=== PATIENT | female | born 1960 | race Two or more races ===

== ENCOUNTER → 2020-06-01 09:44 | Outpatient (BNVA) | payer OTHER, SELFPAY | PROVIDERS: PCP Physician Assistant; Visit Provider Dietitian, Registered ==

== ENCOUNTER 2020-06-02 11:01 | Outpatient (REF) | payer OTHER, SELFPAY ==
[2020-06-07 06:02] LABS: HPV mRNA E6/E7 rflx Not Detected (Not Detected)
== END 2020-06-02 11:02 | disposition home or self-care (01) ==
LOC: HO.LAB 11:01
PROVIDERS: PCP Physician Assistant; Visit Provider Advanced Practice Midwife
DX: Z01.419 Encounter for gynecological examination (general) (routine) without abnormal findings (principal); Z78.0 Asymptomatic menopausal state; Z11.51 Encounter for screening for human papillomavirus (HPV); E11.9 Type 2 diabetes mellitus without complications; E66.3 Overweight; E78.00 Pure hypercholesterolemia, unspecified; N64.4 Mastodynia; Z68.25 Body mass index [BMI] 25.0-25.9, adult
CPT/HCPCS: 36415; 87624; 88142

== ENCOUNTER → 2020-07-06 09:22 | Outpatient (BNVA) | payer OTHER, SELFPAY | PROVIDERS: PCP Physician Assistant; Visit Provider Dietitian, Registered ==

== ENCOUNTER 2020-07-11 14:22 | Outpatient (REF) | payer OTHER, SELFPAY ==
--- NOTE | ~2020-07-11 | MM_ITS ---
EXAMINATION: MM DIAGNOSTIC DIGITAL BREAST TOMOSYNTHESIS, LEFT US DIAGNOSTIC ULTRASOUND BREAST, LEFT CLINICAL INFORMATION: Enlarged painful nipple left breast. Patient also radiating around side of breast to back. Prior history reduction mammoplasty 2007. The lifetime risk of breast cancer based on the Tyrer-Cuzick Model is 5%. COMPARISON: Mammography: 12/09/2019, 11/26/2018, 10/13/2017 TECHNIQUE: Digital breast tomosynthesis is performed in both the craniocaudal and mediolateral oblique views along with computer-aided detection (CAD). Synthesized 2D images are generated from the tomosynthesis. Ultrasound left breast is targeted to the area of clinical concern retroareolar and periareolar region. Grayscale imaging and color Doppler are performed without and with harmonics. FINDINGS: There are scattered areas of fibroglandular density (ACR BI-RADS breast composition Category b). Breast tissue composition borders on predominantly fatty. Parenchymal pattern is similar to prior exams. There is no developing density or interval mass or abnormal calcifications. There is no interval skin thickening or coarsening of the Mauri's ligaments. Ultrasound left breast demonstrates no cystic or solid mass, architectural abnormality, or focal duct ectasia. No intradermal lesion or skin thickening or edema tracking in soft tissue planes. Results are discussed with the patient at time of visit. MM/MM tomosynthesis diagnostic LT IMPRESSION: 1. No mammographic evidence of malignancy or inflammatory changes. 2. Unremarkable targeted left breast ultrasound. ASSESSMENT: BI-RADS 1: Negative RECOMMENDATION: 1. Patient should be managed based on the clinical impression. If clinically indicated, further evaluation may be considered with surgical consult. Decision to proceed with biopsy should be based on clinical grounds and degree of clinical concern. 2. Otherwise, routine annual screening mammography. This patient's information was entered into a reminder system with a target due date for their next mammogram.
== END 2020-07-11 14:23 | disposition home or self-care (01) ==
LOC: HO.MAMMO 14:22
PROVIDERS: PCP Advanced Practice Midwife; Visit Provider Advanced Practice Midwife
DX: N64.4 Mastodynia (principal)
CPT/HCPCS: 76642; 77061; 77065

== ENCOUNTER → 2020-07-18 12:17 | Outpatient (BNVA) | payer OTHER, SELFPAY | PROVIDERS: PCP Physician Assistant; Visit Provider Advanced Practice Midwife ==

== ENCOUNTER 2020-08-03 12:42 | Outpatient (REF) | payer OTHER, SELFPAY ==
[2020-08-03 13:18] LABS: MANUAL DIFF FLAG NO
[2020-08-03 13:26] LABS: Basophils Percent Auto 0.7 % (0-2); Eosinophils Percent Auto 0.5 % (0-4); Hematocrit 37.6 % (37-47); Imm Gran Abs Auto 0.01 X10*3/uL (0.00-0.03); Imm Gran Pct Auto 0.2 % (0.0-0.4); Lymphocytes Absolute Auto 1.1 X10*3/uL (1.2-4.9); Lymphocytes Percent Auto 25.3 % (20-40); Mean Corpuscular HGB Conc 31.9 g/dl (31.0-35.0); Mean Corpuscular Hemoglobin 29.7 pg (27.0-33.0); Mean Corpuscular Volume 93.1 fL (80-98); Mean Platelet Volume 10.8 fL (9.4-12.3); Monocytes Absolute Auto 0.4 X10*3/uL (0.1-1.2); Monocytes Percent Auto 8.3 % (2-11); Neutrophils Absolute Auto 2.8 X10*3/uL (2.0-8.3); Platelet Count 178 X10*3/uL (160-400); Red Blood Count 4.04 X10*6/uL (4.20-5.50); White Blood Count 4.2 X10*3/uL (4.8-10.8)
[2020-08-03 13:50] LABS: Alanine Aminotransferase 11 U/L (0-31); Albumin Level 4.2 g/dL (3.5-5.0); Alkaline Phosphatase 40 U/L (39-117); Anion Gap 11 (12-20); Aspartate Amino Transferase 16 U/L (5-31); Bilirubin Total 0.4 mg/dL (0.0-1.0); Blood Urea Nitrogen 12 mg/dL (9-16); Calcium 9.1 mg/dL (8.4-10.2); Carbon Dioxide 31 mmol/L (22-29); Chloride 106 mmol/L (96-108); Cholesterol 217 mg/dL; Estimated Glomerular Filt Rate > 60; Glucose Fasting 145 mg/dL (60-99); HDL Cholesterol 45 mg/dL; LDL Cholesterol Calculated 146 mg/dl; Potassium 4.2 mmol/L (3.3-5.1); Sodium 144 mmol/L (135-145); Total Protein 7.1 g/dL (6.5-8.0); Triglycerides 131 mg/dL
[2020-08-03 14:12] LABS: TSH reflex Free T4 0.71 uIU/mL (0.32-4.0)
[2020-08-03 14:23] LABS: Estimated Average Glucose 140 mg/dL; Folate 8.4 ng/mL (> or = 4.0); Hemoglobin A1C 150.6069 umol/L; Hemoglobin A1c % 6.5 %; Vitamin B12 1842 pg/mL (200-900)
[2020-08-03 14:28] LABS: Glucose Urine UA NEG (NEG); Leukocyte Esterase Urine NEG (NEG); Nitrite Urine NEG (NEG); Urine Blood NEG (NEG); Urine Ketones NEG (NEG); Urine Protein NEG (NEG-TRACE)
[2020-08-03 14:42] LABS: Appearance Urine CLEAR; Color Urine YELLOW
[2020-08-03 14:50] LABS: Creatinine Urine 53.66 mg/dL; Microalbum/Creatinine Ratio Ur 9.3 ug/mg cr
[2020-08-04 09:09] LABS: Syphilis Screen Reactive (Nonreactive)
[2020-08-12 07:25] LABS: RPR Quantitative Non-Reactive (Nonreactive)
[2020-08-12 07:26] LABS: T.Pallidum Particle Agg Test Reactive (Nonreactive)
== END 2020-08-03 12:43 | disposition home or self-care (01) ==
LOC: HO.LAB 12:42
PROVIDERS: Internal Medicine; Absent Provider Psychiatry & Neurology Neurology; PCP Physician Assistant; Visit Provider Physician Assistant
DX: E11.9 Type 2 diabetes mellitus without complications (principal); E78.00 Pure hypercholesterolemia, unspecified; K21.9 Gastro-esophageal reflux disease without esophagitis; E55.9 Vitamin D deficiency, unspecified; G31.84 Mild cognitive impairment of uncertain or unknown etiology
CPT/HCPCS: 36415; 80053; 80061; 81003; 82043; 82306; 82607; 82746; 83036; 84443; 85025; 86592; 86780

== ENCOUNTER → 2020-08-10 12:03 | Outpatient (BNVA) | payer OTHER, SELFPAY | PROVIDERS: PCP Physician Assistant; Visit Provider Dietitian, Registered | DX: E11.9 Type 2 diabetes mellitus without complications (principal) | CPT/HCPCS: 97803 ==

== ENCOUNTER → 2020-09-13 13:20 | Outpatient (BNVA) | payer OTHER, SELFPAY | PROVIDERS: PCP Physician Assistant; Visit Provider Internal Medicine | DX: Z86.19 Personal history of other infectious and parasitic diseases (principal) | CPT/HCPCS: 99202 ==

== ENCOUNTER 2020-12-14 10:26 | Outpatient (REF) | payer OTHER, SELFPAY ==
--- NOTE | ~2020-12-14 | MM_ITS ---
EXAMINATION: MM SCREENING DIGITAL BREAST TOMOSYNTHESIS, BILATERAL CLINICAL INFORMATION: Screening. Asymptomatic. History reduction mammoplasty, 2008. The lifetime risk of breast cancer based on the Tyrer-Cuzick Model is 5%. COMPARISON: Mammography: 07/11/2020, 12/09/2019, 11/26/2018, 10/13/2017 TECHNIQUE: Digital breast tomosynthesis is performed in both the craniocaudal and mediolateral oblique views along with computer-aided detection (CAD). Synthesized 2D images are generated from the tomosynthesis. FINDINGS: There are scattered areas of fibroglandular density (ACR BI-RADS breast composition Category b). There are no significant masses, abnormal calcifications, or other abnormalities. Parenchymal pattern is similar to prior studies. No significant changes. MM/MM tomosynthesis screening BI IMPRESSION: No mammographic evidence of malignancy. ASSESSMENT: BI-RADS 1: Negative RECOMMENDATION: Routine annual mammography screening. This patient's information was entered into a reminder system with a target due date for their next mammogram.
[2020-12-14 11:19] LABS: Hematocrit 38.5 % (37-47); Hemoglobin 12.6 g/dl (12.0-16.0); Mean Corpuscular HGB Conc 32.7 g/dl (31.0-35.0); Mean Corpuscular Hemoglobin 29.3 pg (27.0-33.0); Mean Corpuscular Volume 89.5 fL (80-98); Mean Platelet Volume 10.2 fL (9.4-12.3); Platelet Count 188 X10*3/uL (160-400); Red Cell Distribution Width 12.3 % (11.0-16.0); White Blood Count 5.2 X10*3/uL (4.8-10.8)
[2020-12-14 11:28] LABS: Estimated Average Glucose 206 mg/dL; Hemoglobin A1c % 8.8 %
[2020-12-14 12:02] LABS: Alanine Aminotransferase 11 U/L (0-31); Albumin Level 4.2 g/dL (3.5-5.0); Alkaline Phosphatase 54 U/L (39-117); Anion Gap 14 (12-20); Aspartate Amino Transferase 16 U/L (5-31); Bilirubin Total 0.5 mg/dL (0.0-1.0); Blood Urea Nitrogen 13 mg/dL (9-16); Calcium 9.9 mg/dL (8.4-10.2); Carbon Dioxide 27 mmol/L (22-29); Chloride 105 mmol/L (96-108); Cholesterol 213 mg/dL; Estimated Glomerular Filt Rate > 60; Glucose Fasting 202 mg/dL (60-99); HDL Cholesterol 40 mg/dL; LDL Cholesterol Calculated 145 mg/dl; Potassium 4.3 mmol/L (3.3-5.1); Sodium 142 mmol/L (135-145); Total Protein 7.2 g/dL (6.5-8.0); Triglycerides 144 mg/dL
[2020-12-14 12:18] LABS: TSH reflex Free T4 0.44 uIU/mL (0.32-4.0)
== END 2020-12-14 10:27 | disposition home or self-care (01) ==
LOC: HO.MAMMO 10:26
PROVIDERS: Absent Provider Physician Assistant; PCP Physician Assistant; Visit Provider Physician Assistant
DX: Z12.31 Encounter for screening mammogram for malignant neoplasm of breast (principal); E11.9 Type 2 diabetes mellitus without complications; I10 Essential (primary) hypertension
CPT/HCPCS: 36415; 77063; 77067; 80053; 80061; 83036; 84443; 85027

== ENCOUNTER 2021-03-30 10:38 | Outpatient (REF) | payer OTHER, SELFPAY ==
--- NOTE | ~2021-03-30 | XR_ITS ---
EXAMINATION: XR SHOULDER, LEFT CLINICAL INFORMATION: Left shoulder pain COMPARISON: None TECHNIQUE: AP external rotation, Grashey, scapular Y, and axillary views of the left shoulder. FINDINGS: The bones and soft tissues are normal. No fracture. Glenohumeral and acromioclavicular alignment is anatomic with normal joint space. No abnormal soft tissue calcifications. XR/XR shoulder LT 1V IMPRESSION: Normal left shoulder.
[2021-03-30 10:55] LABS: Hematocrit 38.6 % (37.0-47.0); Hemoglobin 12.4 g/dl (12.0-16.0); Mean Corpuscular HGB Conc 32.1 g/dl (31.0-35.0); Mean Corpuscular Hemoglobin 29.5 pg (27.0-33.0); Mean Corpuscular Volume 91.7 fL (80.0-98.0); Mean Platelet Volume 10.5 fL (9.4-12.3); Platelet Count 187 X10*3/uL (160-400); Red Blood Count 4.21 X10*6/uL (4.20-5.50); Red Cell Distribution Width 12.6 % (11.0-16.0); White Blood Count 4.6 X10*3/uL (4.8-10.8)
[2021-03-30 11:53] LABS: Creatinine Urine 40.62 mg/dL; Microalbum/Creatinine Ratio Ur 24.6 ug/mg cr
[2021-03-30 12:01] LABS: Estimated Average Glucose 177 mg/dL; Hemoglobin A1c % 7.8 %
[2021-03-30 12:02] LABS: Alanine Aminotransferase 10 U/L (0-31); Albumin Level 3.9 g/dL (3.5-5.0); Alkaline Phosphatase 49 U/L (39-117); Anion Gap 12 (12-20); Aspartate Amino Transferase 16 U/L (5-31); Bilirubin Total 0.3 mg/dL (0.0-1.0); Blood Urea Nitrogen 12 mg/dL (9-16); Calcium 9.3 mg/dL (8.4-10.2); Carbon Dioxide 26 mmol/L (22-29); Chloride 106 mmol/L (96-108); Cholesterol 215 mg/dL; Estimated Glomerular Filt Rate > 60; Glucose Fasting 178 mg/dL (60-99); HDL Cholesterol 38 mg/dL; LDL Cholesterol Calculated 149 mg/dl; Potassium 4.1 mmol/L (3.3-5.1); Sodium 140 mmol/L (135-145); Total Protein 6.7 g/dL (6.5-8.0); Triglycerides 142 mg/dL
[2021-03-30 12:10] LABS: TSH reflex Free T4 1.03 uIU/mL (0.32-4.0)
== END 2021-03-30 10:39 | disposition home or self-care (01) ==
LOC: HO.LAB 10:38
PROVIDERS: PCP Physician Assistant; Visit Provider Physician Assistant
DX: E11.9 Type 2 diabetes mellitus without complications (principal); E78.00 Pure hypercholesterolemia, unspecified; M77.8 Other enthesopathies, not elsewhere classified
CPT/HCPCS: 36415; 73020; 80053; 80061; 82043; 83036; 84443; 85027

== ENCOUNTER 2021-05-21 14:04 | Outpatient (REF) | payer OTHER, SELFPAY ==
--- NOTE | ~2021-05-21 | XR_ITS ---
EXAMINATION: XR CHEST CLINICAL INFORMATION: Bronchitis COMPARISON: None TECHNIQUE: 2 views of the chest were obtained. FINDINGS: Lungs are well expanded and clear. No pulmonary mass, consolidation or pleural effusion. No evidence of interstitial disease. Cardiac silhouette has normal size and contour. Multilevel mild and moderate discovertebral degenerative change of the thoracic spine. XR/XR chest 2V IMPRESSION: No acute pulmonary disease.
== END 2021-05-21 14:05 | disposition home or self-care (01) ==
LOC: HO.XRAY 14:04
PROVIDERS: PCP Physician Assistant; Visit Provider Physician Assistant
DX: J40 Bronchitis, not specified as acute or chronic (principal)
CPT/HCPCS: 71046

== ENCOUNTER 2021-05-23 09:30 | Emergency (ER) | payer OTHER, SELFPAY ==
--- NOTE | ~2021-05-23 | XR_ITS ---
EXAMINATION: XR CHEST CLINICAL INFORMATION: Shortness of breath and cough COMPARISON: Previous chest x-ray recent 05/21/2021 TECHNIQUE: Frontal view of the chest was obtained. FINDINGS: The cardiac and mediastinal contours are stable. The lungs are clear. There is no pleural effusion or pneumothorax. There are degenerative changes of the spine. There are 2 surgical tacks or anchors in the right humeral head. XR/XR chest 1V IMPRESSION: No evidence for acute disease in the chest.
[2021-05-23 09:37] VITALS: BP 170/80; PULSE 89; RESP 18; TEMP 36.1; O2SAT 99; BMI 30.4
[2021-05-23 10:08] LABS: COVID-19 Test Negative (Negative)
--- NOTE | 2021-05-23 11:36 | ED.URI ---
HPI - URI/Sore Throat General Chief Complaint: Upper Respiratory Symptoms Stated Complaint: Cough Time Seen by Provider: 05/23/21 11:35 Source: patient Mode of arrival: ambulatory Limitations: no limitations History of Present Illness HPI Narrative: 61-year-old female past medical history significant for hypercholesterolemia, major depressive disorder, and diabetes preesents to ED with concerns of shortness of breath, and dry cough x2 weeks. Patient tells me that she has tried all veiu-aol-udfyfun medications and they have not helped. She tells me that the cough is intermittent in nature, she is not coughing anything up. She tells me it is uncomfortable. She tells me a week ago she got a chest x-ray which was normal. She tells me at this point is just very uncomfortable. She denies chest pain, nausea, vomiting, abdominal pain. She is vaccinated with Pfizer x2. No recent sick contacts. MD elicited complaint: cough Onset (ago): week(s) (2) Consistency: constant Severity: severe Able to tolerate fluids by mouth: Yes Exacerbating factors: nothing Relieving factors: nothing Associated symptoms: denies other symptoms Treatments prior to arrival: cold medicine Related Data Previous Rx's Medication Instructions Recorded magnesium oxide 250 mg PO DAILY #30 tab 11/23/20 nystatin 100,000 unit/mL oral 1 ml PO DAILY PRN #30 ml 12/11/20 suspension pioglitazone 45 mg tablet 45 mg PO DAILY 90 Days #90 tab 01/02/21 diclofenac sodium 75 mg 75 mg PO BID PRN 14 Days #28 tab 03/19/21 tablet,delayed release atorvastatin 20 mg tablet 20 mg PO BEDTIME 90 Days #90 tab 04/12/21 clotrimazole 1 % topical cream 1 appl TOPICAL DAILY 30 Days #45 g 04/12/21 (Athlete's Foot (clotrimazole)) escitalopram oxalate 20 mg tablet 20 mg PO DAILY 90 Days #90 tab 04/12/21 blood sugar diagnostic (FreeStyle 1 strip MISCELLANEOUS DAILY #50 04/30/21 Lite Strips) strip benzonatate 200 mg capsule 200 mg PO TID 4 Days #12 cap 05/14/21 prednisone 20 mg tablet 20 mg PO DAILY 4 Days #4 tab 05/17/21 albuterol sulfate 90 mcg/actuation 1 inh INHALATION QID 30 Days #8.5 g 05/22/21 aerosol inhaler albuterol sulfate 90 mcg/actuation 2 inh INHALATION Q4-6H PRN #1 ea 05/23/21 breath activated powder inhaler azithromycin 250 mg tablet See Rx Instructions .ROUTE 05/23/21 .COMPLEX #6 tab prednisone 20 mg tablet 40 mg PO DAILY 5 Days #10 tab 05/23/21 Allergies Allergy/AdvReac Type Severity Reaction Status Date / Time No Known Allergies Allergy Unknown Verified 04/12/21 10:14 Review of Systems Review of Systems: Constitutional : No Weight loss, No Fever, No Chills, + Fatigue, + Malaise ENT/Mouth : No sore throat, No Rhinorrhea Eyes: No Eye Pain, No Swelling, No Redness Cardiovascular : No Chest Pain, No SOB, No Dyspnea on Exertion, No Orthopnea, No Edema, No Palpitations Respiratory : + Cough, No Sputum, No Wheezing Gastrointestinal : No Nausea, No Vomiting, No Diarrhea, No Constipation, No abdominal Pain, No Hematochezia, No Melena Genitourinary : No Dysuria, No Urinary Frequency, No Hematuria, Musculoskeletal : No joint pain, No Myalgias, No Joint Swelling Skin : No Skin Lesions, No rash Neuro : No Weakness, No Numbness, No Dizziness, No Headache All other systems reviewed and are negative Yes all other systems are reviewed and are negative FORMERLY [facility], [facility] Past Medical History Attestation statement: The following information was validated with the patient. Source: old records reviewed and nursing notes reviewed Medical History Dermatitis Diabetes mellitus H/O syphilis LGSIL (low grade squamous intraepithelial dysplasia) Memory impairment Overweight (BMI 25.0-29.9) Pure hypercholesterolemia Surgical History History of arthroscopy of right shoulder History of hernia repair (~2001) Hx of tubal ligation Status post breast reduction (~2006) Family History Family History Father No problems noted. Mother Heart attack Brother No problems noted. Sister No problems noted. Son No problems noted. Son No problems noted. Son No problems noted. Daughter No problems noted. Daughter No problems noted. Social History Social History (Updated 04/12/21 @ 10:20 by Bob Santiago PA-C) Housing: Apartment Alcohol intake: never Patient Tobacco Use Status: Never used Tobacco e-Cigarette/Vaping Use: Never Used Second Hand Smoke Exposure: No Advance Directives: No Advance Directives Information Provided: No Patient : No service: No Current occupational status: retired Physical Exam Vital Signs: Vital Signs: Last Vital Signs Temp 97 F 05/23/21 09:37 Pulse 89 05/23/21 09:37 Resp 18 05/23/21 09:37 BP 170/80 H 05/23/21 09:37 Pulse Ox 99 05/23/21 09:37 BMI result Body Mass Index 30.4 VSS Appearance: Alert.? Oriented X3.? No acute distress.? Head: Normocephalic, atraumatic, no step-offs or deformities Eyes: Pupils equal, round and reactive to light.? ENT: Pharynx normal.? Neck: Normal inspection.? Neck supple.? CVS: Normal heart rate and rhythm.? Pulses normal.? Respiratory: No respiratory distress.? Breath sounds normal.? Abdomen: Soft and nontender.? Skin: Skin warm and dry.? Normal skin color.? Normal skin turgor.? Extremities: No lower extremity edema.? No calf ttp. 5/5 strength to bilateral upper and lower extremities Back: No midline tenderness, no C-spine tenderness, full range of motion, no CVA tenderness bilaterally Neuro: Oriented X 3.? No motor deficit.? No sensory deficit. Course Reevaluation(s) Reevaluation #1: D-dimer 216, no calf tenderness, no hypoxia, no tachycardia, no tachypnea Unlikely that this is a PE. CBC at baseline. No acute electrolyte abnormalities. CXR WNL. At this time I will discharge patient for treatment for bronchitis. I will give her Tessalon Perles and an inhaler. I have educated her on how to use an inhaler. Comfortable with discharge home. MDM - URI/Sore Throat MDM Narrative Medical decision making narrative: 1139 61 yo F pmhx hypercholesterolemia, major depressive disorder, and diabetes presents with SOB and dry cough X2 weeks. PE benign Plan- CXR, covid Medical Records Attestation: I reviewed the patient's medical records. Lab Data Attestation: I reviewed the patient's lab results. Result diagrams: 05/23/21 12:31 05/23/21 12:31 Labs: Lab Results 05/23/21 05/23/21 05/23/21 Range/Units 09:43 12:31 12:31 WBC 4.8 (4.8-10.8) X10*3/uL RBC 4.01 L (4.20-5.50) X10*6/uL Hgb 11.8 L (12.0-16.0) g/dl Hct 37.2 (37.0-47.0) % MCV 92.8 (80.0-98.0) fL MCH 29.4 (27.0-33.0) pg MCHC 31.7 (31.0-35.0) g/dl RDW 12.8 (11.0-16.0) % Plt Count 236 D (160-400) X10*3/uL MPV 9.9 (9.4-12.3) fL Immature Gran % (Auto) 0.2 (0.0-0.4) % Neut % (Auto) 58.8 (45-73) % Lymph % (Auto) 31.6 (20-40) % Bosque % (Auto) 8.4 (2-11) % Eos % (Auto) 0.6 (0-4) % Baso % (Auto) 0.4 (0-2) % Lymph # (Auto) 1.5 (1.2-4.9) X10*3/uL [place] # (Auto) 0.4 (0.1-1.2) X10*3/uL Eos # (Auto) 0.0 (0.0-0.4) X10*3/uL Baso # (Auto) 0.0 (0.0-0.2) X10*3/uL Abs Immat Gran (auto) 0.01 (0.00-0.03) X10*3/uL Absolute Neuts (auto) 2.8 (2.0-8.3) x10*3/uL Absolute Nucleated RBC 0.000 (0.0-0.012) X10*3/uL Nucleated RBC % (auto) 0.0 (0.0-0.2) /100WBC D-Dimer High Sensitivty 216 NG/ML Sodium (135-145) mmol/L Potassium (3.3-5.1) mmol/L Chloride (96-108) mmol/L Carbon Dioxide (22-29) mmol/L Anion Gap (12-20) BUN (9-16) mg/dL Creatinine (0.5-1.4) mg/dL Estim Creat Clear Calc Estimated GFR Random Glucose (60-115) mg/dL Calcium (8.4-10.2) mg/dL Total Bilirubin (0.0-1.0) mg/dL AST (5-31) U/L ALT (0-31) U/L Alkaline Phosphatase (39-117) U/L Total Protein (6.5-8.0) g/dL Albumin (3.5-5.0) g/dL COVID-19 (BENIGNO) Negative (Negative) COVID-19 Clin Com See Note 05/23/21 Range/Units 12:31 WBC (4.8-10.8) X10*3/uL RBC (4.20-5.50) X10*6/uL Hgb (12.0-16.0) g/dl Hct (37.0-47.0) % MCV (80.0-98.0) fL MCH (27.0-33.0) pg MCHC (31.0-35.0) g/dl RDW (11.0-16.0) % Plt Count (160-400) X10*3/uL MPV (9.4-12.3) fL Immature Gran % (Auto) (0.0-0.4) % Neut % (Auto) (45-73) % Lymph % (Auto) (20-40) % Bosque % (Auto) (2-11) % Eos % (Auto) (0-4) % Baso % (Auto) (0-2) % Lymph # (Auto) (1.2-4.9) X10*3/uL Bosque # (Auto) (0.1-1.2) X10*3/uL Eos # (Auto) (0.0-0.4) X10*3/uL Baso # (Auto) (0.0-0.2) X10*3/uL Abs Immat Gran (auto) (0.00-0.03) X10*3/uL Absolute Neuts (auto) (2.0-8.3) x10*3/uL Absolute Nucleated RBC (0.0-0.012) X10*3/uL Nucleated RBC % (auto) (0.0-0.2) /100WBC D-Dimer High Sensitivty NG/ML Sodium 142 (135-145) mmol/L Potassium 4.0 (3.3-5.1) mmol/L Chloride 105 (96-108) mmol/L Carbon Dioxide 32 H (22-29) mmol/L Anion Gap 9 L (12-20) BUN 6 L (9-16) mg/dL Creatinine 0.72 (0.5-1.4) mg/dL Estim Creat Clear Calc 83.0 Estimated GFR > 60 Random Glucose 186 H (60-115) mg/dL Calcium 9.5 (8.4-10.2) mg/dL Total Bilirubin 0.4 (0.0-1.0) mg/dL AST 13 (5-31) U/L ALT 8 (0-31) U/L Alkaline Phosphatase 50 (39-117) U/L Total Protein 6.8 (6.5-8.0) g/dL Albumin 3.8 (3.5-5.0) g/dL COVID-19 (BENIGNO) (Negative) COVID-19 Clin Com Imaging Data Chest x-ray: Attestation: I personally reviewed and interpreted this imaging study as follows: Radiologist's impression: FINDINGS: The cardiac and mediastinal contours are stable. The lungs are clear. There is no pleural effusion or pneumothorax. There are degenerative changes of the spine. There are 2 surgical tacks or anchors in the right humeral head. XR/XR chest 1V IMPRESSION: No evidence for acute disease in the chest. Critical Care Time Critical Care Time Critical Care Time: No Discharge Plan Discharge Clinical Impression: Bronchitis Patient Disposition: Home, Self-Care Instructions: Acute Bronchitis (ED) Additional Instructions: Take your medications as prescribed. If you were prescribed antibiotics today, it is important that you take your medication to their entirety, do not skip any doses, do not finish them early. Follow-up with your primary care provider this week. Return to the emergency department with new or worsening symptoms. In case of emergency call 911 COVID negative today. Prescriptions: New azithromycin 250 mg tablet See Rx Instructions .ROUTE .COMPLEX Qty: 6 RF: 0 prednisone 20 mg tablet 40 mg PO DAILY 5 Days Qty: 10 RF: 0 albuterol sulfate 90 mcg/actuation aerosol powdr breath activated 2 inh inhalation Q4-6H PRN (Reason: shortness of breath or wheezing) Qty: 1 RF: 0 No Action magnesium oxide 250 mg magnesium tablet 250 mg PO DAILY Qty: 30 RF: 3 pioglitazone 45 mg tablet 45 mg PO DAILY 90 Days Qty: 90 RF: 1 FreeStyle Lite Strips Strip 1 strip miscellaneous DAILY Qty: 50 RF: 5 benzonatate 200 mg capsule 200 mg PO TID 4 Days Qty: 12 RF: 0 prednisone 20 mg tablet 20 mg PO DAILY 4 Days Qty: 4 RF: 0 albuterol sulfate 90 mcg/actuation HFA aerosol inhaler 1 inh inhalation QID 30 Days Qty: 8.5 RF: 0 nystatin 100,000 unit/mL suspension 1 ml PO DAILY PRN (Reason: for candidiasis) Qty: 30 RF: 2 clotrimazole [Athlete's Foot (clotrimazole)] 1 % cream 1 appl topical DAILY 30 Days Qty: 45 RF: 1 escitalopram oxalate 20 mg tablet 20 mg PO DAILY 90 Days Qty: 90 RF: 2 atorvastatin 20 mg tablet 20 mg PO BEDTIME 90 Days Qty: 90 RF: 1 diclofenac sodium 75 mg tablet,delayed release (DR/EC) 75 mg PO BID PRN (Reason: pain) 14 Days Qty: 28 RF: 0 Referrals: Bob Santiago PA-C [Primary Care Provider] - 2 days
[2021-05-23 12:36] LABS: MANUAL DIFF FLAG NO
[2021-05-23 12:44] LABS: Basophils Percent Auto 0.4 % (0-2); Eosinophils Percent Auto 0.6 % (0-4); Hematocrit 37.2 % (37.0-47.0); Hemoglobin 11.8 g/dl (12.0-16.0); Imm Gran Abs Auto 0.01 X10*3/uL (0.00-0.03); Imm Gran Pct Auto 0.2 % (0.0-0.4); Lymphocytes Absolute Auto 1.5 X10*3/uL (1.2-4.9); Lymphocytes Percent Auto 31.6 % (20-40); Mean Corpuscular HGB Conc 31.7 g/dl (31.0-35.0); Mean Corpuscular Hemoglobin 29.4 pg (27.0-33.0); Mean Corpuscular Volume 92.8 fL (80.0-98.0); Mean Platelet Volume 9.9 fL (9.4-12.3); Monocytes Absolute Auto 0.4 X10*3/uL (0.1-1.2); Monocytes Percent Auto 8.4 % (2-11); Neutrophils Absolute Auto 2.8 x10*3/uL (2.0-8.3); Neutrophils Percent Auto 58.8 % (45-73); Platelet Count 236 X10*3/uL (160-400); Red Blood Count 4.01 X10*6/uL (4.20-5.50); Red Cell Distribution Width 12.8 % (11.0-16.0); White Blood Count 4.8 X10*3/uL (4.8-10.8)
[2021-05-23 12:54] LABS: D Dimer High Sensitivity 216 NG/ML
[2021-05-23 13:09] LABS: Alanine Aminotransferase 8 U/L (0-31); Albumin Level 3.8 g/dL (3.5-5.0); Alkaline Phosphatase 50 U/L (39-117); Anion Gap 9 (12-20); Aspartate Amino Transferase 13 U/L (5-31); Bilirubin Total 0.4 mg/dL (0.0-1.0); Blood Urea Nitrogen 6 mg/dL (9-16); Calcium 9.5 mg/dL (8.4-10.2); Carbon Dioxide 32 mmol/L (22-29); Chloride 105 mmol/L (96-108); Estimated Glomerular Filt Rate > 60; Glucose Random 186 mg/dL (60-115); Sodium 142 mmol/L (135-145); Total Protein 6.8 g/dL (6.5-8.0)
== END 2021-05-23 14:23 | disposition home or self-care (01) ==
PROVIDERS: Physician Assistant; Emergency Provider Emergency Medicine Emergency Medical Services; PCP Physician Assistant
DX: J20.8 Acute bronchitis due to other specified organisms (principal); R05.9 Cough, unspecified; F33.1 Major depressive disorder, recurrent, moderate; Z20.822 Contact with and (suspected) exposure to COVID-19; Z79.899 Other long term (current) drug therapy
CPT/HCPCS: 36415; 71045; 80053; 85025; 85379; 87635; 99283

== ENCOUNTER 2021-07-18 12:01 | Outpatient (REF) | payer OTHER, SELFPAY ==
[2021-07-18 13:12] LABS: Hematocrit 40.2 % (37.0-47.0); Hemoglobin 12.5 g/dl (12.0-16.0); Mean Corpuscular HGB Conc 31.1 g/dl (31.0-35.0); Mean Corpuscular Hemoglobin 29.5 pg (27.0-33.0); Mean Corpuscular Volume 94.8 fL (80.0-98.0); Platelet Count 174 X10*3/uL (160-400); Red Blood Count 4.24 X10*6/uL (4.20-5.50); Red Cell Distribution Width 13.2 % (11.0-16.0); White Blood Count 4.5 X10*3/uL (4.8-10.8)
[2021-07-18 13:56] LABS: Alanine Aminotransferase 10 U/L (0-31); Albumin Level 4.1 g/dL (3.5-5.0); Alkaline Phosphatase 59 U/L (39-117); Anion Gap 11 (12-20); Aspartate Amino Transferase 16 U/L (5-31); Bilirubin Total 0.5 mg/dL (0.0-1.0); Blood Urea Nitrogen 9 mg/dL (9-16); Calcium 9.8 mg/dL (8.4-10.2); Carbon Dioxide 30 mmol/L (22-29); Chloride 105 mmol/L (96-108); Cholesterol 149 mg/dL; Estimated Glomerular Filt Rate > 60; Glucose Fasting 147 mg/dL (60-99); HDL Cholesterol 37 mg/dL; LDL Cholesterol Calculated 91 mg/dl; Potassium 4.2 mmol/L (3.3-5.1); Sodium 142 mmol/L (135-145); Total Protein 7.1 g/dL (6.5-8.0); Triglycerides 108 mg/dL
[2021-07-18 14:17] LABS: Estimated Average Glucose 186 mg/dL; Hemoglobin A1c % 8.1 %
== END 2021-07-18 12:02 | disposition home or self-care (01) ==
LOC: HO.LAB 12:01
PROVIDERS: PCP Physician Assistant; Visit Provider Physician Assistant
DX: E11.9 Type 2 diabetes mellitus without complications (principal); E78.00 Pure hypercholesterolemia, unspecified
CPT/HCPCS: 36415; 80053; 80061; 83036; 84443; 85027

== ENCOUNTER → 2021-08-29 10:14 | Outpatient (BNVA) | payer OTHER, SELFPAY | PROVIDERS: PCP Physician Assistant; Visit Provider Advanced Practice Midwife | DX: Z01.419 Encounter for gynecological examination (general) (routine) without abnormal findings (principal) ==

== ENCOUNTER 2021-10-16 11:00 | Outpatient (RCR) | payer OTHER, SELFPAY ==
--- NOTE | 2021-08-30 14:11 | MHC.PT.EP ---
[facility] [place] Office [place] Office [place] Office [address] [phone] F: [phone] F: [phone] F: [phone] F: [phone] Physical Therapy Plan of Care Date of Evaluation: Date of Surgery: n/a Diagnosis: other enthesopathies, not elsewhere classified Assessment: Pt is a pleasant 61yo F who presents to PT with chronic L shoulder pain. She presents today with current impairments in pain, decreased shoulder ROM, decreased strength, and impaired posture. She is limited functionally by reaching up, reaching across body, lifting, overhead ADLs, and sleeping. She is a good candidate for skilled PT in order to address current impairments in order to facilitate return to PLOF. She will be seen 2x/week for 4 weeks and will be reassessed at that time. Frequency and Duration: The patient will be seen 2x/week for 4 weeks Short Term Goals: Pt will be I with HEP to promote self management of symptoms Pt will improve L shoulder flex by 5 deg Pt will improve L shoulder ER by 5 deg Mcfp Goals: Pt will demonstrate full ROM and strength throughout L shoulder to assist with daily functional tasks Pt will perform over ADLs with minimal to no compensation Pt will demonstrate improvements in function as evidenced by statistically significant improvement in SPADI outcome measure Treatment Plan: Modalities to reduce pain, spasms and effusion. Manual therapy to restore motion and function. Therapeutic exercise to improve strength and flexibility. Neuromuscular re-education for posture and balance. Therapeutic activities to return to functional activities of daily living. Electronically signed by: Mariana Dey, PT, DPT Please sign and return to therapist. Thank you for your referral.
--- NOTE | 2021-10-16 12:01 | MHC.PT.DC ---
[facility] [place] Office [place] Office [place] Office [address] [phone] F: [phone] F: [phone] F: [phone] F: [phone] Physical Therapy Discharge Report Diagnosis: other enthesopathies, not elsewhere classified Date of Surgery: n/a Date of Evaluation: 08/30/21 Date of Discharge: 10/16/21 Treatments to Date: 10 Cancellations to Date: No Shows to Date: Discharge Status: Achieved Goals Improved Function Independent with HEP Discharge Summary: Pt has made excellent progress since SOC. She demonstrates ROM and strength WFL all planes of L shoulder. She has met most of her STGs and LTGs. She has improved her score on SPADI from 73/130 on initial PT evaluation to 5/130 today. Pt is I with HEP. Pt is being D/C from skilled PT. Provided pt with printed, updated copy of HEP and pt verbalized understanding. Pt reports no further questions or concerns for PT at this time. Electronically signed by: Mariana Dey, PT, DPT Please sign and return to therapist. Thank you for your referral.
== END 2021-10-16 12:01 | disposition home or self-care (01) ==
LOC: HO.PT 11:00
PROVIDERS: Visit Provider Physician Assistant
DX: M77.8 Other enthesopathies, not elsewhere classified (principal)
CPT/HCPCS: 97110; 97140; 97162; 97530

== ENCOUNTER 2021-10-30 11:50 | Outpatient (REF) | payer OTHER, SELFPAY ==
--- NOTE | 2021-10-30 11:54 | ECG_ITS ---
Test Reason : PALPITATIONS Blood Pressure : / mmHG Vent. Rate : 070 BPM Atrial Rate : 070 BPM P-R Int : 170 ms QRS Dur : 080 ms QT Int : 408 ms P-R-T Axes : 074 054 031 degrees QTc Int : 440 ms Normal sinus rhythm Normal ECG No previous ECGs available Referred By: Che Valdovinos Electronically Signed By:DOROTHY GARCÍA
[2021-10-30 12:36] LABS: Hematocrit 37.5 % (37.0-47.0); Hemoglobin 11.9 g/dl (12.0-16.0); Mean Corpuscular HGB Conc 31.7 g/dl (31.0-35.0); Mean Corpuscular Hemoglobin 29.5 pg (27.0-33.0); Mean Corpuscular Volume 92.8 fL (80.0-98.0); Mean Platelet Volume 10.5 fL (9.4-12.3); Platelet Count 167 X10*3/uL (160-400); Red Blood Count 4.04 X10*6/uL (4.20-5.50); Red Cell Distribution Width 13.2 % (11.0-16.0); White Blood Count 4.3 X10*3/uL (4.8-10.8)
[2021-10-30 12:55] LABS: Estimated Average Glucose 140 mg/dL; Hemoglobin A1c % 6.5 %
[2021-10-30 13:01] LABS: Alanine Aminotransferase 10 U/L (0-31); Alkaline Phosphatase 54 U/L (39-117); Anion Gap 10 (12-20); Aspartate Amino Transferase 16 U/L (5-31); Bilirubin Total 0.5 mg/dL (0.0-1.0); Blood Urea Nitrogen 9 mg/dL (9-16); Calcium 9.5 mg/dL (8.4-10.2); Carbon Dioxide 30 mmol/L (22-29); Chloride 105 mmol/L (96-108); Cholesterol 211 mg/dL; Estimated Glomerular Filt Rate > 60; Glucose Fasting 121 mg/dL (60-99); HDL Cholesterol 32 mg/dL; LDL Cholesterol Calculated 153 mg/dl; Potassium 4.4 mmol/L (3.3-5.1); Sodium 141 mmol/L (135-145); Total Protein 6.7 g/dL (6.5-8.0); Triglycerides 131 mg/dL
[2021-10-30 13:23] LABS: TSH reflex Free T4 0.42 uIU/mL (0.32-4.0)
[2021-10-30 14:05] LABS: Creatinine Urine 77.96 mg/dL; Microalbum/Creatinine Ratio Ur 14.1 ug/mg cr
== END 2021-10-30 11:51 | disposition home or self-care (01) ==
LOC: HO.LAB 11:50
PROVIDERS: Absent Provider Nurse Practitioner Family; PCP Physician Assistant; Visit Provider Physician Assistant
DX: R00.2 Palpitations (principal); R42 Dizziness and giddiness; E11.9 Type 2 diabetes mellitus without complications
CPT/HCPCS: 36415; 80053; 80061; 82043; 83036; 84443; 85027; 93005

== ENCOUNTER 2021-12-17 14:57 | Outpatient (REF) | payer OTHER, SELFPAY ==
--- NOTE | ~2021-12-17 | MM_ITS ---
EXAMINATION: MM SCREENING DIGITAL BREAST TOMOSYNTHESIS, BILATERAL CLINICAL INFORMATION: Screening. Asymptomatic. Remote history reduction mammoplasty, 2008. The lifetime risk of breast cancer based on the Tyrer-Cuzick Model is 5%. COMPARISON: Mammography: 12/14/2020, 07/11/2020, 12/09/2019, 11/26/2018 TECHNIQUE: Digital breast tomosynthesis is performed in both the craniocaudal and mediolateral oblique views along with computer-aided detection (CAD). Synthesized 2D images are generated from the tomosynthesis. FINDINGS: There are scattered areas of fibroglandular density (ACR BI-RADS breast composition Category b). There are no significant masses, abnormal calcifications, or other abnormalities. Parenchymal pattern is similar to prior studies. There is no developing density or architectural abnormality. The axilla and skin contours are unremarkable. No significant changes. MM/MM tomosynthesis screening BI IMPRESSION: No mammographic evidence of malignancy. ASSESSMENT: BI-RADS 1: Negative RECOMMENDATION: Routine annual mammography screening. This patient's information was entered into a reminder system with a target due date for their next mammogram.
== END 2021-12-17 14:58 | disposition home or self-care (01) ==
LOC: HO.MAMMO 14:57
PROVIDERS: PCP Physician Assistant; Visit Provider Physician Assistant
DX: Z12.31 Encounter for screening mammogram for malignant neoplasm of breast (principal)
CPT/HCPCS: 77063; 77067

== ENCOUNTER 2022-01-05 23:47 | Emergency (ER) | payer OTHER, SELFPAY ==
[2022-01-06 00:26] VITALS: BP 136/76; PULSE 100; RESP 20; TEMP 37.4; O2SAT 98; BMI 29.7
[2022-01-06 00:49] LABS: Appearance Urine Turbid; Color Urine Orange; Glucose Urine UA Negative (Negative); Leukocyte Esterase Urine Large (3+) (Negative); Nitrite Urine Positive (Negative); PH 6.5 (5.0-9.0); Urine Blood Large (3+) (Negative); Urine Ketones Negative (Negative); Urine Protein 100 (2+) mg/dL (Neg-Trace)
[2022-01-06 01:01] LABS: Hyaline Casts Urine 0-2 /LPF (0-2); RBC Urine >20 /HPF (0-2); Squamous Epithelial Cell Urine 0-2 /HPF (0-2); UACC Culture Trigger YES; WBC Urine >50 /HPF (0-5)
[2022-01-06 01:02] LABS: Bacteria Urine Trace (None Seen)
== END 2022-01-06 03:14 | disposition left against medical advice (07) ==
PROVIDERS: Emergency Provider Emergency Medicine
DX: R30.0 Dysuria (principal); Z79.899 Other long term (current) drug therapy
CPT/HCPCS: 81001; 87086; 87088; 87186; 99282

== ENCOUNTER 2022-01-08 10:48 | Outpatient (REF) | payer OTHER, SELFPAY ==
--- NOTE | 2022-01-08 13:38 | PFT_ITS ---
FLOWS: FEV1 86% of predicted at 2.15 L. FVC 76% of predicted at 2.40 L. FEV1 to FVC ratio of 0.90. No bronchodilator response. LUNG VOLUMES: Total lung capacity 82% of predicted at 4.16 L. Residual volume 75% of predicted at 1.55 L. Slow vital capacity 86% of predicted at 2.61 L. Expiratory reserve volume 74% of predicted at 0.61 L. Diffusion capacity is mildly decreased, diffusion capacity corrects to normal after correction for alveolar ventilation. IMPRESSION: No obstructive or restrictive ventilatory defect. No bronchodilator response. Essentially normal pulmonary function test. MD SOY Bhandari/MODL / [id number]
== END 2022-01-08 10:49 | disposition home or self-care (01) ==
LOC: HO.RESP 10:48
PROVIDERS: PCP Physician Assistant; Visit Provider Physician Assistant
DX: R05.8 Other specified cough (principal)
CPT/HCPCS: 94060; 94727; 94729

== ENCOUNTER 2022-01-14 13:14 | Outpatient (REF) | payer OTHER, SELFPAY ==
[2022-01-14 14:47] LABS: Appearance Urine Clear; Color Urine Yellow; Glucose Urine UA Negative (Negative); Leukocyte Esterase Urine Negative (Negative); Nitrite Urine Negative (Negative); PH 6.5 (5.0-9.0); Specific Gravity - Urine 1.015 (1.005-1.025); Urine Blood Negative (Negative); Urine Ketones Negative (Negative); Urine Protein Negative (Neg-Trace)
== END 2022-01-14 13:15 | disposition home or self-care (01) ==
LOC: HO.LAB 13:14
PROVIDERS: PCP Physician Assistant; Visit Provider Physician Assistant
DX: R30.0 Dysuria (principal)
CPT/HCPCS: 81003

== ENCOUNTER 2022-01-28 08:44 | Outpatient (REF) | payer OTHER, SELFPAY ==
[2022-01-28 16:06] LABS: CT PCR NOT DETECTED (Not Detect.); NG PCR NOT DETECTED (Not Detect.)
[2022-01-29 11:09] LABS: BV Int Neg Control Negative (Negative); BV Int Pos Control Positive (Positive)
== END 2022-01-28 08:45 | disposition home or self-care (01) ==
LOC: HO.LNP 08:44
PROVIDERS: PCP Physician Assistant; Visit Provider Advanced Practice Midwife
DX: Z11.3 Encounter for screening for infections with a predominantly sexual mode of transmission (principal); R10.2 Pelvic and perineal pain; Z20.2 Contact with and (suspected) exposure to infections with a predominantly sexual mode of transmission; R30.0 Dysuria
CPT/HCPCS: 81003; 87480; 87491; 87510; 87591; 87660; 99212

== ENCOUNTER 2022-04-03 11:10 | Outpatient (REF) | payer OTHER, SELFPAY ==
[2022-04-03 12:15] LABS: Hemoglobin 12.8 g/dl (12.0-16.0); Mean Corpuscular HGB Conc 31.2 g/dl (31.0-35.0); Mean Corpuscular Hemoglobin 29.1 pg (27.0-33.0); Mean Corpuscular Volume 93.2 fL (80.0-98.0); Platelet Count 183 X10*3/uL (160-400); Red Cell Distribution Width 13.3 % (11.0-16.0); White Blood Count 4.2 X10*3/uL (4.8-10.8)
[2022-04-03 12:33] LABS: Estimated Average Glucose 146 mg/dL; Hemoglobin A1c % 6.7 %
[2022-04-03 12:59] LABS: Alanine Aminotransferase 9 U/L (0-31); Albumin Level 4.3 g/dL (3.5-5.0); Alkaline Phosphatase 59 U/L (39-117); Anion Gap 14 (12-20); Aspartate Amino Transferase 15 U/L (5-31); Bilirubin Total 0.6 mg/dL (0.0-1.0); Blood Urea Nitrogen 10 mg/dL (9-16); Carbon Dioxide 31 mmol/L (22-29); Chloride 102 mmol/L (96-108); Cholesterol 132 mg/dL; Estimated Glomerular Filt Rate > 60; Glucose Fasting 170 mg/dL (60-99); HDL Cholesterol 38 mg/dL; LDL Cholesterol Calculated 80 mg/dl; Potassium 4.5 mmol/L (3.3-5.1); Sodium 142 mmol/L (135-145); TSH reflex Free T4 0.93 uIU/mL (0.32-4.0); Total Protein 7.2 g/dL (6.5-8.0); Triglycerides 72 mg/dL
== END 2022-04-03 11:11 | disposition home or self-care (01) ==
LOC: HO.LAB 11:10
PROVIDERS: PCP Physician Assistant; Visit Provider Physician Assistant
DX: E11.9 Type 2 diabetes mellitus without complications (principal); E78.00 Pure hypercholesterolemia, unspecified; M75.112 Incomplete rotator cuff tear or rupture of left shoulder, not specified as traumatic
CPT/HCPCS: 36415; 80053; 80061; 83036; 84443; 85027

== ENCOUNTER 2022-04-17 12:52 | Outpatient (REF) | payer OTHER, SELFPAY ==
--- NOTE | ~2022-04-17 | MR_ITS ---
EXAMINATION: MRI LEFT SHOULDER WITHOUT CONTRAST CLINICAL INFORMATION: Left shoulder pain COMPARISON: Radiographs 03/30/2021 TECHNIQUE: MRI of the shoulder without contrast is performed on a 1.5 Carol high-field scanner. FINDINGS: ROTATOR CUFF: Full-thickness tear of the anterior supraspinatus tendon insertion measuring approximately 9 x 9 mm. There is an intramuscular cyst extending longitudinally within the deep aspect of the infraspinatus muscle which implies the presence of an undersurface partial tear although this is not clearly demonstrated. Minimal supraspinatus muscle atrophy. BICEPS: Focal biceps tendinopathy with ill-defined interstitial partial tearing just proximal to the bicipital groove. CORACOACROMIAL ARCH: The undersurface of the acromion is curved with mild subacromial spurring. The acromioclavicular joint is normal. LABRUM/CAPSULE: No definite labral tear. GLENOHUMERAL JOINT/MARROW: There is a degenerative cyst at the anterior aspect of the greater tuberosity, and also cyst of the anterior humeral head. No significant joint effusion. ADDITIONAL FINDINGS: None. MR/MR shoulder LT wo con IMPRESSION: 1. Full-thickness insertional tear of the supraspinatus tendon anteriorly measuring approximately 9 x 9 mm. 2. Intramuscular cyst extending longitudinally within the infraspinatus muscle implies the presence of an undersurface partial tear although this is not clearly demonstrated. 3. Mild subacromial spurring. 4. Focal biceps tendinopathy with ill-defined interstitial partial tearing just proximal to the bicipital groove.
== END 2022-04-17 12:53 | disposition home or self-care (01) ==
LOC: HO.MRI 12:52
PROVIDERS: Visit Provider Physician Assistant
DX: M75.112 Incomplete rotator cuff tear or rupture of left shoulder, not specified as traumatic (principal)
CPT/HCPCS: 73221

== ENCOUNTER 2022-05-07 10:12 | Outpatient (REF) | payer OTHER, SELFPAY ==
[2022-05-07 11:53] LABS: Appearance Urine Clear; Color Urine Yellow; Glucose Urine UA Negative (Negative); Leukocyte Esterase Urine Trace (Negative); Nitrite Urine Negative (Negative); PH 5.5 (5.0-9.0); Specific Gravity - Urine 1.015 (1.005-1.025); UMIC TRIGGER UACC YES; Urine Blood Negative (Negative); Urine Ketones Negative (Negative); Urine Protein Negative (Neg-Trace)
[2022-05-07 11:59] LABS: Bacteria Urine None Seen (None Seen); Hyaline Casts Urine 0-2 /LPF (0-2); RBC Urine 0-2 /HPF (0-2); Squamous Epithelial Cell Urine 0-2 /HPF (0-2); WBC Urine 0-5 /HPF (0-5)
== END 2022-05-07 10:13 | disposition home or self-care (01) ==
LOC: HO.LAB 10:12
PROVIDERS: PCP Physician Assistant; Visit Provider Nurse Practitioner Family
DX: N39.0 Urinary tract infection, site not specified (principal)
CPT/HCPCS: 81001

== ENCOUNTER 2022-05-10 14:57 | Outpatient (REF) | payer OTHER, SELFPAY ==
--- NOTE | ~2022-05-10 | US_ITS ---
EXAMINATION: US PELVIS LIMITED (BLADDER) CLINICAL INFORMATION: Pelvic and perineal pain. Frequent UTIs. COMPARISON: None TECHNIQUE: Real-time imaging of the bladder. FINDINGS: BLADDER: Well distended and normal. Bilateral ureteral jets are demonstrated. Prevoid bladder volume is 267 mL. Postvoid bladder volume is 50 mL. US/US bladder IMPRESSION: Post void residual bladder volume of 50 mL. Otherwise unremarkable appearance of the bladder.
== END 2022-05-10 14:58 | disposition home or self-care (01) ==
LOC: HO.US 14:57
PROVIDERS: Visit Provider Nurse Practitioner Family
DX: R10.2 Pelvic and perineal pain (principal); N39.0 Urinary tract infection, site not specified
CPT/HCPCS: 76857

== ENCOUNTER 2022-06-17 09:41 | Outpatient (REF) | payer OTHER, SELFPAY ==
--- NOTE | ~2022-06-17 | XR_ITS ---
EXAMINATION: XR CHEST CLINICAL INFORMATION: Hemoptysis COMPARISON: May 23, 2021 TECHNIQUE: 2 views of the chest were obtained. FINDINGS: No significant abnormality is noted involving the heart, lungs, mediastinum, bony thorax or soft tissues. Previous right shoulder surgery with tacks in place in the humeral head. XR/XR chest 2V IMPRESSION: No acute disease.
[2022-06-17 09:56] LABS: MANUAL DIFF FLAG NO
[2022-06-17 10:51] LABS: Basophils Percent Auto 0.7 % (0-2); Eosinophils Percent Auto 0.9 % (0-4); Hematocrit 39.4 % (37.0-47.0); Hemoglobin 12.2 g/dl (12.0-16.0); Imm Gran Abs Auto 0.01 X10*3/uL (0.00-0.03); Imm Gran Pct Auto 0.2 % (0.0-0.4); Lymphocytes Absolute Auto 1.4 X10*3/uL (1.2-4.9); Lymphocytes Percent Auto 32.8 % (20-40); Mean Corpuscular Hemoglobin 28.8 pg (27.0-33.0); Mean Corpuscular Volume 93.1 fL (80.0-98.0); Monocytes Absolute Auto 0.4 X10*3/uL (0.1-1.2); Monocytes Percent Auto 9.2 % (2-11); Neutrophils Absolute Auto 2.5 x10*3/uL (2.0-8.3); Neutrophils Percent Auto 56.2 % (45-73); Platelet Count 175 X10*3/uL (160-400); Red Blood Count 4.23 X10*6/uL (4.20-5.50); Red Cell Distribution Width 13.7 % (11.0-16.0); White Blood Count 4.4 X10*3/uL (4.8-10.8)
[2022-06-17 12:14] LABS: Appearance Urine Clear; Color Urine Yellow; Glucose Urine UA Negative (Negative); Leukocyte Esterase Urine Negative (Negative); Nitrite Urine Negative (Negative); PH 5.5 (5.0-9.0); Specific Gravity - Urine 1.015 (1.005-1.025); Urine Blood Negative (Negative); Urine Ketones Negative (Negative); Urine Protein Negative (Neg-Trace)
== END 2022-06-17 09:42 | disposition home or self-care (01) ==
LOC: HO.LAB 09:41
PROVIDERS: PCP Physician Assistant; Visit Provider Nurse Practitioner Family
DX: Z13.0 Encounter for screening for diseases of the blood and blood-forming organs and certain disorders involving the immune mechanism (principal); N39.0 Urinary tract infection, site not specified; R04.2 Hemoptysis
CPT/HCPCS: 36415; 71046; 81003; 85025

== ENCOUNTER 2022-06-26 17:07 | Outpatient (REF) | payer OTHER, SELFPAY ==
[2022-06-26 18:39] LABS: Influenza A PCR NEGATIVE (Negative); Influenza B PCR NEGATIVE (Negative); Resp Syncy Virus RNA Qual PCR NEGATIVE (Negative); SARS COV2 PCR INHOUSE NEGATIVE (Negative)
== END 2022-06-26 17:08 | disposition home or self-care (01) ==
LOC: HO.LNP 17:07
PROVIDERS: Referring Provider Nurse Practitioner Family; Visit Provider Nurse Practitioner Family
DX: Z20.822 Contact with and (suspected) exposure to COVID-19 (principal); R05.9 Cough, unspecified
CPT/HCPCS: 0241U

== ENCOUNTER 2022-07-05 11:01 | Outpatient (REF) | payer OTHER, SELFPAY | END 2022-07-05 11:02 | disposition home or self-care (01) | LOC: HO.LAB 11:01 | PROVIDERS: PCP Physician Assistant; Visit Provider Nurse Practitioner Family | DX: N39.0 Urinary tract infection, site not specified (principal); R35.0 Frequency of micturition | CPT/HCPCS: 51798; 87086; 99202 ==

== ENCOUNTER → 2022-09-11 14:09 | Outpatient (BNVA) | payer OTHER, SELFPAY | PROVIDERS: PCP Physician Assistant; Visit Provider Urology | DX: N39.0 Urinary tract infection, site not specified (principal); N30.91 Cystitis, unspecified with hematuria; R35.0 Frequency of micturition | CPT/HCPCS: 52000 ==

== ENCOUNTER 2022-10-10 10:25 | Emergency (ER) | payer OTHER, SELFPAY ==
--- NOTE | ~2022-10-10 | XR_ITS ---
EXAMINATION: XR KNEE, LEFT CLINICAL INFORMATION: Knee pain COMPARISON: Left knee radiograph from : Two views of the left knee. FINDINGS: No acute visible fracture or dislocation. Mild multicompartment degenerative changes. Mild narrowing of the medial femorotibial compartment. Enthesopathy at the quadriceps tendon insertion site. A fabella is noted in the posterior compartment. Joint spaces and alignment are otherwise maintained. Small knee joint effusion. Soft tissues are unremarkable. XR/XR knee LT 2V IMPRESSION: 1. No acute visible fracture or dislocation. 2. Mild multicompartment degenerative changes. 3. Small knee joint effusion.
--- NOTE | ~2022-10-10 | XR_ITS ---
EXAMINATION: XR CHEST CLINICAL INFORMATION: Cough COMPARISON: Chest radiograph from 06/17/2022 TECHNIQUE: Frontal view of the chest was obtained. FINDINGS: Slight right medial basilar atelectasis. No pneumothorax. Trachea is midline. Cardiac mediastinal silhouette is not enlarged. No large pleural effusion. Aorta demonstrates tortuosity. Degenerative changes of the thoracolumbar spine. Surgical anchors in the right humeral head. Soft tissues are unremarkable. XR/XR chest 1V IMPRESSION: Slight right medial basilar atelectasis.
[2022-10-10 10:32] VITALS: BP 115/80; PULSE 84; RESP 16; TEMP 36.7; O2SAT 97; BMI 31.6
[2022-10-10 11:31] LABS: COVID-19 Test Negative (Negative); IDNOW Serial# 08D9AD1C
--- NOTE | 2022-10-10 13:09 | ED.GENADULT ---
HPI - General Adult General Chief complaint: General Medical Stated complaint: cough nonstop Time Seen by Provider: 10/10/22 11:31 Source: patient and RN notes reviewed Mode of arrival: ambulatory Limitations: no limitations History of Present Illness HPI narrative: This is a 62-year-old female, with a past medical history of diabetes, who presents emergency department with complaints of left knee pain for the last 2 weeks, and nonproductive cough for the last week. Patient reports that over the last 2 weeks she has had left knee pain, no trauma or injury however the pain worsens with movement and with weight-bearing. She states that the pain keeps her up at night at times. She denies any fevers or chills. No history of knee pain in the past. She also reports that over the last week she has had a nonproductive cough, denies any shortness of breath, fevers, chills, nausea, vomiting, or diarrhea. She was seen by her primary care physician who prescribed her Tylenol with codeine and Tessalon Perles which she has been taking however has not provided her with any relief. Denies any other complaints or concerns at this time. Onset (ago): week(s) Radiation: non-radiation Associated symptoms: denies other symptoms Treatments prior to arrival: none Related Data Home Medications Medication Instructions Recorded Confirmed magnesium oxide 250 mg PO DAILY 09/11/22 Previous Rx's Medication Instructions Recorded clotrimazole 1 % topical cream 1 appl topical DAILY 30 days #45 06/18/21 (Athlete's Foot (clotrimazole)) grams ibuprofen 800 mg tablet 800 mg PO Q8H PRN pain 15 days #45 08/13/21 tabs sitagliptin phosphate 25 mg tablet 25 mg PO DAILY 30 days #30 tabs 02/12/22 (Januvia) nystatin 100,000 unit/mL oral 10 ml buccal DAILY PRN mouth 04/02/22 suspension irritation 7 days #60 mL pioglitazone 45 mg tablet 45 mg PO DAILY #90 tabs 04/25/22 benzonatate 100 mg capsule 100 mg PO TID PRN cough 10 days 06/26/22 #30 caps blood sugar diagnostic (FreeStyle #50 strips 06/27/22 Lite Strips) lancets 28 gauge (FreeStyle ##100 06/27/22 Lancets) oxybutynin chloride 5 mg tablet 5 mg PO Q8H PRN bladder spasms #20 07/05/22 tabs amoxicillin 875 mg-potassium 1 tab PO BID 7 days #14 tabs 07/15/22 clavulanate 125 mg tablet levofloxacin 500 mg tablet 500 mg PO DAILY 7 days #7 tabs 07/15/22 magnesium 250 mg tablet 250 mg PO DAILY #90 tabs 07/29/22 atorvastatin 20 mg tablet 20 mg PO BEDTIME 90 days #90 tabs 10/05/22 codeine 10 mg-guaifenesin 100 mg/5 5 ml PO Q6H PRN cough 5 days #120 10/07/22 mL oral liquid mL escitalopram oxalate 20 mg tablet 20 mg PO DAILY 90 days #90 tabs 10/07/22 acetaminophen 650 mg 650 mg PO Q12H PRN pain #14 tabs 10/10/22 tablet,extended release (Tylenol Arthritis Pain) azithromycin 500 mg tablet See Rx Instructions PO .COMPLEX #3 10/10/22 tabs Allergies Allergy/AdvReac Type Severity Reaction Status Date / Time No Known Allergies Allergy Unknown Verified 10/10/22 10:32 Review of Systems Review of Systems: Constitutional: No Weight loss, No Fever, No Chills ENT/Mouth: No Ear Pain, No Nasal Congestion, No Sinus Pain, No Hoarseness, No sore throat, No Rhinorrhea, No Swallowing Difficulty Cardiovascular: No Chest Pain, No SOB Respiratory: + Cough, No Sputum, No Wheezing Gastrointestinal: No Nausea, No Vomiting, No Diarrhea, No Constipation, No Abdominal pain Genitourinary: No Dysuria, No Urinary Frequency, No Hematuria, No Urinary Incontinence/retention, No Urgency, No Flank Pain Musculoskeletal: + joint pain, No Myalgias, No Joint Swelling Skin: No Skin Lesions, No rash Neuro: No Weakness, No Numbness, No Paresthesias Yes all other systems are reviewed and are negative Constitutional: Constitutional: Reports as per [facility] Past Medical History Medical History Dermatitis Diabetes mellitus H/O syphilis Hemoptysis LGSIL (low grade squamous intraepithelial dysplasia) Memory impairment Overweight (BMI 25.0-29.9) Pure hypercholesterolemia Recurrent UTI Surgical History History of arthroscopy of right shoulder History of hernia repair (~2001) Hx of tubal ligation Status post breast reduction (~2006) Family History Family History Father No problems noted. Mother Heart attack Brother No problems noted. Sister No problems noted. Son No problems noted. Son No problems noted. Son No problems noted. Daughter No problems noted. Daughter No problems noted. Social History Social History Housing: Apartment Alcohol intake: never Patient Tobacco Use Status: Never used Tobacco e-Cigarette/Vaping Use: Never Used Second Hand Smoke Exposure: No Advance Directives: No service: No Current occupational status: retired Cognitive needs: No Hearing needs: No Vision needs: No Physical Exam ED Vital Signs: Vital Signs - 24 hr 10/10/22 10:32 Temperature 98.1 F Pulse Rate 84 Respiratory Rate 16 Blood Pressure 115/80 Pulse Oximetry 97 Oxygen Delivery Method Room Air BMI result Body Mass Index 31.6 Const General: cooperative, comfortable and no acute distress Orientation/consciousness: patient oriented x3 Limitations: no limitations HENMT Head: Yes normal to inspection, Yes normocephalic and Yes atraumatic Ears: hearing grossly normal bilaterally and TM's normal bilaterally General nose exam: Normal external nose present Face and sinus: Yes normal facial exam Mouth: Normal oral and palatal mucosa present, oropharynx normal and moist mucous membranes Throat: Yes posterior oropharynx normal Eyes General: appearance normal, both eyes and all related structures Eyelids: Yes eyelids normal Conjunctivae: conjunctivae normal Sclerae: sclerae normal Pupils: Equal, round and reactive pupils present EOM: EOMs intact bilaterally Neck Neck: Yes normal visual inspection, Yes full ROM and Yes no lymphadenopathy Lymphatic: no lymphadenopathy noted Chest Chest palpation & inspection: normal inspection of the chest Resp Effort & Inspection: normal respiratory effort and able to speak in complete sentences Auscultation: clear to auscultation bilaterally, no crackles, no rales, no rhonchi and no wheezes Cardio Rate: regular rate Rhythm: regular rhythm Heart sounds: S1 normal heart sound present and S2 normal heart sound present GI Inspection: Yes normal to inspection Skin General skin exam: no rashes or lesions noted Trauma: no lacerations or abrasions Wounds: no wounds Neuro General: patient oriented x3 and moves all extremities Cranial nerves: Yes Equal, round and reactive pupils present Extrem Other: Left knee with no obvious bony deformity or swelling. Tenderness to palpation along the medial joint line. Negative anterior posterior drawer test, pain with varus strain. Negative patellar grind test. General: Yes normal to inspection Right upper extremity: normal to inspection Left upper extremity: normal to inspection Right lower extremity: normal to inspection Left lower extremity: normal to inspection Medical Decision Making Medical Decision Making [facility] Narrative: 62-year-old female, with a past medical history of diabetes, presenting to the emergency department with complaints of atraumatic left knee pain x2 weeks and cough x1 week. On arrival, patient's vital signs within normal limits, oxygen saturation 97%, patient afebrile and nontoxic appearing. Lungs are clear to auscultation bilaterally. Chest x-ray was obtained revealing right middle lobe atelectasis. Given history of diabetes and chest x-ray finding, will cover with azithromycin and given close follow-up with primary care physician. The x-ray revealing degenerative changes and small joint effusion. Discussed these results with patient and given referral to Orthopedics for follow-up. Patient's left knee place an John bandage. Patient ambulatory. Patient is stable for discharge. Differential Diagnosis Differential Diagnoses: The differential diagnosis associated with the presentation includes Pneumonia, upper respiratory infection, bronchitis, cough, left knee contusion, effusion Admission/Observation Consideration of admission/observation: Escalation of care including admission/observation considered Lab Data [facility] Lab Attestation statement: I reviewed the patient's lab results. Labs: Lab Results 10/10/22 Range/Units 11:10 COVID-19 (BENIGNO) Negative (Negative) COVID-19 Clin Com See Note Radiology Impression Discussion of test interpretation with radiology: I have reviewed the radiologist's reading. Radiologist Impression: EXAMINATION: XR KNEE, LEFT CLINICAL INFORMATION: Knee pain? COMPARISON: Left knee radiograph from TECHNIQUE: Two views of the left knee. FINDINGS: No acute visible fracture or dislocation. Mild multicompartment degenerative changes. Mild narrowing of the medial femorotibial compartment. Enthesopathy at the quadriceps tendon insertion site. A fabella is noted in the posterior compartment. Joint spaces and alignment are otherwise maintained. Small knee joint effusion. Soft tissues are unremarkable. XR/XR knee LT 2V IMPRESSION: 1.? No acute visible fracture or dislocation. 2.? Mild multicompartment degenerative changes. 3.? Small knee joint effusion. ? Dictated By: Mendoza Pena MD Signed By: <Electronically signed by Mendoza Pena MD in OV> 10/10/22 1121 DD/ 1052 TD/TT:? Director Of Archives: EXAMINATION: XR CHEST CLINICAL INFORMATION: Cough COMPARISON: Chest radiograph from 06/17/2022 TECHNIQUE: Frontal view of the chest was obtained. FINDINGS: Slight right medial basilar atelectasis. No pneumothorax. Trachea is midline. Cardiac mediastinal silhouette is not enlarged. No large pleural effusion. Aorta demonstrates tortuosity. Degenerative changes of the thoracolumbar spine. Surgical anchors in the right humeral head. Soft tissues are unremarkable. XR/XR chest 1V IMPRESSION: Slight right medial basilar atelectasis. ? Dictated By: Mendoza Pena MD Signed By: <Electronically signed by Mendoza Pena MD in OV> 10/10/22 1120 DD/ 1052 TD/TT:? Director Of Archives: External Record Review External record reviewed: Inpatient record, Office record, Outpatient record, Prior outpatient labs, Prior outpatient radiology, Primary care record and Outside ED record Discharge Plan Discharge Clinical Impression: Acute knee pain, Cough Patient Disposition: Home, Self-Care Instructions: Acute Cough (ED) Additional Instructions: Please take antibiotic as prescribed. Complete the entire course even if your feeling better. Your chest x-ray did not show a pneumonia, however we are treating you with antibiotics. Please take as prescribed. Take prescribed Tylenol as needed for your left knee pain. Your left knee did not show any broken bones however did show degenerative changes and some swelling. Wear John wrap for symptoms. Drink plenty of fluids get plenty of rest. Please follow-up with your primary care physician this week regarding your symptoms. I am giving you a referral to Orthopedics, call to make an appointment. If any new or worsening symptoms occur including but not limited to increased shortness of breath, fevers, chest pain, palpitations, or any other symptoms, please report to the emergency department for re-evaluation. Prescriptions: New azithromycin 500 mg tablet See Rx Instructions .ROUTE .COMPLEX Qty: 3 0RF Rx Instructions: For 500 mg dose pack: take 500 mg once daily for 3 days acetaminophen [Tylenol Arthritis Pain] 650 mg tablet extended release 650 mg PO Q12H PRN (Reason: pain) Qty: 14 0RF No Action clotrimazole [Athlete's Foot (clotrimazole)] 1 % cream 1 appl topical DAILY 30 Days Qty: 45 3RF Januvia 25 mg tablet 25 mg PO DAILY 30 Days Qty: 30 6RF nystatin 100,000 unit/mL suspension 10 ml buccal DAILY PRN (Reason: mouth irritation) 7 Days Qty: 60 1RF Rx Instructions: administer 1/2 of dose in each side of the mouth pioglitazone 45 mg tablet 45 mg PO DAILY Qty: 90 2RF (DME) FreeStyle Lite Strips Strip See Rx Instructions .ROUTE .COMPLEX Qty: 50 5RF Dose Instruction: USE 1 STRIP DAILY Rx Instructions: USE 1 STRIP DAILY (DME) lancets [FreeStyle Lancets] 28 gauge misc See Rx Instructions .ROUTE .COMPLEX Qty: 100 3RF Dose Instruction: USE DAILY DIRECTED Rx Instructions: USE DAILY DIRECTED levofloxacin 500 mg tablet 500 mg PO DAILY 7 Days Qty: 7 0RF amoxicillin-pot clavulanate 875-125 mg tablet 1 tab PO BID 7 Days Qty: 14 0RF magnesium 250 mg tablet 250 mg PO DAILY Qty: 90 2RF atorvastatin 20 mg tablet 20 mg PO BEDTIME 90 Days Qty: 90 2RF escitalopram oxalate 20 mg tablet 20 mg PO DAILY 90 Days Qty: 90 2RF codeine-guaifenesin 10-100 mg/5 mL liquid 5 ml PO Q6H PRN (Reason: cough) 5 Days Qty: 120 0RF ibuprofen 800 mg tablet 800 mg PO Q8H PRN (Reason: pain) 15 Days Qty: 45 0RF benzonatate 100 mg capsule 100 mg PO TID PRN (Reason: cough) 10 Days Qty: 30 1RF oxybutynin chloride 5 mg tablet 5 mg PO Q8H PRN (Reason: bladder spasms) Qty: 20 0RF magnesium oxide 250 mg magnesium tablet 250 mg PO DAILY Referrals: [facility] [facility] [Provider Group] Interventions: ED Discharge Assessment Last Done: 10/10/22 14:04 Discharge Date/Time: 10/10/22 14:05
== END 2022-10-10 14:05 | disposition home or self-care (01) ==
PROVIDERS: Emergency Provider Emergency Medicine; PCP Physician Assistant
DX: M25.562 Pain in left knee (principal); R05.9 Cough, unspecified; Z20.822 Contact with and (suspected) exposure to COVID-19; E11.9 Type 2 diabetes mellitus without complications; E78.00 Pure hypercholesterolemia, unspecified; Z79.899 Other long term (current) drug therapy; Z79.02 Long term (current) use of antithrombotics/antiplatelets
CPT/HCPCS: 71045; 73560; 87635; 99282; 99283

== ENCOUNTER 2022-10-28 10:43 | Outpatient (REF) | payer OTHER, SELFPAY ==
--- NOTE | ~2022-10-28 | US_ITS ---
EXAMINATION: US RETROPERITONEAL LIMITED (RENAL ONLY) CLINICAL INFORMATION: Hemorrhagic cystitis. COMPARISON: Ultrasound bladder 05/10/2022. Ultrasound abdomen 07/06/2019. TECHNIQUE: Real-time imaging of the kidneys. FINDINGS: RIGHT KIDNEY: 12.0 x 3.9 x 4.4 cm (SAG x AP x TRV). The kidney is normal in size, contour, and echogenicity. Renal cortical thickness is normal. No calculi or focal parenchymal lesions. No hydronephrosis. LEFT KIDNEY: 12.6 x 4.8 x 5.7 cm (SAG x AP x TRV). The kidney is normal in size, contour, and echogenicity. Renal cortical thickness is normal. No calculi or focal parenchymal lesions. No hydronephrosis. US/US renal BI IMPRESSION: Normal-appearing kidneys.
[2022-10-28 11:52] LABS: Mean Corpuscular HGB Conc 31.6 g/dl (31.0-35.0); Mean Corpuscular Hemoglobin 29.9 pg (27.0-33.0); Mean Corpuscular Volume 94.5 fL (80.0-98.0); Mean Platelet Volume 10.4 fL (9.4-12.3); Platelet Count 165 X10*3/uL (160-400); Red Blood Count 4.02 X10*6/uL (4.20-5.50); Red Cell Distribution Width 13.3 % (11.0-16.0); White Blood Count 4.5 X10*3/uL (4.8-10.8)
[2022-10-28 12:14] LABS: Estimated Average Glucose 128 mg/dL; Hemoglobin A1c % 6.1 %
[2022-10-28 12:52] LABS: Alanine Aminotransferase 10 U/L (0-31); Albumin Level 3.8 g/dL (3.5-5.0); Alkaline Phosphatase 52 U/L (39-117); Anion Gap 11 (12-20); Aspartate Amino Transferase 15 U/L (5-31); Bilirubin Total 0.7 mg/dL (0.0-1.0); Blood Urea Nitrogen 9 mg/dL (9-16); Calcium 9.2 mg/dL (8.4-10.2); Carbon Dioxide 26 mmol/L (22-29); Chloride 105 mmol/L (96-108); Cholesterol 133 mg/dL; Estimated Glomerular Filt Rate > 60; Glucose Fasting 138 mg/dL (60-99); HDL Cholesterol 36 mg/dL; LDL Cholesterol Calculated 77 mg/dl; Potassium 3.7 mmol/L (3.3-5.1); Sodium 138 mmol/L (135-145); Total Protein 6.6 g/dL (6.5-8.0); Triglycerides 100 mg/dL
== END 2022-10-28 10:44 | disposition home or self-care (01) ==
LOC: HO.US 10:43
PROVIDERS: Absent Provider Physician Assistant; PCP Physician Assistant; Visit Provider Urology
DX: N30.91 Cystitis, unspecified with hematuria (principal); R35.0 Frequency of micturition; E11.9 Type 2 diabetes mellitus without complications; E78.00 Pure hypercholesterolemia, unspecified
CPT/HCPCS: 36415; 76775; 80053; 80061; 83036; 85027

== ENCOUNTER 2022-11-13 11:00 | Outpatient (RCR) | payer OTHER, SELFPAY | END 2022-11-13 15:45 | disposition home or self-care (01) | LOC: HO.PT 11:00 | PROVIDERS: PCP Physician Assistant; Visit Provider Orthopaedic Surgery | DX: M75.102 Unspecified rotator cuff tear or rupture of left shoulder, not specified as traumatic (principal) | CPT/HCPCS: 97110; 97140; 97162; 97164; 97530 ==

== ENCOUNTER 2022-11-14 09:57 | Outpatient (AMB) | payer OTHER, SELFPAY ==
--- NOTE | 2022-11-14 08:17 | A.OFFVIS_ITS ---
Intake Intake Visit Reasons: 2m/US Intake Note: * Patient presents today for a follow-up on US Results * Meds- None * Allergies to Antibiotic- None * Blood Thinner- None Electrical Repairer Required: No Accompanied by: Self / Same As Patient Allergies No Known Allergies Allergy (Unknown, Verified 11/14/22 10:09) HPI HPI Comments History of Present Illness Details Demi is a 62-year-old female who presents to the office for discussion of US results. 11/14/22-- The patient is here post renal US. She has been evaluated for recurrent UTI and OAB symptoms. She was last seen on 09/11/22. Office cystoscopy was done at that time. Cystoscopy findings: Normal bladder, mild bladder wall thickening. No suspicious bladder lesion visualized. US of Pelvis--05/10/22-- limited to the bladder. The patient states having bladder urgency. Renal US results reviewed--10/28/22-- Kidneys: WNL, negative for calculi or parenchymal lesions. Evaluation today UA: Blood: negative, leukocytes: negative. I discussed that postmenapausal women, the ovaries produced less estrogen which may affect the bladder health which may lead to bladder spasms which may cause symptoms of urgency. Plan: Myrbetriq 25 mg QD was ordered. Follow-up after 6 months. [facility] Medical History Dermatitis Diabetes mellitus H/O syphilis Hemoptysis LGSIL (low grade squamous intraepithelial dysplasia) Memory impairment Overweight (BMI 25.0-29.9) Pure hypercholesterolemia Recurrent UTI Surgical History History of arthroscopy of right shoulder History of hernia repair (~2001) Hx of tubal ligation Status post breast reduction (~2006) Family History Father No problems noted. Mother Heart attack Brother No problems noted. Sister No problems noted. Son No problems noted. Son No problems noted. Son No problems noted. Daughter No problems noted. Daughter No problems noted. Social History Housing: Apartment Alcohol intake: never Patient Tobacco Use Status: Never used Tobacco e-Cigarette/Vaping Use: Never Used Second Hand Smoke Exposure: No service: No Current occupational status: retired Cognitive needs: No Hearing needs: No Vision needs: Yes Review of Systems Const All systems reviewed & are unremarkable except as noted in HPI and below Reports no additional complaints Eyes Reports no additional complaints ENT Reports no additional complaints Card Denies dyspnea Resp Denies cough and Denies dyspnea GI Reports no additional complaints Reports no additional complaints Musc Reports no additional complaints Skin/Breast Denies rash and Denies unusual bruising Neuro Reports no additional complaints Psych Reports no additional complaints Endo Reports no additional complaints Mitch/Lymph Reports no additional complaints Aller/Immun Reports no additional complaints Physical Exam Const General: cooperative, healthy appearing, comfortable, no acute distress, well developed, alert and awake Orientation/consciousness: patient oriented x3 Limitations: no limitations HEENT Head: Yes normal to inspection, Yes normocephalic and Yes atraumatic Ears: hearing grossly normal bilaterally Eyes General: appearance normal, both eyes and all related structures Neck Neck: Yes normal visual inspection and Yes trachea midline Chest Chest palpation & inspection: normal inspection of the chest Resp Effort & Inspection: normal respiratory effort and able to speak in complete sentences Cardio Rate: regular rate GI Inspection: Yes normal to inspection Skin General skin exam: no rashes or lesions noted Neuro General: patient oriented x3 Extrem General: Yes normal to inspection Psych Appearance: grossly normal and well kempt Mental Status: mental status grossly normal Speech and movement: Normal speech and movement present and Clear speech present Affect: normal affect Attitude: cooperative Thought process: Normal thought process present Thought content: Normal thought content present Insight: Fair insight present (Psych) Judgement: Fair judgement present (Psych) Results AMB Urinalysis, Automated UA Leukoctes 0 Saturnino/uL Last Edit by TABBY Villagomez on 11/14/22 10:25 UA Nitrite Negative Last Edit by TABBY Villagomez on 11/14/22 10:25 UA Urobilinogen 0.2 mg/dL Last Edit by Kannan Sandra, A on 11/14/22 10:2 5 UA Protein 0 mg/dL Last Edit by Kannan Boaz, A on 11/14/22 10:25 UA pH 6.0 Last Edit by Bradlyjesuspedro Dacostairez, A on 11/14/22 10:25 UA Blood 0 Ryan/uL Last Edit by Kannan Sandra, A on 11/14/22 10:25 UA Specific [place] 1.030 Last Edit by Kannan Boaz, A on 11/14/22 10: 25 UA Ketone Negative Last Edit by Kannan Sandra, A on 11/14/22 10:25 UA Bilirubin 0 mg/dL Last Edit by Kannan Boaz, A on 11/14/22 10:25 UA Glucose 0 mg/dL Last Edit by Kannan Sandra A on 11/14/22 10:25 Results Reviewed Results Reviewed: Laboratory Last Values Urine pH (Auto) 6.0 11/14/22 10:24 Specific [place] (Auto) 1.030 11/14/22 10:24 Urine Protein (Auto) 0 mg/dL 11/14/22 10:24 Glucose (UA)(Auto) 0 mg/dL 11/14/22 10:24 Urine Ketones (Auto) Negative 11/14/22 10:24 Urine Blood (Auto) 0 Ryan/uL 11/14/22 10:24 Urine Nitrite (Auto) Negative 11/14/22 10:24 Urine Bilirubin (Auto) 0 mg/dL 11/14/22 10:24 Urine Urobilinogen (Auto) 0.2 mg/dL 11/14/22 10:24 Leukocyte Esterase (Auto) 0 Saturnino/uL 11/14/22 10:24 Date of Service: 10/28/22 EXAMINATION: US RETROPERITONEAL LIMITED (RENAL ONLY) CLINICAL INFORMATION: Hemorrhagic cystitis. COMPARISON: Ultrasound bladder 05/10/2022. Ultrasound abdomen 07/06/2019. TECHNIQUE: Real-time imaging of the kidneys.? FINDINGS: RIGHT KIDNEY: 12.0 x 3.9 x 4.4 cm (SAG x AP x TRV). The kidney is normal in size, contour, and echogenicity. Renal cortical thickness is normal. No calculi or focal parenchymal lesions. No hydronephrosis. LEFT KIDNEY: 12.6 x 4.8 x 5.7 cm (SAG x AP x TRV). The kidney is normal in size, contour, and echogenicity. Renal cortical thickness is normal. No calculi or focal parenchymal lesions. No hydronephrosis. IMPRESSION: Normal-appearing kidneys. Assessment & Plan Assessment & Plan (1) Recurrent UTI: Code(s): N39.0 - Urinary tract infection, site not specified (2) Urinary frequency: Code(s): R35.0 - Frequency of micturition (3) Hemorrhagic cystitis: Code(s): N30.91 - Cystitis, unspecified with hematuria (4) OAB (overactive bladder): Code(s): N32.81 - Overactive bladder Plan Myrbetriq 25 mg QD was ordered. Follow-up after 6 months. Orders: Orders AMB Urinalysis Automated Today Z13.9 - Encounter for screening, unspecified Medications: New mirabegron ER (Myrbetriq) 25 mg PO DAILY 30 tabs 1RF Patient Instructions: The patient had an opportunity to ask questions regarding treatment plan. All questions were answered. Imaging, Laboratory studies and physical exam results were discussed and reviewed in detail. No major barriers to understanding were identified. The patient expressed understanding and agreement with the above treatment plan. The patient is aware they should contact our office by phone for worsening of their current condition or the appearance of new symptoms. Compliance is encouraged with any medications and followup testing that is ordered. It is a privilege to be allowed the opportunity to participate in the urologic care of your patient. If you have any questions or concerns regarding treatment for the above conditions please do not hesitate to contact me. The office telephone contact is [phone]. This note is constructed in part using voice recognition software. While every effort has been made to ensure accuracy quality improvement coordinator (rn) errors may have been included. Yours sincerely, Olive Bautista MD Coding Level of Care Code Est Pt Level 4 (77658) Diagnoses Recurrent UTI N39.0 Urinary frequency R35.0 Hemorrhagic cystitis N30.91 OAB (overactive bladder) N32.81
== END 2022-11-14 10:37 | disposition home or self-care (01) ==
PROVIDERS: Visit Provider Urology
DX: N39.0 Urinary tract infection, site not specified (principal); R35.0 Frequency of micturition; N30.91 Cystitis, unspecified with hematuria; N32.81 Overactive bladder
CPT/HCPCS: 99214

== ENCOUNTER → 2022-11-14 09:57 | Outpatient (BNVA) | payer OTHER, SELFPAY | PROVIDERS: Visit Provider Urology | DX: N30.91 Cystitis, unspecified with hematuria (principal); N32.81 Overactive bladder; R35.0 Frequency of micturition | CPT/HCPCS: 99212 ==

== ENCOUNTER 2022-11-15 10:05 | Outpatient (REF) | payer OTHER, SELFPAY ==
--- NOTE | ~2022-11-15 | CT_ITS ---
EXAMINATION: CT CHEST WITHOUT CONTRAST CLINICAL INFORMATION: Atelectasis COMPARISON: Previous chest x-ray 10/10/2022 TECHNIQUE: Multidetector volumetric CT imaging of the chest was done. Axial MIP volume rendering provided. Sagittal and coronal reformatted images were obtained. This CT examination was performed using dose optimization techniques as appropriate, variously including the following: *Automated exposure control *Adjustment of mA and/or kV according to patient size (this includes techniques or standardized protocols for targeted exams where dose is matched to indication/reason for exam; i.e. extremities or head) *Use of iterative reconstruction technique DLP: 226 mGy-cm FINDINGS: MANAGER SYSTEM: Normal LUNGS: 1 x 4 mm right lower lobe nodule probably representing a peripheral or subpleural nodule adjacent to the accessory fissure axial image 256 series 5. Minimal linear scarring or subsegmental atelectasis in the right middle lobe. The lungs are otherwise clear.. MEDIASTINUM: The mediastinum is normal. CORONARY ARTERY CALCIFICATION: None visualized on this study. PLEURA: There is no pleural effusion. No pleural mass or thickening. Small bilateral posterior diaphragmatic hernias fat. AXILLA: No lymphadenopathy. UPPER ABDOMEN: Unremarkable. OSSEOUS STRUCTURES: Degenerative changes of the spine. Postsurgical changes to the right shoulder. CT/CT chest wo IV con IMPRESSION: 1 x 4 mm right lower lobe nodule probably representing a peripheral or subpleural lymph node. Mild scarring or subsegmental atelectasis in the right middle lobe. No chest CT follow-up as per Fleischner guidelines. Fleischner guidelines were followed.
== END 2022-11-15 10:06 | disposition home or self-care (01) ==
LOC: HO.CT 10:05
PROVIDERS: PCP Physician Assistant; Visit Provider Physician Assistant
DX: J98.11 Atelectasis (principal)
CPT/HCPCS: 71250

== ENCOUNTER 2022-12-25 13:34 | Outpatient (REF) | payer OTHER, SELFPAY ==
--- NOTE | ~2022-12-25 | MM_ITS ---
EXAMINATION: MM SCREENING DIGITAL BREAST TOMOSYNTHESIS, BILATERAL CLINICAL INFORMATION: Screening. Asymptomatic. History of bilateral reduction mammoplasty in 2007. COMPARISON: Mammography: 12/17/2021, 12/14/2020, and exams dating back to 2014. TECHNIQUE: Digital breast tomosynthesis is performed in both the craniocaudal and mediolateral oblique views along with computer-aided detection (CAD). Synthesized 2D images are generated from the tomosynthesis. FINDINGS: The breasts are almost entirely fatty (ACR BI-RADS breast composition Category a). There are no suspicious masses, suspicious grouped calcifications, or areas of architectural distortion. The parenchymal pattern is stable from prior exams. There are early vascular calcifications noted. MM/MM tomosynthesis screening BI IMPRESSION: No mammographic evidence of malignancy. ASSESSMENT: BI-RADS BI-RADS 1 - Negative RECOMMENDATION: Routine annual mammography screening. 1 year F/U This examination should not preclude the clinical evaluation of a suspicious palpable abnormality. This patient's information was entered into a reminder system with a target due date for their next mammogram.
== END 2022-12-25 13:35 | disposition home or self-care (01) ==
LOC: HO.MAMMO 13:34
PROVIDERS: PCP Physician Assistant; Visit Provider Physician Assistant
DX: Z12.31 Encounter for screening mammogram for malignant neoplasm of breast (principal)
CPT/HCPCS: 77063; 77067

== ENCOUNTER → 2022-12-25 13:45 | Outpatient (BNV) | payer OTHER, SELFPAY | PROVIDERS: PCP Physician Assistant; Visit Provider Radiology Diagnostic Radiology | DX: Z12.31 Encounter for screening mammogram for malignant neoplasm of breast (principal) | CPT/HCPCS: 77063; 77067 ==

== ENCOUNTER 2022-12-31 10:00 | Outpatient (AMB) | payer OTHER, SELFPAY ==
--- NOTE | 2022-12-31 10:06 | MHC.OFFVIS ---
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 Scribed for VANESSA Sr by Jennifer Salinas, medical chemist, on 12/31/2022 at 10:28 am EST. Ice Crusher: Ice Crusher Present (Maribell) Allergies No Known Allergies Allergy (Unknown, Verified 12/31/22 10:08) Post menopausal: Yes HPI HPI Comments History of Present Illness Details She is a postmenopausal woman presenting for annual exam. Expresses concerns regarding possible allergies and memory. Patient admits she tries to eat a healthy diet including Calcium and Vitamin D. She stays active with exercise. Denies vaginal itching and irritation. Denies family hx of breast, colon and ovarian cancer. Last pap smear 06/02/20. Last mammogram 12/25/22. UTD on colonoscopy. PFSH Medical History Dermatitis Diabetes mellitus H/O syphilis Hemoptysis LGSIL (low grade squamous intraepithelial dysplasia) Memory impairment Overweight (BMI 25.0-29.9) Pure hypercholesterolemia Recurrent UTI Surgical History History of arthroscopy of right shoulder History of hernia repair (~2001) Hx of tubal ligation Status post breast reduction (~2006) Family History (Updated 12/31/22 @ 10:30 by Jennifer Salinas) Father Diabetes Mother Heart attack Brother No problems noted. Sister No problems noted. Son No problems noted. Son No problems noted. Son No problems noted. Daughter No problems noted. Daughter No problems noted. Social History Housing: Apartment Alcohol intake: never Patient Tobacco Use Status: Never used Tobacco e-Cigarette/Vaping Use: Never Used Second Hand Smoke Exposure: No service: No Current occupational status: retired Cognitive needs: No Hearing needs: No Vision needs: Yes Female Reproductive History Menstrual control method: permanent sterilization Permanent Sterilization: BTL Menopause type: natural Total pregnancies: 7 Full term: 5 Number of Living Children: 5 Ab induced: 2 Date of last pap smear: 06/02/20 (neg pap and hpv) History of abnormal pap smear: Yes (see intake note) Date of Mammogram: 12/25/22 Physical Exam Vital Signs: Last Vital Signs BP 100/64 12/31/22 10:08 BMI result Body Mass Index 31.7 Const General: cooperative, healthy appearing, no acute distress, well developed and alert Orientation/consciousness: patient oriented x3 HEENT Head: Yes normal to inspection Eyes General: appearance normal, both eyes and all related structures Neck Neck: Yes normal visual inspection Thyroid: Thyroid normal Chest Other: bilateral breast reduction scarring. Chest palpation & inspection: normal inspection of the chest Breast/axilla inspection: normal inspection of the breasts (no puckering, dimpling, peau de orange, retraction, discharge, masses) Breast/axilla palpation: normal palpation of the breasts Resp Effort & Inspection: normal respiratory effort GI Inspection: Yes normal to inspection Palpation (GI): Soft to palpation (to palpation) Rectal Exam - Female: deferred General: Yes bladder normal to inspection External Female Exam: normal external appearance and normal appearance of the urethra Speculum Exam - Vagina: normal appearance of the vagina, normal palpation and vagina atrophic Speculum Exam - Cervix: normal appearance of the cervix and normal palpation Bimanual exam- vagina & uterus: normal palpation and normal palpation Bimanual Exam- Adnexa, other: normal adnexae and no masses Skin General skin exam: no rashes or lesions noted Neuro General: patient oriented x3 Cognition (Neuro): normal cognition Extrem General: Yes normal to inspection Psych Attitude: cooperative Thought process: Normal thought process present Assessment & Plan Assessment & Plan (1) Encounter for well woman exam: Code(s): Z01.419 - Encounter for gynecological examination (general) (routine) without abnormal findings Plan: Discussed: Current recommendations for pap smears per ASCCP guidelines. Breast awareness and periodic self breast exams. Encouraged yearly mammograms. Maintaining a healthy lifestyle including a well balanced diet including Calcium and Vitamin D and routine exercise. Contact office with any PMB. All of her questions and concerns were addressed to the best of my ability. RTO in 1 year for AG. Coding Level of Care Code Est Pt Prev Care 40-64y(23091) Diagnoses Encounter for well woman exam Z01.419
[2022-12-31 10:08] VITALS: BP 100/64; BMI 31.7
== END 2022-12-31 10:42 | disposition home or self-care (01) ==
LOC: HO.HWS 10:01
PROVIDERS: PCP Physician Assistant; Visit Provider Advanced Practice Midwife
DX: Z01.419 Encounter for gynecological examination (general) (routine) without abnormal findings (principal)
CPT/HCPCS: 99396

== ENCOUNTER → 2022-12-31 10:00 | Outpatient (BNVA) | payer OTHER, SELFPAY | PROVIDERS: PCP Physician Assistant; Visit Provider Advanced Practice Midwife ==

== ENCOUNTER 2023-02-12 10:28 | Outpatient (AMB) | payer OTHER, SELFPAY ==
--- NOTE | 2023-02-12 10:36 | A.OFFVIS_ITS ---
Intake Vital Signs 02/12/23 10:37 Height 5 ft 3 in Weight 173 lb BMI 30.6 BP 124/70 Blood Pressure Location Lt brachial Position Sitting Pulse 88 Pulse Source Pulse Oximeter Pulse Oximetry (%) 98 Oxygen Delivery Method Room Air Intake Visit Reasons: Cough Scorekeeper Required: No Allergies No Known Allergies Allergy (Unknown, Verified 02/12/23 10:40) HPI HPI Comments History of Present Illness Details The patient is here for pulmonary evaluation. The patient is a 62 year woman presenting with chronic cough. She states that her cough tends to be nonproductive in nature and moderate severity. It is sporadic. She denies having any near syncopal or syncopal episodes were any incontinence of urine with it. The patient states the cough has been very nagging. The patient did undergo pulmonary function studies about a year ago. No evidence of any obstructive nor restrictive ventilatory defects. Although on the flow volume loop appears to have a saw tooth pattern to the inspiratory flow suggesting of redundant tissue in the upper airway and or vocal cord dysfunction. The patient does have nasal congestion. She also has ache or pressure the ears that sometimes uncomfortable. She denies having any allergy testing in the past. On examination she does have significant erythema the turbinates suggesting an upper airway cough syndrome. Will go ahead and treat her accordingly. I did provide her with the Neti bottle to see if she can not tolerate nasal rinsing at nighttime and also nasal spray during the daytime. The patient also will have additional allergy testing at this time. Also to note she did have a CT scan of the chest done fairly recent and I personally reviewed. She does have some minimal atelectasis and also has a small 4 mm pulmonary nodule that requires additional testing. [facility] Medical History (Updated 02/12/23 @ 21:58 by Garcia Barros MD) Chronic allergic rhinitis Hemoptysis Recurrent UTI H/O syphilis LGSIL (low grade squamous intraepithelial dysplasia) Overweight (BMI 25.0-29.9) Dermatitis Memory impairment Pure hypercholesterolemia Diabetes mellitus Surgical History History of arthroscopy of right shoulder Hx of tubal ligation History of hernia repair (~2001) Status post breast reduction (~2006) Family History (Updated 12/31/22 @ 10:30 by Jennifer Salinas) Father Diabetes Mother Heart attack Brother No problems noted. Sister No problems noted. Son No problems noted. Son No problems noted. Son No problems noted. Daughter No problems noted. Daughter No problems noted. Social History Housing: Apartment Alcohol intake: never Patient Tobacco Use Status: Never used Tobacco e-Cigarette/Vaping Use: Never Used Second Hand Smoke Exposure: No service: No Current occupational status: retired Cognitive needs: No Hearing needs: No Vision needs: Yes Review of Systems Const Denies fever(s) Eyes Denies change in vision ENT Reports otalgia, Reports nasal congestion, Reports nasal discharge and Reports post nasal drip Card Denies chest pain Resp Denies chest congestion, Reports cough and Denies wheezing GI Reports no additional complaints Musc Reports no additional complaints Skin/Breast Denies rash Neuro Reports no additional complaints Mitch/Lymph Denies lymphadenopathy Aller/Immun Denies wheezing Physical Exam Vital Signs: Last Vital Signs Pulse 88 02/12/23 10:37 BP 124/70 02/12/23 10:37 Pulse Ox 98 02/12/23 10:37 Oxygen Delivery Method Room Air 02/12/23 10:37 BMI result Body Mass Index 30.6 Const General: comfortable HEENT Head: Yes normocephalic Ears: TM abnormal with fluid behind the TM General nose exam: Abnormal mucous membranes and turbinates present erythematous Neck Neck: Yes supple Chest Chest palpation & inspection: normal inspection of the chest Resp Effort & Inspection: normal respiratory effort Auscultation: clear to auscultation bilaterally Cardio Rate: regular rate Rhythm: regular rhythm Heart sounds: S1 normal heart sound present and S2 normal heart sound present GI Palpation (GI): Soft to palpation Skin General skin exam: no rashes or lesions noted Extrem General: Yes no clubbing, cyanosis or edema Results Reviewed Results Reviewed: PFTs: FVL with saw tooth pattern during the inspiratory phase Assessment & Plan Assessment & Plan (1) Chronic allergic rhinitis: Code(s): J30.9 - Allergic rhinitis, unspecified (2) Pulmonary nodule: Code(s): R91.1 - Solitary pulmonary nodule (3) Chronic cough: Comment: Likely upper airway cough syndrome, also may have a component of vocal cord dysfuction Code(s): R05.3 - Chronic cough Plan Start Neti bottle rinsing start nasal steroid spray benzonates as needed bloodwork / allergy testing repeat CT chest next year F/U 3-4 months Orders: Orders Immunoglobulin E Today J30.9 - Allergic rhinitis, unspecified CT chest wo IV con 01/05/24 R91.1 - Solitary pulmonary nodule Complete Blood Count Auto Diff Today J30.9 - Allergic rhinitis, unspecified Basic Metabolic Panel Today J30.9 - Allergic rhinitis, unspecified Rast Allergen Today J30.9 - Allergic rhinitis, unspecified Erythrocyte Sedimentation Rate Today J30.9 - Allergic rhinitis, unspecified Medications: New benzonatate 200 mg PO BID PRN 60 caps 4RF cough 30 days fluticasone propionate 50 mcg/actuation 2 sprays intranasal DAILY 15.8 mL 11RF 30 days J31.0 - Chronic rhinitis Coding Level of Care Code New Pt Level 4 (22145) Diagnoses Chronic allergic rhinitis J30.9 Pulmonary nodule R91.1 Chronic cough R05.3 Time Spent (min) 36
[2023-02-12 10:37] VITALS: BP 124/70; PULSE 88; O2SAT 98; BMI 30.6
== END 2023-02-12 11:14 | disposition home or self-care (01) ==
PROVIDERS: PCP Physician Assistant; Referring Provider Physician Assistant; Visit Provider Hospitalist
DX: J30.9 Allergic rhinitis, unspecified (principal); R91.1 Solitary pulmonary nodule; R05.3 Chronic cough
CPT/HCPCS: 99204

== ENCOUNTER → 2023-02-12 10:28 | Outpatient (BNVA) | payer OTHER, SELFPAY | PROVIDERS: PCP Physician Assistant; Visit Provider Hospitalist ==

== ENCOUNTER 2023-02-12 11:14 | Outpatient (REF) | payer OTHER, SELFPAY ==
[2023-02-13 23:09] LABS: Immunoglobulin E 3 kU/L (<OR=114)
== END 2023-02-12 11:15 | disposition home or self-care (01) ==
LOC: HO.LAB 11:14
PROVIDERS: PCP Physician Assistant; Visit Provider Hospitalist
DX: J30.9 Allergic rhinitis, unspecified (principal)
CPT/HCPCS: 36415; 80048; 82785; 85025; 85652

== ENCOUNTER 2023-02-18 11:15 | Outpatient (AMB) | payer OTHER, SELFPAY ==
[2023-02-18 11:23] VITALS: BP 102/70; PULSE 85; O2SAT 97; BMI 31.2
--- NOTE | 2023-02-18 11:23 | MHC.PC.OV ---
Vital Signs 02/18/23 11:23 Height 5 ft 3 in Weight 176 lb 4 oz BMI 31.2 BP 102/70 Blood Pressure Location Lt brachial Position Sitting Pulse 85 Pulse Source Pulse Oximeter Pulse Oximetry (%) 97 Oxygen Delivery Method Room Air Intake Visit Reasons: f/u DMII Manager Speech Required: No Accompanied by: Self / Same As Patient Allergies No Known Allergies Allergy (Unknown, Verified 02/18/23 11:39) Medication List - Last Reconciled 02/18/23 by Bob Santiago PA-C acetaminophen ER (Tylenol Arthritis Pain) 650 mg PO Q12H PRN atorvastatin 20 mg PO BEDTIME 90 days benzonatate 200 mg PO BID PRN 30 days blood sugar diagnostic (FreeStyle Lite Strips) USE 1 STRIP DAILY cetirizine 10 mg PO DAILY 90 days clotrimazole 1% (Athlete's Foot (clotrimazole)) 1 appl topical DAILY 30 days diclofenac sodium 3% 1 appl topical BID 30 days escitalopram oxalate 20 mg PO DAILY fluticasone propionate 50 mcg/actuation 2 sprays intranasal DAILY 30 days lancets (FreeStyle Lancets) USE DAILY DIRECTED magnesium oxide 250 mg PO DAILY 90 days mirabegron ER (Myrbetriq) 50 mg PO DAILY miscellaneous medical supply 1 ea miscellaneous DAILY 99 days pioglitazone 45 mg PO DAILY sitagliptin phosphate (Januvia) 25 mg PO DAILY 30 days Tobacco use date assessed: 06/17/22 Dental Screening Dental Screen Date: 02/18/23 Did you have a dental visit in the last 12 months?: Yes Did you have a dental problem in the last 6 months where you did not have access to dental care?: No Was dental information given to patient?: Patient has dentist HPI f/u DMII HPI Details atient is a 62 female here today for follow-up visit.? Patient has a past medical history significant type 2 diabetes, generalized anxiety disorder hyperlipidemia, chronic left shoulder pain,? .. Chronic cough: Has followed up a pulmonology. RAST panel unrelmarkable. Reports having chronic intermittent cough over the last 2 years. Has been seen at ER multiple times for this, given cough syrup in antibiotics and felt better. Most recent x-ray showing left basilar atelectasis. Was prescribed a incentive spirometer though she has never picked this up. PFTs done in January of 2022 without significant findings. . Osteoarthritis bilateral knees: She is now followed by Orthopedics and getting injection in both her knees. She is anticipating gel injections in near future. .. DMII: Today's A1c is 7.1. Sugars at home 120-170s . She reports her diet has been poor as of late. She continues on pioglitazone 45 mg and Januvia 25 mg.? She was unable to tolerate metformin due to GI side effects. ? .. MDD: Patient's depression has been fairly well controlled with current dose of Lexapro 20 mg. Laboratory Tests 06/17/22 10/28/22 02/18/23 09:10 11:10 11:32 Hgb A1c (Clinic) 6.5 H 7.1 H Hemoglobin A1c % 6.1 PFSH Medical History Chronic allergic rhinitis Hemoptysis Recurrent UTI H/O syphilis LGSIL (low grade squamous intraepithelial dysplasia) Overweight (BMI 25.0-29.9) Dermatitis Memory impairment Pure hypercholesterolemia Diabetes mellitus Surgical History History of arthroscopy of right shoulder Hx of tubal ligation History of hernia repair (~2001) Status post breast reduction (~2006) Family History Father Diabetes Mother Heart attack Brother No problems noted. Sister No problems noted. Son No problems noted. Son No problems noted. Son No problems noted. Daughter No problems noted. Daughter No problems noted. Social History Housing: Apartment Alcohol intake: never Patient Tobacco Use Status: Never used Tobacco e-Cigarette/Vaping Use: Never Used Second Hand Smoke Exposure: No service: No Current occupational status: retired Cognitive needs: No Hearing needs: No Vision needs: Yes Questionnaire Thrive Questionnaire Date Thrive assessed: 05/07/22 MIKALA-7 AMB Questionnaire MIKALA-7 Date MIKALA - 7 assessed: 05/07/22 Source: Developed by Drs. Piotr James, Breonna East, Donaldo Barrios and colleagues, with an educational paddy from [employer]. Review of Systems Const Denies headache(s) Eyes Denies loss of vision ENT Denies vertigo, Denies dizziness, Denies headache(s) and Denies sore throat Card Denies chest pain, Denies leg edema and Denies lightheadedness Resp Denies cough, Denies hemoptysis and Denies wheezing GI Denies abdominal pain, Denies melena, Denies constipation, Denies diarrhea and Denies vomiting Denies urinary frequency, Denies dysuria and Denies urinary urgency Musc Denies arthralgias, Denies joint swelling, Denies numbness and Denies tingling Neuro Denies Abnormal speech present, Denies behavioral changes, Denies vertigo, Denies dizziness, Denies headache(s), Denies loss of vision, Denies memory loss, Denies numbness and Denies tingling Psych Denies anxiety, Denies behavioral changes, Denies depression, Denies memory loss and Denies panic attacks Mitch/Lymph Denies easy bleeding and Denies easy bruising Aller/Immun Denies wheezing Physical exam (Primary Care) Vital Signs: Last Vital Signs Pulse 85 02/18/23 11:23 BP 102/70 02/18/23 11:23 Pulse Ox 97 02/18/23 11:23 Oxygen Delivery Method Room Air 02/18/23 11:23 BMI result Body Mass Index 31.2 Tobacco/Smoking Status: Tobacco use Status Tobacco use date assessed 06/17/22 02/18/23 11:28 Patient Tobacco Use Status Never used Tobacco 02/18/23 11:28 e-Cigarette/Vaping Use Never Used 02/18/23 11:28 Thrive Assessment: Date of Thrive Assessment Date Thrive assessed 05/07/22 02/18/23 11:28 Const General: healthy appearing, no acute distress, alert and awake Nutritional Appearance: well nourished Orientation/consciousness: oriented to person, oriented to place and oriented to time HENMT Ears: TM's normal bilaterally General nose exam: Normal nasal mucous membranes and turbinates present Eyes Conjunctivae: conjunctivae normal Sclerae: sclerae normal Pupils: Equal, round and reactive pupils present Neck Neck: Yes no lymphadenopathy and Yes no JVD Thyroid: Thyroid normal Carotids: no bruits Resp Effort & Inspection: normal respiratory effort and not tachypneic Auscultation: no crackles, no rales, no rhonchi and no wheezes Cardio Rate: regular rate Rhythm: regular rhythm Heart sounds: no murmurs and normal S1 and S2 GI Palpation (GI): Soft to palpation, nontender, no hepatomegaly and no splenomegaly Auscultation: normal bowel sounds Skin General skin exam: no rashes or lesions noted and dry skin Neuro General: oriented to person, oriented to place and oriented to time Cranial nerves: Yes Equal, round and reactive pupils present Speech: No Abnormal speech present Gait exam (Neuro): Normal gait present Motor exam (neuro): no tremor noted Extrem Right upper extremity: full ROM Left upper extremity: full ROM Right lower extremity: full ROM; no edema Left lower extremity: full ROM; no edema Psych Mental Status: mental status grossly normal Speech and movement: Normal speech and movement present Affect: normal affect Attitude: cooperative Thought process: Normal thought process present Results AMB Hemoglobin A1c AMB Hemoglobin A1c 7.1 % Last Edit by SABIHA John on 02/18/23 11:32 Results Reviewed Results Reviewed: Laboratory Last Values Hgb A1c (Clinic) 7.1 % (4.0-6.0) H 02/18/23 11:32 Assessment and Plan Assessment & Plan (1) Diabetes mellitus: Code(s): E11.9 - Type 2 diabetes mellitus without complications Qualifiers: Diabetes mellitus complication status: without complication Diabetes mellitus residential insulin use: 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 She will work on lifestyle modifications to reduce her blood sugars. Goal A1c to be below 7.0 (2) Atelectasis of left lung: Code(s): J98.11 - Atelectasis Plan: Has followed up with pulmonology. Started on allergy medication, nasal spray. She reports she feels somewhat better and has not had to use the allergy medication nasal spray lately. (3) MIKALA (generalized anxiety disorder): Code(s): F41.1 - Generalized anxiety disorder Plan: Stable on current dose of SSRI. She reports her mood has been stable. (4) Pure hypercholesterolemia: Code(s): E78.00 - Pure hypercholesterolemia, unspecified Plan: Patient continues on statin therapy without side effect. Goal LDL to remain below 100 (5) MDD (major depressive disorder), recurrent episode, moderate: Code(s): F33.1 - Major depressive disorder, recurrent, moderate Plan: Patient continues SSRI therapy. Again she reports her mood has been stable on current antidepressant medication. (6) Osteoarthritis of left knee: Code(s): M17.12 - Unilateral primary osteoarthritis, left knee Qualifiers: Osteoarthritis type: primary Qualified Code(s): M17.12 - Unilateral primary osteoarthritis, left knee Plan: Continues to have left knee anterior pain. She does use Tylenol arthritis though feels is not effective. Most recent x-ray showing arthritis and as slight knee effusion. She would like to see orthopedics for possible cortisone injection (7) Obese: Code(s): E66.9 - Obesity, unspecified Qualifiers: Body mass index: BMI 31.0-31.9 Obesity classification: adult class 1 (BMI 30 - 34.9) Obesity type: due to excess calories Serious obesity comorbidity presence: with serious comorbidity Qualified Code(s): E66.09 - Other obesity due to excess calories; Z68.31 - Body mass index [BMI] 31.0-31.9, adult Plan: Patient does understand her BMI is above 30 will work on being more physically active and adapting to better eating habits to reduce her weight Orders: Orders AMB Hemoglobin A1c Today E11.9 - Type 2 diabetes mellitus without complications Comprehensive [place]. Panel Fast Today E11.9 - Type 2 diabetes mellitus without complications Microalbumin, Random (w Creat) Today E11.9 - Type 2 diabetes mellitus without complications Lipid Panel Today E78.00 - Pure hypercholesterolemia, unspecified Complete Blood Count no Diff Today K21.9 - Gastro-esophageal reflux disease without esophagitis SARS-CoV2/FLU/RSV 06/26/22 R05.9 - Cough, unspecified PT Evaluation and Treatment Today R35.0 - Frequency of micturition, R35.1 - Nocturia Coding Level of Care Code Est Pt Level 4 (93952) Diagnoses Type 2 diabetes mellitus without complication, without long-term current use of insulin E11.9 Diabetes mellitus complication status: without complication Diabetes mellitus residential insulin use: without long wall mining machine tender use Diabetes mellitus type: type 2 Atelectasis of left lung J98.11 MIKALA (generalized anxiety disorder) F41.1 Pure hypercholesterolemia E78.00 MDD (major depressive disorder), recurrent episode, moderate F33.1 Primary osteoarthritis of left knee M17.12 Osteoarthritis type: primary Class 1 obesity due to excess calories with serious comorbidity and body mass index (BMI) of 31.0 to 31.9 in adult E66.09; Z68.31 Body mass index: BMI 31.0-31.9 Obesity classification: adult class 1 (BMI 30 - 34.9) Obesity type: due to excess calories Serious obesity comorbidity presence: with serious comorbidity
== END 2023-02-18 12:09 | disposition home or self-care (01) ==
PROVIDERS: PCP Physician Assistant; Visit Provider Physician Assistant
DX: E11.9 Type 2 diabetes mellitus without complications (principal); F33.1 Major depressive disorder, recurrent, moderate; J98.11 Atelectasis; F41.1 Generalized anxiety disorder; E66.09 Other obesity due to excess calories; K21.9 Gastro-esophageal reflux disease without esophagitis; E78.00 Pure hypercholesterolemia, unspecified; Z68.31 Body mass index [BMI] 31.0-31.9, adult; M17.12 Unilateral primary osteoarthritis, left knee
CPT/HCPCS: 83036; 99214

== ENCOUNTER 2023-02-26 11:43 | Outpatient (AMB) | payer OTHER, SELFPAY ==
--- NOTE | 2023-02-26 11:50 | A.OFFVIS_ITS ---
Intake Intake Visit Reasons: F/U Incontinence/Meds Intake Note: Patient presents today for a follow-up on Incontinence: Meds- Myrbertriq Allergies to Antibiotic- No Known Allergies Blood Thinner- None Patient Symptoms: Bladder Pressure Flooring Machine Feeder Required: No Accompanied by: Self / Same As Patient Allergies No Known Allergies Allergy (Unknown, Verified 02/26/23 12:08) HPI HPI Comments History of Present Illness Details Demi is a 62-year-old female who presents today to the office for a follow-up. 02/26/2023? She is followed today for incontinence. She has been evaluated for recurrent UTI and OAB symptoms. She was last seen by me on 11/14/2022 US results. Myrbetriq 25 mg QD was ordered, and she was advised to follow-up after 6 months at that time. Patient states that she is still urinating frequently day and night. She did start taking Myrbetriq 25 mg twice a day with minimal improvement in the urgency. I have discussed to consider further evaluation with urodynamics , but we will add Vesicare in addition to the Myrbetriq and will see if there is any benefit. Review of chart: 09/11/22. --Cystoscopy findings: Normal b ladder, mild bladder wall thickening. No suspicious bladder lesion visualized. US of Pelvis--05/10/22-- limited to the bladder. Renal US results reviewed--10/28/22-- Kidneys: WNL, negative for calculi or parenchymal lesions. 02/26/2023: Plan:Add Vesicare Cont Myrbe triq Follow-up in 6 months, if symptoms do not improve we will schedule urodynamics. [facility] Medical History Chronic allergic rhinitis Hemoptysis Recurrent UTI H/O syphilis LGSIL (low grade squamous intraepithelial dysplasia) Overweight (BMI 25.0-29.9) Dermatitis Memory impairment Pure hypercholesterolemia Diabetes mellitus Surgical History History of arthroscopy of right shoulder Hx of tubal ligation History of hernia repair (~2001) Status post breast reduction (~2006) Family History Father Diabetes Mother Heart attack Brother No problems noted. Sister No problems noted. Son No problems noted. Son No problems noted. Son No problems noted. Daughter No problems noted. Daughter No problems noted. Social History Housing: Apartment Alcohol intake: never Patient Tobacco Use Status: Never used Tobacco e-Cigarette/Vaping Use: Never Used Second Hand Smoke Exposure: No service: No Current occupational status: retired Cognitive needs: No Hearing needs: No Vision needs: Yes Review of Systems Const All systems reviewed & are unremarkable except as noted in HPI and below Reports no additional complaints Eyes Reports no additional complaints ENT Reports no additional complaints Card Denies dyspnea Resp Denies cough and Denies dyspnea GI Reports no additional complaints Reports no additional complaints Musc Reports no additional complaints Skin/Breast Denies rash and Denies unusual bruising Neuro Reports no additional complaints Psych Reports no additional complaints Endo Reports no additional complaints Mitch/Lymph Reports no additional complaints Aller/Immun Reports no additional complaints Results AMB Urinalysis, Automated UA Leukoctes 0 Saturnino/uL Last Edit by TABBY Villagomez on 02/26/23 12:09 UA Nitrite Negative Last Edit by TABBY Villagomez on 02/26/23 12:09 UA Urobilinogen 0.2 mg/dL Last Edit by TABBY Villagomez on 02/26/23 12:0 9 UA Protein 0 mg/dL Last Edit by TABBY Villagomez on 02/26/23 12:09 UA pH 5.5 Last Edit by TABBY Villagomez on 02/26/23 12:09 UA Blood 0 Ryan/uL Last Edit by TABBY Villagomez on 02/26/23 12:09 UA Specific [place] 1.025 Last Edit by TABBY Villagomez on 02/26/23 12: 09 UA Ketone Negative Last Edit by TABBY Villagomez on 02/26/23 12:09 UA Bilirubin 0 mg/dL Last Edit by TABBY Villagomez on 02/26/23 12:09 UA Glucose 0 mg/dL Last Edit by TABBY Villagomez on 02/26/23 12:09 Results Reviewed Results Reviewed: Laboratory Last Values Urine pH (Auto) 5.5 02/26/23 12:06 Specific [place] (Auto) 1.025 02/26/23 12:06 Urine Protein (Auto) 0 mg/dL 02/26/23 12:06 Glucose (UA)(Auto) 0 mg/dL 02/26/23 12:06 Urine Ketones (Auto) Negative 02/26/23 12:06 Urine Blood (Auto) 0 Ryan/uL 02/26/23 12:06 Urine Nitrite (Auto) Negative 02/26/23 12:06 Urine Bilirubin (Auto) 0 mg/dL 02/26/23 12:06 Urine Urobilinogen (Auto) 0.2 mg/dL 02/26/23 12:06 Leukocyte Esterase (Auto) 0 Saturnino/uL 02/26/23 12:06 Assessment & Plan Assessment & Plan (1) Recurrent UTI: Code(s): N39.0 - Urinary tract infection, site not specified (2) Urinary frequency: Code(s): R35.0 - Frequency of micturition (3) Hemorrhagic cystitis: Code(s): N30.91 - Cystitis, unspecified with hematuria (4) OAB (overactive bladder): Code(s): N32.81 - Overactive bladder Plan Follow-up in 6 months, if symptoms do not improve we will schedule urodynamics. Orders: Orders AMB Urinalysis Automated 02/26/23 Z13.9 - Encounter for screening, unspecified Medications: New solifenacin (Vesicare) 10 mg PO .qhs 90 tabs 1RF Patient Instructions: The patient had an opportunity to ask questions regarding treatment plan. All questions were answered. Imaging, Laboratory studies and physical exam results were discussed and reviewed in detail. No major barriers to understanding were identified. The patient expressed understanding and agreement with the above treatment plan.? ? ? The patient is aware they should contact our office by phone for worsening of their current condition or the appearance of new symptoms. Compliance is encouraged with any medications and followup testing that is ordered.? ? ? It is a privilege to be allowed the opportunity to participate in the urologic care of your patient. If you have any questions or concerns regarding treatment for the above conditions please do not hesitate to contact me. The office telephone contact is [phone].? ? ? This note is constructed in part using voice recognition software. While every effort has been made to ensure accuracy as400 developer errors may have been included.? ? ? Yours sincerely,? ? ? Olive Bautista MD? Coding Level of Care Code Est Pt Level 4 (32379) Diagnoses Recurrent UTI N39.0 Urinary frequency R35.0 Hemorrhagic cystitis N30.91 OAB (overactive bladder) N32.81
== END 2023-02-26 12:20 | disposition home or self-care (01) ==
PROVIDERS: PCP Physician Assistant; Visit Provider Urology
DX: N39.0 Urinary tract infection, site not specified (principal); R35.0 Frequency of micturition; N30.91 Cystitis, unspecified with hematuria; N32.81 Overactive bladder
CPT/HCPCS: 99214

== ENCOUNTER → 2023-02-26 11:43 | Outpatient (BNVA) | payer OTHER, SELFPAY | PROVIDERS: PCP Physician Assistant; Visit Provider Urology | DX: N39.0 Urinary tract infection, site not specified (principal); N30.91 Cystitis, unspecified with hematuria; N32.81 Overactive bladder; R35.0 Frequency of micturition | CPT/HCPCS: 81003; 99212 ==

== ENCOUNTER 2023-03-10 11:59 | Emergency (ER) | payer OTHER, SELFPAY ==
[2023-03-10 13:20] VITALS: BP 154/56; PULSE 68; RESP 18; TEMP 36.3; O2SAT 99; BMI 31.6
--- NOTE | 2023-03-10 13:20 | ED_ITS ---
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 The patient has been evaluated by Urology and was started on overactive bladder medication without significant improvement. Patient denies any fevers, chills and denies any burning. Related Data Home Medications Medication Instructions Recorded Confirmed escitalopram oxalate 20 mg tablet 20 mg PO DAILY 11/14/22 02/18/23 Previous Rx's Medication Instructions Recorded clotrimazole 1 % topical cream 1 appl topical DAILY 30 days #45 06/18/21 (Athlete's Foot (clotrimazole)) grams blood sugar diagnostic (FreeStyle #50 strips 06/27/22 Lite Strips) lancets 28 gauge (FreeStyle ##100 06/27/22 Lancets) atorvastatin 20 mg tablet 20 mg PO BEDTIME 90 days #90 tabs 10/05/22 acetaminophen 650 mg 650 mg PO Q12H PRN pain #14 tabs 10/10/22 tablet,extended release (Tylenol Arthritis Pain) cetirizine 10 mg tablet 10 mg PO DAILY allergy symptoms 90 10/17/22 days #90 tabs diclofenac sodium 3 % topical gel 1 appl topical BID 30 days #100 10/17/22 grams miscellaneous medical supply 1 ea miscellaneous DAILY 99 days 10/17/22 #1 ea magnesium oxide 250 mg PO DAILY 90 days #90 tabs 11/11/22 sitagliptin phosphate 25 mg tablet 25 mg PO DAILY 30 days #30 tabs 12/10/22 (Januvia) mirabegron 50 mg tablet,extended 50 mg PO DAILY #90 tabs 12/17/22 release 24 hr (Myrbetriq) pioglitazone 45 mg tablet 45 mg PO DAILY #90 tabs 12/17/22 benzonatate 200 mg capsule 200 mg PO BID PRN cough 30 days 02/12/23 #60 caps fluticasone propionate 50 2 spray intranasal DAILY 30 days 02/12/23 mcg/actuation nasal #15.8 mL spray,suspension solifenacin 10 mg tablet (Vesicare) 10 mg PO .qhs #90 tabs 02/27/23 Allergies Allergy/AdvReac Type Severity Reaction Status Date / Time No Known Allergies Allergy Unknown Verified 02/26/23 12:08 Review of Systems 2 Review of Systems: Pertinent positives and negatives as stated in [facility] Past Medical History Source: nursing notes reviewed Medical History Chronic allergic rhinitis Hemoptysis Recurrent UTI H/O syphilis LGSIL (low grade squamous intraepithelial dysplasia) Overweight (BMI 25.0-29.9) Dermatitis Memory impairment Pure hypercholesterolemia Diabetes mellitus Surgical History History of arthroscopy of right shoulder Hx of tubal ligation History of hernia repair (~2001) Status post breast reduction (~2006) Family History Family History Father Diabetes Mother Heart attack Brother No problems noted. Sister No problems noted. Son No problems noted. Son No problems noted. Son No problems noted. Daughter No problems noted. Daughter No problems noted. Social History Social History Housing: Apartment Alcohol intake: never Patient Tobacco Use Status: Never used Tobacco Smoked in Last 30 Days: No e-Cigarette/Vaping Use: Never Used Second Hand Smoke Exposure: No Use of substances other than those prescribed or required for medical reasons: No Advance Directives: No Advance Directives Information Provided: No service: No Current occupational status: retired Cognitive needs: No Hearing needs: No Vision needs: Yes Physical Exam ED Vital Signs: Vital Signs - 24 hr 03/10/23 13:20 03/10/23 18:36 Temperature 97.4 F 98.0 F Pulse Rate 68 75 Respiratory Rate 18 16 Blood Pressure 154/56 H 136/89 Pulse Oximetry 99 100 Oxygen Delivery Method Room Air Room Air BMI result Body Mass Index 31.6 VITAL SIGNS: Reviewed. GENERAL: Well developed, well nourished, in no acute distress. HEAD: Normocephalic/atraumatic EYES: PERRLA, EOMI EARS: Ext canals without abnormality NOSE: Nares patent bilateral OROPHARYNX: no oral lesions noted, posterior pharynx clear NECK: Supple, no adenopathy LUNGS: Normal breath sounds. No adventitious sounds or accessory muscle use. SpO2<100> CARDIOVASCULAR: Regular rate and rhythm without noted murmurs ABDOMEN: Soft, non-tender, non-distended with bowel sounds. MUSCULOSKELETAL: No tenderness, deformities, or effusions noted on gross inspection. EXTREMITIES: No cyanosis, clubbing or edema. SKIN: Inspection of the skin reveals no rashes NEUROLOGIC: Alert and oriented x 4. Strength and sensation to light touch were grossly intact x 4. Course Course Course Narrative: RME- 62 year old female presents for evaluation of lower abdominal pressure and urinary urgency. She follows with Dr Bautista for overactive bladder. Plan for UA, labs. She was recently started on Solifenacin. Medical Decision Making Medical Decision Making [facility] Narrative: 62-year-old female with history and clinical presentation, DDX: Hyperglycemia with polyuria, UTI, overactive bladder, stress incontinence, overflow incontinence Reviewed all investigations and hematologic indices are chronically stable and without gross abnormalities. There is no leukocytosis or left shift and no anemia or thrombocytopenia. Chemistry indices are grossly within normal limits without evidence to suggest KERRIE, there is no electrolyte derangements and glucose levels are only mildly elevated at 145. Urinalysis negative for UTI or hematuria. Patient otherwise appears well, bladder ultrasound prior to urination is 338 cc and after urination there is not appear to be any postvoid retention. Patient was encouraged to follow-up with urology. Differential Diagnosis Differential Diagnoses: The differential diagnosis associated with the presentation includes Please see the discussion above Admission/Observation Consideration of admission/observation: Escalation of care including admission/observation considered Please see the discussion above Lab Data [facility] Lab Attestation statement: I reviewed the patient's lab results. Please see the discussion above 03/10/23 13:42 03/10/23 13:42 Labs: Lab Results 03/10/23 03/10/23 Range/Units 13:42 15:59 WBC 4.3 L (4.8-10.8) X10*3/uL RBC 4.29 (4.20-5.50) X10*6/uL Hgb 13.1 (12.0-16.0) g/dl Hct 40.6 (37.0-47.0) % MCV 94.6 (80.0-98.0) fL MCH 30.5 (27.0-33.0) pg MCHC 32.3 (31.0-35.0) g/dl RDW 14.2 (11.0-16.0) % Plt Count 186 (160-400) X10*3/uL MPV 9.9 (9.4-12.3) fL Immature Gran % (Auto) 0.2 (0.0-0.4) % Neut % (Auto) 67.0 (45-73) % Lymph % (Auto) 24.2 (20-40) % [place] % (Auto) 7.2 (2-11) % Eos % (Auto) 0.7 (0-4) % Baso % (Auto) 0.7 (0-2) % Lymph # (Auto) 1.0 L (1.2-4.9) X10*3/uL [place] # (Auto) 0.3 (0.1-1.2) X10*3/uL Eos # (Auto) 0.0 (0.0-0.4) X10*3/uL Baso # (Auto) 0.0 (0.0-0.2) X10*3/uL Abs Immat Gran (auto) 0.01 (0.00-0.03) X10*3/uL Absolute Neuts (auto) 2.9 (2.0-8.3) x10*3/uL Absolute Nucleated RBC 0.000 (0.0-0.012) X10*3/uL Nucleated RBC % (auto) 0.0 (0.0-0.2) /100WBC Sodium 141 (135-145) mmol/L Potassium 4.3 (3.3-5.1) mmol/L Chloride 104 (96-108) mmol/L Carbon Dioxide 30 H (22-29) mmol/L Anion Gap 11 L (12-20) BUN 9 (9-16) mg/dL Creatinine 0.79 (0.5-1.4) mg/dL Estim Creat Clear Calc 70.6 Estimated GFR > 60 Random Glucose 145 H (60-115) mg/dL Calcium 9.9 (8.4-10.2) mg/dL Urine Color Yellow Urine Appearance Clear Urine pH 6.5 (5.0-9.0) Ur Specific [place] 1.010 (1.005-1.025) Urine Protein Negative (Neg-Trace) mg/dL Urine Glucose (UA) Negative (Negative) mg/dL Urine Ketones Negative (Negative) mg/dL Urine Blood Negative (Negative) Urine Nitrite Negative (Negative) Ur Leukocyte Esterase Negative (Negative) Urine RBC 0-2 (0-2) /HPF Urine WBC 0-5 (0-5) /HPF Ur Squamous Epith Cells 0-2 (0-2) /HPF Urine Bacteria None Seen (None Seen) Hyaline Casts 0-2 (0-2) /LPF External Record Review External record reviewed: Outpatient record, Prior outpatient labs and Prior outpatient radiology Chronic Conditions Patient?s care impacted by: Diabetes Discharge Plan Discharge Clinical Impression: Nocturia Patient Disposition: Home, Self-Care Instructions: Polyuria (ED) Additional Instructions: 1. Reanudar todos los medicamentos caseros seg?n lo recetado. Mcneil examen de hoy no identific? ninguna condici?n subyacente grave en henrik momento. 2. Le recomiendo que tambi?n realice un seguimiento con un ginec?logo, ya que puede kane causas adicionales por las que experimenta un aumento de la micci?n. 3. Shyam un seguimiento con mcneil m?dico de atenci?n primaria y con mcneil ur?logo. Regrese a la reddy de emergencias si comienza a experimentar fiebre, escalofr?os, n?useas o v?mitos asociados. 1. Resume all home medications as prescribed. You workup today did not further identify any serious underlying conditions at this time. 2. I do recommend that you also pursue follow-up with a handbag designer as there can be additional causes as to why you are experiencing increased urination. 3. Please follow-up with primary care doctor as well as your urologist. Return to the ER should you begin experiencing any associated fever, chills, nausea or vomiting. Prescriptions: No Action clotrimazole [Athlete's Foot (clotrimazole)] 1 % cream 1 appl topical DAILY 30 Days Qty: 45 3RF (DME) FreeStyle Lite Strips Strip See Rx Instructions .ROUTE .COMPLEX Qty: 50 5RF Dose Instruction: USE 1 STRIP DAILY Rx Instructions: USE 1 STRIP DAILY (DME) lancets [FreeStyle Lancets] 28 gauge misc See Rx Instructions .ROUTE .COMPLEX Qty: 100 3RF Dose Instruction: USE DAILY DIRECTED Rx Instructions: USE DAILY DIRECTED atorvastatin 20 mg tablet 20 mg PO BEDTIME 90 Days Qty: 90 2RF magnesium oxide 250 mg magnesium tablet 250 mg PO DAILY 90 Days Qty: 90 2RF Januvia 25 mg tablet 25 mg PO DAILY 30 Days Qty: 30 6RF pioglitazone 45 mg tablet 45 mg PO DAILY Qty: 90 2RF Myrbetriq 50 mg tablet extended release 24 hr 50 mg PO DAILY Qty: 90 1RF acetaminophen [Tylenol Arthritis Pain] 650 mg tablet extended release 650 mg PO Q12H PRN (Reason: pain) Qty: 14 0RF diclofenac sodium 3 % gel 1 appl topical BID 30 Days Qty: 100 1RF miscellaneous medical supply Misc 1 ea miscellaneous DAILY 99 Days Qty: 1 0RF cetirizine 10 mg tablet 10 mg PO DAILY 90 Days Qty: 90 1RF solifenacin [Vesicare] 10 mg tablet 10 mg PO .qhs Qty: 90 1RF escitalopram oxalate 20 mg tablet 20 mg PO DAILY benzonatate 200 mg capsule 200 mg PO BID PRN (Reason: cough) 30 Days Qty: 60 4RF fluticasone propionate 50 mcg/actuation spray,suspension 2 spray intranasal DAILY 30 Days Qty: 15.8 11RF Referrals: Bob Santiago PA-C [Primary Care Provider] - Olive Bautista MD [Physician] - Print Language: Afghan
[2023-03-10 13:48] LABS: Basophils Percent Auto 0.7 % (0-2); Eosinophils Percent Auto 0.7 % (0-4); Hematocrit 40.6 % (37.0-47.0); Hemoglobin 13.1 g/dl (12.0-16.0); Imm Gran Abs Auto 0.01 X10*3/uL (0.00-0.03); Imm Gran Pct Auto 0.2 % (0.0-0.4); Lymphocytes Percent Auto 24.2 % (20-40); MANUAL DIFF FLAG NO; Mean Corpuscular HGB Conc 32.3 g/dl (31.0-35.0); Mean Corpuscular Hemoglobin 30.5 pg (27.0-33.0); Mean Corpuscular Volume 94.6 fL (80.0-98.0); Mean Platelet Volume 9.9 fL (9.4-12.3); Monocytes Absolute Auto 0.3 X10*3/uL (0.1-1.2); Monocytes Percent Auto 7.2 % (2-11); Neutrophils Absolute Auto 2.9 x10*3/uL (2.0-8.3); Platelet Count 186 X10*3/uL (160-400); Red Blood Count 4.29 X10*6/uL (4.20-5.50); Red Cell Distribution Width 14.2 % (11.0-16.0); White Blood Count 4.3 X10*3/uL (4.8-10.8)
[2023-03-10 14:05] LABS: Anion Gap 11 (12-20); Blood Urea Nitrogen 9 mg/dL (9-16); Calcium 9.9 mg/dL (8.4-10.2); Carbon Dioxide 30 mmol/L (22-29); Chloride 104 mmol/L (96-108); Creatinine Clr Calc Pharmacy 70.6; Estimated Glomerular Filt Rate > 60; Glucose Random 145 mg/dL (60-115); Potassium 4.3 mmol/L (3.3-5.1); Sodium 141 mmol/L (135-145)
[2023-03-10 16:12] LABS: Appearance Urine Clear; Color Urine Yellow; Glucose Urine UA Negative (Negative); Leukocyte Esterase Urine Negative (Negative); Nitrite Urine Negative (Negative); PH 6.5 (5.0-9.0); Urine Blood Negative (Negative); Urine Ketones Negative (Negative); Urine Protein Negative (Neg-Trace)
[2023-03-10 16:14] LABS: Bacteria Urine None Seen (None Seen); Hyaline Casts Urine 0-2 /LPF (0-2); RBC Urine 0-2 /HPF (0-2); Squamous Epithelial Cell Urine 0-2 /HPF (0-2); WBC Urine 0-5 /HPF (0-5)
[2023-03-10 18:36] VITALS: BP 136/89; PULSE 75; RESP 16; TEMP 36.7; O2SAT 100
== END 2023-03-10 20:07 | disposition home or self-care (01) ==
PROVIDERS: Physician Assistant; Emergency Provider Student in an Organized Health Care Education/Training Program; PCP Physician Assistant
DX: R35.1 Nocturia (principal); R33.9 Retention of urine, unspecified; Z79.899 Other long term (current) drug therapy
CPT/HCPCS: 36415; 51798; 80048; 81001; 85025; 99283; 99285

== ENCOUNTER 2023-03-14 11:46 | Outpatient (AMB) | payer OTHER, SELFPAY ==
--- NOTE | 2023-03-14 11:47 | A.OFFVIS_ITS ---
Intake Intake Visit Reasons: discuss meds/issues with emptying Intake Note: Patient presents today for a follow-up on Issues with emptying: ARGENIS Meds- Swetha Allergies to Antibiotic- No Known Allergies Blood Thinner- None Unable to Void, PVR- 0 mL Land Survey Technician Required: No Accompanied by: Self / Same As Patient Allergies No Known Allergies Allergy (Unknown, Verified 02/26/23 12:08) Medication List - Last Reconciled 03/14/23 by Olive Bautista MD acetaminophen ER (Tylenol Arthritis Pain) 650 mg PO Q12H PRN atorvastatin 20 mg PO BEDTIME 90 days benzonatate 200 mg PO BID PRN 30 days blood sugar diagnostic (FreeStyle Lite Strips) USE 1 STRIP DAILY cetirizine 10 mg PO DAILY 90 days clotrimazole 1% (Athlete's Foot (clotrimazole)) 1 appl topical DAILY 30 days diclofenac sodium 3% 1 appl topical BID 30 days escitalopram oxalate 20 mg PO DAILY fluticasone propionate 50 mcg/actuation 2 sprays intranasal DAILY 30 days hydroxyzine pamoate (Vistaril) 25 mg PO BEDTIME lancets (FreeStyle Lancets) USE DAILY DIRECTED magnesium oxide 250 mg PO DAILY 90 days mirabegron ER (Myrbetriq) 50 mg PO DAILY miscellaneous medical supply 1 ea miscellaneous DAILY 99 days pioglitazone 45 mg PO DAILY sitagliptin phosphate (Januvia) 25 mg PO DAILY 30 days HPI HPI Comments History of Present Illness Details Tangela is a 62-year-old female who presents today to the office for a follow-up. 03/14/2023-- She is followed today for issues with emptying. She was last seen by me on 02/26/2023 and c/o'd of persistent urgency especially at night; Vesicare was added during that last visit. The patient was advised to continue Myrbetriq in AM and take vesicare at bedtime. She states the vesicare has not helped, she is still getting up 3-5 times at night to urinate. She was seen in ER on 03/11/23 because she felt that she could not empty her bladder well. I reviewed the ED notes; UA, CBC and chemistry was within the normal limits. BUN and Creatinine was 9 and 0.79 respectively Glucose was slightly elevated at 145. She states even as we are talking in the office she has strong sensation of bladder pressure but can't urinate. 03/14/2023: Evaluation today--Bladder sc an PVR: 22 Review of chart: 09/11/22. --Office Cystoscopy findings: N ormal bladder, mild bladder wall thickening. No suspicious bladder lesion visualized. US of Pelvis--05/10/22-- limited to the bladder. Renal US results reviewed--10/28/22-- Kidneys: WNL, negative for calculi or parenchymal lesions. 03/14/2023: Plan: Trial of Vistaril 25 m g at bed time to replace Vesicare. Continue Myrbetirq 50 mg during the day time. Will schedule urodynamics. [facility] Medical History Chronic allergic rhinitis Hemoptysis Recurrent UTI H/O syphilis LGSIL (low grade squamous intraepithelial dysplasia) Overweight (BMI 25.0-29.9) Dermatitis Memory impairment Pure hypercholesterolemia Diabetes mellitus Surgical History History of arthroscopy of right shoulder Hx of tubal ligation History of hernia repair (~2001) Status post breast reduction (~2006) Family History Father Diabetes Mother Heart attack Brother No problems noted. Sister No problems noted. Son No problems noted. Son No problems noted. Son No problems noted. Daughter No problems noted. Daughter No problems noted. Social History Housing: Apartment Alcohol intake: never Patient Tobacco Use Status: Never used Tobacco e-Cigarette/Vaping Use: Never Used Second Hand Smoke Exposure: No service: No Current occupational status: retired Cognitive needs: No Hearing needs: No Vision needs: Yes Office Procedures Post Void Residual Post Residual Void Post Void Residual (PVR): 0 [id number] Void Residual by ultrasound Results Reviewed Results Reviewed: Date of Service: 10/28/22 EXAMINATION: US RETROPERITONEAL LIMITED (RENAL ONLY) CLINICAL INFORMATION: Hemorrhagic cystitis. COMPARISON: Ultrasound bladder 05/10/2022. Ultrasound abdomen 07/06/2019. FINDINGS: RIGHT KIDNEY: 12.0 x 3.9 x 4.4 cm (SAG x AP x TRV). The kidney is normal in size, contour, and echogenicity. Renal cortical thickness is normal. No calculi or focal parenchymal lesions. No hydronephrosis. LEFT KIDNEY: 12.6 x 4.8 x 5.7 cm (SAG x AP x TRV). The kidney is normal in size, contour, and echogenicity. Renal cortical thickness is normal. No calculi or focal parenchymal lesions. No hydronephrosis. IMPRESSION: Normal-appearing kidneys. Assessment & Plan Assessment & Plan (1) Recurrent UTI: Code(s): N39.0 - Urinary tract infection, site not specified (2) Urinary frequency: Code(s): R35.0 - Frequency of micturition (3) Hemorrhagic cystitis: Code(s): N30.91 - Cystitis, unspecified with hematuria (4) OAB (overactive bladder): Code(s): N32.81 - Overactive bladder (5) Sensation of pressure in bladder area: Code(s): R39.89 - Other symptoms and signs involving the genitourinary system Plan Trial of Vistaril 25 mg at bed time to replace Vesicare. Continue Myrbetirq 50 mg during the day time. Will schedule urodynamics. Orders: Orders AMB Urinalysis Automated Today Z13.9 - Encounter for screening, unspecified AMB Post Void Residual by ultrasound Today N39.8 - Other specified disorders of urinary system Medications: New hydroxyzine pamoate (Vistaril) to replace vesicare 25 mg PO BEDTIME 30 caps 2RF Refilled mirabegron ER (Myrbetriq) 50 mg PO DAILY 90 tabs 1RF Discontinued solifenacin (Vesicare) Discontinued Reason: Doctor's Order 10 mg PO .qhs 90 tabs 1RF Patient Instructions: The patient had an opportunity to ask questions regarding treatment plan. All questions were answered. Imaging, Laboratory studies and physical exam results were discussed and reviewed in detail. No major barriers to understanding were identified. The patient expressed understanding and agreement with the above treatment plan. The patient is aware they should contact our office by phone for worsening of their current condition or the appearance of new symptoms. Compliance is encouraged with any medications and followup testing that is ordered. It is a privilege to be allowed the opportunity to participate in the urologic care of your patient. If you have any questions or concerns regarding treatment for the above conditions please do not hesitate to contact me. The office telephone contact is [phone]. This note is constructed in part using voice recognition software. While every effort has been made to ensure accuracy director pharmacovigilance errors may have been included. Yours sincerely, Olive Bautista MD Coding Level of Care Code Est Pt Level 4 (19768) Diagnoses Recurrent UTI N39.0 Urinary frequency R35.0 Hemorrhagic cystitis N30.91 OAB (overactive bladder) N32.81 Sensation of pressure in bladder area R39.89 CPT Codes Post Residual Void - PVR CPT Code: 91595-[id number] Void Residual by ultrasound ([id number])
== END 2023-03-14 12:30 | disposition home or self-care (01) ==
PROVIDERS: PCP Physician Assistant; Visit Provider Urology
DX: Z13.9 Encounter for screening, unspecified (principal)
CPT/HCPCS: 99214

== ENCOUNTER → 2023-03-14 11:46 | Outpatient (BNVA) | payer OTHER, SELFPAY | PROVIDERS: PCP Physician Assistant; Visit Provider Urology | DX: N39.0 Urinary tract infection, site not specified (principal); N30.91 Cystitis, unspecified with hematuria; N32.81 Overactive bladder; R35.0 Frequency of micturition; R39.89 Other symptoms and signs involving the genitourinary system | CPT/HCPCS: 51798; 81003; 99212 ==

== ENCOUNTER 2023-05-09 11:46 | Outpatient (REF) | payer OTHER, SELFPAY | END 2023-05-09 11:47 | disposition home or self-care (01) | LOC: HO.LAB 11:46 | PROVIDERS: PCP Physician Assistant; Visit Provider Urology | DX: N39.0 Urinary tract infection, site not specified (principal) | CPT/HCPCS: 81001; 87086 ==

== ENCOUNTER 2023-05-19 10:48 | Outpatient (AMB) | payer OTHER, SELFPAY ==
--- NOTE | 2023-05-19 10:50 | MHC.OFFVIS ---
Intake Vital Signs 05/19/23 10:51 Height 5 ft 2 in Weight 180 lb 12.465 oz BMI 33.1 BP 118/70 Blood Pressure Location Rt brachial Position Sitting Pulse 75 Pulse Source Pulse Oximeter Pulse Oximetry (%) 99 Oxygen Delivery Method Room Air Intake Visit Reasons: Cough Allergies No Known Allergies Allergy (Unknown, Verified 05/19/23 10:51) HPI HPI Comments History of Present Illness Details The patient is a 63 year woman presenting with chronic cough. She states that her cough tends to be nonproductive in nature and moderate severity. It is sporadic. She denies having any near syncopal or syncopal episodes were any incontinence of urine with it. The patient states the cough has been very nagging. The patient did undergo pulmonary function studies about a year ago. No evidence of any obstructive nor restrictive ventilatory defects. Although on the flow volume loop appears to have a saw tooth pattern to the inspiratory flow suggesting of redundant tissue in the upper airway and or vocal cord dysfunction. The patient does have nasal congestion. She also has ache or pressure the ears that sometimes uncomfortable. She denies having any allergy testing in the past. On examination she does have significant erythema the turbinates suggesting an upper airway cough syndrome. Will go ahead and treat her accordingly. I did provide her with the Neti bottle to see if she can not tolerate nasal rinsing at nighttime and also nasal spray during the daytime. The patient also will have additional allergy testing at this time. Also to note she did have a CT scan of the chest done fairly recent and I personally reviewed. She does have some minimal atelectasis and also has a small 4 mm pulmonary nodule that requires additional testing. 05/19/2023 the patient is here for pulmonary follow-up visit. Overall the patient has been feeling better. Her cough is overall better although recently she did get a cold and she has been having a little bit more of a nasal congestion cough. But the benzonatate have been helpful. We did review her blood work including allergy testing without any significant findings. We also discussed her last CT scan back in November 2022 with small 4 mm pulmonary nodule that will need follow-up. On examination I believe she does have some prolonged expiratory phase and will benefit from a rescue inhaler. I did teach how to use it in the office. She will using as needed. In the meantime she continues use her nasal spray. Will follow-up in the fall after her CT scan. [facility] Medical History Chronic allergic rhinitis Hemoptysis Recurrent UTI H/O syphilis LGSIL (low grade squamous intraepithelial dysplasia) Overweight (BMI 25.0-29.9) Dermatitis Memory impairment Pure hypercholesterolemia Diabetes mellitus Surgical History History of arthroscopy of right shoulder Hx of tubal ligation History of hernia repair (~2001) Status post breast reduction (~2006) Family History Father Diabetes Mother Heart attack Brother No problems noted. Sister No problems noted. Son No problems noted. Son No problems noted. Son No problems noted. Daughter No problems noted. Daughter No problems noted. Social History Housing: Apartment Alcohol intake: never Patient Tobacco Use Status: Never used Tobacco e-Cigarette/Vaping Use: Never Used Second Hand Smoke Exposure: No service: No Current occupational status: retired Cognitive needs: No Hearing needs: No Vision needs: Yes Review of Systems Const Denies fever(s) Eyes Denies change in vision ENT Reports otalgia, Reports nasal congestion, Reports nasal discharge and Reports post nasal drip Card Denies chest pain Resp Denies chest congestion, Reports cough and Denies wheezing GI Reports no additional complaints Musc Reports no additional complaints Skin/Breast Denies rash Neuro Reports no additional complaints Mitch/Lymph Denies lymphadenopathy Aller/Immun Denies wheezing Physical Exam Vital Signs: Last Vital Signs Pulse 75 05/19/23 10:51 BP 118/70 05/19/23 10:51 Pulse Ox 99 05/19/23 10:51 Oxygen Delivery Method Room Air 05/19/23 10:51 BMI result Body Mass Index 33.1 Const General: comfortable HEENT Head: Yes normocephalic Ears: TM abnormal with fluid behind the TM General nose exam: Abnormal mucous membranes and turbinates present erythematous Neck Neck: Yes supple Chest Chest palpation & inspection: normal inspection of the chest Resp Effort & Inspection: normal respiratory effort and prolonged expiratory phase Auscultation: clear to auscultation bilaterally Cardio Rate: regular rate Rhythm: regular rhythm Heart sounds: S1 normal heart sound present and S2 normal heart sound present GI Palpation (GI): Soft to palpation Skin General skin exam: no rashes or lesions noted Extrem General: Yes no clubbing, cyanosis or edema Assessment & Plan Assessment & Plan (1) Chronic allergic rhinitis: Code(s): J30.9 - Allergic rhinitis, unspecified (2) Pulmonary nodule: Code(s): R91.1 - Solitary pulmonary nodule (3) Chronic cough: Comment: Likely upper airway cough syndrome, also may have a component of vocal cord dysfuction Code(s): R05.3 - Chronic cough Plan Neti bottle rinsing nasal steroid spray benzonates as needed Start ZARIA as needed repeat CT chest 12/2023 F/U Fall 2023 Orders: Orders CT chest wo IV con 12/22/23 R91.1 - Solitary pulmonary nodule Medications: New albuterol sulfate 90 mcg/actuation 2 inhalations inhalation Q6H 30 days PRN 18 grams 12RF shortness of breath or wheezing J44.9 - Chronic obstructive pulmonary disease, unspecified Refilled benzonatate 200 mg PO BID 30 days PRN 60 caps 5RF cough Coding Level of Care Code Est Pt Level 4 (99312) Diagnoses Chronic allergic rhinitis J30.9 Pulmonary nodule R91.1 Chronic cough R05.3 Time Spent (min) 16
[2023-05-19 10:51] VITALS: BP 118/70; PULSE 75; O2SAT 99; BMI 33.1
== END 2023-05-19 11:22 | disposition home or self-care (01) ==
PROVIDERS: PCP Physician Assistant; Visit Provider Hospitalist
DX: J30.9 Allergic rhinitis, unspecified (principal); R91.1 Solitary pulmonary nodule; R05.3 Chronic cough
CPT/HCPCS: 99214

== ENCOUNTER → 2023-05-19 10:48 | Outpatient (BNVA) | payer OTHER, SELFPAY | PROVIDERS: PCP Physician Assistant; Visit Provider Hospitalist | DX: R05.3 Chronic cough (principal); J31.0 Chronic rhinitis; R91.1 Solitary pulmonary nodule | CPT/HCPCS: 99212 ==

== ENCOUNTER 2023-05-21 10:48 | Outpatient (AMB) | payer OTHER, SELFPAY ==
--- NOTE | 2023-05-21 11:23 | A.OFFVIS_ITS ---
Intake Intake Visit Reasons: Urodynamics Intake Note: Patient presents today for a URODYNAMIC Procedure: Meds- Myrbertriq Allergies to Antibiotic- No Known Allergies Blood Thinner- None Financial Planning Analyst Required: No Accompanied by: Self / Same As Patient Allergies No Known Allergies Allergy (Unknown, Verified 06/24/23 12:01) HPI HPI Comments History of Present Illness Details Gina is a 63 year old female who has complaints of urinary frequency day and night every 2 hrs and sensation of bladder pressure. She was prescribed Myrbetriq 50 mg daily in AM and Vistaril qpm. She states the Myrbetriq has decreased the bladder pressure sensaton but she still has urinary freq every 2 hrs, also when taking the the vistaril she states she still gets the urge to void ever 2-3 hrs and then in the morning she can't urinate, has to wait an hour before she can urinate so she stopped using the vistaril. The patient was instructed to and states she stopped the Myrbetriq 5 days prior to UDS procedure. CMG parameters detailed below. Interpretation: During the filling phase there was decreased sensation. First desire was at 385 mL Leakage was not observed during cough or valsalva/stress. Findings consistent dysfunctional voiding and decreased bladder sensation EMG- There was a episodic increase in the EMG activity during the voiding phase. The patient voided 550 mL in the commode after removing the urethral catheter Consider Pelvic floor Physical Therapy [facility] Medical History (Updated 06/24/23 @ 12:11 by Bob Santiago PA-C) Asthma Chronic allergic rhinitis Hemoptysis Recurrent UTI H/O syphilis LGSIL (low grade squamous intraepithelial dysplasia) Overweight (BMI 25.0-29.9) Dermatitis Memory impairment Pure hypercholesterolemia Diabetes mellitus Surgical History History of arthroscopy of right shoulder Hx of tubal ligation History of hernia repair (~2001) Status post breast reduction (~2006) Family History Father Diabetes Mother Heart attack Brother No problems noted. Sister No problems noted. Son No problems noted. Son No problems noted. Son No problems noted. Daughter No problems noted. Daughter No problems noted. Social History Housing: Apartment Alcohol intake: never Patient Tobacco Use Status: Never used Tobacco e-Cigarette/Vaping Use: Never Used Second Hand Smoke Exposure: No service: No Current occupational status: retired Cognitive needs: No Hearing needs: No Vision needs: Yes Office Procedures Urodynamic Studies Consent Discussed risk and benefit or proposed procedure with the patient. Information consent for procedure given to the patient. Discussed technical aspects, risks, benefits and alternatives in full. Addressed all of the patient's questions and concerns regarding the procedure. The patient demonstrated knowledge and understanding. They wish to proceed with this procedure. Preparation The patient was prepped in the usual manner. A railways assistant was present and in the room. Genitalia was prepped with betadine solution in a sterile manner. Prep: The patient was prepped in the usual manner. A railways assistant was present and in the room. Genitalia was prepped with betadine solution in a sterile manner. Complex Uroflow Complex uroflow performed by: Olive Bautista Maximum urinary flow rate (mL/second): 11 mL/s Voiding time (seconds): 7.5 s Cystometrogram Void Pressure Vaginal/rectal catheter type: rectal First desire at (mL): 385 mL Strong desire to void occured at (mL): 442 mL Strong desire detrussor pressure (cm H2O): -8.6 Maximum fill (mL): 455 mL The patient was unable to void with the urethral catheter in place. The urethral and rectal catheter was removed and the patient voided 550 mL on the commode 98063-Gdzafwvwxadcpc w/ [employer]PER[employer] 57187-Yxbqrlz-Ghrwwxqpwyhh First 48136-Gfrh/Urinary Muscle Study 31882-Txdya-Iltawlnqa Pressure Test Procedure code (CPT) selection complete Office Meds lidocaine HCl 2 % mucosal jelly in applicator Performing Provider: Olive Bautista MD Performing Location: [facility] [place] [facility] Documented (not given) by: Olive Bautista MD on 07/16/23 08:38 Dose Route Admin Location Dispensed Lot Number Expiration Date NDC Payment Rep 10 mL intra-urethral mL nitrofurantoin monohydrate/macrocrystals 100 mg capsule Performing Provider: Olive Bautista MD Performing Location: [facility] [place] [facility] Documented (not given) by: Olive Bautista MD on 07/16/23 08:38 Dose Route Admin Location Dispensed Lot Number Expiration Date NDC Payment Rep 100 mg PO cap Assessment & Plan Assessment & Plan (1) Urinary frequency: Code(s): R35.0 - Frequency of micturition (2) Urinary urgency: Code(s): R39.15 - Urgency of urination (3) Sensation of pressure in bladder area: Code(s): R39.89 - Other symptoms and signs involving the genitourinary system (4) Nocturia: Code(s): R35.1 - Nocturia Plan Consider pelvic floor physical therapy Orders: Orders AMB Urodynamics Studies 05/21/23 R35.0 - Frequency of micturition, R39.15 - Urgency of urination Medications: New lidocaine HCl 2% 10 mL intra-urethral ONCE 10 mL 0RF R35.0 - Frequency of micturition, R39.15 - Urgency of urination nitrofurantoin monohyd/m-cryst 100 mg 100 mg PO ONCE 1 cap 0RF R35.0 - Frequency of micturition, R39.15 - Urgency of urination Coding Level of Care Code Procedure Only Diagnoses Urinary frequency R35.0 Urinary urgency R39.15 Sensation of pressure in bladder area R39.89 Nocturia R35.1 CPT Codes Urodynamic Studies - CPT: 84141-Xthipgmdqmyjog w/ [employer] ([id number]) Urodynamic Studies - CPT: 06122-Jcynncx-Awbcjfgbtnnk First ([id number]) Urodynamic Studies - CPT: 67550-Qvks/Urinary Muscle Study ([id number]) Urodynamic Studies - CPT: 42972-Bptny-Vkkuoyuov Pressure Test ([id number])
== END 2023-05-21 13:24 | disposition home or self-care (01) ==
PROVIDERS: PCP Physician Assistant; Visit Provider Urology
DX: R35.0 Frequency of micturition (principal); R39.15 Urgency of urination; R39.89 Other symptoms and signs involving the genitourinary system; R35.1 Nocturia
CPT/HCPCS: 51728; 51741; 51784; 51797

== ENCOUNTER 2023-05-21 10:48 | Outpatient (REF) | payer OTHER, SELFPAY | END 2023-05-21 10:49 | disposition home or self-care (01) | LOC: HO.LAB 10:48 | PROVIDERS: PCP Physician Assistant; Visit Provider Urology | DX: N39.0 Urinary tract infection, site not specified (principal); R35.0 Frequency of micturition; R39.15 Urgency of urination; R35.1 Nocturia | CPT/HCPCS: 51728; 51741; 51784; 51797 ==

== ENCOUNTER 2023-06-24 11:36 | Outpatient (AMB) | payer OTHER, SELFPAY ==
[2023-06-24 11:47] VITALS: BP 104/68; PULSE 74; O2SAT 94; BMI 32.1
--- NOTE | 2023-06-24 11:47 | MHC.PC.OV ---
Vital Signs 06/24/23 11:47 Height 5 ft 2 in Weight 175 lb 6 oz BMI 32.1 BP 104/68 Blood Pressure Location Lt brachial Position Sitting Pulse 74 Pulse Source Pulse Oximeter Pulse Oximetry (%) 94 Oxygen Delivery Method Room Air Intake Visit Reasons: f/u DMII Assistant Paralegal Required: No Accompanied by: Self / Same As Patient Allergies No Known Allergies Allergy (Unknown, Verified 06/24/23 12:01) Medication List - Last Reconciled 06/24/23 by Bob Santiago PA-C acetaminophen ER (Tylenol Arthritis Pain) 650 mg PO Q12H PRN albuterol sulfate 90 mcg/actuation 2 inhalations inhalation Q6H PRN 30 days atorvastatin 20 mg PO BEDTIME 90 days blood sugar diagnostic (FreeStyle Lite Strips) USE 1 STRIP DAILY cetirizine 10 mg PO DAILY 90 days clotrimazole 1% (Athlete's Foot (clotrimazole)) 1 appl topical DAILY 30 days diclofenac sodium 3% 1 appl topical BID 30 days escitalopram oxalate 20 mg PO DAILY fluticasone propionate 50 mcg/actuation 2 sprays intranasal DAILY 30 days hydroxyzine pamoate 25 mg PO BEDTIME lancets (FreeStyle Lancets) USE DAILY DIRECTED magnesium oxide 250 mg PO DAILY 90 days mirabegron ER (Myrbetriq) 50 mg PO DAILY miscellaneous medical supply 1 ea miscellaneous DAILY 99 days pioglitazone 45 mg PO DAILY sitagliptin phosphate (Januvia) 25 mg PO DAILY 30 days Tobacco use date assessed: 06/24/23 Fall risk assessment: No Falls in past year Last assessed Fall Risk: 06/24/23 HPI f/u DMII HPI Details atient is a 63 female here today for follow-up visit.? Patient has a past medical history significant type 2 diabetes, generalized anxiety disorder hyperlipidemia, chronic left shoulder pain,? Concern--> continues to have urinary frequency. Has been placed on medication for urinary frequency and overactive bladder which is somewhat helpful. She does see [facility] though would like a 2nd opinion from a new urologist as she continues to have symptoms. Also reports she has been having trouble with a intentional tremor in her upper extremities. She reports this has been evident for many years though has gotten worse over the last year. She is willing to try medication for her tremor. We discussed possibly doing therapy though would like to hold off on this for now. .. Chronic cough: Has a small pulmonary nodule on chest CT. Has followed up with pulmonology was started on a rescue in albuterol inhaler. Also started allergy medication. . Osteoarthritis bilateral knees: She is now followed by Orthopedics in [place] and getting injection in both her knees. She is anticipating gel injections in near future. .. DMII: Today's A1c is 7.1. Sugars at home 120-170s . She reports her diet has been poor as of late. She continues on pioglitazone 45 mg and Januvia 25 mg.? She was unable to tolerate metformin due to GI side effects. ? .. MDD: Patient's depression has been fairly well controlled with current dose of Lexapro 20 mg. Laboratory Tests 06/17/22 10/28/22 02/18/23 09:10 11:10 11:32 Hgb A1c (Clinic) 6.5 H 7.1 H Hemoglobin A1c % 6.1 PFS Medical History (Updated 06/24/23 @ 12:11 by Bob Santiago PA-C) Asthma Chronic allergic rhinitis Hemoptysis Recurrent UTI H/O syphilis LGSIL (low grade squamous intraepithelial dysplasia) Overweight (BMI 25.0-29.9) Dermatitis Memory impairment Pure hypercholesterolemia Diabetes mellitus Surgical History History of arthroscopy of right shoulder Hx of tubal ligation History of hernia repair (~2001) Status post breast reduction (~2006) Family History Father Diabetes Mother Heart attack Brother No problems noted. Sister No problems noted. Son No problems noted. Son No problems noted. Son No problems noted. Daughter No problems noted. Daughter No problems noted. Social History Housing: Apartment Alcohol intake: never Patient Tobacco Use Status: Never used Tobacco e-Cigarette/Vaping Use: Never Used Second Hand Smoke Exposure: No service: No Current occupational status: retired Cognitive needs: No Hearing needs: No Vision needs: Yes Questionnaire PHQ-9 Over the last 2 weeks, how often have you been bothered by any of the following problems? 1. Little interest or pleasure in doing things: several days 2. Feeling down, depressed, or hopeless: several days 3. Trouble falling or staying asleep, or sleeping too much: nearly every day 4. Feeling tired or having little energy: nearly every day 5. Poor appetite or overeating: more than half the days 6. Feeling bad about yourself - or that you are a failure or have let yourself or your family down: not at all 7. Trouble concentrating on things, such as reading the newspaper or watching television: nearly every day 8. Moving or speaking so slowly that other people could have noticed. Or the opposite - being so fidgety or restless that you have been moving around a lot more than usual: not at all 9. Thoughts that you would be better off or of hurting yourself in some way: not at all Total score: 13 Depression Screening Interpretation: Positive Depression Screening Follow-up: Existing condition and In treatment Depression Screening Done: Yes 81635 - PHQ-9 Billing: Yes Source: Developed by Drs. Piotr James, Breonna East, Donaldo Barrios and colleagues, with an educational paddy from [employer]. Thrive Questionnaire Date Thrive assessed: 06/24/23 I am a: Patient What is your living situation today?: I have a steady place to live Within the past 12 months, did the food you bought not last and you didn't have the money to get more?: Never true Within the past 12 months, did you worry whether your food would run out before you got money to buy more?: Never true Do you have trouble paying for medicines?: No Do you have trouble getting transportation to medical appointments?: No Do you have trouble paying your heating and electricity bill?: No Do you have trouble taking care of your child, family member or friend?: No Do you have trouble with day-to-day activities such as bathing, preparing meals, shopping, managing finances, etc.?: No Are you currently unemployed and looking for a job?: No Are you interested in more education?: No Please select the resources that you would like help with: None Currently or been in a relationship where the following occur: no concerns reported THRIVE Score: 0 AUDIT C Alcohol Use Questionnaire (AUDIT-C) 1. How often do you have a drink containing alcohol?: Never 3. How often do you have six or more drinks on one occasion?: Never Total Score: 0 OMERO-7 AMB Questionnaire OMERO-7 Date OMERO - 7 assessed: 05/07/22 Feeling nervous, anxious, or on edge: 0 = Not at all Not being able to stop or control worryin = Not at all Worrying too much about different things: 0 = Not at all Trouble relaxin = Not at all Being so restless that it is hard to sit still: 0 = Not at all Becoming easily annoyed or irritable: 0 = Not at all Feeling afraid as if something awful might happen: 0 = Not at all Total OMERO-7 score (0-4 normal; 5-9 mild; 10-14 moderate; 15-21 severe): 0 Source: Developed by Drs. Piotr James, Breonna East, Donaldo Barrios and colleagues, with an educational paddy from [employer]. OMERO-7 Assessment Billing OMERO-7 Assessment Tool: OMERO-7 Assessment 79340 Review of Systems Const Denies headache(s) Eyes Denies loss of vision ENT Denies vertigo, Denies dizziness, Denies headache(s) and Denies sore throat Card Denies chest pain, Denies leg edema and Denies lightheadedness Resp Denies cough, Denies hemoptysis and Denies wheezing GI Denies abdominal pain, Denies melena, Denies constipation, Denies diarrhea and Denies vomiting Denies urinary frequency, Denies dysuria and Denies urinary urgency Musc Denies arthralgias, Denies joint swelling, Denies numbness and Denies tingling Neuro Denies Abnormal speech present, Denies behavioral changes, Denies vertigo, Denies dizziness, Denies headache(s), Denies loss of vision, Denies memory loss, Denies numbness and Denies tingling Psych Denies anxiety, Denies behavioral changes, Denies depression, Denies memory loss and Denies panic attacks Mitch/Lymph Denies easy bleeding and Denies easy bruising Aller/Immun Denies wheezing Physical exam (Primary Care) Vital Signs: Last Vital Signs Pulse 74 06/24/23 11:47 BP 104/68 06/24/23 11:47 Pulse Ox 94 06/24/23 11:47 Oxygen Delivery Method Room Air 06/24/23 11:47 BMI result Body Mass Index 32.1 Tobacco/Smoking Status: Tobacco use Status Tobacco use date assessed 06/24/23 06/24/23 11:54 Patient Tobacco Use Status Never used Tobacco 06/24/23 11:54 e-Cigarette/Vaping Use Never Used 06/24/23 11:54 PHQ-9: PHQ-9 Score PHQ-9: Total score 13 06/24/23 12:05 Depression Screening Interpretation: Positive Depression Screening Follow-up: Existing condition and In treatment Thrive Assessment: Date of Thrive Assessment Date Thrive assessed 06/24/23 06/24/23 11:54 Currently or been in a relationship where the following occur: no concerns reported Const General: healthy appearing, no acute distress, alert and awake Nutritional Appearance: well nourished Orientation/consciousness: oriented to person, oriented to place and oriented to time HENMT Ears: TM's normal bilaterally General nose exam: Normal nasal mucous membranes and turbinates present Eyes Conjunctivae: conjunctivae normal Sclerae: sclerae normal Pupils: Equal, round and reactive pupils present Neck Neck: Yes no lymphadenopathy and Yes no JVD Thyroid: Thyroid normal Carotids: no bruits Resp Effort & Inspection: normal respiratory effort and not tachypneic Auscultation: no crackles, no rales, no rhonchi and no wheezes Cardio Rate: regular rate Rhythm: regular rhythm Heart sounds: no murmurs and normal S1 and S2 GI Palpation (GI): Soft to palpation, nontender, no hepatomegaly and no splenomegaly Auscultation: normal bowel sounds Skin General skin exam: no rashes or lesions noted and dry skin Neuro General: oriented to person, oriented to place and oriented to time Cranial nerves: Yes Equal, round and reactive pupils present Speech: No Abnormal speech present Gait exam (Neuro): Normal gait present Motor exam (neuro): no tremor noted Extrem Right upper extremity: full ROM Left upper extremity: full ROM Right lower extremity: full ROM; no edema Left lower extremity: full ROM; no edema Psych Mental Status: mental status grossly normal Speech and movement: Normal speech and movement present Affect: normal affect Attitude: cooperative Thought process: Normal thought process present Results AMB Hemoglobin A1c AMB Hemoglobin A1c 7.1 % Last Edit by SABIHA John on 06/24/23 12:00 Results Reviewed Results Reviewed: Laboratory Last Values Hgb A1c (Clinic) 7.1 % (4.0-6.0) H 06/24/23 11:38 Assessment and Plan Assessment & Plan (1) Diabetes mellitus: Code(s): E11.9 - Type 2 diabetes mellitus without complications Qualifiers: Diabetes mellitus complication status: without complication Diabetes mellitus exterminator helper termite insulin use: without mcfp use Diabetes mellitus type: type 2 Qualified Code(s): E11.9 - Type 2 diabetes mellitus without complications Plan: Patient's type 2 diabetes is suboptimally controlled with A1c is 7.1. She will work on lifestyle modifications to reduce her blood sugars. Goal A1c to be below 7.0 (2) OMERO (generalized anxiety disorder): Code(s): F41.1 - Generalized anxiety disorder Plan: Omero 7 score 0 Stable on current dose of SSRI. She reports her mood has been stable. (3) Pure hypercholesterolemia: Code(s): E78.00 - Pure hypercholesterolemia, unspecified Plan: Patient continues on statin therapy without side effect. Goal LDL to remain below 100 (4) MDD (major depressive disorder), recurrent episode, moderate: Code(s): F33.1 - Major depressive disorder, recurrent, moderate Plan: Patient's PHQ-9 score positive for depression which has been existing condition for her. Patient continues SSRI therapy. Again she reports her mood has been stable on current antidepressant medication. (5) Osteoarthritis of left knee: Code(s): M17.12 - Unilateral primary osteoarthritis, left knee Qualifiers: Osteoarthritis type: primary Qualified Code(s): M17.12 - Unilateral primary osteoarthritis, left knee Plan: Has been following up with an orthopedic and getting cortisone injections which have been very helpful in reducing her pain. Most recent x-ray showing arthritis and as slight knee effusion. (6) Obese: Code(s): E66.9 - Obesity, unspecified Qualifiers: Body mass index: BMI 31.0-31.9 Obesity classification: adult class 1 (BMI 30 - 34.9) Obesity type: due to excess calories Serious obesity comorbidity presence: with serious comorbidity Qualified Code(s): E66.09 - Other obesity due to excess calories; Z68.31 - Body mass index [BMI] 31.0-31.9, adult Plan: Patient does understand her BMI is above 30 will work on being more physically active and adapting to better eating habits to reduce her weight (7) Urinary urgency: Code(s): R39.15 - Urgency of urination Plan: As per HPI patient continues to have urinary urgency and frequency. Does take bladder medication though only is somewhat effective. She would like a 2nd opinion through [place] [facility]. (8) OAB (overactive bladder): Code(s): N32.81 - Overactive bladder Plan: As above (9) Intention tremor: Code(s): G25.2 - Other specified forms of tremor Plan: As per HPI, has been suffering with an intentional tremor over the last several years though has noted a gotten worse over the last few months. No notable tremor at rest. Offered therapy though patient declines. She is interested in starting a medication to help reduce the severity of her tremor per Orders: Orders AMB Hemoglobin A1c Today E11.9 - Type 2 diabetes mellitus without complications Referrals Urology Referral N32.81 - Overactive bladder, R39.15 - Urgency of urination Medications: New nystatin swish and swallow 5 mL PO TID 30 days PRN 60 mL 0RF mouth irritation B37.0 - Candidal stomatitis primidone 50 mg PO BEDTIME 90 days 90 tabs 1RF G25.2 - Other specified forms of tremor Coding Level of Care Code Est Pt Level 4 (54743) Diagnoses Type 2 diabetes mellitus without complication, without long-term current use of insulin E11.9 Diabetes mellitus complication status: without complication Diabetes mellitus mcfp insulin use: without mcfp use Diabetes mellitus type: type 2 OMERO (generalized anxiety disorder) F41.1 Pure hypercholesterolemia E78.00 MDD (major depressive disorder), recurrent episode, moderate F33.1 Primary osteoarthritis of left knee M17.12 Osteoarthritis type: primary Class 1 obesity due to excess calories with serious comorbidity and body mass index (BMI) of 31.0 to 31.9 in adult E66.09; Z68.31 Body mass index: BMI 31.0-31.9 Obesity classification: adult class 1 (BMI 30 - 34.9) Obesity type: due to excess calories Serious obesity comorbidity presence: with serious comorbidity Urinary urgency R39.15 OAB (overactive bladder) N32.81 Intention tremor G25.2 Additional Codes OMERO-7 Assessment Billing - OMERO-7 Assessment Tool: OMERO-7 Assessment [id number] ([id number])
== END 2023-06-24 12:22 | disposition home or self-care (01) ==
PROVIDERS: PCP Physician Assistant; Visit Provider Physician Assistant
DX: E11.9 Type 2 diabetes mellitus without complications (principal); F33.1 Major depressive disorder, recurrent, moderate; Z68.31 Body mass index [BMI] 31.0-31.9, adult; E66.09 Other obesity due to excess calories; F41.1 Generalized anxiety disorder; E78.00 Pure hypercholesterolemia, unspecified; M17.12 Unilateral primary osteoarthritis, left knee; R39.15 Urgency of urination; N32.81 Overactive bladder; G25.2 Other specified forms of tremor
CPT/HCPCS: 83036; 99214

== ENCOUNTER 2023-08-28 11:30 | Outpatient (AMB) | payer OTHER, SELFPAY ==
--- NOTE | 2023-08-28 11:42 | A.OFFVIS_ITS ---
Intake Visit Reasons: 6m follow up Intake Note: Patient presents today for a post URODYNAMIC follow-up: Meds- Trial of Gemtesa Allergies to Antibiotic- No Known Allergies Blood Thinner- None Vending Route Servicer Required: No Accompanied by: Self / Same As Patient Allergies No Known Allergies Allergy (Unknown, Verified 08/28/23 11:43) HPI Comments Details: 08/28/23---went for 2nd opinion. Received samples of gemtesa. She states the medication does not seem to be helping. I have discussed the treatment modalities including sacral neuromodulation and bladder Botox injection. The patient has failed several p.o. anticholinergics including oxybutynin, Myrbetriq, VESIcare, Vistaril, Gemtesa. She is agreeable for cystoscopy bladder Botox injection. Risks and benefits discussed including but not limited to need to repeat Botox injection to maintain efficacy, urinary tract infection, hematuria, urinary retention. Plan cystoscopy bladder Botox injection 100 units PFSH Medical History Asthma Chronic allergic rhinitis Hemoptysis Recurrent UTI H/O syphilis LGSIL (low grade squamous intraepithelial dysplasia) Overweight (BMI 25.0-29.9) Dermatitis Memory impairment Pure hypercholesterolemia Diabetes mellitus Surgical History History of arthroscopy of right shoulder Hx of tubal ligation History of hernia repair (~2001) Status post breast reduction (~2006) Family History Father Diabetes Mother Heart attack Brother No problems noted. Sister No problems noted. Son No problems noted. Son No problems noted. Son No problems noted. Daughter No problems noted. Daughter No problems noted. Social History Housing: Apartment Alcohol intake: never Patient Tobacco Use Status: Never used Tobacco e-Cigarette/Vaping Use: Never Used Second Hand Smoke Exposure: No service: No Current occupational status: retired Cognitive needs: No Hearing needs: No Vision needs: Yes Review of Systems Const All systems reviewed & are unremarkable except as noted in HPI and below Reports no additional complaints Eyes Reports no additional complaints ENT Reports no additional complaints Card Reports no additional complaints Resp Reports no additional complaints GI Reports no additional complaints Reports as per HPI Musc Reports no additional complaints Skin/Breast Reports system reviewed and no additional complaints, except as documented Neuro Reports no additional complaints Psych Reports no additional complaints Endo Reports no additional complaints Mitch/Lymph Reports no additional complaints Aller/Immun Reports no additional complaints Assessment & Plan Assessment & Plan (1) Urinary frequency: Code(s): R35.0 - Frequency of micturition Category: Medical (2) Urinary urgency: Code(s): R39.15 - Urgency of urination Category: Medical (3) Sensation of pressure in bladder area: Code(s): R39.89 - Other symptoms and signs involving the genitourinary system Category: Medical (4) Nocturia: Code(s): R35.1 - Nocturia Category: Medical Plan cystoscopy bladder Botox injection 100 units Orders: Orders AMB Urinalysis Automated 08/28/23 Z13.9 - Encounter for screening, unspecified Patient Instructions: The patient had an opportunity to ask questions regarding treatment plan. The patient expressed understanding and agreement with the above treatment plan. The patient is aware they should contact our office by phone for worsening of their current condition or the appearance of new symptoms. Compliance is encouraged with any medications and followup testing that is ordered. It is a privilege to be allowed the opportunity to participate in the urologic care of your patient. If you have any questions or concerns regarding treatment for the above conditions please do not hesitate to contact me. The office telephone contact is [phone]. This note is constructed in part using voice recognition software. While every effort has been made to ensure accuracy ski topper errors may have been included. Yours sincerely, Olive Bautista MD Coding Level of Care Code Est Pt Level 4 (63961) Diagnoses Urinary frequency R35.0 Urinary urgency R39.15 Sensation of pressure in bladder area R39.89 Nocturia R35.1
== END 2023-08-28 12:03 | disposition home or self-care (01) ==
PROVIDERS: PCP Physician Assistant; Visit Provider Urology
DX: R35.0 Frequency of micturition (principal); R39.15 Urgency of urination; R39.89 Other symptoms and signs involving the genitourinary system; R35.1 Nocturia
CPT/HCPCS: 99214

== ENCOUNTER → 2023-08-28 11:30 | Outpatient (BNVA) | payer OTHER, SELFPAY | PROVIDERS: PCP Physician Assistant; Visit Provider Urology | DX: R35.1 Nocturia (principal); R35.0 Frequency of micturition; R39.15 Urgency of urination; R39.89 Other symptoms and signs involving the genitourinary system | CPT/HCPCS: 99212 ==

== ENCOUNTER 2023-10-09 10:03 | Outpatient (AMB) | payer OTHER, SELFPAY ==
[2023-10-09 10:09] VITALS: PULSE 73; O2SAT 97; BMI 31.6
--- NOTE | 2023-10-09 10:09 | A.OFFVIS_ITS ---
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 She states that her cough tends to be nonproductive in nature and moderate severity. It is sporadic. She denies having any near syncopal or syncopal episodes were any incontinence of urine with it. The patient states the cough has been very nagging. The patient did undergo pulmonary function studies about a year ago. No evidence of any obstructive nor restrictive ventilatory defects. Although on the flow volume loop appears to have a saw tooth pattern to the inspiratory flow suggesting of redundant tissue in the upper airway and or vocal cord dysfunction. The patient does have nasal congestion. She also has ache or pressure the ears that sometimes uncomfortable. She denies having any allergy testing in the past. On examination she does have significant erythema the turbinates suggesting an upper airway cough syndrome. Will go ahead and treat her accordingly. I did provide her with the Neti bottle to see if she can not tolerate nasal rinsing at nighttime and also nasal spray during the daytime. The patient also will have additional allergy testing at this time. Also to note she did have a CT scan of the chest done fairly recent and I personally reviewed. She does have some minimal atelectasis and also has a small 4 mm pulmonary nodule that requires additional testing. 05/19/2023 the patient is here for pulmonary follow-up visit. Overall the patient has been feeling better. Her cough is overall better although recently she did get a cold and she has been having a little bit more of a nasal congestion cough. But the benzonatate have been helpful. We did review her blood work including allergy testing without any significant findings. We also discussed her last CT scan back in November 2022 with small 4 mm pulmonary nodule that will need follow-up. On examination I believe she does have some prolonged expiratory phase and will benefit from a rescue inhaler. I did teach how to use it in the office. She will using as needed. In the meantime she continues use her nasal spray. Will follow-up in the fall after her CT scan. 10/09/2023 the patient is here for sick visit. She did developed COVID-19. The patient did have respiratory symptoms. After she continued to have a cough. The cough tends to be make productive in nonproductive. Moderate severity. Has a hard time sleeping. She was evaluated previously for a cough in a did improve with a benzo nights. But this time the Bentson is not been effective. She does have a rescue inhaler but she does not feel like the inhaler has helped either. She also is not asthma. The patient did see her primary care doctor was given codeine cough syrup which help to temporize the cough but still has the cough and is being aggravated by. Denies any fever chills. The mucus sensitive be discolored. Appears that she has component of bronchitis. No significant wheezing that I can appreciate. Will go ahead and treat her with doxycycline for postviral bacterial infection. The patient also will continue the cough syrup. If she has no better in the next 4-5 days she will call and we can at that point order chest x-ray change her antibiotics consider other inhaler therapy. She does have diabetes will hold off on any cortical steroids. [facility] Medical History Asthma Chronic allergic rhinitis Hemoptysis Recurrent UTI H/O syphilis LGSIL (low grade squamous intraepithelial dysplasia) Overweight (BMI 25.0-29.9) Dermatitis Memory impairment Pure hypercholesterolemia Diabetes mellitus Surgical History History of arthroscopy of right shoulder Hx of tubal ligation History of hernia repair (~2001) Status post breast reduction (~2006) Family History Father Diabetes Mother Heart attack Brother No problems noted. Sister No problems noted. Son No problems noted. Son No problems noted. Son No problems noted. Daughter No problems noted. Daughter No problems noted. Social History Housing: Apartment Alcohol intake: never Patient Tobacco Use Status: Never used Tobacco e-Cigarette/Vaping Use: Never Used Second Hand Smoke Exposure: No service: No Current occupational status: retired Cognitive needs: No Hearing needs: No Vision needs: Yes Review of Systems Const Denies fever(s) Eyes Denies change in vision ENT Reports otalgia, Reports nasal congestion, Reports nasal discharge and Reports post nasal drip Card Denies chest pain Resp Reports change in phlegm color, Reports chest congestion, Reports cough and Denies wheezing GI Reports no additional complaints Musc Reports no additional complaints Skin/Breast Denies rash Neuro Reports no additional complaints Mitch/Lymph Denies lymphadenopathy Aller/Immun Denies wheezing Physical Exam Vital Signs: Last Vital Signs Pulse 73 10/09/23 10:09 Pulse Ox 97 10/09/23 10:09 Oxygen Delivery Method Room Air 10/09/23 10:09 BMI result Body Mass Index 31.6 Const General: comfortable HEENT Head: Yes normocephalic Ears: TM abnormal with fluid behind the TM General nose exam: Abnormal mucous membranes and turbinates present erythematous Neck Neck: Yes supple Chest Chest palpation & inspection: normal inspection of the chest Resp Effort & Inspection: normal respiratory effort and prolonged expiratory phase Auscultation: clear to auscultation bilaterally Cardio Rate: regular rate Rhythm: regular rhythm Heart sounds: S1 normal heart sound present and S2 normal heart sound present GI Palpation (GI): Soft to palpation Skin General skin exam: no rashes or lesions noted Extrem General: Yes no clubbing, cyanosis or edema Assessment & Plan Assessment & Plan (1) Chronic allergic rhinitis: Code(s): J30.9 - Allergic rhinitis, unspecified Category: Medical (2) Pulmonary nodule: Code(s): R91.1 - Solitary pulmonary nodule Category: Medical (3) Chronic cough: Comment: Likely upper airway cough syndrome, also may have a component of vocal cord dysfuction Code(s): R05.3 - Chronic cough Category: Medical (4) Bronchitis: Code(s): J40 - Bronchitis, not specified as acute or chronic Category: Medical Plan start Doxycycline cough medicine Neti bottle rinsing nasal steroid spray benzonates as needed ZARIA as needed repeat CT chest 12/2023 F/U Fall 2023 Medications: New doxycycline monohydrate 100 mg PO BID 28 tabs 0RF 14 days Changed From codeine-guaifenesin 10-100 mg/5 mL 5 mL PO Q6H 5 days PRN 120 mL 0RF cough R05.3 - Chronic cough To codeine-guaifenesin 10-100 mg/5 mL 10 mL PO Q6H PRN 300 mL 0RF cough 10 days R05.3 - Chronic cough Coding Level of Care Code Est Pt Level 4 (13985) Diagnoses Chronic allergic rhinitis J30.9 Pulmonary nodule R91.1 Chronic cough R05.3 Bronchitis J40 Time Spent (min) 17
== END 2023-10-09 10:25 | disposition home or self-care (01) ==
PROVIDERS: PCP Physician Assistant; Visit Provider Hospitalist
DX: J30.9 Allergic rhinitis, unspecified (principal); R91.1 Solitary pulmonary nodule; R05.3 Chronic cough; J40 Bronchitis, not specified as acute or chronic
CPT/HCPCS: 99214

== ENCOUNTER → 2023-10-09 10:03 | Outpatient (BNVA) | payer OTHER, SELFPAY | PROVIDERS: PCP Physician Assistant; Visit Provider Hospitalist | DX: J30.9 Allergic rhinitis, unspecified (principal); J40 Bronchitis, not specified as acute or chronic; R91.1 Solitary pulmonary nodule; R05.3 Chronic cough | CPT/HCPCS: 99212 ==

== ENCOUNTER 2023-10-20 13:29 | Emergency (ER) | payer OTHER, SELFPAY ==
--- NOTE | ~2023-10-20 | XR_ITS ---
EXAMINATION: XR CHEST CLINICAL INFORMATION: Cough COMPARISON: CT chest 11/15/2022 Chest radiograph 10/10/2022 TECHNIQUE: Frontal view of the chest was obtained. FINDINGS: No significant abnormality is noted involving the heart, lungs, mediastinum, bony thorax or soft tissues. Suture anchors again seen in the right humeral head. XR/XR chest 1V IMPRESSION: Unremarkable examination.
[2023-10-20 13:41] VITALS: BP 129/70; PULSE 95; RESP 16; TEMP 36; O2SAT 97; BMI 32.7
--- NOTE | 2023-10-20 13:41 | ED_ITS ---
HPI - URI/Sore Throat General Chief Complaint: Upper Respiratory Symptoms Stated Complaint: cough Time Seen by Provider: 10/20/23 15:27 Source: patient Mode of arrival: ambulatory Limitations: no limitations History of Present Illness HPI Narrative: 63-year-old female with a past medical history of diabetes presents to the emergency department with complaints of a 1 month history of cough. She reports she was seen in an urgent care setting mid September diagnosed with COVID. She states her cough has been persistent in that she was evaluated by her primary care provider who diagnosed her with bronchitis and gave her a prescription that ?isn't helping?. She reports that she is on Tessalon Perles, guaifenesin with codeine, methylprednisone, and antibiotics. She denies any chest pain, shortness of breath, fever, chills, dizziness, lightheadedness Pertinent positives and negatives discussed in HPI Related Data Previous Rx's ?Medication ?Instructions ?Recorded clotrimazole 1 % topical cream 1 appl topical DAILY 30 days #45 06/18/21 (Athlete's Foot (clotrimazole)) grams lancets 28 gauge (FreeStyle ##100 06/27/22 Lancets) acetaminophen 650 mg 650 mg PO Q12H PRN pain #14 tabs 10/10/22 tablet,extended release (Tylenol Arthritis Pain) diclofenac sodium 3 % topical gel 1 appl topical BID 30 days #100 10/17/22 grams miscellaneous medical supply 1 ea miscellaneous DAILY 99 days 10/17/22 #1 ea magnesium oxide 250 mg PO DAILY 90 days #90 tabs 11/11/22 fluticasone propionate 50 2 spray intranasal DAILY 30 days 02/12/23 mcg/actuation nasal #15.8 mL spray,suspension blood sugar diagnostic (FreeStyle #50 strips 03/14/23 Lite Strips) mirabegron 50 mg tablet,extended 50 mg PO DAILY #90 tabs 03/14/23 release 24 hr (Myrbetriq) cetirizine 10 mg tablet 10 mg PO DAILY allergy symptoms 90 04/26/23 days #90 tabs albuterol sulfate 90 mcg/actuation 2 inh inhalation Q6H PRN shortness 05/19/23 aerosol inhaler of breath or wheezing 30 days #18 grams nystatin 100,000 unit/mL oral 5 ml PO TID PRN mouth irritation 06/24/23 suspension 30 days #60 mL primidone 50 mg tablet 50 mg PO BEDTIME 90 days #90 tabs 06/24/23 sitagliptin phosphate 25 mg tablet 25 mg PO DAILY 30 days #30 tabs 07/07/23 (Januvia) atorvastatin 20 mg tablet 20 mg PO BEDTIME 90 days #90 tabs 09/05/23 escitalopram oxalate 20 mg tablet 20 mg PO DAILY 90 days #90 tabs 09/15/23 pioglitazone 45 mg tablet 45 mg PO DAILY #90 tabs 10/05/23 codeine 10 mg-guaifenesin 100 mg/5 10 ml PO Q6H PRN cough 10 days 10/09/23 mL oral liquid #300 mL doxycycline monohydrate 100 mg 100 mg PO BID 14 days #28 tabs 10/09/23 tablet amoxicillin 875 mg-potassium 1 tab PO BID 10 days #20 tabs 10/16/23 clavulanate 125 mg tablet methylprednisolone 4 mg tablets in See Rx Instructions PO PER PKG DIR 10/16/23 a dose pack (Medrol (Tam)) 6 days #21 ea sulfamethoxazole 800 1 tab PO BID #10 tabs 10/20/23 mg-trimethoprim 160 mg tablet (Bactrim DS) hydroxyzine pamoate 25 mg capsule 25 mg PO BEDTIME #30 caps 10/23/23 Allergies Allergy/AdvReac Type Severity Reaction Status Date / Time No Known Allergies Allergy Unknown Verified 10/23/23 14:39 Review of Systems Review of Systems: Yes all other systems are reviewed and are negative [facility], [facility] Past Medical History Medical History Asthma Chronic allergic rhinitis Hemoptysis Recurrent UTI H/O syphilis LGSIL (low grade squamous intraepithelial dysplasia) Overweight (BMI 25.0-29.9) Dermatitis Memory impairment Pure hypercholesterolemia Diabetes mellitus Surgical History History of arthroscopy of right shoulder Hx of tubal ligation History of hernia repair (~2001) Status post breast reduction (~2006) Family History Family History Father Diabetes Mother Heart attack Brother No problems noted. Sister No problems noted. Son No problems noted. Son No problems noted. Son No problems noted. Daughter No problems noted. Daughter No problems noted. Social History Social History Housing: Apartment Alcohol intake: never Patient Tobacco Use Status: Never used Tobacco e-Cigarette/Vaping Use: Never Used Second Hand Smoke Exposure: No service: No Current occupational status: retired Cognitive needs: No Hearing needs: No Vision needs: Yes Physical Exam Vital Signs: Vital Signs: Last Vital Signs Temp 96.9 F 10/20/23 17:30 Pulse 85 10/20/23 17:30 Resp 16 10/20/23 17:30 BP 132/74 10/20/23 17:30 Pulse Ox 99 10/20/23 17:30 O2 Del Method Room Air 10/20/23 17:30 BMI result Body Mass Index 32.7 Nursing notes and vital signs reviewed. GENERAL APPEARANCE: A&0 x 4, generally well appearing, no acute distress HENMT: Normal to inspection, atraumatic, face symmetrical. Normal external ears, nose, and oropharynx clear. EYE: PERRLA, EOM intact, structures appear normal NECK: Supple without stiffness or restricted ROM. HEART: Normal rate and regular rhythm, normal S1/S2, no M/R/G LUNGS: LS CTA, moving air well. Able to speak in complete sentences. No crackles, wheezes, or rhonchi auscultated BACK: No CVAT, no obvious deformity EXTREMITIES: Moving all extremities without difficulty. Normal capillary refill. NEUROLOGICAL: Alert and oriented, moving all 4 extremities with equal strength. CN not formally tested but appearing grossly intact. Observed to ambulate with normal gait. Cognition normal SKIN: Warm and dry without any lesions, rash, or visible sores Medical Decision Making Medical Decision Making MDM Narrative: Old records reviewed for previous imaging, lab studies, ECGs, and notes. Patient was assessed the emergency department with no acute distress or toxicity noted. Chest x-ray completed which I have independently interpreted as negative for acute pneumonia. Patient educated to continue previously prescribed me dications. Patient is safe for discharge at this time with plan for [id number] Tylenol and/or NSAID such as ibuprofen or naproxen for fever/discomfort with dosing as per packaging. HPI, PE, diagnostics, and plan discussed with patient and family with no unanswered questions at this time. Strict return precautions given to return to the emergency department with new, worsening, or concerning emergent symptoms. Recommended to follow-up with there primary care provider in 24-48 hours for further treatment and management. Differential Diagnosis Differential Diagnoses: The differential diagnosis associated with the presentation includes But not limited to viral syndrome, bronchitis, asthma, COPD, pneumonia, CHF, A CS, PE, sepsis, malignancy Independent Interpretation I performed an independent interpretation of an: Plain X-Ray Interpretation: As negative for acute infection Prescription Management I considered prescription management with: Antibiotic Antibiotics were considered, however; no bacterial infection was identified at this time. Chronic Conditions Patient?s care impacted by: Diabetes Discharge Plan Discharge Clinical Impression: Cough Patient Disposition: Home, Self-Care Instructions: Acute Cough (ED) Additional Instructions: You may try allergy medication such as Loratadine for further management of symptoms Prescriptions: No Action clotrimazole [Athlete's Foot (clotrimazole)] 1 % cream 1 appl topical DAILY 30 Days Qty: 45 3RF (DME) lancets [FreeStyle Lancets] 28 gauge misc See Rx Instructions .ROUTE .COMPLEX Qty: 100 3RF Dose Instruction: USE DAILY DIRECTED Rx Instructions: USE DAILY DIRECTED magnesium oxide 250 mg magnesium tablet 250 mg PO DAILY 90 Days Qty: 90 2RF (DME) FreeStyle Lite Strips Strip See Rx Instructions .ROUTE .COMPLEX Qty: 50 12RF Dose Instruction: USE 1 STRIP DAILY Rx Instructions: USE 1 STRIP DAILY cetirizine 10 mg tablet 10 mg PO DAILY 90 Days Qty: 90 1RF Januvia 25 mg tablet 25 mg PO DAILY 30 Days Qty: 30 6RF atorvastatin 20 mg tablet 20 mg PO BEDTIME 90 Days Qty: 90 2RF escitalopram oxalate 20 mg tablet 20 mg PO DAILY 90 Days Qty: 90 2RF pioglitazone 45 mg tablet 45 mg PO DAILY Qty: 90 2RF amoxicillin-pot clavulanate 875-125 mg tablet 1 tab PO BID 10 Days Qty: 20 0RF methylprednisolone [Medrol (Tam)] 4 mg tablets,dose pack See Rx Instructions PO PER PKG DIR 6 Days Qty: 21 0RF Rx Instructions: PO PER PKG DIR sulfamethoxazole-trimethoprim [Bactrim DS] 800-160 mg tablet 1 tab PO BID Qty: 10 0RF Rx Instructions: Take two days before procedure, day of, and two days after procedure acetaminophen [Tylenol Arthritis Pain] 650 mg tablet extended release 650 mg PO Q12H PRN (Reason: pain) Qty: 14 0RF diclofenac sodium 3 % gel 1 appl topical BID 30 Days Qty: 100 1RF miscellaneous medical supply Misc 1 ea miscellaneous DAILY 99 Days Qty: 1 0RF nystatin 100,000 unit/mL suspension 5 ml PO TID PRN (Reason: mouth irritation) 30 Days Qty: 60 0RF Rx Instructions: swish and swallow primidone 50 mg tablet 50 mg PO BEDTIME 90 Days Qty: 90 1RF nitrofurantoin monohyd/m-cryst 100 mg capsule 100 mg PO ONCE Qty: 1 0RF lidocaine HCl 2 % jelly in applicator 10 ml intra-urethral ONCE Qty: 10 0RF fluticasone propionate 50 mcg/actuation spray,suspension 2 spray intranasal DAILY 30 Days Qty: 15.8 11RF albuterol sulfate 90 mcg/actuation HFA aerosol inhaler 2 inh inhalation Q6H PRN (Reason: shortness of breath or wheezing) 30 Days Qty: 18 12RF Myrbetriq 50 mg tablet extended release 24 hr 50 mg PO DAILY Qty: 90 1RF codeine-guaifenesin 10-100 mg/5 mL liquid 10 ml PO Q6H PRN (Reason: cough) 10 Days Qty: 300 0RF doxycycline monohydrate 100 mg tablet 100 mg PO BID 14 Days Qty: 28 0RF hydroxyzine pamoate 25 mg capsule 25 mg PO BEDTIME Qty: 30 4RF Referrals: Bob Santiago PA-C [Primary Care Provider] - Interventions: ED Discharge Assessment Last Done: 10/20/23 17:30 Discharge Date/Time: 10/20/23 17:55 Print Language: Urdu
[2023-10-20 16:39] VITALS: BP 132/74; PULSE 85; RESP 16; TEMP 36.1; O2SAT 99
[2023-10-20 17:30] VITALS: BP 132/74; PULSE 85; RESP 16; TEMP 36.1; O2SAT 99
== END 2023-10-20 17:55 | disposition home or self-care (01) ==
LOC: HO.ED 16:55
PROVIDERS: Emergency Provider Emergency Medicine; PCP Physician Assistant
DX: R05.9 Cough, unspecified (principal); Z79.899 Other long term (current) drug therapy
CPT/HCPCS: 71045; 99282; 99283

== ENCOUNTER 2023-10-23 14:28 | Outpatient (AMB) | payer OTHER, SELFPAY ==
--- NOTE | 2023-10-23 14:38 | A.OFFVIS_ITS ---
Intake Visit Reasons: Discuss plan of care. Intake Note: Patient presents today for to discuss other treatment of care: Meds- Trial of Gemtesa Allergies to Antibiotic- No Known Allergies Blood Thinner- None Patient declined Botox Injection Strategic Planning Director Required: No Accompanied by: Self / Same As Patient Allergies No Known Allergies Allergy (Unknown, Verified 10/23/23 14:39) HPI Comments Details: 10/23/23-- the patient cancelled the Botox procedure. She states that she has urinary frequency about every 3 hours. She has a constant sensation of urgency. She states that she is bothered more at nighttime because she wakes up to use the bathroom. I have discussed trying the hydroxyzine again because she admits that she really did not use the medication for more than a couple of days. I have discussed that the medication has an antihistamine and may called cause drowsiness. She is to call for any side effects. Follow-up in 6 months she will call to be seen sooner if her symptoms worsen. Review of chart: 08/28/23---went for 2nd opinion. Received samples of gemtesa. She states the medication does not seem to be helping. I have discussed the treatment modalities including sacral neuromodulation and bladder Botox injection. The patient has failed several p.o. anticholinergics including oxybutynin, Myrbetriq, VESIcare, Vistaril, Gemtesa. She is agreeable for cystoscopy bladder Botox injection. Risks and benefits discussed including but not limited to need to repeat Botox injection to maintain efficacy, urinary tract infection, hematuria, urinary retention. Plan cystoscopy bladder Botox injection 100 units. [facility] Medical History Asthma Chronic allergic rhinitis Hemoptysis Recurrent UTI H/O syphilis LGSIL (low grade squamous intraepithelial dysplasia) Overweight (BMI 25.0-29.9) Dermatitis Memory impairment Pure hypercholesterolemia Diabetes mellitus Surgical History History of arthroscopy of right shoulder Hx of tubal ligation History of hernia repair (~2001) Status post breast reduction (~2006) Family History Father Diabetes Mother Heart attack Brother No problems noted. Sister No problems noted. Son No problems noted. Son No problems noted. Son No problems noted. Daughter No problems noted. Daughter No problems noted. Social History Housing: Apartment Alcohol intake: never Patient Tobacco Use Status: Never used Tobacco e-Cigarette/Vaping Use: Never Used Second Hand Smoke Exposure: No service: No Current occupational status: retired Cognitive needs: No Hearing needs: No Vision needs: Yes Review of Systems Const All systems reviewed & are unremarkable except as noted in HPI and below Reports no additional complaints Eyes Reports no additional complaints ENT Reports no additional complaints Card Reports no additional complaints Resp Reports no additional complaints GI Reports no additional complaints Reports as per HPI Musc Reports no additional complaints Skin/Breast Reports system reviewed and no additional complaints, except as documented Neuro Reports no additional complaints Psych Reports no additional complaints Endo Reports no additional complaints Mitch/Lymph Reports no additional complaints Aller/Immun Reports no additional complaints Results Reviewed Results Reviewed: Date of Service: 10/28/22 EXAMINATION: US RETROPERITONEAL LIMITED (RENAL ONLY) CLINICAL INFORMATION: Hemorrhagic cystitis. COMPARISON: Ultrasound bladder 05/10/2022. Ultrasound abdomen 07/06/2019. FINDINGS: RIGHT KIDNEY: 12.0 x 3.9 x 4.4 cm (SAG x AP x TRV). The kidney is normal in size, contour, and echogenicity. Renal cortical thickness is normal. No calculi or focal parenchymal lesions. No hydronephrosis. LEFT KIDNEY: 12.6 x 4.8 x 5.7 cm (SAG x AP x TRV). The kidney is normal in size, contour, and echogenicity. Renal cortical thickness is normal. No calculi or focal parenchymal lesions. No hydronephrosis. IMPRESSION: Normal-appearing kidneys. Assessment & Plan Assessment & Plan (1) Urinary frequency: Code(s): R35.0 - Frequency of micturition Category: Medical (2) Urinary urgency: Code(s): R39.15 - Urgency of urination Category: Medical (3) Sensation of pressure in bladder area: Code(s): R39.89 - Other symptoms and signs involving the genitourinary system Category: Medical (4) Nocturia: Code(s): R35.1 - Nocturia Category: Medical Plan hydroxyzine 25 mg qhs Medications: Refilled hydroxyzine pamoate 25 mg PO BEDTIME 30 caps 4RF Patient Instructions: The patient had an opportunity to ask questions regarding treatment plan. The patient expressed understanding and agreement with the above treatment plan. The patient is aware they should contact our office by phone for worsening of their current condition or the appearance of new symptoms. Compliance is encouraged with any medications and followup testing that is ordered. It is a privilege to be allowed the opportunity to participate in the urologic care of your patient. If you have any questions or concerns regarding treatment for the above conditions please do not hesitate to contact me. The office telephone contact is [phone]. This note is constructed in part using voice recognition software. While every effort has been made to ensure accuracy education spec errors may have been included. Yours sincerely, Olive Bautista MD Coding Level of Care Code Est Pt Level 4 (34813) Diagnoses Urinary frequency R35.0 Urinary urgency R39.15 Sensation of pressure in bladder area R39.89 Nocturia R35.1
== END 2023-10-23 15:36 | disposition home or self-care (01) ==
PROVIDERS: PCP Physician Assistant; Visit Provider Urology
DX: R35.0 Frequency of micturition (principal); R39.15 Urgency of urination; R39.89 Other symptoms and signs involving the genitourinary system; R35.1 Nocturia
CPT/HCPCS: 99214

== ENCOUNTER → 2023-10-23 14:28 | Outpatient (BNVA) | payer OTHER, SELFPAY | PROVIDERS: PCP Physician Assistant; Visit Provider Urology | DX: R35.0 Frequency of micturition (principal); R39.15 Urgency of urination; R35.1 Nocturia; R39.89 Other symptoms and signs involving the genitourinary system | CPT/HCPCS: 99212 ==

== ENCOUNTER 2023-12-17 12:36 | Outpatient (REF) | payer OTHER, SELFPAY ==
--- NOTE | ~2023-12-17 | CT_ITS ---
EXAMINATION: CT CHEST WITHOUT CONTRAST CLINICAL INFORMATION: Solitary pulmonary nodule. COMPARISON: 11/15/2022 TECHNIQUE: Multidetector volumetric CT imaging of the chest was done. Axial MIP volume rendering provided. Sagittal and coronal reformatted images were obtained. This CT examination was performed using dose optimization techniques as appropriate, variously including the following: *Automated exposure control *Adjustment of mA and/or kV according to patient size (this includes techniques or standardized protocols for targeted exams where dose is matched to indication/reason for exam; i.e. extremities or head) *Use of iterative reconstruction technique DLP: 124 mGy-cm FINDINGS: PRODUCTION PACKAGER: Unremarkable. LUNGS: The central airways are patent. No consolidation. Minimal bibasilar atelectasis. No pneumothorax. Redemonstration of the right lower lobe 0.4 cm pulmonary nodule on series 5 image 264. This is near the fissure and may be a fissural lymph node. This is unchanged from prior. There are no new pulmonary nodules. MEDIASTINUM: No mediastinal lymphadenopathy. CORONARY ARTERY CALCIFICATION: None visualized on this study. PLEURA: There is no pleural effusion. No pleural mass or thickening. AXILLA: No lymphadenopathy. UPPER ABDOMEN: Unremarkable. OSSEOUS STRUCTURES: No acute abnormality. Mild degenerative changes of the spine. CT/CT chest wo IV con IMPRESSION: Unchanged 0.4 cm right lower lobe pulmonary nodule. This may be a fissural lymph node. No specific follow-up recommended. No new pulmonary nodules. Fleischner guidelines were followed. Electronically signed by: Albert Noble MD 01/13/2024 08:38 AM EDT
== END 2023-12-17 12:37 | disposition home or self-care (01) ==
LOC: HO.CT 12:36
PROVIDERS: PCP Physician Assistant; Visit Provider Hospitalist
DX: R91.1 Solitary pulmonary nodule (principal)
CPT/HCPCS: 71250

== ENCOUNTER 2023-12-25 10:12 | Outpatient (REF) | payer OTHER, SELFPAY ==
[2023-12-25 10:50] LABS: Hematocrit 39.5 % (37.0-47.0); Hemoglobin 12.3 g/dl (12.0-16.0); Mean Corpuscular HGB Conc 31.1 g/dl (31.0-35.0); Mean Corpuscular Hemoglobin 29.5 pg (27.0-33.0); Mean Corpuscular Volume 94.7 fL (80.0-98.0); Platelet Count 181 X10*3/uL (160-400); Red Blood Count 4.17 X10*6/uL (4.20-5.50); Red Cell Distribution Width 13.7 % (11.0-16.0); White Blood Count 4.5 X10*3/uL (4.8-10.8)
[2023-12-25 11:15] LABS: Creatinine Urine 111.42 mg/dL; Microalbum/Creatinine Ratio Ur 12.5 ug/mg cr (<30)
[2023-12-25 11:18] LABS: Alanine Aminotransferase 11 U/L (0-31); Albumin Level 4.1 g/dL (3.5-5.0); Alkaline Phosphatase 62 U/L (39-117); Anion Gap 10 (12-20); Aspartate Amino Transferase 17 U/L (5-31); Bilirubin Total 0.6 mg/dL (0.0-1.0); Blood Urea Nitrogen 14 mg/dL (9-16); Calcium 9.6 mg/dL (8.4-10.2); Carbon Dioxide 30 mmol/L (22-29); Chloride 107 mmol/L (96-108); Cholesterol 138 mg/dL (<200); Estimated Glomerular Filt Rate > 60; Glucose Fasting 160 mg/dL (60-99); HDL Cholesterol 43 mg/dL (>40); LDL Cholesterol Calculated 77 mg/dL (<100); Potassium 3.8 mmol/L (3.3-5.1); Sodium 143 mmol/L (135-145); Triglycerides 90 mg/dL (<150)
== END 2023-12-25 10:13 | disposition home or self-care (01) ==
LOC: HO.LAB 10:12
PROVIDERS: PCP Physician Assistant; Visit Provider Physician Assistant
DX: E11.9 Type 2 diabetes mellitus without complications (principal); E78.00 Pure hypercholesterolemia, unspecified; K21.9 Gastro-esophageal reflux disease without esophagitis
CPT/HCPCS: 36415; 80053; 80061; 82043; 82570; 85027

== ENCOUNTER 2023-12-25 10:32 | Outpatient (AMB) | payer OTHER, SELFPAY ==
--- NOTE | 2023-12-25 10:39 | MHC.PC.OV ---
Vital Signs 12/25/23 11:02 Height 5 ft 2 in Weight 172 lb 2 oz BMI 31.5 BP 122/68 Blood Pressure Location Lt brachial Position Sitting Pulse 68 Pulse Source Pulse Oximeter Pulse Oximetry (%) 98 Oxygen Delivery Method Room Air Intake Visit Reasons: f/u DMII Client Service And Consulting Manager Required: No Accompanied by: Self / Same As Patient Allergies No Known Allergies Allergy (Unknown, Verified 12/25/23 11:22) Medication List - Last Reconciled 12/25/23 by Bob Santiago PA-C acetaminophen ER (Tylenol Arthritis Pain) 650 mg PO Q12H PRN albuterol sulfate 90 mcg/actuation 2 inhalations inhalation Q6H PRN 30 days atorvastatin 20 mg PO BEDTIME 90 days blood sugar diagnostic (FreeStyle Lite Strips) USE 1 STRIP DAILY cetirizine 10 mg PO DAILY 90 days clotrimazole 1% (Athlete's Foot (clotrimazole)) 1 appl topical DAILY 30 days codeine-guaifenesin 10-100 mg/5 mL 10 mL PO Q6H PRN 10 days diclofenac sodium 3% 1 appl topical BID 30 days escitalopram oxalate 20 mg PO DAILY 90 days fluticasone propionate 50 mcg/actuation 2 sprays intranasal DAILY 30 days hydroxyzine pamoate 25 mg PO BEDTIME lancets (FreeStyle Lancets) USE DAILY DIRECTED magnesium oxide 250 mg PO DAILY 90 days methylprednisolone (Medrol (Tam)) PO PER PKG DIR 6 days mirabegron ER (Myrbetriq) 50 mg PO DAILY miscellaneous medical supply 1 ea miscellaneous DAILY 99 days nystatin 5 mL PO TID PRN 30 days pioglitazone 45 mg PO DAILY sitagliptin phosphate (Januvia) 25 mg PO DAILY 30 days Tobacco use date assessed: 06/24/23 Fall risk assessment: No Falls in past year Last assessed Fall Risk: 12/25/23 Dental Screening Dental Screen Date: 12/25/23 Did you have a dental visit in the last 12 months?: Yes Did you have a dental problem in the last 6 months where you did not have access to dental care?: No Was dental information given to patient?: Patient has dentist HPI f/u DMII HPI Details Patient is a 63 female here today for follow-up visit.? Patient has a past medical history significant type 2 diabetes, generalized anxiety disorder hyperlipidemia, chronic left shoulder pain,? Concern--> reports she reports her left foot bunion has been bothersome. She has had left foot bunion for years and now is interested in seeing a cosmetic sales consultant for possible surgical fix. . Overactive bladder: Has medication which initially was helpful though she reports the medication does not help anymore. She attributes her urinary frequency the perhaps her diabetes in the medication she is taking for her diabetes. . Osteoarthritis bilateral knees: She is now followed by Orthopedics in [place] and getting injection in both her knees. She is anticipating gel injections in near future. .. DMII: Most recent A1c is 7.1.. Sugars at home 120-170s . She reports her diet has been poor as of late. She continues on pioglitazone 45 mg and Januvia 25 mg.? She was unable to tolerate metformin due to GI side effects. ? .. MDD: Patient's depression has been fairly well controlled with current dose of Lexapro 20 mg. Laboratory Tests 06/17/22 10/28/22 02/18/23 09:10 11:10 11:32 Hgb A1c (Clinic) 6.5 H 7.1 H Hemoglobin A1c % 6.1 PFSH Medical History Asthma Chronic allergic rhinitis Hemoptysis Recurrent UTI H/O syphilis LGSIL (low grade squamous intraepithelial dysplasia) Overweight (BMI 25.0-29.9) Dermatitis Memory impairment Pure hypercholesterolemia Diabetes mellitus Surgical History History of arthroscopy of right shoulder Hx of tubal ligation History of hernia repair (~2001) Status post breast reduction (~2006) Family History Father Diabetes Mother Heart attack Brother No problems noted. Sister No problems noted. Son No problems noted. Son No problems noted. Son No problems noted. Daughter No problems noted. Daughter No problems noted. Social History Housing: Apartment Alcohol intake: never Patient Tobacco Use Status: Never used Tobacco e-Cigarette/Vaping Use: Never Used Second Hand Smoke Exposure: No service: No Current occupational status: retired Cognitive needs: No Hearing needs: No Vision needs: Yes Questionnaire Thrive Questionnaire Date Thrive assessed: 06/24/23 MIKALA-7 AMB Questionnaire MIKALA-7 Date MIKALA - 7 assessed: 05/07/22 Source: Developed by Drs. Piotr James, Breonna East, Donaldo Barrios and colleagues, with an educational paddy from [employer]. Review of Systems Const Denies headache(s) Eyes Denies loss of vision ENT Denies vertigo, Denies dizziness, Denies headache(s) and Denies sore throat Card Denies chest pain, Denies leg edema and Denies lightheadedness Resp Denies cough, Denies hemoptysis and Denies wheezing GI Denies abdominal pain, Denies melena, Denies constipation, Denies diarrhea and Denies vomiting Denies urinary frequency, Denies dysuria and Denies urinary urgency Musc Denies arthralgias, Denies joint swelling, Denies numbness and Denies tingling Neuro Denies Abnormal speech present, Denies behavioral changes, Denies vertigo, Denies dizziness, Denies headache(s), Denies loss of vision, Denies memory loss, Denies numbness and Denies tingling Psych Denies anxiety, Denies behavioral changes, Denies depression, Denies memory loss and Denies panic attacks Mitch/Lymph Denies easy bleeding and Denies easy bruising Aller/Immun Denies wheezing Physical exam (Primary Care) Vital Signs: Last Vital Signs Pulse 68 12/25/23 11:02 BP 122/68 12/25/23 11:02 Pulse Ox 98 12/25/23 11:02 Oxygen Delivery Method Room Air 12/25/23 11:02 BMI result Body Mass Index 31.5 Tobacco/Smoking Status: Tobacco use Status Tobacco use date assessed 06/24/23 12/25/23 10:39 Patient Tobacco Use Status Never used Tobacco 12/25/23 10:39 e-Cigarette/Vaping Use Never Used 12/25/23 10:39 Thrive Assessment: Date of Thrive Assessment Date Thrive assessed 06/24/23 12/25/23 10:39 Const General: healthy appearing, no acute distress, alert and awake Nutritional Appearance: well nourished Orientation/consciousness: oriented to person, oriented to place and oriented to time HENMT Ears: TM's normal bilaterally General nose exam: Normal nasal mucous membranes and turbinates present Eyes Conjunctivae: conjunctivae normal Sclerae: sclerae normal Pupils: Equal, round and reactive pupils present Neck Neck: Yes no lymphadenopathy and Yes no JVD Thyroid: Thyroid normal Carotids: no bruits Resp Effort & Inspection: normal respiratory effort and not tachypneic Auscultation: no crackles, no rales, no rhonchi and no wheezes Cardio Rate: regular rate Rhythm: regular rhythm Heart sounds: no murmurs and normal S1 and S2 GI Palpation (GI): Soft to palpation, nontender, no hepatomegaly and no splenomegaly Auscultation: normal bowel sounds Skin General skin exam: no rashes or lesions noted and dry skin Neuro General: oriented to person, oriented to place and oriented to time Cranial nerves: Yes Equal, round and reactive pupils present Speech: No Abnormal speech present Gait exam (Neuro): Normal gait present Motor exam (neuro): no tremor noted Extrem Right upper extremity: full ROM Left upper extremity: full ROM Right lower extremity: full ROM; no edema Left lower extremity: full ROM; no edema Psych Mental Status: mental status grossly normal Speech and movement: Normal speech and movement present Affect: normal affect Attitude: cooperative Thought process: Normal thought process present Assessment and Plan Assessment & Plan (1) Diabetes mellitus: Code(s): E11.9 - Type 2 diabetes mellitus without complications Qualifiers: Diabetes mellitus complication status: without complication Diabetes mellitus intermediate frame tender insulin use: without intermediate frame tender use Diabetes mellitus type: type 2 Qualified Code(s): E11.9 - Type 2 diabetes mellitus without complications Plan: Patient's type 2 diabetes is suboptimally controlled with A1c is 7.1. She will work on lifestyle modifications to reduce her blood sugars. Continue current doses of her antihyperglycemic medication. She will work extensively on her diabetic diet to reduce her blood sugars further. Goal A1c to be below 7.0 (2) Pure hypercholesterolemia: Code(s): E78.00 - Pure hypercholesterolemia, unspecified Plan: Patient continues on statin therapy without side effect. Goal LDL to remain below 100 (3) MDD (major depressive disorder), recurrent episode, moderate: Code(s): F33.1 - Major depressive disorder, recurrent, moderate Plan: Patient's PHQ-9 score positive for depression which has been existing condition for her. Patient continues SSRI therapy. Again she reports her mood has been stable on current antidepressant medication. (4) Osteoarthritis of left knee: Code(s): M17.12 - Unilateral primary osteoarthritis, left knee Qualifiers: Osteoarthritis type: primary Qualified Code(s): M17.12 - Unilateral primary osteoarthritis, left knee Plan: Has been following up with an orthopedic and getting cortisone injections which have been very helpful in reducing her pain. Most recent x-ray showing arthritis and as slight knee effusion. (5) OAB (overactive bladder): Code(s): N32.81 - Overactive bladder Plan: As above (6) Chronic dental pain: Code(s): K08.9 - Disorder of teeth and supporting structures, unspecified; G89.29 - Other chronic pain (7) Bunion, left: Code(s): M21.612 - Bunion of left foot Plan: Patient reports her left bunion has been more bothersome as of late. She would like to see a cosmetic sales consultant for evaluation. Orders: Orders AMB Hemoglobin A1c 12/25/23 E11.9 - Type 2 diabetes mellitus without complications Referrals Podiatry Referral M21.612 - Bunion of left foot Medications: New chlorhexidine gluconate 0.12% 15 mL buccal DAILY 30 days 473 mL 0RF G89.29 - Other chronic pain, K08.9 - Disorder of teeth and supporting structures, unspecified Refilled magnesium oxide 250 mg PO DAILY 90 days 90 tabs 2RF pioglitazone 45 mg PO DAILY 90 tabs 2RF E11.9 - Type 2 diabetes mellitus without complications Discontinued mirabegron ER (Myrbetriq) Discontinued Reason: Change Referral Type 50 mg PO DAILY 90 tabs 1RF methylprednisolone (Medrol (Tam)) Discontinued Reason: Doctor's Order PO PER PKG DIR 6 days 21 ea 0RF hydroxyzine pamoate Discontinued Reason: Doctor's Order 25 mg PO BEDTIME 30 caps 4RF Patient Instructions: Goal: A1c to be below 7.0 Barriers: Adherence to physical activity and healthy eating habits Coding Level of Care Code Est Pt Level 4 (78209) Diagnoses Type 2 diabetes mellitus without complication, without long-term current use of insulin E11.9 Diabetes mellitus complication status: without complication Diabetes mellitus intermediate frame tender insulin use: without longterm use Diabetes mellitus type: type 2 Pure hypercholesterolemia E78.00 MDD (major depressive disorder), recurrent episode, moderate F33.1 Primary osteoarthritis of left knee M17.12 Osteoarthritis type: primary OAB (overactive bladder) N32.81 Chronic dental pain K08.9; G89.29 Bunion, left M21.612
[2023-12-25 11:02] VITALS: BP 122/68; PULSE 68; O2SAT 98; BMI 31.5
== END 2023-12-25 11:53 | disposition home or self-care (01) ==
PROVIDERS: PCP Physician Assistant; Visit Provider Physician Assistant
DX: E11.9 Type 2 diabetes mellitus without complications (principal); E78.00 Pure hypercholesterolemia, unspecified; F33.1 Major depressive disorder, recurrent, moderate; M17.12 Unilateral primary osteoarthritis, left knee; N32.81 Overactive bladder; K08.9 Disorder of teeth and supporting structures, unspecified; G89.29 Other chronic pain; M21.612 Bunion of left foot
CPT/HCPCS: 99214

== ENCOUNTER 2023-12-31 10:51 | Outpatient (REF) | payer OTHER, SELFPAY ==
--- NOTE | ~2023-12-31 | MM_ITS ---
EXAMINATION: MM SCREENING DIGITAL BREAST TOMOSYNTHESIS, BILATERAL CLINICAL INFORMATION: Screening. Asymptomatic. COMPARISON: Mammography: Comparison is made with available priors TECHNIQUE: Digital breast tomosynthesis is performed in both the craniocaudal and mediolateral oblique views along with computer-aided detection (CAD). Synthesized 2D images are generated from the tomosynthesis. FINDINGS: There are scattered areas of fibroglandular density (ACR BI-RADS breast composition Category b). Bilateral reduction mammoplasty. There are no significant masses, abnormal calcifications, or other abnormalities. MM/MM tomosynthesis screening BI IMPRESSION: No mammographic evidence of malignancy. ASSESSMENT: BI-RADS BI-RADS 2 - Benign Findings RECOMMENDATION: Routine annual mammography screening. 1 year F/U This examination should not preclude the clinical evaluation of a suspicious palpable abnormality. This patient's information was entered into a reminder system with a target due date for their next mammogram. Electronically signed by: Sherie Neil DO 01/23/2024 04:42 PM EDT
== END 2023-12-31 10:52 | disposition home or self-care (01) ==
LOC: HO.MAMMO 10:51
PROVIDERS: PCP Physician Assistant; Visit Provider Physician Assistant
DX: Z12.31 Encounter for screening mammogram for malignant neoplasm of breast (principal)
CPT/HCPCS: 77063; 77067

== ENCOUNTER → 2023-12-31 11:00 | Outpatient (BNV) | payer OTHER, SELFPAY | PROVIDERS: PCP Physician Assistant; Visit Provider Internal Medicine | DX: Z12.31 Encounter for screening mammogram for malignant neoplasm of breast (principal) | CPT/HCPCS: 77063; 77067 ==

== ENCOUNTER 2024-01-09 10:55 | Outpatient (AMB) | payer OTHER, SELFPAY ==
[2024-01-09 11:13] VITALS: BP 110/74; PULSE 68; TEMP 36.8; O2SAT 98; BMI 32.7
--- NOTE | 2024-01-09 11:13 | MHC.OFFWIV ---
Intake Vital Signs 01/09/24 11:13 Height 5 ft 2 in Weight 179 lb BMI 32.7 BP 110/74 Blood Pressure Location Rt brachial Position Sitting Pulse 68 Pulse Source Pulse Oximeter Temp 98.2 F Temp Source Oral Pulse Oximetry (%) 98 Oxygen Delivery Method Room Air Intake Visit Reasons: EP pain in LT neck/shoulder Intake Note: pt c/o LT shoulder and neck pain. Started 2 days ago Patient Tobacco Use Status: Never used Tobacco Allergies No Known Allergies Allergy (Unknown, Verified 01/09/24 11:21) Do you need a note to return to daycare/school/sports/work: No HPI EP pain in LT neck/shoulder HPI Details This is a 63-year-old female patient who presents to the walk-in today with a 2-3 day history of left-sided muscular neck pain, which radiates down her left arm. She denies any inciting event to this, trauma, or recent lifting. She has been taking ibuprofen, and using heat and cold applications to the area with minimal relief. History of left rotator cuff surgery x1 year ago. Reported no complications from this, denies any shoulder pain. Reports she is experiencing some tingling sensation and pain radiating down her left arm to her hand. No distinct pattern or distribution to this. Denies any other complaints, fever, or sick symptoms. [facility] Medical History Asthma Chronic allergic rhinitis Hemoptysis Recurrent UTI H/O syphilis LGSIL (low grade squamous intraepithelial dysplasia) Overweight (BMI 25.0-29.9) Dermatitis Memory impairment Pure hypercholesterolemia Diabetes mellitus Surgical History History of arthroscopy of right shoulder Hx of tubal ligation History of hernia repair (~2001) Status post breast reduction (~2006) Family History Father Diabetes Mother Heart attack Brother No problems noted. Sister No problems noted. Son No problems noted. Son No problems noted. Son No problems noted. Daughter No problems noted. Daughter No problems noted. Social History Housing: Apartment Alcohol intake: never Patient Tobacco Use Status: Never used Tobacco e-Cigarette/Vaping Use: Never Used Second Hand Smoke Exposure: No service: No Current occupational status: retired Cognitive needs: No Hearing needs: No Vision needs: Yes Review of Systems Const All systems reviewed & are unremarkable except as noted in HPI and below Physical Exam Vital Signs: Last Vital Signs Temp 98.2 F 01/09/24 11:13 Pulse 68 01/09/24 11:13 BP 110/74 01/09/24 11:13 Pulse Ox 98 01/09/24 11:13 Oxygen Delivery Method Room Air 01/09/24 11:13 BMI result Body Mass Index 32.7 Const General: cooperative and healthy appearing HEENT Head: Yes normal to inspection, Yes normocephalic and Yes atraumatic Ears: hearing grossly normal bilaterally Face and sinus: Yes normal facial exam Throat: Yes posterior oropharynx normal Neck Neck: Yes normal visual inspection, Yes full ROM, Yes no lymphadenopathy, Yes no meningeal signs and Yes no JVD Thyroid: Thyroid normal Resp Effort & Inspection: normal respiratory effort Auscultation: clear to auscultation bilaterally Cardio Rate: regular rate Rhythm: regular rhythm Back/Spine/Pelvis Cervical Spine: normal cervical lordosis, cervical ROM normal and cervical muscular tenderness (trapezius/rhomboid ttp on left, mild swelling in this area, neg spurlings) Thoracic/Lumbar Spine: thoracic and lumbar spine normal to inspection and thoraco-lumbar ROM normal Skin General skin exam: no rashes or lesions noted Neuro General: no meningeal signs Extrem General: Yes capillary refill normal and Yes no clubbing, cyanosis or edema Left upper extremity: no joint enlargement, shoulder/upper arm (s/p rtc surgery, well-healed scars, full ROM left shoulder, no impingement ) Details: inspection abnormal and normal ROM, wrist and hand (reported mild pareasthesias left hand. Developer Architect strength/sensation wnl) Details: normal capillary refill and neuromotor exam normal Psych Appearance: grossly normal Mental Status: mental status grossly normal Speech and movement: Normal speech and movement present Assessment & Plan Assessment & Plan (1) Strain of trapezius muscle: Code(s): S46.819A - Strain of other muscles, fascia and tendons at shoulder and upper arm level, unspecified arm, initial encounter Qualifiers: Encounter type: initial encounter Laterality: left Qualified Code(s): S46.812A - Strain of other muscles, fascia and tendons at shoulder and upper arm level, left arm, initial encounter Plan: Patient has left trapezius/rhomboid tenderness x2 days. Cervical and left shoulder exams are normal. Negative impingement signs and negative spurling. She has some radiation of pain with associated intermittent paresthesias down left arm, so this could represent a C6/7 radiculopathy. I am going to start her on a short course of Meloxicam and also a muscle relaxer to see if this provides her any benefit. We reviewed indications, use, possible side effects of medications. We also discussed ongoing conservative measures including gentle stretching/massage, heat/ice application as is beneficial. If she does not improve with these measures, or symptoms worsen/new symptoms develop, she will return to the clinic follow-up with PCP Von Santiago, at which point she may benefit from C-spine imaging and/or course of PT. Patient verbalizes understanding and agrees to plan. (2) Left cervical radiculopathy: Code(s): M54.12 - Radiculopathy, cervical region Plan: As above Medications: New meloxicam Take one tablet with food daily for 7 days. Do not take with Ibuprofen. 15 mg PO DAILY 7 days 7 tabs 0RF M54.12 - Radiculopathy, cervical region, S46.812A - Strain of other muscles, fascia and tendons at shoulder and upper arm level, left arm, initial encounter cyclobenzaprine 10 mg PO BID 7 days PRN 14 tabs 0RF muscle spasm M54.12 - Radiculopathy, cervical region, S46.812A - Strain of other muscles, fascia and tendons at shoulder and upper arm level, left arm, initial encounter Discontinued codeine-guaifenesin 10-100 mg/5 mL Discontinued Reason: Patient no longer taking 10 mL PO Q6H 10 days PRN 300 mL 0RF cough R05.3 - Chronic cough Coding Level of Care Code Est Pt Level 4 (64221) Diagnoses Strain of left trapezius muscle, initial encounter S46.812A Encounter type: initial encounter Laterality: left Left cervical radiculopathy M54.12
== END 2024-01-09 12:01 | disposition home or self-care (01) ==
PROVIDERS: PCP Physician Assistant; Visit Provider Nurse Practitioner Family
DX: S46.812A Strain of other muscles, fascia and tendons at shoulder and upper arm level, left arm, initial encounter (principal); M54.12 Radiculopathy, cervical region
CPT/HCPCS: 99214

== ENCOUNTER 2024-01-19 10:58 | Outpatient (AMB) | payer OTHER, SELFPAY ==
[2024-01-19 11:11] VITALS: BP 110/60; PULSE 85; O2SAT 99; BMI 32.9
--- NOTE | 2024-01-19 11:11 | A.OFFVIS_ITS ---
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 She states that her cough tends to be nonproductive in nature and moderate severity. It is sporadic. She denies having any near syncopal or syncopal episodes were any incontinence of urine with it. The patient states the cough has been very nagging. The patient did undergo pulmonary function studies about a year ago. No evidence of any obstructive nor restrictive ventilatory defects. Although on the flow volume loop appears to have a saw tooth pattern to the inspiratory flow suggesting of redundant tissue in the upper airway and or vocal cord dysfunction. The patient does have nasal congestion. She also has ache or pressure the ears that sometimes uncomfortable. She denies having any allergy testing in the past. On examination she does have significant erythema the turbinates suggesting an upper airway cough syndrome. Will go ahead and treat her accordingly. I did provide her with the Neti bottle to see if she can not tolerate nasal rinsing at nighttime and also nasal spray during the daytime. The patient also will have additional allergy testing at this time. Also to note she did have a CT scan of the chest done fairly recent and I personally reviewed. She does have some minimal atelectasis and also has a small 4 mm pulmonary nodule that requires additional testing. 05/19/2023 the patient is here for pulmonary follow-up visit. Overall the patient has been feeling better. Her cough is overall better although recently she did get a cold and she has been having a little bit more of a nasal congestion cough. But the benzonatate have been helpful. We did review her blood work including allergy testing without any significant findings. We also discussed her last CT scan back in November 2022 with small 4 mm pulmonary nodule that will need follow-up. On examination I believe she does have some prolonged expiratory phase and will benefit from a rescue inhaler. I did teach how to use it in the office. She will using as needed. In the meantime she continues use her nasal spray. Will follow-up in the fall after her CT scan. 10/09/2023 the patient is here for sick visit. She did developed COVID-19. The patient did have respiratory symptoms. After she continued to have a cough. The cough tends to be make productive in nonproductive. Moderate severity. Has a hard time sleeping. She was evaluated previously for a cough in a did improve with a benzo nights. But this time the Bentson is not been effective. She does have a rescue inhaler but she does not feel like the inhaler has helped either. She also is not asthma. The patient did see her primary care doctor was given codeine cough syrup which help to temporize the cough but still has the cough and is being aggravated by. Denies any fever chills. The mucus sensitive be discolored. Appears that she has component of bronchitis. No significant wheezing that I can appreciate. Will go ahead and treat her with doxycycline for postviral bacterial infection. The patient also will continue the cough syrup. If she has no better in the next 4-5 days she will call and we can at that point order chest x-ray change her antibiotics consider other inhaler therapy. She does have diabetes will hold off on any cortical steroids. 01/19/2024 the patient is here for pulmonary follow-up visit. Overall she is doing well. Although recently she started developing the cough again. Typically occurs around this time when the seasons are changing. The patient is noticing some cough. On further questioning she does have reflux disease. We talked about the reflux diet and making sure that she sleeps elevated in minimizing the amount of food that she is at 1 time. If the patient continues to have symptoms we can also consider a barium swallow to assess for reflux disease more objectively and see if there is any issues with her esophagus. The patient also has underlying postnasal drip. She does have a component of upper airway cough syndrome. She has been using fluticasone. I will send Daylin to the pharmacy as well in order for her to see if this provides additional relief. The benzo nights to help decrease the cough therefore she can heel those areas from the constant coughing. As far as her pulmonary nodules she has a nodule documented last year and had a repeat CT scan now in 12/23/2023 demonstrating stability of the pulmonary nodule. The patient should have a repeat CT scan in a year from now to make sure there stability after a couple years and then after that no additional CT scans we warranted as long as the nodular density has not changed. Therefore, follow-up in a year after her CT scan to review. If the patient develops any worsening symptoms of worsening cough she can always call for an earlier assessment. [facility] Medical History (Updated 01/19/24 @ 21:18 by Garcia Barros MD) Murmur Asthma Chronic allergic rhinitis Hemoptysis Recurrent UTI H/O syphilis LGSIL (low grade squamous intraepithelial dysplasia) Overweight (BMI 25.0-29.9) Dermatitis Memory impairment Pure hypercholesterolemia Diabetes mellitus Surgical History History of arthroscopy of right shoulder Hx of tubal ligation History of hernia repair (~2001) Status post breast reduction (~2006) Family History Father Diabetes Mother Heart attack Brother No problems noted. Sister No problems noted. Son No problems noted. Son No problems noted. Son No problems noted. Daughter No problems noted. Daughter No problems noted. Social History Housing: Apartment Alcohol intake: never Patient Tobacco Use Status: Never used Tobacco e-Cigarette/Vaping Use: Never Used Second Hand Smoke Exposure: No service: No Current occupational status: retired Cognitive needs: No Hearing needs: No Vision needs: Yes Review of Systems Const Denies fever(s) Eyes Denies change in vision ENT Reports nasal congestion, Reports nasal discharge and Reports post nasal drip Card Denies chest pain Resp Reports chest congestion, Reports cough and Denies wheezing GI Reports no additional complaints Musc Reports no additional complaints Skin/Breast Denies rash Neuro Reports no additional complaints Mitch/Lymph Denies lymphadenopathy Aller/Immun Denies wheezing Physical Exam Vital Signs: Last Vital Signs Pulse 85 01/19/24 11:11 BP 110/60 01/19/24 11:11 Pulse Ox 99 01/19/24 11:11 Oxygen Delivery Method Room Air 01/19/24 11:11 BMI result Body Mass Index 32.9 Const General: comfortable HEENT Head: Yes normocephalic Ears: TM abnormal with fluid behind the TM General nose exam: Abnormal mucous membranes and turbinates present erythematous Neck Neck: Yes supple Chest Chest palpation & inspection: normal inspection of the chest Resp Effort & Inspection: normal respiratory effort Auscultation: clear to auscultation bilaterally Cardio Rate: regular rate Rhythm: regular rhythm Heart sounds: S1 normal heart sound present, S2 normal heart sound present and Murmur heart sound present systolic II/ GI Palpation (GI): Soft to palpation Skin General skin exam: no rashes or lesions noted Extrem General: Yes no clubbing, cyanosis or edema Assessment & Plan Assessment & Plan (1) Chronic allergic rhinitis: Code(s): J30.9 - Allergic rhinitis, unspecified Category: Medical (2) Pulmonary nodule: Code(s): R91.1 - Solitary pulmonary nodule Category: Medical (3) Chronic cough: Comment: Likely upper airway cough syndrome, also may have a component of vocal cord dysfuction Code(s): R05.3 - Chronic cough Category: Medical (4) Bronchitis: Code(s): J40 - Bronchitis, not specified as acute or chronic Category: Medical (5) Murmur: Code(s): R01.1 - Cardiac murmur, unspecified Category: Medical Plan start Doxycycline cough medicine Neti bottle rinsing nasal steroid spray benzonates as needed ZARIA as needed repeat CT chest 12/2024 F/U 1 year Orders: Orders CT chest wo IV con 12/13/24 R91.1 - Solitary pulmonary nodule Medications: New benzonatate 200 mg PO BID 30 days PRN 60 caps 5RF cough doxycycline monohydrate 100 mg PO BID 14 days 28 tabs 0RF azelastine administer into each nostril 2 sprays intranasal BID 30 days 30 mL 6RF Coding Level of Care Code Est Pt Level 4 (83115) Diagnoses Chronic allergic rhinitis J30.9 Pulmonary nodule R91.1 Chronic cough R05.3 Bronchitis J40 Murmur R01.1 Time Spent (min) 17
== END 2024-01-19 11:32 | disposition home or self-care (01) ==
PROVIDERS: PCP Physician Assistant; Visit Provider Hospitalist
DX: J30.9 Allergic rhinitis, unspecified (principal); R91.1 Solitary pulmonary nodule; R05.3 Chronic cough; J40 Bronchitis, not specified as acute or chronic; R01.1 Cardiac murmur, unspecified
CPT/HCPCS: 99214

== ENCOUNTER → 2024-01-19 10:58 | Outpatient (BNVA) | payer OTHER, SELFPAY | PROVIDERS: PCP Physician Assistant; Visit Provider Hospitalist | DX: R05.3 Chronic cough (principal); J40 Bronchitis, not specified as acute or chronic; J30.9 Allergic rhinitis, unspecified; R91.1 Solitary pulmonary nodule; R01.1 Cardiac murmur, unspecified | CPT/HCPCS: 99212 ==

== ENCOUNTER 2024-02-18 15:42 | Outpatient (AMB) | payer OTHER, SELFPAY ==
--- NOTE | 2024-02-18 15:43 | A.OFFVIS_ITS ---
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 She is doing well with no concerns. Urinary frequency, meds not helping. Has a urology follow up. Attempting to eat a healthy diet, she forgets her vit D. no regular exercise. Denies any vaginal dryness or irritation. STI testing offered; she declines. Last pap smear; 2020, negative, 2019, negative, prior history of HEMANT 1. Last mammogram; 2023. Colonoscopy is UTD. Denies any family history of breast, ovarian or colon cancer. [facility] Medical History (Updated 02/18/24 @ 15:51 by Daisy Pena CNM) Murmur Asthma Chronic allergic rhinitis Hemoptysis Recurrent UTI H/O syphilis LGSIL (low grade squamous intraepithelial dysplasia) Overweight (BMI 25.0-29.9) Dermatitis Memory impairment Pure hypercholesterolemia Diabetes mellitus Surgical History History of arthroscopy of right shoulder Hx of tubal ligation History of hernia repair (~2001) Status post breast reduction (~2006) Family History Father Diabetes Mother Heart attack Brother No problems noted. Sister No problems noted. Son No problems noted. Son No problems noted. Son No problems noted. Daughter No problems noted. Daughter No problems noted. Social History Housing: Apartment Alcohol intake: never Patient Tobacco Use Status: Never used Tobacco e-Cigarette/Vaping Use: Never Used Second Hand Smoke Exposure: No service: No Current occupational status: retired Cognitive needs: No Hearing needs: No Vision needs: Yes Female Reproductive History Menstrual Total pregnancies: 7 Full term: 5 Number of Living Children: 5 Ab induced: 2 Date of last pap smear: 06/02/20 (neg pap and hpv) History of abnormal pap smear: Yes (see intake note) Date of Mammogram: 12/31/23 (Birad 2) Review of Systems Const All systems reviewed & are unremarkable except as noted in HPI and below Reports as per HPI Eyes Reports no additional complaints ENT Reports no additional complaints Card Reports no additional complaints Resp Reports no additional complaints GI Reports as per HPI and Reports no additional complaints Reports as per HPI Musc Reports no additional complaints Skin/Breast Reports as per HPI Neuro Reports no additional complaints Psych Reports no additional complaints Endo Reports no additional complaints Mitch/Lymph Reports no additional complaints Aller/Immun Reports no additional complaints Physical Exam Vital Signs: BMI result Body Mass Index 32.4 Const General: cooperative, healthy appearing, no acute distress, well developed and alert Orientation/consciousness: patient oriented x3 HEENT Head: Yes normal to inspection Eyes General: appearance normal, both eyes and all related structures Neck Neck: Yes normal visual inspection Thyroid: Thyroid normal Chest Other: Breast reduction scarring Chest palpation & inspection: normal inspection of the chest and other (no puckering, dimpling, peau de orange, retraction, discharge, masses) Breast/axilla inspection: normal inspection of the breasts Breast/axilla palpation: normal palpation of the breasts Resp Effort & Inspection: normal respiratory effort GI Inspection: Yes normal to inspection Palpation (GI): Soft to palpation Rectal Exam - Female: deferred General: Yes bladder normal to palpation External Female Exam: normal external appearance and normal appearance of the urethra Speculum Exam - Vagina: normal appearance of the vagina, normal palpation, normal vaginal discharge and vagina atrophic Speculum Exam - Cervix: normal appearance of the cervix and normal palpation Bimanual exam- vagina & uterus: normal bimanual exam, normal palpation, uterine size normal, bladder normal to palpation, normal palpation and non-tender Bimanual Exam- Adnexa, other: no masses Skin General skin exam: no rashes or lesions noted Rashes: no rashes Neuro General: patient oriented x3 Cognition (Neuro): normal cognition Extrem General: Yes normal to inspection Psych Attitude: cooperative Thought process: Normal thought process present Assessment & Plan Assessment & Plan (1) Encounter for well woman exam with routine gynecological exam: Code(s): Z01.419 - Encounter for gynecological examination (general) (routine) without abnormal findings Category: Medical Plan Discussed: Current recommendations for pap smears per ASCCP guidelines. Breast awareness, periodic self breast exams and yearly mammogram. Maintain a healthy lifestyle, well balanced diet including Calcium 1,200 mg and Vitamin D 600 IU daily, and routine exercise. Use of condoms for STI prevention if indicated. Contact the office with any postmenopausal bleeding. Patient verbalizes understanding and agrees to the plan of care. She was given opportunity to ask questions and all questions were answered to the best of my ability. 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 This note is constructed using voice recognition software. While every effort has been made to ensure accuracy, chute worker errors may have been included. Coding Level of Care Code Est Pt Prev Care 40-64y(74248) Diagnoses Encounter for well woman exam with routine gynecological exam Z01.419
[2024-02-18 15:47] VITALS: BP 112/68; BMI 32.4
== END 2024-02-18 16:19 | disposition home or self-care (01) ==
LOC: HO.HWS 15:42
PROVIDERS: PCP Physician Assistant; Visit Provider Advanced Practice Midwife
DX: Z01.419 Encounter for gynecological examination (general) (routine) without abnormal findings (principal)
CPT/HCPCS: 99396

== ENCOUNTER → 2024-02-18 15:42 | Outpatient (BNVA) | payer OTHER, SELFPAY | PROVIDERS: PCP Physician Assistant; Visit Provider Advanced Practice Midwife | DX: Z01.419 Encounter for gynecological examination (general) (routine) without abnormal findings (principal) | CPT/HCPCS: 99396 ==

== ENCOUNTER 2024-03-25 11:12 | Outpatient (AMB) | payer OTHER, SELFPAY ==
[2024-03-25 11:33] VITALS: BP 100/70; PULSE 80; O2SAT 98; BMI 32.8
--- NOTE | 2024-03-25 11:33 | MHC.PC.OV ---
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 Required: No Accompanied by: Self / Same As Patient Allergies No Known Allergies Allergy (Unknown, Verified 03/25/24 11:46) Medication List - Last Reconciled 03/25/24 by Bob Santiago PA-C albuterol sulfate 90 mcg/actuation 2 inhalations inhalation Q6H PRN 30 days atorvastatin 20 mg PO BEDTIME 90 days azelastine 2 sprays intranasal BID 30 days blood sugar diagnostic (FreeStyle Lite Strips) USE 1 STRIP DAILY clotrimazole 1% (Athlete's Foot (clotrimazole)) 1 appl topical DAILY 30 days escitalopram oxalate 20 mg PO DAILY 90 days lancets (FreeStyle Lancets) USE DAILY DIRECTED pioglitazone 45 mg PO DAILY sitagliptin phosphate (Januvia) 25 mg PO DAILY 30 days Tobacco use date assessed: 06/24/23 Fall risk assessment: No Falls in past year Last assessed Fall Risk: 03/25/24 Dental Screening Dental Screen Date: 12/25/23 HPI 3 Month F/U HPI Details Patient is a 63 female here today for follow-up visit.? Patient has a past medical history significant type 2 diabetes, generalized anxiety disorder hyperlipidemia, chronic left shoulder pain,? Concern--> continues to have bilateral knee pain, does followed Orthopedics and getting injections though does not feel there helping. Has not been able to tolerate NSAIDs due to GERD symptoms. She is willing to try Tylenol arthritis for her pain. .. DMII: Today's A1c is 6.9 from 7.1. She has been making better dietary choices.. Sugars at home 120-170s . She reports her diet has been poor as of late. She continues on pioglitazone 45 mg and Januvia 25 mg.? She was unable to tolerate metformin due to GI side effects. ? [facility] Medical History Murmur Asthma Chronic allergic rhinitis Hemoptysis Recurrent UTI H/O syphilis LGSIL (low grade squamous intraepithelial dysplasia) Overweight (BMI 25.0-29.9) Dermatitis Memory impairment Pure hypercholesterolemia Diabetes mellitus Surgical History History of arthroscopy of right shoulder Hx of tubal ligation History of hernia repair (~2001) Status post breast reduction (~2006) Family History Father Diabetes Mother Heart attack Brother No problems noted. Sister No problems noted. Son No problems noted. Son No problems noted. Son No problems noted. Daughter No problems noted. Daughter No problems noted. Social History Housing: Apartment Alcohol intake: never Patient Tobacco Use Status: Never used Tobacco e-Cigarette/Vaping Use: Never Used Second Hand Smoke Exposure: No service: No Current occupational status: retired Cognitive needs: No Hearing needs: No Vision needs: Yes Questionnaire Thrive Questionnaire Date Thrive assessed: 06/24/23 MIKALA-7 AMB Questionnaire MIKALA-7 Date MIKALA - 7 assessed: 05/07/22 Source: Developed by Drs. Piotr James, Breonna East, Donaldo Barrios and colleagues, with an educational paddy from [employer]. Review of Systems Const Denies headache(s) Eyes Denies loss of vision ENT Denies vertigo, Denies dizziness, Denies headache(s) and Denies sore throat Card Denies chest pain, Denies leg edema and Denies lightheadedness Resp Denies cough, Denies hemoptysis and Denies wheezing GI Denies abdominal pain, Denies melena, Denies constipation, Denies diarrhea and Denies vomiting Denies urinary frequency, Denies dysuria and Denies urinary urgency Musc Denies arthralgias, Denies joint swelling, Denies numbness and Denies tingling Neuro Denies Abnormal speech present, Denies behavioral changes, Denies vertigo, Denies dizziness, Denies headache(s), Denies loss of vision, Denies memory loss, Denies numbness and Denies tingling Psych Denies anxiety, Denies behavioral changes, Denies depression, Denies memory loss and Denies panic attacks Mitch/Lymph Denies easy bleeding and Denies easy bruising Aller/Immun Denies wheezing Physical exam (Primary Care) Vital Signs: Last Vital Signs Pulse 80 03/25/24 11:33 BP 100/70 03/25/24 11:33 Pulse Ox 98 03/25/24 11:33 Oxygen Delivery Method Room Air 03/25/24 11:33 BMI result Body Mass Index 32.8 Tobacco/Smoking Status: Tobacco use Status Tobacco use date assessed 06/24/23 03/25/24 11:34 Patient Tobacco Use Status Never used Tobacco 03/25/24 11:34 e-Cigarette/Vaping Use Never Used 03/25/24 11:34 Thrive Assessment: Date of Thrive Assessment Date Thrive assessed 06/24/23 03/25/24 11:34 Const General: healthy appearing, no acute distress, alert and awake Nutritional Appearance: well nourished Orientation/consciousness: oriented to person, oriented to place and oriented to time HENMT Ears: TM's normal bilaterally General nose exam: Normal nasal mucous membranes and turbinates present Eyes Conjunctivae: conjunctivae normal Sclerae: sclerae normal Pupils: Equal, round and reactive pupils present Neck Neck: Yes no lymphadenopathy and Yes no JVD Thyroid: Thyroid normal Carotids: no bruits Resp Effort & Inspection: normal respiratory effort and not tachypneic Auscultation: no crackles, no rales, no rhonchi and no wheezes Cardio Rate: regular rate Rhythm: regular rhythm Heart sounds: no murmurs and normal S1 and S2 GI Palpation (GI): Soft to palpation, nontender, no hepatomegaly and no splenomegaly Auscultation: normal bowel sounds Skin General skin exam: no rashes or lesions noted and dry skin Neuro General: oriented to person, oriented to place and oriented to time Cranial nerves: Yes Equal, round and reactive pupils present Speech: No Abnormal speech present Gait exam (Neuro): Normal gait present Motor exam (neuro): no tremor noted Extrem Right upper extremity: full ROM Left upper extremity: full ROM Right lower extremity: full ROM; no edema Left lower extremity: full ROM; no edema Psych Mental Status: mental status grossly normal Speech and movement: Normal speech and movement present Affect: normal affect Attitude: cooperative Thought process: Normal thought process present Office Procedures Flu Questionnaire Does the patient have a severe egg allergy?: No Does the patient have severe life threatening allergies?: No Does the patient have a fever or illness today?: No Has the patient ever had Guillain-[place] Syndrome?: No Has the patient ever had any past reaction to a flu shot?: No Results AMB Hemoglobin A1c AMB Hemoglobin A1c 6.9 % Last Edit by SABIHA John on 03/25/24 12:02 Immunizations Fluarix Triv [id number] (PF) 45 mcg (15 mcg x 3)/0.5 mL IM syringe Performing Provider: Bob Santiago PA-C [facility] [place] [facility] Administered by: SABIHA John on 03/25/24 11:36 Dose Route Admin Location Dispensed Lot Number Expiration Date NDC Account Services Associate 0.5 mL IM Left Deltoid 0.5 mL [id number] 11/01/24 [id number] [employer] VIS Given Date VIS Provided VIS Publication Date 03/25/24 Single Vaccine 20 Eligibility Eligibility Date Funding Source Not [facility] Eligible 03/25/24 Private Results Reviewed Results Reviewed: Laboratory Last Values Hgb A1c (Clinic) 6.9 % (4.0-6.0) H 03/25/24 12:02 Coding Level of Care Code Est Pt Level 3 (37490) Diagnoses Type 2 diabetes mellitus without complication, without long-term current use of insulin E11.9 Diabetes mellitus complication status: without complication Diabetes mellitus director long term care insulin use: without residential use Diabetes mellitus type: type 2 Colon cancer screening Z12.11 Assessment & Plan Assessment & Plan (1) Diabetes mellitus: Code(s): E11.9 - Type 2 diabetes mellitus without complications Category: Medical Qualifiers: Diabetes mellitus complication status: without complication Diabetes mellitus director long term care insulin use: without director long term care use Diabetes mellitus type: type 2 Qualified Code(s): E11.9 - Type 2 diabetes mellitus without complications Plan: Patient's type 2 diabetes well controlled with current med regime and dietary modifications. Goal A1c is to remain below 7.0 (2) Colon cancer screening: Code(s): Z12.11 - Encounter for screening for malignant neoplasm of colon Category: Medical Plan: Patient got colonoscopy [place] [address] Gonzalez, needs a new screening colonoscopy. Orders: Orders Comprehensive Brooks. Panel Fast Today E11.9 - Type 2 diabetes mellitus without complications Lipid Panel Today E78.00 - Pure hypercholesterolemia, unspecified AMB Hemoglobin A1c Today E11.9 - Type 2 diabetes mellitus without complications Influenza 3435-3077 Immunization Today Z23 - Encounter for immunization Complete Blood Count no Diff Today J45.909 - Unspecified asthma, uncomplicated Referrals Gastroenterology Referral Z12.11 - Encounter for screening for malignant neoplasm of colon Medications: New acetaminophen ER (Tylenol Arthritis Pain) 650 mg PO Q12H 60 tabs 3RF 30 days M17.10 - Unilateral primary osteoarthritis, unspecified knee, M19.90 - Unspecified osteoarthritis, unspecified site
== END 2024-03-25 11:59 | disposition home or self-care (01) ==
PROVIDERS: PCP Physician Assistant; Visit Provider Physician Assistant
DX: E11.9 Type 2 diabetes mellitus without complications (principal); Z12.11 Encounter for screening for malignant neoplasm of colon; Z23 Encounter for immunization

== ENCOUNTER → 2024-03-25 11:12 | Outpatient (BNVA) | payer OTHER, SELFPAY | PROVIDERS: PCP Physician Assistant; Visit Provider Physician Assistant | DX: Z23 Encounter for immunization (principal); E11.9 Type 2 diabetes mellitus without complications; E78.00 Pure hypercholesterolemia, unspecified; J45.909 Unspecified asthma, uncomplicated | CPT/HCPCS: 83036; 90471; 90656; 99212 ==

== ENCOUNTER 2024-05-07 14:19 | Outpatient (AMB) | payer OTHER, SELFPAY ==
--- NOTE | 2024-05-07 14:50 | A.OFFVIS_ITS ---
Intake Visit Reasons: 6m follow up Intake Note: Patient is present for 6M F/U Urology Medication:NONE Antibiotic Allergy:NONE Blood Thinner:NONE Floral Clerk Required: No Allergies No Known Allergies Allergy (Unknown, Verified 05/07/24 14:50) HPI Comments Details: -- 10/23/23-- the patient cancelled the Botox procedure. She states that she has urinary frequency about every 3 hours. She has a constant sensation of urgency. She states that she is bothered more at nighttime because she wakes up to use the bathroom. I have discussed trying the hydroxyzine again because she admits that she really did not use the medication for more than a couple of days. I have discussed that the medication has an antihistamine and may called cause drowsiness. She is to call for any side effects. Follow-up in 6 months she will call to be seen sooner if her symptoms worsen. Review of chart: 08/28/23---went for 2nd opinion. Received samples of gemtesa. She states the medication does not seem to be helping. I have discussed the treatment modalities including sacral neuromodulation and bladder Botox injection. The patient has failed several p.o. anticholinergics including oxybutynin, Myrbetriq, VESIcare, Vistaril, Gemtesa. She is agreeable for cystoscopy bladder Botox injection. Risks and benefits discussed including but not limited to need to repeat Botox injection to maintain efficacy, urinary tract infection, hematuria, urinary retention. Plan cystoscopy bladder Botox injection 100 units. [facility] Medical History (Reviewed 02/18/24 @ 15:52 by Lainey Guerra [facility]) Murmur Asthma Chronic allergic rhinitis Hemoptysis Recurrent UTI H/O syphilis LGSIL (low grade squamous intraepithelial dysplasia) Overweight (BMI 25.0-29.9) Dermatitis Memory impairment Pure hypercholesterolemia Diabetes mellitus Surgical History History of arthroscopy of right shoulder Hx of tubal ligation History of hernia repair (~2001) Status post breast reduction (~2006) Family History Father Diabetes Mother Heart attack Brother No problems noted. Sister No problems noted. Son No problems noted. Son No problems noted. Son No problems noted. Daughter No problems noted. Daughter No problems noted. Social History Housing: Apartment Alcohol intake: never Patient Tobacco Use Status: Never used Tobacco e-Cigarette/Vaping Use: Never Used Second Hand Smoke Exposure: No service: No Current occupational status: retired Cognitive needs: No Hearing needs: No Vision needs: Yes Results AMB Urinalysis, Automated UA Leukoctes 0 Saturnino/uL Last Edit by SABIHA Horan on 05/07/24 15:13 UA Nitrite Negative Last Edit by Clare Alvarado CCM on 05/07/24 15:13 UA Urobilinogen 0.2 mg/dL Last Edit by SABIHA Horan on 05/07/24 15:1 3 UA Protein 15 mg/dL Last Edit by Calre Alvarado CCM on 05/07/24 15:13 UA pH 5.5 Last Edit by Clare Alvarado CCM on 05/07/24 15:13 UA Blood 0 Ryan/uL Last Edit by Clare Alvarado CCM on 05/07/24 15:13 UA Specific [place] 1.030 Last Edit by SABIHA Horan on 05/07/24 15: 13 UA Ketone Negative Last Edit by Clare Alvarado CCM on 05/07/24 15:13 UA Bilirubin 1 mg/dL Last Edit by Clare Alvarado CCM on 05/07/24 15:13 UA Glucose 1000 mg/dL Last Edit by Clare Alvarado [facility] on 05/07/24 15:13 Results Reviewed Results Reviewed: Laboratory Last Values Urine pH (Auto) 5.5 05/07/24 15:12 Specific [place] (Auto) 1.030 05/07/24 15:12 Urine Protein (Auto) 15 mg/dL 05/07/24 15:12 Glucose (UA)(Auto) 1000 mg/dL 05/07/24 15:12 Urine Ketones (Auto) Negative 05/07/24 15:12 Urine Blood (Auto) 0 Ryan/uL 05/07/24 15:12 Urine Nitrite (Auto) Negative 05/07/24 15:12 Urine Bilirubin (Auto) 1 mg/dL 05/07/24 15:12 Urine Urobilinogen (Auto) 0.2 mg/dL 05/07/24 15:12 Leukocyte Esterase (Auto) 0 Saturnino/uL 05/07/24 15:12 Assessment & Plan Assessment & Plan Orders: Orders AMB Urinalysis Automated Today Z13.9 - Encounter for screening, unspecified Coding
== END 2024-05-07 16:07 | disposition home or self-care (01) ==
PROVIDERS: PCP Physician Assistant; Visit Provider Urology
DX: Z13.9 Encounter for screening, unspecified (principal)

== ENCOUNTER → 2024-05-07 14:19 | Outpatient (BNVA) | payer SELFPAY | PROVIDERS: PCP Physician Assistant; Visit Provider Urology | DX: R39.15 Urgency of urination (principal); R35.0 Frequency of micturition; R39.89 Other symptoms and signs involving the genitourinary system | CPT/HCPCS: 81003; 99212 ==

== ENCOUNTER 2024-07-27 11:16 | Outpatient (AMB) | payer OTHER, SELFPAY ==
--- NOTE | 2024-07-27 11:36 | MHC.PC.OV ---
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 Accompanied by: Self / Same As Patient Allergies No Known Allergies Allergy (Unknown, Verified 07/27/24 11:59) Medication List - Last Reconciled 07/27/24 by Bob Santiago PA-C acetaminophen ER (Tylenol Arthritis Pain) 650 mg PO Q12H 30 days albuterol sulfate 90 mcg/actuation 2 inhalations inhalation Q6H PRN 30 days atorvastatin 20 mg PO BEDTIME 90 days azelastine 2 sprays intranasal BID 30 days blood sugar diagnostic (FreeStyle Lite Strips) USE 1 STRIP DAILY clotrimazole 1% (Athlete's Foot (clotrimazole)) 1 appl topical DAILY 30 days escitalopram oxalate 20 mg PO DAILY 90 days lancets (FreeStyle Lancets) USE DAILY DIRECTED meclizine 25 mg PO BID PRN 15 days pioglitazone 45 mg PO DAILY sitagliptin phosphate (Januvia) 25 mg PO DAILY Tobacco use date assessed: 07/27/24 Fall risk assessment: No Falls in past year Last assessed Fall Risk: 07/27/24 Dental Screening Dental Screen Date: 07/27/24 Did you have a dental visit in the last 12 months?: Yes Did you have a dental problem in the last 6 months where you did not have access to dental care?: No Was dental information given to patient?: Patient has dentist HPI pe HPI Details Patient is a 64-year-old female here today for routine annual physical.? Patient has a past medical history significant type 2 diabetes, generalized anxiety disorder hyperlipidemia, chronic left shoulder pain,? Concern--> patient having difficulty sleeping. She believes it is secondary to effect of her antidepressant medication. She would like to switch her antidepressant medication. .. Left knee osteoarthritis: Patient continues to follow a orthopedic about her left knee pain. She has gotten injections though have not been particularly effective. She reports some left knee instability and increased swelling in the left knee as of late. She denies any recent trauma. PLAN: Will try for an MRI of the left knee to evaluate for atraumatic meniscal tear .. DMII: Most recent A1c acceptable. She has been making better dietary choices.. Sugars at home 120-170s . She reports her diet has been poor as of late. She continues on pioglitazone 45 mg and Januvia 25 mg.? She was unable to tolerate metformin due to GI side effects. Vaccine: Up-to-date pneumonia, COVID vaccine, tetanus. Mammogram: Mammogram done December 2023, BI-RADS 1 .. Colonoscopy: Done 2013 Dr Perez - Repeat 10 year ,.. SEARCH LEAD: does see a SEARCH LEAD and gets PAP. [facility] Medical History Murmur Asthma Chronic allergic rhinitis Hemoptysis Recurrent UTI H/O syphilis LGSIL (low grade squamous intraepithelial dysplasia) Overweight (BMI 25.0-29.9) Dermatitis Memory impairment Pure hypercholesterolemia Diabetes mellitus Surgical History History of arthroscopy of right shoulder Hx of tubal ligation History of hernia repair (~2001) Status post breast reduction (~2006) Family History Father Diabetes Mother Heart attack Brother No problems noted. Sister No problems noted. Son No problems noted. Son No problems noted. Son No problems noted. Daughter No problems noted. Daughter No problems noted. Social History Housing: Apartment Alcohol intake: never Patient Tobacco Use Status: Never used Tobacco e-Cigarette/Vaping Use: Never Used Second Hand Smoke Exposure: No service: No Current occupational status: retired Cognitive needs: No Hearing needs: No Vision needs: Yes Questionnaire PHQ-9 Over the last 2 weeks, how often have you been bothered by any of the following problems? 1. Little interest or pleasure in doing things: not at all 2. Feeling down, depressed, or hopeless: not at all 3. Trouble falling or staying asleep, or sleeping too much: not at all 4. Feeling tired or having little energy: not at all 5. Poor appetite or overeating: not at all 6. Feeling bad about yourself - or that you are a failure or have let yourself or your family down: not at all 7. Trouble concentrating on things, such as reading the newspaper or watching television: not at all 8. Moving or speaking so slowly that other people could have noticed. Or the opposite - being so fidgety or restless that you have been moving around a lot more than usual: not at all 9. Thoughts that you would be better off or of hurting yourself in some way: not at all Total score: 0 Depression Screening Interpretation: Negative Depression Screening Done: Yes 60273 - PHQ-9 Billing: Yes Source: Developed by Drs. Piotr James, Breonna East, Donaldo Barrios and colleagues, with an educational paddy from [employer]. Thrive Questionnaire Date Thrive assessed: 07/27/24 I am a: Patient What is your living situation today?: I choose not to answer this question Within the past 12 months, did the food you bought not last and you didn't have the money to get more?: I choose not to answer this question Within the past 12 months, did you worry whether your food would run out before you got money to buy more?: I choose not to answer this question Do you have trouble paying for medicines?: No Do you have trouble getting transportation to medical appointments?: No Do you have trouble paying your heating and electricity bill?: I choose not to answer this question Do you have trouble taking care of your child, family member or friend?: No Do you have trouble with day-to-day activities such as bathing, preparing meals, shopping, managing finances, etc.?: I choose not to answer this question Are you currently unemployed and looking for a job?: No Are you interested in more education?: I choose not to answer this question Currently or been in a relationship where the following occur: I choose not to answer THRIVE Score: 0 AUDIT C Alcohol Use Questionnaire (AUDIT-C) 1. How often do you have a drink containing alcohol?: Never 3. How often do you have six or more drinks on one occasion?: Never Total Score: 0 MIKALA-7 AMB Questionnaire MIKALA-7 Date MIKALA - 7 assessed: 07/27/24 Feeling nervous, anxious, or on edge: 0 = Not at all Not being able to stop or control worryin = Nearly every day Worrying too much about different things: 3 = Nearly every day Trouble relaxin = Nearly every day Being so restless that it is hard to sit still: 0 = Not at all Becoming easily annoyed or irritable: 0 = Not at all Feeling afraid as if something awful might happen: 0 = Not at all Total MIKALA-7 score (0-4 normal; 5-9 mild; 10-14 moderate; 15-21 severe): 9 Source: Developed by Drs. Piotr James, Breonna East, Donaldo Barrios and colleagues, with an educational paddy from [employer]. MIKALA-7 Assessment Billing MIKALA-7 Assessment Tool: MIKALA-7 Assessment 59588 Review of Systems Const Denies body aches, Denies chills, Denies excessive sweating, Denies fatigue, Denies fever(s) and Denies headache(s) Eyes Denies blurry vision ENT Denies dysphagia, Denies vertigo, Denies dizziness, Denies headache(s), Denies hearing loss and Denies tinnitus Card Denies chest pain, Denies chest pain with activity, Denies syncope, Denies irregular heart rhythm and Denies dyspnea Resp Denies chest congestion, Denies cough, Denies hemoptysis, Denies dyspnea and Denies wheezing GI Denies abdominal pain, Denies melena, Denies hematochezia, Denies coffee ground emesis, Denies dysphagia, Denies diarrhea, Denies nausea and Denies vomiting Denies urinary frequency, Denies dysuria, Denies urinary hesitancy and Denies urinary urgency Musc Denies arthralgias, Denies limited range of motion, Denies muscle cramps and Denies muscle weakness Skin/Breast Denies rash and Denies skin ulcer Neuro Denies Abnormal speech present, Denies confusion, Denies vertigo, Denies dizziness, Denies syncope, Denies headache(s), Denies memory loss and Denies seizure-like activity Psych Denies anxiety, Denies confusion, Denies depression, Denies memory loss, Denies panic attacks and Denies paranoia Endo Denies excessive sweating, Denies fatigue, Denies flushing, Denies polydipsia and Denies polyuria Aller/Immun Denies wheezing Physical exam (Primary Care) Vital Signs: Last Vital Signs Temp 96.9 F 07/27/24 11:49 Pulse 82 07/27/24 11:49 BP 134/72 07/27/24 11:49 Pulse Ox 99 07/27/24 11:49 Oxygen Delivery Method Room Air 07/27/24 11:49 BMI result Body Mass Index 33.1 BMI Assessment/Plan discussion: High BMI High, discussed plan: lifestyle, weight reduction, dietary and physical activity Tobacco/Smoking Status: Tobacco use Status Tobacco use date assessed 07/27/24 07/27/24 11:51 Patient Tobacco Use Status Never used Tobacco 07/27/24 11:37 e-Cigarette/Vaping Use Never Used 07/27/24 11:37 PHQ-9: PHQ-9 Score PHQ-9: Total score 0 07/27/24 12:00 Depression Screening Interpretation: Negative Thrive Assessment: Date of Thrive Assessment Date Thrive assessed 07/27/24 07/27/24 11:37 Currently or been in a relationship where the following occur: I choose not to answer Const General: cooperative, comfortable, no acute distress, alert and awake; No confusion Orientation/consciousness: oriented to person, oriented to place, patient oriented x3 and No confusion HENMT Head: Yes normocephalic Ears: external ears normal and TM's normal bilaterally Face and sinus: No sinus tenderness Mouth: Normal oral and palatal mucosa present and tongue normal Teeth and gingiva: dentition normal and gingiva normal Throat: Yes posterior oropharynx normal, Yes tonsils normal and Yes uvula midline Eyes Conjunctivae: conjunctivae normal Sclerae: sclerae normal Pupils: Equal, round and reactive pupils present EOM: EOMs intact bilaterally Direct Ophthalmoscopy: No no photophobia Neck Neck: Yes no lymphadenopathy, No tender and Yes no JVD Thyroid: Thyroid normal Carotids: no bruits Chest Chest palpation & inspection: no tenderness Resp Effort & Inspection: normal respiratory effort, no audible wheezes, not labored and no stridor Auscultation: no crackles, no rales, no rhonchi and no wheezes Cardio Jugular venous distension: no JVD Rate: regular rate, not bradycardic and not tachycardic Rhythm: regular rhythm Bruits: no carotid bruits Peripheral pulses: Peripheral pulses 2+ throughout GI Inspection: Yes normal to inspection, No abdominal wall ecchymosis and No visible herniation Palpation (GI): Soft to palpation, nontender, no guarding, not rigid and No hepatosplenomegaly present Auscultation: normoactive bowel sounds General: Yes no CVA tenderness Back/Spine/Pelvis Back: no CVA tenderness and No back tenderness Cervical Spine: cervical ROM normal Thoracic/Lumbar Spine: thoracic and lumbar spine normal to inspection, straight leg raise negative bilaterally, No thoraco-lumbar ROM limited and No lumbar spinal tenderness Skin Lesions: no lesions Rashes: no rashes Wounds: no wounds Neuro General: oriented to person, oriented to place, patient oriented x3, CN's II-XI intact bilaterally and No confusion Cranial nerves: Yes Equal, round and reactive pupils present and Yes Normal accommodation reflex present Cognition (Neuro): normal cognition Speech: No Abnormal speech present Gait exam (Neuro): Normal gait present Motor exam (neuro): 5/5 motor strength present throughout Extrem Right upper extremity: full ROM; no cyanosis Left upper extremity: full ROM; no cyanosis Right lower extremity: no edema Left lower extremity: no edema Psych Appearance: grossly normal Mental Status: mental status grossly normal Affect: normal affect Attitude: cooperative Thought process: Normal thought process present Results AMB Hemoglobin A1c AMB Hemoglobin A1c 6.4 % Last Edit by SABIHA John on 07/27/24 11:57 Results Reviewed Results Reviewed: Laboratory Last Values Hgb A1c (Clinic) 6.4 % (4.0-6.0) H 07/27/24 11:27 Coding Level of Care Code Est Pt Prev Care >65y(13425) Diagnoses Annual physical exam Z00.00 MDD (major depressive disorder), recurrent episode, moderate F33.1 Pure hypercholesterolemia E78.00 Type 2 diabetes mellitus without complication, without long-term current use of insulin E11.9 Diabetes mellitus complication status: without complication Diabetes mellitus phone triage specialist insulin use: without phone triage specialist use Diabetes mellitus type: type 2 MIKALA (generalized anxiety disorder) F41.1 Instability of left knee joint M25.362 Benign paroxysmal positional vertigo due to bilateral vestibular disorder H81.13 Laterality: bilateral Primary insomnia F51.01 Insomnia type: primary Additional Codes MIKALA-7 Assessment Billing - MIKALA-7 Assessment Tool: MIKALA-7 Assessment 87665 ([id number]) PHQ-9 - 21376 - PHQ-9 Billing: Yes ([id number]) Assessment & Plan Assessment & Plan (1) Annual physical exam: Code(s): Z00.00 - Encounter for general adult medical examination without abnormal findings Category: Medical Plan: As per HPI (2) MDD (major depressive disorder), recurrent episode, moderate: Code(s): F33.1 - Major depressive disorder, recurrent, moderate Category: Medical Plan: Patient's PHQ-9 score 0, does have history of depression. She continues on SSRI therapy though would like to switch to a different SSRI to help her with the depression and anxiety. She believes her current Lexapro is causing her some sleeping difficulties. (3) Pure hypercholesterolemia: Code(s): E78.00 - Pure hypercholesterolemia, unspecified Category: Medical Plan: Most recent lipid panel showing opiate total cholesterol and LDL. She continues on atorvastatin 20 mg. Goal LDL is to remain below 100 (4) Diabetes mellitus: Code(s): E11.9 - Type 2 diabetes mellitus without complications Category: Medical Qualifiers: Diabetes mellitus complication status: without complication Diabetes mellitus shelter insulin use: without shelter use Diabetes mellitus type: type 2 Qualified Code(s): E11.9 - Type 2 diabetes mellitus without complications Plan: Patient's type 2 diabetes well controlled with current dose of antihyperglycemic Medication. Goal A1c is to be below 7.0 (5) MIKALA (generalized anxiety disorder): Code(s): F41.1 - Generalized anxiety disorder Category: Medical Plan: Patient's MIKALA-7 score 0, again will like to switch her SSRI therapy. (6) Instability of left knee joint: Comment: . She does Code(s): M25.362 - Other instability, left knee Category: Medical Plan: As per HPI patient does no left knee joint instability. No particular trauma noted , she does have osteoarthritis of the knee to which he has been getting injections from Orthopedics. Will try for MRI to evaluate for nontraumatic meniscal tear. (7) BPPV (benign paroxysmal positional vertigo): Code(s): H81.10 - Benign paroxysmal vertigo, unspecified ear Category: Medical Qualifiers: Laterality: bilateral Qualified Code(s): H81.13 - Benign paroxysmal vertigo, bilateral Plan: Patient does report having dizziness as of late. She has had a history of benign paroxysmal positional vertigo. Will supply patient with meclizine to use on an as needed basis. We considered vestibular therapy (8) Insomnia: Code(s): G47.00 - Insomnia, unspecified Category: Medical Qualifiers: Insomnia type: primary Qualified Code(s): F51.01 - Primary insomnia Plan: As per HPI Orders: Orders AMB Hemoglobin A1c 07/27/24 E11.9 - Type 2 diabetes mellitus without complications MR knee LT wo con 07/27/24 M25.362 - Other instability, left knee Medications: New sertraline 25 mg PO DAILY 30 tabs 1RF 30 days F33.1 - Major depressive disorder, recurrent, moderate chlorhexidine gluconate 0.12% 15 mL buccal DAILY PRN 120 mL 0RF mouth irritation 30 days G89.29 - Other chronic pain, K08.9 - Disorder of teeth and supporting structures, unspecified On Hold escitalopram oxalate Hold Comment: Doctor's Order 20 mg PO DAILY 90 days 90 tabs 2RF F33.1 - Major depressive disorder, recurrent, moderate
[2024-07-27 11:49] VITALS: BP 134/72; PULSE 82; TEMP 36.1; O2SAT 99; BMI 33.1
--- OUTSIDE RECORDS SUMMARY | 2024-07-27 14:03 | XMS_ITS | Clinical Summary ---
Author Organization 175 [facility] Address [address] [place] [address] Phone Care Team Providers Care Child Development Instructor Name Role Phone Bob Santiago Primary Care Provider Allergies No known active allergies Medications albuterol HFA (PROAIR HFA ; PROVENTIL HFA ; VENTOLIN HFA) 90 mcg/actuation inhaler Inhale 2 puffs by mouth every 6 (six) hours if needed for wheezing. Active atorvastatin (LIPITOR) 20 mg tablet Take 1 tablet (20 mg total) by mouth at bedtime. Active cetirizine (ZyrTEC) 10 mg tablet Take 1 tablet (10 mg total) by mouth 1 (one) time each day. Active escitalopram (LEXAPRO) 20 mg tablet Take 1 tablet (20 mg total) by mouth 1 (one) time each day. Active clotrimazole (LOTRIMIN) 1 % cream Apply topically 2 (two) times a day. Active diclofenac (VOLTAREN) 1 % topical gel Apply topically 4 (four) times a day. Active fluticasone (VERAMYST) 27.5 mcg/actuation nasal spray Administer 2 sprays into each nostril 1 (one) time each day. Active hydrOXYzine HCL (ATARAX) 25 mg tablet Take 1 tablet (25 mg total) by mouth. Active magnesium, amino acid chelate, 133 mg tablet Take 1 tablet (133 mg total) by mouth 2 (two) times a day. Active SITagliptin phosphate (JANUVIA) 25 mg tablet Take 1 tablet (25 mg total) by mouth 1 (one) time each day. Active pioglitazone (ACTOS) 45 mg tablet Take 1 tablet (45 mg total) by mouth 1 (one) time each day. Active nystatin (MYCOSTATIN) ointment Apply topically 2 (two) times a day. Active mirabegron (MYRBETRIQ) 50 mg tablet extended release 24 hr 24 hr tablet Take 1 tablet (50 mg total) by mouth 1 (one) time each day. Active Active Problems Problem Noted Date Diagnosed Date Bunion of left foot 03/12/2024 Asthma 03/12/2024 Hemoptysis 03/12/2024 Recurrent UTI 03/12/2024 H/O syphilis 03/12/2024 Chronic allergic rhinitis 03/12/2024 Dermatitis 03/12/2024 Overweight 03/12/2024 Memory impairment 03/12/2024 Pure hypercholesterolemia 03/12/2024 Diabetes mellitus 03/12/2024 Encounters Date Type Department Care Team Description 05/18/2024 3:30 PM EST Office Visit Orthopedic Surgery [facility] [address] [phone] Mariusz Yin DPM Acquired hallux valgus of left foot (Primary Dx); Bunion, left; Acquired hallux valgus of right foot; Bursitis of left foot from Last 3 Months Social History Tobacco Use Types Packs/Day Years Used Date Smoking Tobacco: Never Assessed Comments Unknown Sex and Gender Information Value Date Recorded Sex Assigned at Not on file Legal Sex Female 11:41 AM EDT Gender Identity Not on file Sexual Orientation Not on file Last Filed Vital Signs Vital Sign Reading Time Taken Comments Blood Pressure - - Pulse - - Temperature - - Respiratory Rate - - Oxygen Saturation - - Inhaled Oxygen Concentration - - Weight 81.2 kg (179 lb) 05/18/2024 3:39 PM EST Height 157.5 cm (5' 2.01 ) 05/18/2024 3:39 PM ES T Body Mass Index 32.73 05/18/2024 3:39 PM EST Plan of Treatment Upcoming Encounters Date Type Department Care Team (Late st Contact Info) Description 08/30/2024 1:00 PM EDT Office Visit Orthopedic [facility] [address] [phone] Mariusz Yin DPM [address] [id number] Health Maintenance Due Date Last Done Comments Breast Cancer Screening 1959 Diabetes: Annual GFR (Glomerular Filtration Rate) 1959 Diabetes: Annual Foot Exam 1969 Diabetes: Annual Retina Eye Exam 1969 DTaP,Tdap,and Td Vaccines (1 - Tdap) 1978 Cervical Cancer Screening: P ap Smear 1980 Zoster Vaccines (1 of 2) 2009 RSV Immunization Patients 60 + Years Old (1 - Risk 60-74 years 1-dose series) 2019 Pneumococcal Vaccine: 50+ Years (2 of 2 - PCV) 06/08/2020 06/08/2019 Pneumococcal Vaccine: Pediatrics (0 to 5 Years) and At-Risk Patients (6 to 64 Years) (2 of 2 - PCV) 06/08/2020 06/08/2019 COVID-19 Vaccine ( - 2023-2 5 season) 2024 11/02/2020, 10/12/2020 Cholesterol Screening (Lipid Panel) 02/16/2024 Colorectal Cancer Screening: Colonoscopy 02/16/2024 Depression Screening 02/16/2024 Hepatitis C Screening 02/16/2024 Medicare Annual Wellness Visit 02/16/2024 Osteoporosis Screening (Bone Density Screening) 02/16/2024 Social Influencers of Health Screening 02/16/2024 Diabetes: Annual Urine Albumin-Creatinine Ratio (uACR) 03/12/2024 Diabetes: Blood Sugar Contro l Test (HGBA1C) 03/12/2024 Falls Risk Assessment 2024 Influenza Vaccine Completed 03/25/2024, 04/12/2021 HIB Vaccines Aged Out No longer eligi ble based on patient's age to complete this topic HPV Vaccines Aged Out No longer eligi ble based on patient's age to complete this topic Hepatitis A Vaccines Aged Out No long er eligible based on patient's age to complete this topic Hepatitis B Vaccines Aged Out No long er eligible based on patient's age to complete this topic IPV Vaccines Aged Out No longer eligi ble based on patient's age to complete this topic MMR Vaccines Aged Out No longer eligi ble based on patient's age to complete this topic Meningococcal ACWY Vaccine Aged Out N o longer eligible based on patient's age to complete this topic Meningococcal B Vacine Aged Out No lo nger eligible based on patient's age to complete this topic RSV Immunization Patients Under 20 months Aged Out No longer eligible b ased on patient's age to complete this topic Varicella Vaccines Aged Out No longer eligible based on patient's age to complete this topic Procedures Procedure Name Priority Date/Time Associated Diagnosis Comments XR FOOT 3+ VIEWS BILAT Routine 05/18/2024 3:20 PM EST Bunion, left from Last 3 Months Results * XR Foot 3+ Views bilat (05/18/2024 3:20 PM EST) Anatomical Region Laterality Modality Lower Extremities, Foot Bilateral Computed Radiography Narrative 05/18/2024 4:25 PM EST Left foot 3 views Pes planus foot type Moderate bunion ??bunion left foot with increased intermetatarsal angulation hallux adductovalgus Right ??foot 3 views Pes planus foot type Moderate bunion ??bunion left foot with increased intermetatarsal angulation hallux adductovalgus Mariusz Yin DPLencho IMG XR PROCEDURES Final R esult from Last 3 Months Insurance MEDICARE [facility] MEDICARE ADVANTAGE Care Teams Child Development Instructor Relationship Specialty Start Date End Date Bob Santiago PA [address] [place] [id number] PCP - General 01/01/24
== END 2024-07-27 12:27 | disposition home or self-care (01) ==
LOC: HO.HMCH 11:17
PROVIDERS: PCP Physician Assistant; Visit Provider Physician Assistant
DX: Z00.00 Encounter for general adult medical examination without abnormal findings (principal); F33.1 Major depressive disorder, recurrent, moderate; E78.00 Pure hypercholesterolemia, unspecified; E11.9 Type 2 diabetes mellitus without complications; F41.1 Generalized anxiety disorder; M25.362 Other instability, left knee; H81.13 Benign paroxysmal vertigo, bilateral; F51.01 Primary insomnia

== ENCOUNTER → 2024-07-27 11:16 | Outpatient (BNVA) | payer OTHER, SELFPAY | PROVIDERS: PCP Physician Assistant; Visit Provider Physician Assistant | DX: Z00.00 Encounter for general adult medical examination without abnormal findings (principal); F33.1 Major depressive disorder, recurrent, moderate; E78.00 Pure hypercholesterolemia, unspecified; E11.9 Type 2 diabetes mellitus without complications; F41.1 Generalized anxiety disorder; M25.362 Other instability, left knee; H81.13 Benign paroxysmal vertigo, bilateral; F51.01 Primary insomnia | CPT/HCPCS: 83036; 96127; 99397 ==

== ENCOUNTER → 2024-08-02 07:29 | Outpatient (BNV) | payer OTHER, SELFPAY | PROVIDERS: PCP Physician Assistant; Visit Provider Radiology Diagnostic Radiology | DX: M23.322 Other meniscus derangements, posterior horn of medial meniscus, left knee (principal) | CPT/HCPCS: 73721 ==

== ENCOUNTER 2024-08-02 07:32 | Outpatient (REF) | payer OTHER, SELFPAY ==
--- NOTE | ~2024-08-02 | MR_ITS ---
EXAMINATION: MRI LEFT KNEE WITHOUT CONTRAST HISTORY: M25.362 - Other instability, left knee COMPARISON: Correlation is made with plain films of the left knee dated 10/10/2022. TECHNIQUE: Coronal T1 and fat-suppressed proton density, sagittal proton density and fat-suppressed proton density, and axial fat suppressed T2 weighted MR images of the left knee were obtained. FINDINGS: Bone marrow: Bone marrow signal intensity is normal. Joint effusion: There is a trace joint effusion. Malhotra's cyst: There is no Malhotra's cyst. Articular cartilage: There is mild to moderate osteal arthritis of the medial compartment, with cartilage loss and small osteophyte formation. There is mild thinning of the patellar cartilage. Muscles/soft tissues: The visualized muscles demonstrate normal signal intensity. Anterior cruciate ligament: Intact Posterior cruciate ligament: Intact Medial collateral ligament: Intact Lateral collateral ligament: Intact Medial meniscus: There is partial extrusion of the meniscus. There is an obliquely oriented linear focus of increased T2 signal intensity within the body/posterior horn which contacts the superior and inferior joint surface, consistent with a tear. The anterior horn is intact. Lateral meniscus: Intact Flexor mechanism: The popliteus, gastrocnemius, and hamstring tendons are intact. Quadriceps tendon: Intact Patellar tendon: Intact Patellar retinacula: Intact MR/MR knee LT wo con IMPRESSION: 1. Mild to moderate osteoarthritis of the medial compartment. Mild cartilage loss involving the patellofemoral compartment. 2. Oblique tear of the body/posterior horn of the medial meniscus which may be degenerative in nature. Electronically signed by: Piotr Garcias MD 08/02/2024 08:49 AM EDT
[2024-08-02 08:58] LABS: Hematocrit 38.4 % (37.0-47.0); Mean Corpuscular HGB Conc 31.3 g/dl (31.0-35.0); Mean Corpuscular Hemoglobin 29.2 pg (27.0-33.0); Mean Corpuscular Volume 93.4 fL (80.0-98.0); Mean Platelet Volume 10.8 fL (9.4-12.3); Platelet Count 169 X10*3/uL (160-400); Red Blood Count 4.11 X10*6/uL (4.20-5.50); Red Cell Distribution Width 13.3 % (11.0-16.0); White Blood Count 4.7 X10*3/uL (4.8-10.8)
[2024-08-02 09:45] LABS: Alanine Aminotransferase 16 U/L (0-31); Alkaline Phosphatase 71 U/L (39-117); Anion Gap 11 (12-20); Aspartate Amino Transferase 22 U/L (5-31); Bilirubin Total 0.5 mg/dL (0.0-1.0); Blood Urea Nitrogen 16 mg/dL (9-16); Calcium 9.4 mg/dL (8.4-10.2); Carbon Dioxide 28 mmol/L (22-29); Chloride 108 mmol/L (96-108); Cholesterol 155 mg/dL (<200); Estimated Glomerular Filt Rate > 60; Glucose Fasting 137 mg/dL (60-99); HDL Cholesterol 38 mg/dL (>40); LDL Cholesterol Calculated 95 mg/dL (<100); Sodium 143 mmol/L (135-145); Triglycerides 111 mg/dL (<150)
== END 2024-08-02 07:33 | disposition home or self-care (01) ==
LOC: HO.MRI 07:32
PROVIDERS: PCP Physician Assistant; Visit Provider Physician Assistant
DX: M25.362 Other instability, left knee (principal); E11.9 Type 2 diabetes mellitus without complications; E78.00 Pure hypercholesterolemia, unspecified; J45.909 Unspecified asthma, uncomplicated
CPT/HCPCS: 36415; 73721; 80053; 80061; 85027

== ENCOUNTER 2024-09-03 10:14 | Outpatient (AMB) | payer OTHER, SELFPAY ==
--- NOTE | 2024-09-03 10:22 | MHC.OFFVIS ---
Vital Signs 09/03/24 10:28 Height 5 ft 2 in Weight 182 lb BMI 33.3 BP 140/68 H Blood Pressure Location Rt brachial Position Sitting Pulse 74 Pulse Source Pulse Oximeter Pulse Oximetry (%) 98 Oxygen Delivery Method Room Air Intake Visit Reasons: colo screening Intake Note: NEW PATIENT for repeat colo screening. Last in 2013. Chief Complaint; No GI sx or concerns per pt at this time. 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 female with past medical history of lumbar radiculopathy, insomnia, asthma, chronic allergic rhinitis, overactive bladder, osteoarthritis of left knee GED, GERD and DVT, cholesterolemia, have diabetes is here today for pre colonoscopy screening.? Patient was sent to us by her PCP.? Last colonoscopy over 10 years ago. ? Patient denies any gastrointestinal symptoms in the past or at present.? Denies any personal or family history of gastrointestinal disease, colon polyps, or CRC.? Denies history of difficulty with sedation or anesthesia in the past.? Negative for history of sleep apnea.? Denies any history of cardiac, renal, pulmonary, or hepatic disease.?? No history of infectious? diseases like hepatitis A, B, C, HIV or tuberculosis.? Patient is not on any anticoagulation. Patient denies any cardiac or respiratory symptoms of the is time. Asthma and chronic rhinitis and cough. Patient is followed by Dr. Barros in pulmonology. [facility] Medical History Murmur Asthma Chronic allergic rhinitis Hemoptysis Recurrent UTI H/O syphilis LGSIL (low grade squamous intraepithelial dysplasia) Overweight (BMI 25.0-29.9) Dermatitis Memory impairment Pure hypercholesterolemia Diabetes mellitus Surgical History History of colonoscopy History of arthroscopy of right shoulder Hx of tubal ligation History of hernia repair (~2001) Status post breast reduction (~2006) Family History Father Diabetes Mother Heart attack Brother No problems noted. Sister No problems noted. Son No problems noted. Son No problems noted. Son No problems noted. Daughter No problems noted. Daughter No problems noted. Social History Housing: Apartment Alcohol intake: never Patient Tobacco Use Status: Never used Tobacco e-Cigarette/Vaping Use: Never Used Second Hand Smoke Exposure: No service: No Current occupational status: retired Cognitive needs: No Hearing needs: No Vision needs: Yes Review of Systems Const Denies weight gain and Denies weight loss ENT Reports no additional complaints, Denies dysphagia and Denies odynophagia Card Reports no additional complaints Resp Reports no additional complaints GI Denies abdominal pain, Denies belching, Denies melena, Denies bloating, Denies change in bowel habits, Denies dysphagia, Denies excessive flatus, Denies dyspepsia, Denies heartburn, Denies diarrhea, Denies loose stools, Denies nausea, Denies odynophagia and Denies vomiting Reports no additional complaints Musc Reports no additional complaints Neuro Reports no additional complaints Psych Reports no additional complaints Endo Reports no additional complaints Physical Exam Vital Signs: Last Vital Signs Pulse 74 09/03/24 10:28 BP 140/68 H 09/03/24 10:28 Pulse Ox 98 09/03/24 10:28 Oxygen Delivery Method Room Air 09/03/24 10:28 BMI result Body Mass Index 33.3 Const General: healthy appearing and no acute distress Nutritional Appearance: well nourished and obese Orientation/consciousness: patient oriented x3 Resp Effort & Inspection: normal respiratory effort, able to speak in complete sentences, no tracheal deviation and symmetric chest movement Auscultation: clear to auscultation bilaterally Cardio Rate: regular rate GI Inspection: Yes normal to inspection, No distended and Yes obesity Palpation (GI): Soft to palpation, not firm, nontender and No hepatosplenomegaly present Auscultation: normal bowel sounds General: Yes no CVA tenderness Back/Spine/Pelvis Back: no CVA tenderness Skin General skin exam: elasticity normal, turgor normal and dry skin Neuro General: patient oriented x3 Psych Appearance: grossly normal Mental Status: mental status grossly normal Assessment & Plan Assessment & Plan (1) Colon cancer screening: Code(s): Z12.11 - Encounter for screening for malignant neoplasm of colon Category: Medical Plan Patient denies any cardiac or respiratory symptoms.? Patient admits to occasional constipation depending on what she eats. Denies any issues with anesthesia in the past.? Denies any history of sleep apnea.? No history infectious diseases in the past or present.? Not on any anticoagulation therapy.? No family or personal history of colon cancer or polyps.? Patient denies melena, hematochezia, unintentional weight loss or ribbon like stools.? Discussed at length the pre-procedure,? prep, diet & medications as well as what to expect prior, during and after the procedure.?? Stressed the importance of good bowel prep.? Recommended the use of Vaseline or Calmoseptine OTC & baby wipes with bowel movements to promote comfort.? ?Patient verbalizes understanding and agrees to plan of care.? She was given the opportunity to ask questions and all questions answered.? We will see her after the procedure.? Medications: New polyethylene glycol 3350 (Miralax) As directed by gastroenterology department at [facility] 238 grams PO ONCE 238 grams 0RF Z12.11 - Encounter for screening for malignant neoplasm of colon bisacodyl (Dulcolax (bisacodyl)) Start taking 2 tablet every night 7 days before the procedure and 1 day before procedure take 4 tablets at noon time followed by MiraLax prep 10 mg (2 x 5 mg) PO BEDTIME 16 tabs 0RF Z12.11 - Encounter for screening for malignant neoplasm of colon Coding Level of Care Code New Pt Level 3 (61400) Diagnoses Colon cancer screening Z12.11 Time Spent (min) 40 Comment 30 minutes spent with patient and additional 10 minutes spent reviewing her records
[2024-09-03 10:28] VITALS: BP 140/68; PULSE 74; O2SAT 98; BMI 33.3
--- OUTSIDE RECORDS SUMMARY | 2024-09-03 11:16 | XMS_ITS | Data Portability ---
Author Organization [facility], [facility] Address [address] [place] [address] Care Team Providers Care Hop Strainer Name Role Phone KESHAWN RUSTYJAYE Primary Care Provider [phone] Assessment No assessment recorded. Plan of Treatment Reminders Order Date Submit Date Provider Last Modified By Organization Details Last Modified Time Details Appointments None record ed. Lab None record ed. Referral None record ed. Procedures None record ed. Surgeries None record ed. Imaging None record ed. Medication Orders None record ed. Patient TargetsNo targets recorded. Patient InstructionsNo instructions recorded. Reason for Referral None Reported. Problems Name Problem SNOMED Code Status Onset Date Resolution Date Notes Provider Name and Address Organization Details Recorded Time Primary gonarthrosi s, bilateral [id number] Active 024 ware sho[address] libby [facility] 4 08:36:48 Problem Notes None recorded. Procedures Surgical History Date Name Laterality Status Provider Name and Address Organization Details Recorded Time 4 Knee Kenalog 40 1cc Injection, Bilateral completed Rosi Napier PA-C [address], [place], [address], [facility] 04/30/2024 10:51:28 4 Knee Kenalog 40 1cc Injection, Bilateral completed Rosi Napier PA-C [address], [place], [address], [facility] 01/27/2024 10:28:40 4 Knee Kenalog 40 1cc Injection, Bilateral completed Rosi Napier PA-C [address], [place], [address], [facility] 10/20/2023 11:23:58 Imaging Results None recorded. Procedure Notes None recorded. Medical Equipment None Reported. Allergies No known drug allergies Medications Name Sig Start Date Stop Date Status Note LastModified by Organization Details LastModified Time cyclobenzap rine 10 mg tablet TAKE ONE TABLET ORALLY 2 TIMES A DAY NEEDED FOR MUSCLE SPASM FOR 7 DAYS 01/26 completed Not Available Not Available Not Available primidone 50 mg tablet TAKE 1 TABLET BY MOUTH EVERY DAY AT BEDTIME 01/26 completed Not Available Not Available Not Available diclofenac 3 % topical gel 1 APPL TOPICALLY 2 TIMES A DAY FOR 30 DAYS 01/26 completed Not Available Not Available Not Available nystatin 100,000 unit/mL oral suspension SWISH ND SWALLOW 5 ML ORALLY 3 TIMES A DAY NEEDED FOR MOUTH IRRITATIO N FOR 30 DAYS active Not Available Not Available No t Available atorvastati n 20 mg tablet TAKE 1 TABLET BY MOUTH AT BEDTIME active Not Available Not Available No t Available cetirizine 10 mg tablet TAKE 1 TABLET BY MOUTH EVERY DAY NEEDED FOR ALLERGIES active Not Available Not Available No t Available ibuprofen 800 mg tablet TAKE 1 TABLET BY MOUTH EVERY 6 HOURS WITH FOOD 01/26 completed Not Available Not Available Not Available benzonatate 200 mg capsule TAKE 1 CAPSULE BY MOUTH TWICE A DAY NEEDED FOR COUGH 01/26 completed Not Available Not Available Not Available meloxicam 15 mg tablet TAKE 1 TABLET BY MOUTH EVERY DAY WITH FOOD active Not Available Not Available No t Available pioglitazon e 45 mg tablet TAKE 1 TABLET BY MOUTH EVERY DAY active Not Available Not Available No t Available sulfamethox azole 800 mg-trimetho prim 160 mg tablet TAKE 1 TABLET BY MOUTH TWICE DAILY. START 2 DAYS BEFORE PROCEDURE & CONTINUE FOR 2 DAYS AFTER. 01/26 completed Not Available Not Available Not Available doxycycline monohydrate 100 mg tablet TAKE 1 TABLET BY MOUTH TWICE A DAY FOR 2 WEEKS 04/30 completed Not Available Not Available Not Available acetaminoph en 500 mg tablet TAKE 1 TABLET BY MOUTH EVERY 4 TO 6 HOURS NEEDED 01/26 completed Not Available Not Available Not Available acetaminoph en ER 650 mg tablet,exte nded release TAKE 1 TAKET ORALLY EVERY 12 HOURS FOR 30 DAYS active Not Available Not Available No t Available meclizine 25 mg tablet TAKE 1 TABLET ORALLY 2 TIMES A DAY NEEDED FOR DIZZINESS FOR 15 DAYS active Not Available Not Available No t Available pseudoephed rine-guaife nesin ER 80-700 mg tablet,exte nded release DO NOT DRIVE WHILE ON THIS MEDICATIO N 02/05 completed Statu s: 'Disc ontin ued'; Not Available Not Available Not Available sertraline 25 mg tablet TAKE 1 TABLET BY MOUTH EVERY DAY active Not Available Not Available No t Available codeine 10 mg-guaifene sin 100 mg/5 mL oral liquid TAKE 10MLS BY MOUTH EVERY 6 HOURS NEEDED FOR COUGH FOR 10 DAYS 01/26 completed Not Available Not Available Not Available Transderm-S asbestos microscopist 1 mg over 3 days transdermal patch APPLY PATCH BEHIND EAR 2 HOURS BEFORE SURGERY 01/26 completed Not Available Not Available Not Available azelastine 137 mcg (0.1 %) nasal spray TWO SPRAYS IN EACH NOSTRIL TWICE A DAY active Not Available Not Available No t Available methylpredn isolone 4 mg tablets in a dose pack TAKE 6 TABLETS ON DAY 1 DIRECTED ON PACKAGE AND DECREASE BY 1 TAB EACH DAY FOR A TOTAL OF 6 DAYS 01/26 completed Not Available Not Available Not Available fluticasone propionate 50 mcg/actuati on nasal spray,suspe nsion USE 2 SPRAYS INTRANASA LLY DAILY FOR 30 DAYS active Not Available Not Available No t Available amoxicillin 875 mg-potassiu m clavulanate 125 mg tablet TAKE 1 TABLET BY MOUTH TWICE A DAY FOR 10 DAYS 01/26 completed Not Available Not Available Not Available Ventolin HFA 90 mcg/actuati on aerosol inhaler TAKE 2 PUFFS BY MOUTH EVERY 6 HOURS NEEDED FOR SHORTNESS OF BREATH OR WHEEZING FOR 30 DAYS 01/26 completed Not Available Not Available Not Available magnesium 250 mg (as magnesium oxide) tablet TAKE 1 TABLET BY MOUTH EVERY DAY active Not Available Not Available No t Available oxycodone 5 mg tablet TAKE 1 TABLET EVERY 6 HOURS NEEDED FOR BREAKTHRO UGH PAIN. 01/26 completed Not Available Not Available Not Available hydroxyzine pamoate 25 mg capsule TAKE 1 CAPSULE BY MOUTH EVERYDAY AT BEDTIME active Not Available Not Available No t Available escitalopra m 20 mg tablet TAKE 1 TABLET BY MOUTH EVERY DAY active Not Available Not Available No t Available solifenacin 10 mg tablet TAKE 1 TABLET BY MOUTH AT BEDTIME 01/26 completed Not Available Not Available Not Available chlorhexidi ne gluconate 0.12 % mouthwash SWISH WITH 15 ML AND SPIT DAILY NEEDED FOR MOUTH IRRITATIO N FOR 30 DAYS active Not Available Not Available No t Available nystatin Nystatin [id number] T/ML Suspensio n 01/26 completed Statu s: 'Curr ent'; Not Available Not Available Not Available Januvia 25 mg tablet TAKE 1 TABLET BY MOUTH EVERY DAY active Not Available Not Available No t Available FreeStyle Lite Strips TEST ONCE DAILY active Not Available Not Available No t Available diclofenac 1 % topical gel APPLY 4 G TOPICALLY 2 (TWO) TIMES A DAY. active Not Available Not Available No t Available oxycodone HCl-oxycodo ne-ASA as directed 1 TABLET Q 4 HOURS PRN PAIN DO NOT DRIVE WHILE TAKING THIS MEDICATIO N 02/05 completed Statu s: 'Disc ontin ued'; Not Available Not Available Not Available Myrbetriq 25 mg tablet,exte nded release TAKE 1 TABLET BY MOUTH EVERY DAY 01/26 completed Not Available Not Available Not Available Myrbetriq 50 mg tablet,exte nded release TAKE 1 TABLET BY MOUTH EVERY DAY 01/26 completed Not Available Not Available Not Available Vitals Date Recorded Body height Provider Name an d Address Organization Details Last Updated DateTime 10/20/2023 157.48 cm HORACIO ZENG [facility] 10/20/2023 10:52:28 Date Recorded Body height Body mass index (BMI) Body weight Provider Name and Address Organization Details Last Updated DateTime 01/27/2024 157.48 cm 32.6 kg/m2 06116.44 g [facility] 01/27/2024 10:11:10 Date Recorded Body height Body mass index (BMI) Body weight Provider Name and Address Organization Details Last Updated DateTime 04/30/2024 157.48 cm 32.6 kg/m2 57364.44 g [facility] 04/30/2024 10:21:04 Social History None recorded. Functional Status None recorded. Mental Status None recorded. Family History Nothing Reported. Medical History No medical history recorded. Gynecological HistoryNo gynecological history recorded. Obstetrics History GPAL:G 0 P 0 0 0 0 Past Encounters Encounter ID Performer Location Encounter Start Date Encounter Closed Date Diagnosis/Indication Diagnosis SNOMED-CT Code Diagnosis ICD10 Code Diagnosis Note [id number] Rosi Napier PA-C [place] [address] [place] [address] 10/20/2023 10:48:15 11/18/2023 15:24:48 Bilateral osteoarthritis of knees [id number] 95109 M17.0 [id number] Rosi Napier PA-C [place] [address] [place] [address] 01/27/2024 10:06:06 02/17/2024 15:13:59 Bilateral osteoarthritis of knees [id number] 49902 M17.0 [id number] Rosi Napier PA-C [place] [address] [place] [address] 04/30/2024 10:10:55 05/17/2024 15:24:28 Primary gonarthrosis, bilateral 086156873 M17.0 Health Concerns Section Related Observation LastModified by Organization Detai ls LastModified Time None Recorded Concern Status LastModified by Organization Details LastModified Time None Recorded Advance Directives Directive None Recorded Payers Encounter Date Sequence Insurance Name Policy Number Policy Goins Covered Member ID Goins Member ID Guarantor Name 10/20/2023 1 [facility] [employer] PLAN (MEDICAID HMO) [facility] [id number] Demi Blackburn 01/27/2024 1 [facility] PLAN (MEDICAID HMO) [facility] Demi Blackburn [id number] Demi Blackburn 04/30/2024 2 [place] [employer] Demi Blackburn [id number] Demi Blackburn 04/30/2024 2 [place] [facility] Demi Blackburn [id number] Demi Blackburn Notes Date Note Type Note Provider Name and Address Organization Details Recorded Time 10/20/2023 text/html I am seeing the patient today under the supervision of Dr. Levine who was available but who did not see the patient. HPI: Patient presenting today with known osteoarthritis of {{the right knee the left knee bilateral knees*}}. Has been responding favorably to conservative treatment. Here today for a cortisone injection. Denies recent injury. No new systemic complaints. Past family, medical, social history and review of systems has been reviewed, updated, and is located in the patient? s chart. Examination: Examination of {{the right knee the left knee bilateral knees*}} reveals no effusion, erythema, or warmth. Injection site benign. Decreased range of motion. Point tender {{medial* lateral}} joint line. Calf is soft and nontender. 5/5 strength knee flexion and extension. Impression: {{Right Left Bilater al*}} knee osteoarthritis Plan: The patient was thoroughly counseled today regarding their knee condition, its natural history, and conservative versus surgical treatment options. The patient is interested in receiving an injection with corticosteroid. {{The right knee was The left knee was Bilateral knees were*}} prepped sterilely and an injection was administered utilizing 40mg of Kenalog and 4cc of 0.25% Marcaine. The patient tolerated the procedure well. Post-injection precautions were discussed. Recommended avoiding strenuous activity over the next 24-48 hours. Encouraged elevation of the leg, applying ice, and taking over the counter medication as needed. The patient is aware that the injection can be repeated as often as every 3 months. Rosi Napier PA-C [address] [facility] [address], [place], [address], [facility] 10/20/2023 11:24:13 01/27/2024 text/html I am seeing the patient today under the supervision of Dr. Ortega who was available but who did not see the patient. HPI: Patient presenting today with known osteoarthritis of {{the right knee the left knee bilateral knees*}}. Has been responding favorably to conservative treatment. Here today for a cortisone injection. Denies recent injury. No new systemic complaints. Past family, medical, social history and review of systems has been reviewed, updated, and is located in the patient? s chart. Examination: Examination of {{the right knee the left knee bilateral knees*}} reveals no effusion, erythema, or warmth. Injection site benign. Decreased range of motion. Point tender {{medial* lateral}} joint line. Calf is soft and nontender. 5/5 strength knee flexion and extension. Impression: {{Right Left Bilater al*}} knee osteoarthritis Plan: The patient was thoroughly counseled today regarding their knee condition, its natural history, and conservative versus surgical treatment options. The patient is interested in receiving an injection with corticosteroid. {{The right knee was The left knee was Bilateral knees were*}} prepped sterilely and an injection was administered utilizing 40mg of Kenalog and 4cc of 0.25% Marcaine. The patient tolerated the procedure well. Post-injection precautions were discussed. Recommended avoiding strenuous activity over the next 24-48 hours. Encouraged elevation of the leg, applying ice, and taking over the counter medication as needed. The patient is aware that the injection can be repeated as often as every 3 months. Rosi Napier PA-C [address] [facility] [address] [facility], [place], [address], [facility] 01/27/2024 10:28:59 04/30/2024 text/html I am seeing the patient today under the supervision of Dr. Dotson who was available but who did not see the patient. HPI: Patient presenting today with known osteoarthritis of {{the right knee the left knee bilateral knees*}}. Has been responding favorably to conservative treatment, although she notices diminishing return from the injections. Here today for a cortisone injection. Denies recent injury. No new systemic complaints. She is trying to avoid a total knee arthroplasty. Past family, medical, social history and review of systems has been reviewed, updated, and is located in the patient? s chart. Examination: Examination of {{the right knee the left knee bilateral knees*}} reveals no effusion, erythema, or warmth. Injection site benign. Decreased range of motion. Point tender {{medial* lateral}} joint line. Calf is soft and nontender. 5/5 strength knee flexion and extension. Impression: {{Right Left Bilater al*}} knee osteoarthritis Plan: The patient was thoroughly counseled today regarding their knee condition, its natural history, and conservative versus surgical treatment options. The patient is interested in receiving an injection with corticosteroid. {{The right knee was The left knee was Bilateral knees were*}} prepped sterilely and an injection was administered utilizing 40mg of Kenalog and 4cc of 0.25% Marcaine. The patient tolerated the procedure well. Post-injection precautions were discussed. Recommended avoiding strenuous activity over the next 24-48 hours. Encouraged elevation of the leg, applying ice, and taking over the counter medication as needed. The patient is aware that the injection can be repeated as often as every 3 months. Rosi Napier PA-C [address] [facility] [address], [place], [address], [facility] 04/30/2024 10:51:47 OBGyn Episode No OBEpisode recorded.
--- OUTSIDE RECORDS SUMMARY | 2024-09-03 11:16 | XMS_ITS | Clinical Summary ---
Author Organization [address] [facility] Address [address] [place] [address] Phone Care Team Providers Care Emergency Man Name Role Phone Bob Santiago Primary Care [...] impairment 03/12/2024 Pure hypercholesterolemia 03/12/2024 Diabetes mellitus ([facility] V24, [facility] V28) 12/2023 Encounters Date Type Department Care Team Description 08/30/2024 1:00 PM EDT Office Visit Orthopedic Surgery - [address] [address] Mariusz Yin, DPM Acquired hallux valgus of left foot (Primary Dx); Acquired hallux valgus of right foot; Bunion, left; Bursitis of left foot; Chronic pain of left knee from Last 3 Months Social History Tobacco [...] 05/18/2024 3:39 PM EST Plan of Treatment Health Maintenance Due Date Last Done Comments Breast Cancer Screening 1959 Diabetes: Annual GFR (Glomerular Filtration Rate) 1959 Diabetes: Annual Foot Exam 1969 Diabetes: Annual Retina Eye Exam 1969 DTaP,Tdap,and Td Vaccines (1 - Tdap) 1978 Cervical Cancer Screening: P ap Smear 1980 Zoster Vaccines (1 of 2) 2009 RSV Immunization Adult Patients (1 - Risk 60-74 years 1-dose series) 2019 Pneumococcal Vaccine: 50+ Years (2 of 2 - PCV) 06/08/2020 06/08/2019 Pneumococcal Vaccine: Pediatrics (0 to 5 Years) and At-Risk Patients (6 to 64 Years) (2 of 2 - PCV) 06/08/2020 06/08/2019 COVID-19 Vaccine (2023-2 5 season) 2024 11/02/2020, 10/12/2020 Cholesterol Screening [...] age to complete this topic Meningococcal B Vaccine Aged Out No l onger eligible based on patient's age to complete this topic RSV Immunization Patients Under 20 months Aged Out No longer eligible b ased on patient's age to complete this topic Varicella Vaccines Aged Out No longer eligible based on patient's age to complete this topic Insurance MEDICARE [facility] MEDICARE ADVANTAGE MEDICAID - [place] Care Teams Emergency Man Relationship Specialty Start Date End Date Bob Santiago PA [address] [place] [phone] PCP - General 01/01/24
--- OUTSIDE RECORDS SUMMARY | 2024-09-03 11:16 | XMS_ITS | Encounter Summary ---
Author Organization [facility] Address [address] [place] [id number] Care Team Providers Care Terrazzo Laborer Name Role Phone Bob Santiago Primary Care Provider [phone] Reason for Referral * Consultation (Routine) - Authorized Specialty Diagnoses / Procedures Referred By Contact Referred To Contact Orthopaedics / Orthopaedic Surgery Diagnoses Chronic pain of left knee Mariusz Yin DPM 175 [facility] [address] [place] [address] Phone: tel: fax: Orthopedic Surgery [facility] 160 175 [facility] [address] [place] [address] Phone: tel: fax: Referral ID Status Reason Start Date Expiration Date Visits Requested Visits Authorized [id number] Authorized Specialty Services Required 08/30/2024 08/30/2025 1 1 Reason for Visit * Reason Comments Bunions Encounter Details Date Type Department Care Team (Late st Contact Info) Description 08/30/2024 1:00 PM EDT Office Visit Orthopedic Surgery [facility] [address] [phone] Mariusz Yin DPM [address] [address] Acquired hallux valgus of left foot (Primary Dx); Acquired hallux valgus of right foot; Bunion, left; Bursitis of left foot; Chronic pain of left knee Social History Tobacco Use Types Packs/Day Years Used Date Smoking Tobacco: Never Assessed Comments Unknown Sex and Gender Information Value Date Recorded Sex Assigned at Not on file Legal Sex Female 11:41 AM EDT Gender Identity Not on file Sexual Orientation Not on file documented as of this encounter Progress Notes * Mariusz Yin DPM - 08/30/2024 1:00 PM EDT S Presents complaining of sharp pain in her left foot throbbing achy pain shows of both feet have bunions she has a left foot though the ball of her foot pain chronic achy throbbing she has been wearing wider shoe gear with minimal improvement she would like to know what can be done sees pain discomfort a 7 out of 10 she does report that she recently had worsening left knee pain discomfort she states that has been bothering her a lot she wants to know she get a referral for evaluation denies acute trauma does report that the swelling of her left great toe has been improving with topical Voltaren gel she says she has not been using it last month ROS: GENERAL: Pt denies nausea, fever, vomiting, chills, or shortness of breath. Pt in NAD. CARDIOLOGY: pt denies chest pain, palpitations LUNGS: pt denies shortness of breath MUSCULOSKELETAL: See HPI, otherwise no joint pain or swelling, back pain, or muscle pain. SKIN: see HPI, otherwise no lesions, rash or itching NEURO: No persistent headache, weakness or numbness The remainder of the review of systems is noncontributory PAST MEDICAL HISTORY: Patient Active Problem List Diagnosis Bunion of left foot Asthma Hemoptysis Recurrent UTI H/O syphilis Chronic allergic rhinitis Dermatitis Overweight Memory impairment Pure hypercholesterolemia Diabetes mellitus ([facility] V24, [facility] V28) SOCIAL HISTORY: Social History Tobacco Use Smoking status: Not on file Smokeless tobacco: Not on file Substance Use Topics Alcohol use: Not on file ACTIVE MEDICATIONS: No outpatient medications have been marked as taking for the 08/30/24 encounter (Office Visit) with Mariusz Yin DPM. ALLERGIES: No Known Allergies PHYSICAL EXAM: There were no vitals taken for this visit. PODIATRIC EXAMINATION: GENERAL: Patient appears well nourished, with NAD. VASCULAR: Dorsalis pedis pulses are 2/4 bilaterally and Posterior tibial pulses are 2/4 bilaterally. Capillary filling time within normal limits the digits. No pallor on elevation or rubor on dependency. Positive hair growth. No varicosities. Denies rest pain or claudication pain. NEUROLOGICAL: Sharp/dull sensation intact, protective sensation intact 10/10 with 5.07 semmes jann bilaterally, vibratory sensation with tuning fork intact to the tibial tuberosity. ORTHOPEDIC: Good muscle strength 5/5 of all flexors and extensors. Dorsi flexion of ankle ,10 degrees, plantar flexion WNL. No muscle atrophy. DERMATOLOGICAL:.No masses or skin lesions noted. Normal skin temperature, normal skin turgor. BIOMECHANICS: Ankle ROM WNL, STJ ROM wnl, MTJ ROM wnl, 1st MPJ ROM track bound severe bunion deformity bilateral. Bursitis left great toe overlying the medial eminence IMAGING: IMPRESSION: 1. Acquired hallux valgus of left foot 2. Acquired hallux valgus of right foot 3. Bunion, left 4. Bursitis of left foot 5. Chronic pain of left knee PLAN: Pt was seen and examined, history reviewed. Voltaren gel prescribed for bursitis patient has finished course of Voltaren gel topically discussed possibility of some steroid injection Bunion deformity was discussed patient is exhausted many conservative treatment modalities During today???s visit we discussed at great length the etiology, prognosis, and treatment options for the patient???s condition. Risks and benefits of operative and non operative treatment options were discussed. Treatment options for bunion surgery left great toe correction were discussed, non-operative treatment would involve tapping, strapping, adjustments in shoe gear, orthotics insoles, rest, bracing andedema control. There is potential for the deformities to stabilize without surgery yet there may still be a need for delayed surgery and joint distructive procedures. There is potential for non-unionwith surgery and non-operative care would avoid incision problems, fixation complications and anesthesia risks. Surgery has added risks including but not limited to infection, incision pain, neuritisor numbness reoccurance of deformity, scar tissue contracture, worsening of deformity and eventual need for removal of hardware. bunion surgery left great toehealing was discussed in relation to operative treatment. Recovery and post operative immobilization was discussed based on the various treatment options. Weight bearing status: NWB x 2 weeks followed by progressive WB x 10 weeks in a below the knee boot. Work&Activity restrictions: Impact of undergoing surgery to work and daily activity was discussed today Pain management: Postoperative pain regiment were discussed in great detail with the patient. The patient was also encouraged to aggressively elevate and ice postoperatively to help with swelling andpain control. The patient was in agreement with this plan. The patient will be prescribed IbuprofenTylenol Oxycodone for postoperative pain management. VTE Risk assessment: Risk of DVT/ PE were discussed in relation to immobilization, inactivity, injury, surgery, medication and personal risk factors. Signs and symptoms of a blood clot were discussedincluding action plan if the patient experiences these signs or symptoms. Methods of prevention and risk reduction were explained. Mechanical prophylaxis including ROM and mobilization is encouraged as much as possible. The patient???s risk for deep vein thrombosis was also assessed today. In regards to major risk factors they: Do not have personal history of DVT Do not have known active cancer Do not have known clotting disorder Do not have family history of DVT Pending foot surgery and current level of immobilization are risk factors. Measure taken to decrease their risk of deep vein thrombosis will consist of detailed education, as well as lower extremity range of motion. Chemical prophylaxis is not recommended based on patients history, procedure and postoperative plan. We discussed ASA 325mg qd as a precautionary measure to further decrease potential for clot formation for as long as the postoperative offloading device is required Planned procedure(s): bunion surgery left great toesurgery WB status: NWB x 2 weeks followed by progressive WB x 10 weeks in a below the knee boot. Pain medication: Ibuprofen Tylenol Oxycodone Follow-up in 3 months continue to treat bursitis with Voltaren gel surgery was offered patient declined Digital questions reviewed and discussed today for her bunion surgery of both feet patient states like to think about her options and call for follow-up appointment Referral placed to security operations specialist for evaluation of her left knee Mariusz Yin DPM documented in this encounter Plan of Treatment Scheduled Referrals Name Type Priority Associated Diagnoses Order Schedule Ambulatory referral to Orthopedic Surgery Outpatient Referral Routine Chronic pain of left knee 1 Occurrences starting 08/30/2024 until 08/30/2025 documented as of this encounter Visit Diagnoses Diagnosis Acquired hallux valgus of left foot- Primary Acquired hallux valgus of right foot Bunion, left Bursitis of left foot Chronic pain of left knee documented in this encounter Care Teams Terrazzo Laborer Relationship Specialty Start Date End Date Bob Santiago PA [facility] [place] [address] PCP - General 01/01/24 documented as of this encounter
== END 2024-09-03 10:47 | disposition home or self-care (01) ==
PROVIDERS: PCP Physician Assistant; Visit Provider Nurse Practitioner Family
DX: Z01.818 Encounter for other preprocedural examination (principal); Z12.11 Encounter for screening for malignant neoplasm of colon
CPT/HCPCS: 99202

== ENCOUNTER → 2024-09-03 10:14 | Outpatient (BNVA) | payer OTHER, SELFPAY | PROVIDERS: PCP Physician Assistant; Visit Provider Nurse Practitioner Family | DX: Z01.818 Encounter for other preprocedural examination (principal) | CPT/HCPCS: 99202 ==

== ENCOUNTER → 2024-09-29 11:46 | Outpatient (BNVA) | payer OTHER, SELFPAY | PROVIDERS: PCP Physician Assistant; Visit Provider Physician Assistant | DX: Z13.89 Encounter for screening for other disorder (principal) ==

== ENCOUNTER 2024-10-27 08:22 | Day surgery (SDC) | payer OTHER, SELFPAY ==
--- OUTSIDE RECORDS SUMMARY | 2024-10-18 17:13 | XMS_ITS | Clinical Summary ---
Author Organization 175 [facility] Address 175 [place] [address] Phone Care Team Providers Care Environmental Services Manager Name Role Phone Bob Santiago Primary Care [...] mouth 1 (one) time each day. Active acetaminophen (TYLENOL 8 HOUR) 650 mg 8 hr tablet Take 1 tablet (650 mg total) by mouth every 8 (eight) hours if needed for mild pain or moderate pain. Do not crush, chew, or split. 90 tablet 3 5 11/01/19 25 Active celecoxib (CeleBREX) 100 mg capsule Take 1 capsule (100 mg total) by mouth 2 (two) times a day. 60 each 1 5 11/01/19 25 Active Active Problems Problem Noted Date Diagnosed Date Bunion of left foot 03/12/2024 Asthma 03/12/2024 Hemoptysis 03/12/2024 Recurrent UTI 03/12/2024 H/O syphilis 03/12/2024 Chronic allergic rhinitis 03/12/2024 Dermatitis 03/12/2024 Overweight 03/12/2024 Memory impairment 03/12/2024 Pure hypercholesterolemia 03/12/2024 Diabetes mellitus ([facility] V24, [facility] V28) 12/2023 Encounters Date Type Department Care Team Description 10/12/2024 Telephone Orthopedic Surgery [facility] [address] [phone] Margarita Taylor [place] 10/01/2024 10:00 AM EDT Consult Orthopedic Surgery [facility] 160 175 [facility] [address] [place] [phone] Radha Forde MD Chronic pain of right knee (Primary Dx); Chronic pain of left knee 08/30/2024 1:00 PM EDT Office Visit Orthopedic Surgery [facility] 250 175 [facility] [address] [place] [phone] Mariusz Yin DPM Acquired hallux valgus of [...] EST Height 157.5 cm (5' 2.01 ) 10/01/2024 9:58 AM ED T Body Mass Index 32.73 05/18/2024 3:39 [...] patient's age to complete this topic Insurance MEDICAID - [place] [employer] MEDICARE Care Teams Environmental Services Manager Relationship Specialty Start Date End Date Jack, Bob J, PA [address] [place] [phone] PCP - General 01/01/24
--- NOTE | 2024-10-26 11:52 | HO.ANESPROP2 ---
Documented by User: Lidia Trejo NP 10/26/24 11:54 HPI - Anesthesia Eval Consult details Narrative: 64yo F for Colonoscopy Anesthesia Pre-Procedure Meds Is the patient on any of the following meds?: GLP1/DPP4 PMFSH Active Problems Active Problems: All Active Problems Lumbar radiculopathy (Acute) Insomnia (Acute) Instability of left knee joint (Acute) Colon cancer screening (Acute) Encounter for well woman exam with routine gynecological exam (Acute) Murmur (Acute) Bunion, left (Acute) Chronic dental pain (Acute) Intention tremor (Acute) Asthma (Acute) Urinary urgency (Acute) Sensation of pressure in bladder area (Acute) Nocturia (Acute) Chronic allergic rhinitis (Acute) Pulmonary nodule (Acute) Chronic cough (Acute) OAB (overactive bladder) (Acute) Obese (Acute) Osteoarthritis of left knee (Acute) Atelectasis of left lung (Acute) Hemorrhagic cystitis (Acute) Urinary frequency (Acute) Cough (Acute) Hemoptysis (Acute) Recurrent UTI (Acute) Urinary tract infection (Acute) Rotator cuff tear, left (Acute) MIKALA (generalized anxiety disorder) (Acute) Dysuria (Acute) BPPV (benign paroxysmal positional vertigo) (Acute) GERD (gastroesophageal reflux disease) (Acute) Dizziness (Acute) Intermittent palpitations (Acute) Post-viral cough syndrome (Acute) Hospital discharge follow-up (Acute) Sinusitis (Acute) Cough present for greater than 3 weeks (Acute) Bronchitis (Acute) [place] onychomycosis (Acute) Annual physical exam (Acute) Left shoulder tendonitis (Acute) Strain of left deltoid muscle (Acute) Cervical radiculopathy (Acute) H/O syphilis (Acute) Encounter to discuss test results (Acute) Osteoarthritis, knee (Acute) MDD (major depressive disorder), recurrent episode, moderate (Acute) Nipple pain (Acute) Mastitis in female (Acute) Oral thrush (Acute) Overweight (BMI 25.0-29.9) (Acute) Dermatitis (Acute) Memory impairment (Acute) Pure hypercholesterolemia (Acute) Diabetes mellitus (Acute) Past Medical History Medical History Murmur Asthma Chronic allergic rhinitis Hemoptysis Recurrent UTI H/O syphilis LGSIL (low grade squamous intraepithelial dysplasia) Overweight (BMI 25.0-29.9) Dermatitis Memory impairment Pure hypercholesterolemia Diabetes mellitus Family History Family History Father Diabetes Mother Heart attack Brother No problems noted. Sister No problems noted. Son No problems noted. Son No problems noted. Son No problems noted. Daughter No problems noted. Daughter No problems noted. Surgical History Surgical History History of colonoscopy History of arthroscopy of right shoulder Hx of tubal ligation History of hernia repair (~2001) Status post breast reduction (~2006) Social History Social History Housing: Apartment Are you a primary client care specialist to a significant other at home: No Do you presently have visiting nurse or other home services: No Alcohol intake: never Patient Tobacco Use Status: Never used Tobacco e-Cigarette/Vaping Use: Never Used Second Hand Smoke Exposure: No Use of substances other than those prescribed or required for medical reasons: No Have you been hit, kicked, punched, or otherwise hurt by someone within the past year? If so, by whom?: No Are you DNR?: No Advance Directives: No Advance Directives Information Provided: Yes Patient : No service: No Current occupational status: retired Cognitive needs: No Hearing needs: No Vision needs: Yes Meds Allergies Allergy/AdvReac Type Severity Reaction Status Date / Time No Known Allergies Allergy Unknown Verified 10/27/24 08:50 Assessment and Plan Assessment Anesthesia Assessment: Chart Reviewed Documented by User: Michael Chicas MD 10/27/24 09:47 PMFSH Past Medical History Medical History Murmur Asthma Chronic allergic rhinitis Hemoptysis Recurrent UTI H/O syphilis LGSIL (low grade squamous intraepithelial dysplasia) Overweight (BMI 25.0-29.9) Dermatitis Memory impairment Pure hypercholesterolemia Diabetes mellitus Family History Family History Father Diabetes Mother Heart attack Brother No problems noted. Sister No problems noted. Son No problems noted. Son No problems noted. Son No problems noted. Daughter No problems noted. Daughter No problems noted. Family history of problems with anesthesia: No Surgical History Surgical History History of colonoscopy History of arthroscopy of right shoulder Hx of tubal ligation History of hernia repair (~2001) Status post breast reduction (~2006) History of Problems with Anesthesia: No Social History Social History Housing: Apartment Are you a primary client care specialist to a significant other at home: No Do you presently have visiting nurse or other home services: No Alcohol intake: never Patient Tobacco Use Status: Never used Tobacco e-Cigarette/Vaping Use: Never Used Second Hand Smoke Exposure: No Use of substances other than those prescribed or required for medical reasons: No Have you been hit, kicked, punched, or otherwise hurt by someone within the past year? If so, by whom?: No Are you DNR?: No Advance Directives: No Advance Directives Information Provided: Yes Patient : No service: No Current occupational status: retired Cognitive needs: No Hearing needs: No Vision needs: Yes Meds Allergies Allergy/AdvReac Type Severity Reaction Status Date / Time No Known Allergies Allergy Unknown Verified 10/27/24 08:50 Exam Airway Mallampati Class: II TM Dist: <=3cm Neck ROM: Full Denture: Upper and Lower Heart: ok Lungs: ok Assessment and Plan Assessment Anesthesia Assessment: Anesthesia Plan Discussed Final Anesthetic Review Family History of Problems with Anesthesia: No History of Problems with Anesthesia: No NPO: Yes ASA Class: III Final Preanesthetic Review: No Changes in Pt Med Stat, Meds/Allgs Chart Reviewed, Consent Obtained/Reviewed and Anes Risks/Benef Reviewed Patient Risk: Intermediate Procedure Risk: Low Anesthetic Plan Anesthetic Plan: Agree w/ Assess. and Plan Disposition: Standard PACU
[2024-10-27 08:52] VITALS: BP 120/79; PULSE 89; RESP 12; TEMP 36.6; O2SAT 98; BMI 30.8
--- NOTE | 2024-10-27 08:58 | MHC.SHP ---
Pre-Procedural Eval Section A - 24 Hr Update-Section A only Date of Service: 10/27/24 Section B - Complete if H&P > 30 days Chief Complaint: screening Relevant Family History (Specify if Yes): No Relevant Social History: None Present Medications: see Short Stay Collaborative assessment Medical History: Significant History (Murmur Asthma Chronic allergic rhinitis Hemoptysis Recurrent UTI H/O syphilis LGSIL (low grade squamous intraepithelial dysplasia) Overweight (BMI 25.0-29.9) Dermatitis Memory impairment Pure hypercholesterolemia Diabetes mellitus) History of Previous Operations: Relevant previous surgery/procedure and date(s) (History of colonoscopy History of arthroscopy of right shoulder Hx of tubal ligation History of hernia repair (~2001) Status post breast reduction (~2006)) Allergies: Allergies Allergy/AdvReac Type Severity Reaction Status Date / Time No Known Allergies Allergy Unknown Verified 10/27/24 08:50 Review of Systems Sugical H&P ROS: Negative: Constitution, Cardiovascular, Respiratory, Neurological, Psychiatric, Hem-Onc, Allergic/Immunologic, Gastrointestinal, Genitourinary, Musculoskeletal, Integumentary, Endocrine and Eyes/Ears/Nose/Throat Exam Surgical H&P Exam: Normal: HEENT, Normal: Heart, Normal: Lungs, Normal: Extremities, Normal: Abdomen, Normal: Skin and Normal: Neurological Plan Diagnosis/Plan: Unchanged I have reviewed the history and physical and performed a pertinent physical examination on my patient. No changes have occurred unless specified. Time Spent With Patient Time: Total time managing care of this patient today ____ minutes.
[2024-10-27] MEDS: Lactated Ringers 1,000 ML 100 ML IVCONT (09:07)
[2024-10-27 09:18] LABS: Glucose, Whole Blood 153 mg/dL (60-115)
--- NOTE | 2024-10-27 09:58 | P.OPN-COLO_ITS ---
Colonoscopy Operative Note Operative Note Date of Service: 10/27/24 Narrative: Operative Information Procedure Description: Colonoscopy Indication: screening Anesthesia: MAC COLONOSCOPY Instrument: Olympus variable stiffness pediatric scope 190L Colonoscopy Monitoring: Vital signs and clinical assessment, continuous EKG monitoring, Pulse oximetry, Carbon Dioxide monitoring and blood pressure monitoring were done throughout the procedure. Colon withdrawal time was 9 minutes. Procedure: The patient was placed in the left lateral decubitis position and pre-procedure medications were administered. After a digital rectal examination of the ano-rectum, the video colonoscope was inserted into the rectum and advanced through the colon to the cecum/TI. The colonoscope was slowly withdrawn in a retrograde panoramic fashion and the colon mucosa was carefully examined including a retroflexed view of the rectum. Findings and interventions are described below. Procedure Difficulty: moderate Findings: Terminal Ileum-normal Cecum: 4-6 mm sessile polyp removed with cold forceps Ascending Colon: 4-6 mm sessile polyp removed with cold forceps Transverse Colon -normal Descending Colon:normal Sigmoid Colon: normal Rectum: Retroflexion with small internal hemorrhoids seen, grade I Anorectum - normal Intervention: cold forceps Colon preparation: Dickerson Bowel Preparation Scale Right colon; 2 Transverse colon: 2 Left colon; 2 (0 = Unprepared colon segment with mucosa not seen due to solid stool that cannot be cleared. 1 = Portion of mucosa of the colon segment seen, but other areas of the colon segment not well seen due to staining, residual stool and/or opaque liquid. 2 = Minor amount of residual staining, small fragments of stool and/or opaque liquid, but mucosa of colon segment seen well. 3 = Entire mucosa of colon segment seen well with no residual staining, small fragments of stool or opaque liquid) Impression and Post Procedure Diagnosis: colon polyps x 2 internal hemorrhoids Plan: High fiber diet leaflet Avoid straining at stool, epsom salts and sitz bath, anusol supps or cream Repeat Colonoscopy in 5 years due to adenomatous appearing polyps or earlier if clinically indicated Above findings were reviewed with the patient and relevant handouts were provided if indicated.
[2024-10-27 10:05] VITALS: BP 102/65; PULSE 73; RESP 18; TEMP 36.1; O2SAT 99
[2024-10-27 10:20] VITALS: BP 121/74; PULSE 67; RESP 18; TEMP 36.1; O2SAT 99
== END 2024-10-27 10:39 | disposition home or self-care (01) ==
PROVIDERS: PCP Physician Assistant; Visit Provider Internal Medicine Gastroenterology
PROC: 0DJD8ZZ Inspection of Lower Intestinal Tract, Via Natural or Artificial Opening Endoscopic (ICD-10-PCS; CPT 45378; principal; 2024-10-27 10:00)
DX: Z12.11 Encounter for screening for malignant neoplasm of colon (principal); D12.0 Benign neoplasm of cecum; D12.2 Benign neoplasm of ascending colon; K64.0 First degree hemorrhoids; E11.9 Type 2 diabetes mellitus without complications; E78.00 Pure hypercholesterolemia, unspecified; J45.909 Unspecified asthma, uncomplicated; Z79.02 Long term (current) use of antithrombotics/antiplatelets; Z79.899 Other long term (current) drug therapy
CPT/HCPCS: 45380; 82947; 88305; J2003; J2704

== ENCOUNTER → 2024-10-27 08:22 | Outpatient (BNV) | payer OTHER, SELFPAY | PROVIDERS: PCP Physician Assistant; Visit Provider Internal Medicine Gastroenterology | DX: Z12.11 Encounter for screening for malignant neoplasm of colon (principal); D12.0 Benign neoplasm of cecum; D12.2 Benign neoplasm of ascending colon; K64.0 First degree hemorrhoids | CPT/HCPCS: 45380 ==

== ENCOUNTER 2024-11-24 11:09 | Outpatient (AMB) | payer OTHER, SELFPAY ==
--- NOTE | 2024-11-24 11:21 | MHC.PC.OV ---
Vital Signs 11/24/24 11:22 Height 5 ft 3 in Weight 179 lb 6 oz BMI 31.8 BP 100/64 Blood Pressure Location Lt brachial Position Sitting Pulse 73 Pulse Source Pulse Oximeter Temp 97.1 F Temp Source Temporal Artery Scan Pulse Oximetry (%) 97 Oxygen Delivery Method Room Air Intake Visit Reasons: 4 Month F/U Intake Note: Patient is here to follow up on Asthma, DM, Hypercholesterolemia. Wind Field Manager Required: No Guest Services Lead: Not Required per policy Accompanied by: Self / Same As Patient Allergies No Known Allergies Allergy (Unknown, Verified 11/24/24 11:34) Medication List - Last Reconciled 11/24/24 by Bob Santiago PA-C acetaminophen ER (Tylenol Arthritis Pain) 650 mg PO Q12H 30 days albuterol sulfate 90 mcg/actuation 2 inhalations inhalation Q6H PRN 30 days atorvastatin 20 mg PO BEDTIME 90 days azelastine 2 sprays intranasal BID 30 days baclofen 10 mg PO BID 7 days bisacodyl (Dulcolax (bisacodyl)) 10 mg (2 x 5 mg) PO BEDTIME blood sugar diagnostic (FreeStyle Lite Strips) USE 1 STRIP DAILY chlorhexidine gluconate 0.12% 15 mL buccal DAILY PRN 30 days clotrimazole 1% (Athlete's Foot (clotrimazole)) 1 appl topical DAILY 30 days escitalopram oxalate 20 mg PO DAILY 90 days Held on 07/27/24. Instructions: Doctor's Order lancets (FreeStyle Lancets) USE DAILY DIRECTED meclizine 25 mg PO BID PRN 15 days pioglitazone 45 mg PO DAILY polyethylene glycol 3350 (Miralax) 238 grams PO ONCE sertraline 25 mg PO DAILY 30 days sitagliptin phosphate (Januvia) 25 mg PO DAILY Tobacco use date assessed: 11/24/24 Fall risk assessment: No Falls in past year Last assessed Fall Risk: 11/24/24 Dental Screening Dental Screen Date: 07/27/24 HPI 4 Month F/U HPI Details Patient is a 64-year-old female here today for a follow-up visit.? Patient has a past medical history significant type 2 diabetes, generalized anxiety disorder hyperlipidemia, chronic left shoulder pain,? Concern--> The patient also reports persistent halitosis, which she believes may be related to gastric issues. She has tried various remedies, including mints and [id number] antacids, without relief. Her daughter has suggested that the issue might be related to her stomach, prompting further investigation. .. .. DMII: Most recent A1c acceptable. She has been making better dietary choices.. Sugars at home 120-170s . She reports her diet has been poor as of late. She continues on pioglitazone 45 mg and Januvia 25 mg.? She was unable to tolerate metformin due to GI side effects. .. Major depressive disorder: Patient continues on SSRI therapy though feels she is still somewhat depressed. She gets some socrates from taking care of her grandchild. She reports a lot of her depression the stem from her complains of halitosis as she has not being social due to fears of other people noticing her halitosis Colorectal cancer screening-> She reports a history of pre-cancerous polyps, specifically tubular adenomas, found during a recent colonoscopy performed by Dr. Kimball. The polyps were not cancerous, but due to their pre-cancerous nature, a follow-up colonoscopy is recommended in five years instead of the usual ten. [facility] Medical History Murmur Asthma Chronic allergic rhinitis Hemoptysis Recurrent UTI H/O syphilis LGSIL (low grade squamous intraepithelial dysplasia) Overweight (BMI 25.0-29.9) Dermatitis Memory impairment Pure hypercholesterolemia Diabetes mellitus Surgical History History of colonoscopy History of arthroscopy of right shoulder Hx of tubal ligation History of hernia repair (~2001) Status post breast reduction (~2006) Family History Father Diabetes Mother Heart attack Brother No problems noted. Sister No problems noted. Son No problems noted. Son No problems noted. Son No problems noted. Daughter No problems noted. Daughter No problems noted. Social History Housing: Apartment Are you a primary care transitions manager to a significant other at home: No Do you presently have visiting nurse or other home services: No Alcohol intake: never Patient Tobacco Use Status: Never used Tobacco e-Cigarette/Vaping Use: Never Used Second Hand Smoke Exposure: No service: No Current occupational status: retired Cognitive needs: No Hearing needs: No Vision needs: Yes Questionnaire Thrive Questionnaire Date Thrive assessed: 07/27/24 I am a: Patient What is your living situation today?: I choose not to answer this question Within the past 12 months, did the food you bought not last and you didn't have the money to get more?: I choose not to answer this question Within the past 12 months, did you worry whether your food would run out before you got money to buy more?: I choose not to answer this question Do you have trouble paying for medicines?: No Do you have trouble getting transportation to medical appointments?: No Do you have trouble paying your heating and electricity bill?: I choose not to answer this question Do you have trouble taking care of your child, family member or friend?: No Do you have trouble with day-to-day activities such as bathing, preparing meals, shopping, managing finances, etc.?: I choose not to answer this question Are you currently unemployed and looking for a job?: No Are you interested in more education?: I choose not to answer this question Please select the resources that you would like help with: Job search/training Currently or been in a relationship where the following occur: I choose not to answer THRIVE Score: 0 MIKALA-7 AMB Questionnaire MIKALA-7 Date MIKALA - 7 assessed: 07/27/24 Source: Developed by Drs. Piotr James, Breonna East, Donaldo Barrios and colleagues, with an educational paddy from [employer]. Review of Systems Const Denies headache(s) Eyes Denies loss of vision ENT Denies vertigo, Denies dizziness, Denies headache(s) and Denies sore throat Card Denies chest pain, Denies leg edema and Denies lightheadedness Resp Denies cough, Denies hemoptysis and Denies wheezing GI Denies abdominal pain, Denies melena, Denies constipation, Denies diarrhea and Denies vomiting Denies urinary frequency, Denies dysuria and Denies urinary urgency Musc Denies arthralgias, Denies joint swelling, Denies numbness and Denies tingling Neuro Denies Abnormal speech present, Denies behavioral changes, Denies vertigo, Denies dizziness, Denies headache(s), Denies loss of vision, Denies memory loss, Denies numbness and Denies tingling Psych Denies anxiety, Denies behavioral changes, Denies depression, Denies memory loss and Denies panic attacks Mitch/Lymph Denies easy bleeding and Denies easy bruising Aller/Immun Denies wheezing Physical exam (Primary Care) Vital Signs: Last Vital Signs Temp 97.1 F 11/24/24 11:22 Pulse 73 11/24/24 11:22 BP 100/64 11/24/24 11:22 Pulse Ox 97 11/24/24 11:22 Oxygen Delivery Method Room Air 11/24/24 11:22 BMI result Body Mass Index 31.8 BMI Assessment/Plan discussion: High BMI High, discussed plan: lifestyle, weight reduction, dietary and physical activity Tobacco/Smoking Status: Tobacco use Status Tobacco use date assessed 11/24/24 11/24/24 11:31 Patient Tobacco Use Status Never used Tobacco 11/24/24 11:31 e-Cigarette/Vaping Use Never Used 11/24/24 11:31 Thrive Assessment: Date of Thrive Assessment Date Thrive assessed 07/27/24 11/24/24 11:31 Currently or been in a relationship where the following occur: I choose not to answer Const General: healthy appearing, no acute distress, alert and awake Nutritional Appearance: well nourished Orientation/consciousness: oriented to person, oriented to place and oriented to time HENMT Ears: TM's normal bilaterally General nose exam: Normal nasal mucous membranes and turbinates present Eyes Conjunctivae: conjunctivae normal Sclerae: sclerae normal Pupils: Equal, round and reactive pupils present Neck Neck: Yes no lymphadenopathy and Yes no JVD Thyroid: Thyroid normal Carotids: no bruits Resp Effort & Inspection: normal respiratory effort and not tachypneic Auscultation: no crackles, no rales, no rhonchi and no wheezes Cardio Rate: regular rate Rhythm: regular rhythm Heart sounds: no murmurs and normal S1 and S2 GI Palpation (GI): Soft to palpation, nontender, no hepatomegaly and no splenomegaly Auscultation: normal bowel sounds Skin General skin exam: no rashes or lesions noted and dry skin Neuro General: oriented to person, oriented to place and oriented to time Cranial nerves: Yes Equal, round and reactive pupils present Speech: No Abnormal speech present Gait exam (Neuro): Normal gait present Motor exam (neuro): no tremor noted Extrem Right upper extremity: full ROM Left upper extremity: full ROM Right lower extremity: full ROM; no edema Left lower extremity: full ROM; no edema Psych Mental Status: mental status grossly normal Speech and movement: Normal speech and movement present Affect: normal affect Attitude: cooperative Thought process: Normal thought process present Results AMB Hemoglobin A1c AMB Hemoglobin A1c 6.9 % Last Edit by TABBY Pinzon on 11/24/24 11:37 Results Reviewed Results Reviewed: Laboratory Last Values Hgb A1c (Clinic) 6.9 % (4.0-6.0) H 11/24/24 11:20 Coding Level of Care Code Est Pt Level 4 (62318) Diagnoses Type 2 diabetes mellitus without complication, without long-term current use of insulin E11.9 Diabetes mellitus complication status: without complication Diabetes mellitus halfway insulin use: without halfway use Diabetes mellitus type: type 2 MDD (major depressive disorder), recurrent episode, moderate F33.1 Pure hypercholesterolemia E78.00 Epigastric pain R10.13 Halitosis R19.6 Gastroesophageal reflux disease without esophagitis K21.9 Esophagitis presence: without esophagitis Assessment & Plan Assessment & Plan (1) Diabetes mellitus: Code(s): E11.9 - Type 2 diabetes mellitus without complications Category: Medical Qualifiers: Diabetes mellitus complication status: without complication Diabetes mellitus job putter up and ticket preparer insulin use: without job putter up and ticket preparer use Diabetes mellitus type: type 2 Qualified Code(s): E11.9 - Type 2 diabetes mellitus without complications Plan: Patient's type 2 diabetes well controlled with current dose of antihyperglycemic medication. Goal A1c is to be below 7.0 (2) MDD (major depressive disorder), recurrent episode, moderate: Code(s): F33.1 - Major depressive disorder, recurrent, moderate Category: Medical Plan: Patient's PHQ-9 score 0, does have history of depression. She continues on SSRI therapy though would like to switch to a different SSRI to help her with the depression and anxiety. She believes her current Lexapro is causing her some sleeping difficulties. (3) Pure hypercholesterolemia: Code(s): E78.00 - Pure hypercholesterolemia, unspecified Category: Medical Plan: Most recent lipid panel showing opiate total cholesterol and LDL. She continues on atorvastatin 20 mg. Goal LDL is to remain below 100 (4) Epigastric pain: Code(s): R10.13 - Epigastric pain Category: Medical Plan: The patient describes symptoms suggestive of gastric reflux, including a bad taste in her mouth and occasional nausea. Pantoprazole has been prescribed to manage these symptoms by reducing gastric acid production. (5) Halitosis: Code(s): R19.6 - Halitosis Category: Medical Plan: The patient reports persistent halitosis, which may be related to gastric issues. An ultrasound of the abdomen and a stool study for H. pylori are planned to investigate potential underlying causes. Pantoprazole has been prescribed to reduce gastric acid production. (6) GERD (gastroesophageal reflux disease): Code(s): K21.9 - Gastro-esophageal reflux disease without esophagitis Category: Medical Qualifiers: Esophagitis presence: without esophagitis Qualified Code(s): K21.9 - Gastro-esophageal reflux disease without esophagitis Plan: As above Orders: Orders AMB Hemoglobin A1c Today E11.9 - Type 2 diabetes mellitus without complications H pylori Ag Stool Today R10.13 - Epigastric pain Lipid Panel Today E78.00 - Pure hypercholesterolemia, unspecified Hemoglobin A1c Today E11.9 - Type 2 diabetes mellitus without complications Complete Blood Count no Diff Today E11.9 - Type 2 diabetes mellitus without complications US abdomen complete Today R10.13 - Epigastric pain Comprehensive [place]. Panel Fast Today E11.9 - Type 2 diabetes mellitus without complications Referrals Gastroenterology Referral R10.13 - Epigastric pain Medications: New pantoprazole 20 mg PO DAILY 30 tabs 1RF 30 days K21.9 - Gastro-esophageal reflux disease without esophagitis
[2024-11-24 11:22] VITALS: BP 100/64; PULSE 73; TEMP 36.2; O2SAT 97; BMI 31.8
--- OUTSIDE RECORDS SUMMARY | 2024-11-24 12:13 | XMS_ITS | Clinical Summary ---
Author Organization [address] [facility] Address [address] [place] [address] Phone Care Team Providers Care Dance Coach Name Role Phone Bob Santiago Primary Care [...] split. 90 tablet 3 5 11/01/19 25 celecoxib (CeleBREX) 100 mg capsule Take 1 capsule (100 mg total) by mouth 2 (two) times a day. 60 each 1 5 11/01/19 25 Active Problems Problem Noted Date Diagnosed Date Bunion of left foot 03/12/2024 Asthma 03/12/2024 Hemoptysis 03/12/2024 Recurrent UTI 03/12/2024 H/O syphilis 03/12/2024 Chronic allergic rhinitis 03/12/2024 Dermatitis 03/12/2024 Overweight 03/12/2024 Memory impairment 03/12/2024 Pure hypercholesterolemia 03/12/2024 Diabetes mellitus ([facility] V24, [facility] V28) 12/2023 Encounters Date Type Department Care Team Description 10/12/2024 Telephone Orthopedic Surgery [facility] [address] [phone] Margarita Taylor MA 10/01/2024 10:00 AM EDT Consult Orthopedic Surgery [facility] 160 175 [facility] [address] [place] [phone] Radha Forde MD Chronic pain of right knee (Primary Dx); Chronic pain of left knee 08/30/2024 1:00 PM EDT Office Visit Orthopedic [facility] 250 [address] [facility] [address] [place] [phone] Mariusz Yin DPM Acquired hallux valgus of [...] 2 - PCV) 06/08/2020 06/08/2019 COVID-19 Vaccine (3 - 2023-2 5 season) 2024 11/02/2020, 10/12/2020 Cholesterol Screening (Lipid Panel) 02/16/2024 Colorectal Cancer Screening: Colonoscopy 02/16/2024 Hepatitis C Screening 02/16/2024 Medicare Annual Wellness Visit 02/16/2024 Osteoporosis Screening (Bone Density Screening) 02/16/2024 Social Influencers of Health Screening 02/16/2024 Diabetes: Annual Urine Albumin-Creatinine Ratio (uACR) 03/12/2024 Diabetes: Blood Sugar Contro l Test (HGBA1C) 03/12/2024 Falls Risk Assessment 2024 Depression Screening 05/05/2024 Influenza Vaccine (#1) 2025 , 04/12/2021 HIB Vaccines Aged Out No longer [...] - [place] [employer] [place]IC[place] Care Teams Dance Coach Relationship Specialty Start Date End Date Bob Santiago PA [address] [place] [phone] PCP - General 01/01/24
--- OUTSIDE RECORDS SUMMARY | 2024-11-24 12:13 | XMS_ITS | Data Portability ---
Author Organization [facility] Address [address] [place] [address] Care Team Providers Care Sales Marketing Director Name Role Phone [email or web address] Primary Care Provider [phone] Assessment No assessment recorded. Plan of Treatment [...] Details Recorded Time Primary gonarthrosi s, bilateral [id number] Active 024 [facility] 4 08:36:48 Problem Notes None recorded. Procedures Surgical History Date Name Laterality Status Provider Name and Address Organization Details Recorded Time 4 Knee Kenalog 40 1cc Injection, Bilateral completed Rosi Napier PA-C [address], [place], [address], [facility] 04/30/2024 10:51:28 4 Knee Kenalog 40 1cc Injection, Bilateral completed Rosi Napier PA-C [address], [place], [address], [facility] 01/27/2024 10:28:40 4 Knee Kenalog 40 1cc Injection, Bilateral completed Rosi Napier PA-C [address], [place], [address], [facility] 10/20/2023 11:23:58 Imaging Results None recorded. Procedure [...] TABLET BY MOUTH EVERY DAY WITH FOOD 2024 active Not Available Not Available Not Avai lable pioglitazon e 45 mg tablet TAKE 1 [...] Not Available Not Available Not Available Transderm-S certified endoscopy technician 1 mg over 3 days transdermal patch [...] Not Available No t Available nystatin Nystatin [id number] T/ML Suspensio n 01/26 completed Statu s: [...] Updated DateTime 10/20/2023 157.48 cm HORACIO ZENG [facility] 10/20/2023 10:52:28 Date Recorded Body height Body mass index (BMI) Body weight Provider Name and Address Organization Details Last Updated DateTime 01/27/2024 157.48 cm 32.6 kg/m2 23850.44 g [facility] 01/27/2024 10:11:10 Date Recorded Body height Body mass index (BMI) Body weight Provider Name and Address Organization Details Last Updated DateTime 04/30/2024 157.48 cm 32.6 kg/m2 52284.44 g [facility] 04/30/2024 10:21:04 Social History None recorded. Functional Status None recorded. Mental Status None recorded. Family History Nothing Reported. Medical History No medical history recorded. Gynecological HistoryNo gynecological history recorded. Obstetrics History GPAL:G 0 P 0 0 0 0 Past Encounters Encounter ID Performer Location Encounter Start Date Encounter Closed Date Diagnosis/Indication Diagnosis SNOMED-CT Code Diagnosis ICD10 Code Diagnosis Note [id number] Rosi Napier PA-C [facility] [address] [place] [address] 10/20/2023 10:48:15 11/18/2023 15:24:48 Bilateral osteoarthritis of knees [id number] 04308 M17.0 [id number] AGUILAR [facility] [address] [place] [address] 01/27/2024 10:06:06 02/17/2024 15:13:59 Bilateral osteoarthritis of knees 7516700440 23678 M17.0 [id number] Rosi Napier PA-C [facility] [address] [place] [address] 04/30/2024 10:10:55 05/17/2024 15:24:28 Primary gonarthrosis, bilateral 037969238 M17.0 Health Concerns Section Related Observation LastModified by Organization Detai ls LastModified Time None Recorded Concern Status LastModified by Organization Details LastModified Time None Recorded Advance Directives Directive None Recorded Payers Insurance Date Sequence Insurance Name Policy Number Policy Goins Covered Member ID Goins Member ID Guarantor Name 04/30/2024 1 [facility] NMT MedicalFIRSTHEALTH - HEALTH NET PLAN (MEDICAID HMO) VITALYNACO Demi Blackburn [id number] Demi Blackburn 08/26/2024 2 [place] [employer] [place] Demi Blackburn [id number] Demi Blackburn 08/26/2024 2 [place] [facility] Blackburn [id number] Demi Blackburn 08/26/2024 [place] - SPECIALITY CLAIMS (MEDICARE [facility] A) Demi Blackburn [id number] Demi Blackburn 08/26/2024 2 [facility] HEALTHFIRSTHEALTH PLAN - SKILLED NURSING OPTIONS - DUAL ELIGIBLE (MEDICARE-MED ICAID REPLACEMENT HMO) [id number] Demi Blackburn [id number] Demi Blackburn 08/26/2024 1 [place] [facility] Demi Blackburn [id number] Demi Blackburn Notes Date Note Type Note Provider Name and Address Organization Details Recorded Time 10/20/2023 text/html I am seeing the patient today under the supervision of Dr. Levine who was available but who did not see the patient. HPI: Patient presenting today with known osteoarthritis of bilateral knees. Has been responding favorably to conservative treatment. Here today for a cortisone injection. Denies recent injury. No new systemic complaints. Past family, medical, social history and review of systems has been reviewed, updated, and is located in the patient s chart. Examination: Examination of bilateral knees reveals no effusion, erythema, or warmth. Injection site benign. Decreased range of motion. Point tender medial joint line. Calf is soft and nontender. 5/5 strength knee flexion and extension. Impression: Bilateral knee osteoarthritis Plan: The patient was thoroughly counseled today regarding their knee condition, its natural history, and conservative versus surgical treatment options. The patient is interested in receiving an injection with corticosteroid. Bilateral knees were prepped sterilely and an injection was administered [...] as every 3 months. Rosi Napier PA-C [address] [place] [address] [address], [place], [address], [facility] 10/20/2023 11:24:13 01/27/2024 text/html I am seeing the patient today under the supervision of Dr. Ortega who was available but who did not see the patient. HPI: Patient presenting today with known osteoarthritis of bilateral knees. Has been responding favorably to conservative treatment. Here today for a cortisone injection. Denies recent injury. No new systemic complaints. Past family, medical, social history and review of systems has been reviewed, updated, and is located in the patient s chart. Examination: Examination of bilateral knees reveals no effusion, erythema, or warmth. Injection site benign. Decreased range of motion. Point tender medial joint line. Calf is soft and nontender. 5/5 strength knee flexion and extension. Impression: Bilateral knee osteoarthritis Plan: The patient was thoroughly counseled today regarding their knee condition, its natural history, and conservative versus surgical treatment options. The patient is interested in receiving an injection with corticosteroid. Bilateral knees were prepped sterilely and an injection was administered [...] as every 3 months. Rosi Napier PA-C [address] [place] [address] [address] [facility], [place], [address], [facility] 01/27/2024 10:28:59 04/30/2024 text/html I am seeing the patient today under the supervision of Dr. Dotson who was available but who did not see the patient. HPI: Patient presenting today with known osteoarthritis of bilateral knees. Has been responding favorably to conservative treatment, although she notices diminishing return from the injections. Here today for a cortisone injection. Denies recent injury. No new systemic complaints. She is trying to avoid a total knee arthroplasty. Past family, medical, social history and review of systems has been reviewed, updated, and is located in the patient s chart. Examination: Examination of bilateral knees reveals no effusion, erythema, or warmth. Injection site benign. Decreased range of motion. Point tender medial joint line. Calf is soft and nontender. 5/5 strength knee flexion and extension. Impression: Bilateral knee osteoarthritis Plan: The patient was thoroughly counseled today regarding their knee condition, its natural history, and conservative versus surgical treatment options. The patient is interested in receiving an injection with corticosteroid. Bilateral knees were prepped sterilely and an injection was administered [...] every 3 months. Rosi Napier PA-C [address] [facility] [address], [place], [address], [facility] 04/30/2024 10:51:47 OBGyn Episode No OBEpisode recorded.
== END 2024-11-24 11:58 | disposition home or self-care (01) ==
LOC: HO.HMCH 11:10
PROVIDERS: PCP Physician Assistant; Visit Provider Physician Assistant
DX: E11.9 Type 2 diabetes mellitus without complications (principal); F33.1 Major depressive disorder, recurrent, moderate; E78.00 Pure hypercholesterolemia, unspecified; R10.13 Epigastric pain; R19.6 Halitosis; K21.9 Gastro-esophageal reflux disease without esophagitis

== ENCOUNTER → 2024-11-24 11:09 | Outpatient (BNVA) | payer OTHER, SELFPAY | PROVIDERS: PCP Physician Assistant; Visit Provider Physician Assistant | DX: E11.9 Type 2 diabetes mellitus without complications (principal); E78.00 Pure hypercholesterolemia, unspecified; R10.13 Epigastric pain; R19.6 Halitosis; F33.1 Major depressive disorder, recurrent, moderate; K21.9 Gastro-esophageal reflux disease without esophagitis | CPT/HCPCS: 83036; 99212 ==

== ENCOUNTER 2025-01-05 10:55 | Outpatient (REF) | payer OTHER, SELFPAY ==
--- OUTSIDE RECORDS SUMMARY | 2025-01-05 12:55 | XMS_ITS | Clinical Summary ---
Author Organization 175 [facility] Address [address] [place] [address] Phone Care Team Providers Care Trawl Net Maker Name Role Phone Bob Santiago Primary Care [...] impairment 03/12/2024 Pure hypercholesterolemia 03/12/2024 Diabetes mellitus ([facility] V24, [facility] V28) 12/2023 Encounters Date Type Department Care Team Description 10/12/2024 Telephone Orthopedic Surgery - [address] [id number] Margarita Taylor MA from Last 3 Months Social History Tobacco [...] (2 of 2 - PCV) 06/08/2020 06/08/2019 Cholesterol Screening (Lipid Panel) 02/16/2024 Colorectal Cancer Screening: Colonoscopy 02/16/2024 Hepatitis C Screening 02/16/2024 Medicare Annual Wellness Visit 02/16/2024 Osteoporosis Screening (Bone Density Screening) 02/16/2024 Social Influencers of Health Screening 02/16/2024 Diabetes: Annual Urine Albumin-Creatinine Ratio (uACR) 03/12/2024 Diabetes: Blood Sugar Contro l Test (HGBA1C) 03/12/2024 Falls Risk Assessment 2024 Depression Screening 05/05/2024 COVID-19 Vaccine (3 - 2024-2 6 season) 2025 11/02/2020, 10/12/2020 Influenza Vaccine (#1) 2025 , 04/12/2021 HIB [...] to complete this topic Insurance [place]ICAID - [place] [employer] MEDICARE Care Teams Trawl Net Maker Relationship Specialty Start Date End Date Bob Santiago PA [address] [place] [phone] PCP - General 01/01/24
== END 2025-01-05 10:56 | disposition home or self-care (01) ==
LOC: HO.MAMMO 10:55
PROVIDERS: PCP Physician Assistant; Visit Provider Physician Assistant
DX: Z12.31 Encounter for screening mammogram for malignant neoplasm of breast (principal)
CPT/HCPCS: 77063; 77067

== ENCOUNTER → 2025-01-05 11:00 | Outpatient (BNV) | payer OTHER, SELFPAY | PROVIDERS: PCP Physician Assistant; Visit Provider Internal Medicine | DX: Z12.31 Encounter for screening mammogram for malignant neoplasm of breast (principal) | CPT/HCPCS: 77063; 77067 ==

== ENCOUNTER 2025-01-13 16:38 | Outpatient (REF) | payer OTHER, SELFPAY ==
--- NOTE | ~2025-01-13 | CT_ITS ---
EXAMINATION: CT CHEST WITHOUT IV CONTRAST CLINICAL INFORMATION: Reason for Exam-R91.1 - Solitary pulmonary nodule COMPARISON: Chest CT on December 17, 2023 and November 15, 2022 TECHNIQUE: Multidetector volumetric CT imaging of the chest was done. Axial MIP volume rendering provided. Sagittal and coronal reformatted images were obtained. This CT examination was performed using dose optimization techniques as appropriate, variously including the following: *Automated exposure control *Adjustment of mA and/or kV according to patient size (this includes techniques or standardized protocols for targeted exams where dose is matched to indication/reason for exam; i.e. extremities or head) *Use of iterative reconstruction technique FINDINGS: EMS MANAGER: Unremarkable. LUNGS: Central airways are patent. Linear atelectasis or scarring in the right middle lobe, and in the lesser degree in the lingula. No focal consolidation. Redemonstration of 0.4 x 0.1 cm right lower lobe nodule (4:63), unchanged from November 2022. MEDIASTINUM: Heart is normal in size. No pericardial effusion. No coronary artery calcification. Mild vascular calcifications in the aortic arch. PLEURA: No pleural effusion or pneumothorax. AXILLA: No lymphadenopathy. UPPER ABDOMEN: Unremarkable. OSSEOUS STRUCTURES: Small sclerotic lesion in the lower endplate of T10 vertebral body is unchanged from 2022, which favors benign etiology. Postsurgical changes of the right shoulder. CT/CT chest wo IV con IMPRESSION: Right lower lobe nodule, unchanged from November 2022; no further chest CT follow-up required per Fleischner guidelines. Fleischner guidelines were followed. Electronically signed by: Asad Langford MD 01/13/2025 05:55 PM EDT
== END 2025-01-13 16:39 | disposition home or self-care (01) ==
LOC: HO.CT 16:38
PROVIDERS: PCP Physician Assistant; Visit Provider Hospitalist
DX: R91.1 Solitary pulmonary nodule (principal)
CPT/HCPCS: 71250

== ENCOUNTER → 2025-01-13 16:40 | Outpatient (BNV) | payer OTHER, SELFPAY | PROVIDERS: PCP Physician Assistant; Visit Provider Radiology Body Imaging | DX: R91.1 Solitary pulmonary nodule (principal) | CPT/HCPCS: 71250 ==

== ENCOUNTER 2025-01-20 10:39 | Outpatient (REF) | payer OTHER, SELFPAY ==
--- NOTE | ~2025-01-20 | US_ITS ---
EXAMINATION: US ABDOMEN HISTORY: R10.13 - Epigastric pain TECHNIQUE: Real-time grayscale ultrasound imaging of the abdomen was performed and images were reviewed. COMPARISON: There are no prior studies available for comparison. FINDINGS: Liver: The right lobe of the liver measures 15.9 cm in size. The left lobe of the liver measures 10.7 cm in size. The liver demonstrates mildly heterogeneous increased echotexture, consistent with steatosis. No focal mass or intrahepatic biliary ductal dilatation is identified. There is normal hepatopedal flow in the portal vein. Gallbladder and biliary tree: The gallbladder is unremarkable, without evidence of calculi, wall thickening, or pericholecystic fluid. There is no sonographic Davies sign. The common bile duct is normal in caliber measuring 4 mm. Kidneys: The right kidney measures 13.0 cm in length. The left kidney measures 11.2 cm in length. The kidneys are unremarkable, without evidence of masses, hydronephrosis, or calculi. Pancreas: The pancreatic head, neck, and body are unremarkable. The pancreatic tail is obscured by bowel gas. Spleen: The spleen is normal in size and contour, measuring 8.3 cm in length. Abdominal aorta and inferior vena cava: The visualized portions of the abdominal aorta and inferior vena cava are normal in caliber. There is no free fluid in the abdomen. US/US abdomen complete IMPRESSION: Mild heterogeneous hepatic steatosis. Otherwise unremarkable abdominal ultrasound. Electronically signed by: Piotr Garcias MD 01/20/2025 11:49 AM EDT
[2025-01-20 12:12] LABS: Hematocrit 38.5 % (37.0-47.0); Hemoglobin 12.1 g/dl (12.0-16.0); Mean Corpuscular HGB Conc 31.4 g/dl (31.0-35.0); Mean Corpuscular Hemoglobin 29.2 pg (27.0-33.0); Mean Corpuscular Volume 93.0 fL (80.0-98.0); NRBC Abs Auto 0.000 X10*3/uL (0.0-0.012); NRBC Pct Auto 0.0 /100WBC (0.0-0.2); Platelet Count 163 X10*3/uL (160-400); Red Blood Count 4.14 X10*6/uL (4.20-5.50); White Blood Count 4.1 X10*3/uL (4.8-10.8)
[2025-01-20 12:38] LABS: Hemoglobin A1C 164.3305 umol/L; Total Hemoglobin (HGBA1C) 3210.0327 umol/L
[2025-01-20 12:42] LABS: Alanine Aminotransferase 11 U/L (0-31); Albumin Level 4.1 g/dL (3.5-5.0); Alkaline Phosphatase 83 U/L (39-117); Anion Gap 7 (12-20); Aspartate Amino Transferase 22 U/L (5-31); Blood Urea Nitrogen 11 mg/dL (9-16); Calcium 9.3 mg/dL (8.4-10.2); Carbon Dioxide 30 mmol/L (22-29); Chloride 111 mmol/L (96-108); Cholesterol 160 mg/dL (<200); Estimated Glomerular Filt Rate > 60; HDL Cholesterol 32 mg/dL (>40); Potassium 3.9 mmol/L (3.3-5.1); Sodium 144 mmol/L (135-145); Total Protein 6.8 g/dL (6.5-8.0); Triglycerides 150 mg/dL (<150)
--- OUTSIDE RECORDS SUMMARY | 2025-01-20 12:51 | XMS_ITS | Clinical Summary ---
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 Role Phone Bob Santiago Primary Care [...] impairment 03/12/2024 Pure hypercholesterolemia 03/12/2024 Diabetes mellitus ([facility] V24, [facility] V28) 12/2023 Social History Tobacco Use Types Packs/Day Years [...] Care Team (Late st Contact Info) Description 02/10/2025 10:45 AM EDT Office Visit Orthopedic Surgery - [place] [address] [address] Mariusz Yin, MACIEJ [address] [address] Health Maintenance Due Date Last Done Comments [...] 2025 11/02/2020, 10/12/2020 Influenza Vaccine (#1) 2025 4, 04/12/2021 HIB Vaccines Aged Out No longer [...] - [place] [employer] MEDICARE Care Teams Ethylene Plant 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
== END 2025-01-20 10:40 | disposition home or self-care (01) ==
LOC: HO.US 10:39
PROVIDERS: PCP Physician Assistant; Visit Provider Physician Assistant
DX: R10.13 Epigastric pain (principal); E78.00 Pure hypercholesterolemia, unspecified; E11.9 Type 2 diabetes mellitus without complications
CPT/HCPCS: 36415; 76700; 80053; 80061; 83036; 85027; 87338

== ENCOUNTER → 2025-01-20 10:42 | Outpatient (BNV) | payer OTHER, SELFPAY | PROVIDERS: PCP Physician Assistant; Visit Provider Radiology Diagnostic Radiology | DX: K76.0 Fatty (change of) liver, not elsewhere classified (principal) | CPT/HCPCS: 76700 ==

== ENCOUNTER 2025-01-24 14:55 | Outpatient (AMB) | payer OTHER, SELFPAY ==
--- NOTE | 2025-01-24 15:08 | A.OFFPC_ITS ---
Vital Signs 01/24/25 15:09 Height 5 ft 3 in Weight 176 lb 6 oz BMI 31.2 BP 110/60 Blood Pressure Location Lt brachial Position Sitting Respiration 18 Pulse 72 Pulse Source Pulse Oximeter Temp 97.3 F Temp Source Temporal Artery Scan Pulse Oximetry (%) 95 Oxygen Delivery Method Room Air Intake Visit Reasons: Depression Geophysicist Required: No Accompanied by: Self / Same As Patient Allergies No Known Allergies Allergy (Unknown, Verified 01/24/25 15:26) Medication List - Last Reconciled 01/24/25 by Bob Santiago PA-C acetaminophen ER (Tylenol Arthritis Pain) 650 mg PO Q12H 30 days albuterol sulfate 90 mcg/actuation 2 inhalations inhalation Q6H PRN 30 days atorvastatin 20 mg PO BEDTIME 90 days azelastine 2 sprays intranasal BID 30 days baclofen 10 mg PO BID 7 days bisacodyl (Dulcolax (bisacodyl)) 10 mg (2 x 5 mg) PO BEDTIME bismuth subsalicylate (Soothe (bismuth subsalicylate)) 262 mg PO QID 14 days blood sugar diagnostic (FreeStyle Lite Strips) USE 1 STRIP DAILY chlorhexidine gluconate 0.12% 15 mL buccal DAILY PRN 30 days clotrimazole 1% (Athlete's Foot (clotrimazole)) 1 appl topical DAILY 30 days escitalopram oxalate 20 mg PO DAILY 90 days Held on 07/27/24. Instructions: Doctor's Order lancets (FreeStyle Lancets) USE DAILY DIRECTED meclizine 25 mg PO BID PRN 15 days metronidazole 500 mg PO QID 14 days omeprazole 20 mg PO BID 14 days pantoprazole 20 mg PO DAILY 30 days pioglitazone 45 mg PO DAILY Held on 01/24/25. Instructions: Doctor's Order polyethylene glycol 3350 (Miralax) 238 grams PO ONCE sertraline 25 mg PO DAILY 30 days sitagliptin phosphate (Januvia) 25 mg PO DAILY tetracycline 500 mg PO Q6H 14 days Tobacco use date assessed: 01/24/25 Fall risk assessment: No Falls in past year Last assessed Fall Risk: 01/24/25 Dental Screening Dental Screen Date: 01/24/25 Did you have a dental visit in the last 12 months?: Yes Did you have a dental problem in the last 6 months where you did not have access to dental care?: No Was dental information given to patient?: Patient has dentist HPI Depression HPI Details Patient is a 64-year-old female here today for a follow-up visit.? Patient has a past medical history significant type 2 diabetes, generalized anxiety disorder hyperlipidemia, chronic left shoulder pain,? Concern--> The patient also reports persistent halitosis, which she believes may be related to gastric issues. She has tried various remedies, including mints and [id number] antacids, without relief. Her daughter has suggested that the issue might be related to her stomach, prompting further investigation. Thus we have sent patient for H pylori testing and in fact she has positive detection. PLAN-- > Cocktail of antibiotics and bismuth has been sent to patient's pharmacy .. .. DMII: Most recent A1c acceptable. She has been making better dietary choices.. Sugars at home 120-170s . She reports her diet has been poor as of late. She continues on pioglitazone 45 mg and Januvia 25 mg.? She was unable to tolerate metformin due to GI side effects. .. Major depressive disorder: Patient continues on SSRI therapy though feels she is still somewhat depressed. She gets some socrates from taking care of her grandchild. She reports a lot of her depression the stem from her complains of halitosis as she has not being social due to fears of other people noticing her halitosis Laboratory Tests 02/18/23 03/10/23 06/24/23 11:32 13:42 11:38 RBC Hgb Creatinine POC Glucose Random Glucose 145 H Fasting Glucose Hgb A1c (Clinic) 7.1 H 7.1 H Hemoglobin A1c % Cholesterol LDL Cholesterol, C alc Triglycerides Urine Microalbumin Stool H. pylori Ag 12/25/23 12/25/23 03/25/24 10:19 10:20 12:02 RBC 4.17 L Hgb 12.3 Creatinine 0.83 POC Glucose Random Glucose Fasting Glucose 160 H Hgb A1c (Clinic) 6.9 H Hemoglobin A1c % Cholesterol 138 LDL Cholesterol, C alc 77 Triglycerides Urine Microalbumin 14.0 Stool H. pylori Ag 07/27/24 08/02/24 10/27/24 11:27 08:23 09:14 RBC 4.11 L Hgb 12.0 Creatinine POC Glucose 153 H Random Glucose Fasting Glucose 137 H Hgb A1c (Clinic) 6.4 H Hemoglobin A1c % Cholesterol 155 LDL Cholesterol, C alc Triglycerides Urine Microalbumin Stool H. pylori Ag 11/24/24 01/20/25 01/20/25 11:20 11:42 13:55 RBC Hgb Creatinine POC Glucose Random Glucose Fasting Glucose Hgb A1c (Clinic) 6.9 H Hemoglobin A1c % 6.8 H Cholesterol 160 LDL Cholesterol, C alc Triglycerides 150 H Urine Microalbumin Stool H. pylori Ag SEE NOTE A [facility] Medical History Murmur Asthma Chronic allergic rhinitis Hemoptysis Recurrent UTI H/O syphilis LGSIL (low grade squamous intraepithelial dysplasia) Overweight (BMI 25.0-29.9) Dermatitis Memory impairment Pure hypercholesterolemia Diabetes mellitus Surgical History History of colonoscopy History of arthroscopy of right shoulder Hx of tubal ligation History of hernia repair (~2001) Status post breast reduction (~2006) Family History Father Diabetes Mother Heart attack Brother No problems noted. Sister No problems noted. Son No problems noted. Son No problems noted. Son No problems noted. Daughter No problems noted. Daughter No problems noted. Social History Housing: Apartment Are you a primary skin care specialist to a significant other at home: No Do you presently have visiting nurse or other home services: No Alcohol intake: never Patient Tobacco Use Status: Never used Tobacco e-Cigarette/Vaping Use: Never Used Second Hand Smoke Exposure: No service: No Current occupational status: retired Cognitive needs: No Hearing needs: No Vision needs: Yes Questionnaire PHQ-9 Over the last 2 weeks, how often have you been bothered by any of the following problems? 1. Little interest or pleasure in doing things: not at all 2. Feeling down, depressed, or hopeless: not at all 3. Trouble falling or staying asleep, or sleeping too much: not at all 4. Feeling tired or having little energy: not at all 5. Poor appetite or overeating: not at all 6. Feeling bad about yourself - or that you are a failure or have let yourself or your family down: not at all 7. Trouble concentrating on things, such as reading the newspaper or watching television: not at all 8. Moving or speaking so slowly that other people could have noticed. Or the opposite - being so fidgety or restless that you have been moving around a lot more than usual: not at all 9. Thoughts that you would be better off or of hurting yourself in some way: not at all Total score: 0 Depression Screening Interpretation: Negative Depression Screening Done: Yes 30544 - PHQ-9 Billing: Yes Source: Developed by Drs. Piotr James, Breonna East, Donaldo Barrios and colleagues, with an educational paddy from [employer]. Thrive Questionnaire Date Thrive assessed: 07/27/24 I am a: Patient What is your living situation today?: I choose not to answer this question Within the past 12 months, did the food you bought not last and you didn't have the money to get more?: I choose not to answer this question Within the past 12 months, did you worry whether your food would run out before you got money to buy more?: I choose not to answer this question Do you have trouble paying for medicines?: No Do you have trouble getting transportation to medical appointments?: No Do you have trouble paying your heating and electricity bill?: I choose not to answer this question Do you have trouble taking care of your child, family member or friend?: No Do you have trouble with day-to-day activities such as bathing, preparing meals, shopping, managing finances, etc.?: I choose not to answer this question Are you currently unemployed and looking for a job?: No Are you interested in more education?: I choose not to answer this question Please select the resources that you would like help with: Job search/training Currently or been in a relationship where the following occur: I choose not to answer THRIVE Score: 0 AUDIT C Alcohol Use Questionnaire (AUDIT-C) 3. How often do you have six or more drinks on one occasion?: Never Total Score: 0 MIKALA-7 AMB Questionnaire MIKALA-7 Date MIKALA - 7 assessed: 07/27/24 Feeling nervous, anxious, or on edge: 0 = Not at all Not being able to stop or control worryin = Nearly every day Worrying too much about different things: 3 = Nearly every day Trouble relaxin = Nearly every day Being so restless that it is hard to sit still: 0 = Not at all Becoming easily annoyed or irritable: 0 = Not at all Feeling afraid as if something awful might happen: 0 = Not at all Total MIKALA-7 score (0-4 normal; 5-9 mild; 10-14 moderate; 15-21 severe): 9 Source: Developed by Drs. Piotr James, Breonna East, Donaldo Barrios and colleagues, with an educational paddy from [employer]. MIKALA-7 Assessment Billing MIKALA-7 Assessment Tool: MIKALA-7 Assessment 23047 Review of Systems Const Denies headache(s) Eyes Denies loss of vision ENT Denies vertigo, Denies dizziness, Denies headache(s) and Denies sore throat Card Denies chest pain, Denies leg edema and Denies lightheadedness Resp Denies cough, Denies hemoptysis and Denies wheezing GI Denies abdominal pain, Denies melena, Denies constipation, Denies diarrhea and Denies vomiting Denies urinary frequency, Denies dysuria and Denies urinary urgency Musc Denies arthralgias, Denies joint swelling, Denies numbness and Denies tingling Neuro Denies Abnormal speech present, Denies behavioral changes, Denies vertigo, Denies dizziness, Denies headache(s), Denies loss of vision, Denies memory loss, Denies numbness and Denies tingling Psych Denies anxiety, Denies behavioral changes, Denies depression, Denies memory loss and Denies panic attacks Mitch/Lymph Denies easy bleeding and Denies easy bruising Aller/Immun Denies wheezing Physical exam (Primary Care) Vital Signs: Last Vital Signs Temp 97.3 F 01/24/25 15:09 Pulse 72 01/24/25 15:09 Resp 18 01/24/25 15:09 BP 110/60 01/24/25 15:09 Pulse Ox 95 01/24/25 15:09 Oxygen Delivery Method Room Air 01/24/25 15:09 BMI result Body Mass Index 31.2 BMI Assessment/Plan discussion: High BMI High, discussed plan: lifestyle, weight reduction, dietary and physical activity Tobacco/Smoking Status: Tobacco use Status Tobacco use date assessed 01/24/25 01/24/25 15:21 Patient Tobacco Use Status Never used Tobacco 01/24/25 15:09 e-Cigarette/Vaping Use Never Used 01/24/25 15:09 PHQ-9: PHQ-9 Score PHQ-9: Total score 0 01/24/25 15:28 Depression Screening Interpretation: Negative Thrive Assessment: Date of Thrive Assessment Date Thrive assessed 07/27/24 01/24/25 15:09 Currently or been in a relationship where the following occur: I choose not to answer Const Other: OBESE General: healthy appearing, no acute distress, alert and awake Nutritional Appearance: well nourished Orientation/consciousness: oriented to person, oriented to place and oriented to time HENMT Ears: TM's normal bilaterally General nose exam: Normal nasal mucous membranes and turbinates present Eyes Conjunctivae: conjunctivae normal Sclerae: sclerae normal Pupils: Equal, round and reactive pupils present Neck Neck: Yes no lymphadenopathy and Yes no JVD Thyroid: Thyroid normal Carotids: no bruits Resp Effort & Inspection: normal respiratory effort and not tachypneic Auscultation: no crackles, no rales, no rhonchi and no wheezes Cardio Rate: regular rate Rhythm: regular rhythm Heart sounds: no murmurs and normal S1 and S2 GI Palpation (GI): Soft to palpation, nontender, no hepatomegaly and no splenomegaly Auscultation: normal bowel sounds Skin General skin exam: no rashes or lesions noted and dry skin Neuro General: oriented to person, oriented to place and oriented to time Cranial nerves: Yes Equal, round and reactive pupils present Speech: No Abnormal speech present Gait exam (Neuro): Normal gait present Motor exam (neuro): no tremor noted Extrem Right upper extremity: full ROM Left upper extremity: full ROM Right lower extremity: full ROM; no edema Left lower extremity: full ROM; no edema Psych Mental Status: mental status grossly normal Speech and movement: Normal speech and movement present Affect: normal affect Attitude: cooperative Thought process: Normal thought process present Coding Level of Care Code Est Pt Level 4 (08874) Diagnoses Type 2 diabetes mellitus without complication, without long-term current use of insulin E11.9 Diabetes mellitus complication status: without complication 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 Goal A1c is to be below 7.0 (2) MDD (major depressive disorder), recurrent episode, moderate: Code(s): F33.1 - Major depressive disorder, recurrent, moderate Category: Medical Plan: Patient reports she has been having worsening depression, has tried Lexapro and sertraline though has not been effective. She is interested in trying duloxetine (3) Pure hypercholesterolemia: Code(s): E78.00 - Pure hypercholesterolemia, unspecified Category: Medical Plan: Most recent lipid panel showing opiate total cholesterol and LDL. She continues on atorvastatin 20 mg. Goal LDL is to remain below 100 (4) H. pylori infection: Code(s): A04.8 - Other specified bacterial intestinal infections Category: Medical Plan: The patient will undergo a two-week course of quadruple therapy for Helicobacter pylori infection, which includes bismuth, metronidazole, tetracycline, and omeprazole. Following the completion of the antibiotic regimen, a repeat stool test will be conducted to confirm eradication of the infection. (5) Post-menopausal: Code(s): Z78.0 - Asymptomatic menopausal state Category: Medical Plan: Patient willing to get another bone density screening Orders: Orders XR DEXA axial skeleton 01/24/25 Z78.0 - Asymptomatic menopausal state H pylori Ag Stool 3 Weeks A04.8 - Other specified bacterial intestinal infections Medications: New duloxetine 30 mg PO DAILY 30 caps 1RF 30 days F33.1 - Major depressive disorder, recurrent, moderate Changed From sitagliptin phosphate (Januvia) 25 mg PO DAILY 90 tabs 1RF E11.9 - Type 2 diabetes mellitus without complications To sitagliptin phosphate (Januvia) 25 mg PO DAILY 90 tabs 2RF 90 days E11.9 - Type 2 diabetes mellitus without complications Discontinued sertraline Discontinued Reason: Doctor's Order 25 mg PO DAILY 30 days 30 tabs 3RF F33.1 - Major depressive disorder, recurrent, moderate
[2025-01-24 15:09] VITALS: BP 110/60; PULSE 72; RESP 18; TEMP 36.3; O2SAT 95; BMI 31.2
== END 2025-01-24 15:51 | disposition home or self-care (01) ==
LOC: HO.HMCH 14:55
PROVIDERS: PCP Physician Assistant; Visit Provider Physician Assistant
DX: E11.9 Type 2 diabetes mellitus without complications (principal); F33.1 Major depressive disorder, recurrent, moderate; E78.00 Pure hypercholesterolemia, unspecified; A04.8 Other specified bacterial intestinal infections; Z78.0 Asymptomatic menopausal state

== ENCOUNTER → 2025-01-24 14:55 | Outpatient (BNVA) | payer OTHER, SELFPAY | PROVIDERS: PCP Physician Assistant; Visit Provider Physician Assistant | DX: E11.9 Type 2 diabetes mellitus without complications (principal); E78.00 Pure hypercholesterolemia, unspecified; F33.1 Major depressive disorder, recurrent, moderate; A04.8 Other specified bacterial intestinal infections; Z78.0 Asymptomatic menopausal state | CPT/HCPCS: 96127; 99212 ==

== ENCOUNTER 2025-01-28 11:13 | Outpatient (AMB) | payer OTHER, SELFPAY ==
[2025-01-28 11:16] VITALS: BP 106/60; PULSE 85; O2SAT 98; BMI 32.0
--- NOTE | 2025-01-28 11:16 | A.OFFVIS_ITS ---
Vital Signs 01/28/25 11:16 Height 5 ft 3 in Weight 180 lb 12.465 oz BMI 32.0 BP 106/60 Blood Pressure Location Lt brachial Position Sitting Pulse 85 Pulse Source Pulse Oximeter Pulse Oximetry (%) 98 Oxygen Delivery Method Room Air Intake Visit Reasons: Cough Accompanied by: Self / Same As Patient Allergies No Known Allergies Allergy (Unknown, Verified 01/28/25 11:18) HPI Comments Details: The patient is a 64 year woman presenting with chronic cough. She states that her cough tends to be nonproductive in nature and moderate severity. It is sporadic. She denies having any near syncopal or syncopal episodes were any incontinence of urine with it. The patient states the cough has been very nagging. The patient did undergo pulmonary function studies about a year ago. No evidence of any obstructive nor restrictive ventilatory defects. Although on the flow volume loop appears to have a saw tooth pattern to the inspiratory flow suggesting of redundant tissue in the upper airway and or vocal cord dysfunction. The patient does have nasal congestion. She also has ache or pressure the ears that sometimes uncomfortable. She denies having any allergy testing in the past. On examination she does have significant erythema the turbinates suggesting an upper airway cough syndrome. Will go ahead and treat her accordingly. I did provide her with the Neti bottle to see if she can not tolerate nasal rinsing at nighttime and also nasal spray during the daytime. The patient also will have additional allergy testing at this time. Also to note she did have a CT scan of the chest done fairly recent and I personally reviewed. She does have some minimal atelectasis and also has a small 4 mm pulmonary nodule that requires additional testing. 05/19/2023 the patient is here for pulmonary follow-up visit. Overall the patient has been feeling better. Her cough is overall better although recently she did get a cold and she has been having a little bit more of a nasal congestion cough. But the benzonatate have been helpful. We did review her blood work including allergy testing without any significant findings. We also discussed her last CT scan back in November 2022 with small 4 mm pulmonary nodule that will need follow-up. On examination I believe she does have some prolonged expiratory phase and will benefit from a rescue inhaler. I did teach how to use it in the office. She will using as needed. In the meantime she continues use her nasal spray. Will follow-up in the fall after her CT scan. 10/09/2023 the patient is here for sick visit. She did developed COVID-19. The patient did have respiratory symptoms. After she continued to have a cough. The cough tends to be make productive in nonproductive. Moderate severity. Has a hard time sleeping. She was evaluated previously for a cough in a did improve with a benzo nights. But this time the Bentson is not been effective. She does have a rescue inhaler but she does not feel like the inhaler has helped either. She also is not asthma. The patient did see her primary care doctor was given codeine cough syrup which help to temporize the cough but still has the cough and is being aggravated by. Denies any fever chills. The mucus sensitive be discolored. Appears that she has component of bronchitis. No significant wheezing that I can appreciate. Will go ahead and treat her with doxycycline for postviral bacterial infection. The patient also will continue the cough syrup. If she has no better in the next 4-5 days she will call and we can at that point order chest x-ray change her antibiotics consider other inhaler therapy. She does have diabetes will hold off on any cortical steroids. 01/19/2024 the patient is here for pulmonary follow-up visit. Overall she is doing well. Although recently she started developing the cough again. Typically occurs around this time when the seasons are changing. The patient is noticing some cough. On further questioning she does have reflux disease. We talked about the reflux diet and making sure that she sleeps elevated in minimizing the amount of food that she is at 1 time. If the patient continues to have symptoms we can also consider a barium swallow to assess for reflux disease more objectively and see if there is any issues with her esophagus. The patient also has underlying postnasal drip. She does have a component of upper airway cough syndrome. She has been using fluticasone. I will send Daylin to the pharmacy as well in order for her to see if this provides additional relief. The benzo nights to help decrease the cough therefore she can heel those areas from the constant coughing. As far as her pulmonary nodules she has a nodule documented last year and had a repeat CT scan now in 12/23/2023 demonstrating stability of the pulmonary nodule. The patient should have a repeat CT scan in a year from now to make sure there stability after a couple years and then after that no additional CT scans we warranted as long as the nodular density has not changed. Therefore, follow-up in a year after her CT scan to review. If the patient develops any worsening symptoms of worsening cough she can always call for an earlier assessment. 01/28/2025 the patient is here for pulmonary follow-up visit. Overall the patient is doing better. Cough seems to be little better. We did send her the Tessalon Mary but for some reason she did not get him. Will go ahead and requested again. She is using her nasal sprays. Overall she is doing better from a reflux standpoint. She is working closely with GI regarding her reflux disease and likely H pylori. She currently being treated for that. She did undergo a repeat CT scan of the chest. I did review with her and also compared to her CAT scan from 2022. Her right lower lobe pulmonary nodule appears to be completely stable. No additional serial imaging studies are warranted at this time. Therefore she will continue with the current respiratory medications and cough medications. She will come back in a year or as needed. If he has any issues she can always call for further recommendations. [facility] Medical History Murmur Asthma Chronic allergic rhinitis Hemoptysis Recurrent UTI H/O syphilis LGSIL (low grade squamous intraepithelial dysplasia) Overweight (BMI 25.0-29.9) Dermatitis Memory impairment Pure hypercholesterolemia Diabetes mellitus Surgical History History of colonoscopy History of arthroscopy of right shoulder Hx of tubal ligation History of hernia repair (~2001) Status post breast reduction (~2006) Family History Father Diabetes Mother Heart attack Brother No problems noted. Sister No problems noted. Son No problems noted. Son No problems noted. Son No problems noted. Daughter No problems noted. Daughter No problems noted. Social History Housing: Apartment Are you a primary direct care specialist to a significant other at home: No Do you presently have visiting nurse or other home services: No Alcohol intake: never Patient Tobacco Use Status: Never used Tobacco e-Cigarette/Vaping Use: Never Used Second Hand Smoke Exposure: No service: No Current occupational status: retired Cognitive needs: No Hearing needs: No Vision needs: Yes Review of Systems Const Denies fever(s) Eyes Denies change in vision ENT Reports nasal congestion, Reports nasal discharge and Reports post nasal drip Card Denies chest pain Resp Reports chest congestion, Reports cough and Denies wheezing GI Reports no additional complaints Musc Reports no additional complaints Skin/Breast Denies rash Neuro Reports no additional complaints Mitch/Lymph Denies lymphadenopathy Aller/Immun Denies wheezing Physical Exam Vital Signs: Last Vital Signs Pulse 85 01/28/25 11:16 BP 106/60 01/28/25 11:16 Pulse Ox 98 01/28/25 11:16 Oxygen Delivery Method Room Air 01/28/25 11:16 BMI result Body Mass Index 32.0 Const General: comfortable HEENT Head: Yes normocephalic Ears: TM abnormal with fluid behind the TM General nose exam: Abnormal mucous membranes and turbinates present erythematous Neck Neck: Yes supple Chest Chest palpation & inspection: normal inspection of the chest Resp Effort & Inspection: normal respiratory effort Auscultation: clear to auscultation bilaterally Cardio Rate: regular rate Rhythm: regular rhythm Heart sounds: S1 normal heart sound present, S2 normal heart sound present and Murmur heart sound present systolic II/ GI Palpation (GI): Soft to palpation Skin General skin exam: no rashes or lesions noted Extrem General: Yes no clubbing, cyanosis or edema Assessment & Plan Assessment & Plan (1) Chronic allergic rhinitis: Code(s): J30.9 - Allergic rhinitis, unspecified Category: Medical (2) Pulmonary nodule: Code(s): R91.1 - Solitary pulmonary nodule Category: Medical (3) Chronic cough: Comment: Likely upper airway cough syndrome, also may have a component of vocal cord dysfuction Code(s): R05.3 - Chronic cough Category: Medical (4) Bronchitis: Code(s): J40 - Bronchitis, not specified as acute or chronic Category: Medical (5) Murmur: Code(s): R01.1 - Cardiac murmur, unspecified Category: Medical Plan nasal steroid spray benzonates as needed ZARIA as needed repeat CT chest 12/2024 stable 2022 to 2024. No further serial CT scans F/U 1 year or as needed Medications: New benzonatate 200 mg PO BID 30 days PRN 30 caps 5RF cough benzonatate 200 mg PO BID PRN 30 caps 5RF cough 30 days Coding Level of Care Code Est Pt Level 4 (33523) Diagnoses Chronic allergic rhinitis J30.9 Pulmonary nodule R91.1 Chronic cough R05.3 Bronchitis J40 Murmur R01.1 Time Spent (min) 17
--- OUTSIDE RECORDS SUMMARY | 2025-01-28 13:03 | XMS_ITS | Clinical Summary ---
Author Organization 175 [facility] Address [address] [place] [address] Phone Care Team Providers Care Mold Breaker Name Role Phone Bob Santiago Primary Care [...] 03/12/2024 Pure hypercholesterolemia 03/12/2024 Diabetes mellitus ([facility] V24, [facility] V28) 12/2023 Social History Tobacco Use Types [...] AM EDT Office Visit Orthopedic Surgery - [place] [address] [address] Mariusz Yin, MACIEJ [address] [address] Health Maintenance Due Date Last [...] - [place] [employer] Care Teams Mold Breaker Relationship Specialty Start Date End Date Bob Santiago PA [address] [place] [id number] PCP - General 01/01/24
== END 2025-01-28 11:39 | disposition home or self-care (01) ==
LOC: HO.HPS 11:14
PROVIDERS: PCP Physician Assistant; Visit Provider Hospitalist
DX: J30.9 Allergic rhinitis, unspecified (principal); R91.1 Solitary pulmonary nodule; R05.3 Chronic cough; J40 Bronchitis, not specified as acute or chronic; R01.1 Cardiac murmur, unspecified
CPT/HCPCS: 99214

== ENCOUNTER → 2025-01-28 11:13 | Outpatient (BNVA) | payer OTHER, SELFPAY | PROVIDERS: PCP Physician Assistant; Visit Provider Hospitalist | DX: R05.3 Chronic cough (principal); J30.9 Allergic rhinitis, unspecified; R91.1 Solitary pulmonary nodule; J40 Bronchitis, not specified as acute or chronic; R01.1 Cardiac murmur, unspecified | CPT/HCPCS: 99212 ==

== ENCOUNTER 2025-02-01 10:28 | Outpatient (AMB) | payer OTHER, SELFPAY ==
--- NOTE | 2025-02-01 10:30 | A.OFFVIS_ITS ---
Vital Signs 02/01/25 10:33 Height 5 ft 3 in Weight 180 lb BMI 31.9 BP 124/72 Blood Pressure Location Rt brachial Position Sitting Pulse 68 Pulse Source Pulse Oximeter Pulse Oximetry (%) 98 Oxygen Delivery Method Room Air Intake Visit Reasons: Epi pain, H Pylori Test needed. Stop PPI Intake Note: Est pt for GERD mgmt. Eval s/p HP tx. CC: Pt is here today to follow up regarding her HP tx. No additional or new concerns at this time. Food Service Associate Required: No Accompanied by: Self / Same As Patient Allergies No Known Allergies Allergy (Unknown, Verified 02/01/25 10:31) HPI HPI Epi pain, H Pylori Test needed. Stop PPI: Details: LAST VISIT 09/03/2024 Assessment & Plan (1) Colon cancer screening: Code(s): Z12.11 - Encounter for screening for malignant neoplasm of colon Category: Medical Plan Patient denies any cardiac or respiratory symptoms.? Patient admits to occasional constipation depending on what she eats. Denies any issues with anesthesia in the past.? Denies any history of sleep apnea.? No history infectious diseases in the past or present.? Not on any anticoagulation therapy.? No family or personal history of colon cancer or polyps.? Patient denies melena, hematochezia, unintentional weight loss or ribbon like stools.? Discussed at length the pre-procedure,? prep, diet & medications as well as what to expect prior, during and after the procedure.?? Stressed the importance of good bowel prep.? Recommended the use of Vaseline or Calmoseptine OTC & baby wipes with bowel movements to promote comfort.? ?Patient verbalizes understanding and agrees to plan of care.? She was given the opportunity to ask questions and all questions answered.? We will see her after the procedure.? Medications: New polyethylene glycol 3350 (Miralax) As directed by gastroenterology department at [facility] 238 grams PO ONCE 238 grams 0RF Z12.11 - Encounter for screening for malignant neoplasm of colon bisacodyl (Dulcolax (bisacodyl)) Start taking 2 tablet every night 7 days before the procedure and 1 day before procedure take 4 tablets at noon time followed by MiraLax prep 10 mg (2 x 5 mg) PO BEDTIME 16 tabs 0RF Z12.11 - Encounter for screening for malignant neoplasm of colon COLONOSCOPY 10/27/2024 Findings: Terminal Ileum-normal Cecum: 4-6 mm sessile polyp removed with cold forceps Ascending Colon: 4-6 mm sessile polyp removed with cold forceps Transverse Colon -normal Descending Colon:normal Sigmoid Colon: normal Rectum: Retroflexion with small internal hemorrhoids seen, grade I Anorectum - normal Intervention: cold forceps Colon preparation: [place] Bowel Preparation Scale Right colon; 2 Transverse colon: 2 Left colon; 2 (0 = Unprepared colon segment with mucosa not seen due to solid stool that cannot be cleared. 1 = Portion of mucosa of the colon segment seen, but other areas of the colon segment not well seen due to staining, residual stool and/or opaque liquid. 2 = Minor amount of residual staining, small fragments of stool and/or opaque liquid, but mucosa of colon segment seen well. 3 = Entire mucosa of colon segment seen well with no residual staining, small fragments of stool or opaque liquid) Impression and Post Procedure Diagnosis: colon polyps x 2 internal hemorrhoids Plan: High fiber diet leaflet Avoid straining at stool, epsom salts and sitz bath, anusol supps or cream Repeat Colonoscopy in 5 years due to adenomatous appearing polyps or earlier if clinically indicated PATHOLOGY RESULTS: Diagnosis A. Cecum, polypectomy: Tubular adenoma; negative for high-grade dysplasia or carcinoma. B. Colon, ascending, polypectomy: Tubular adenoma; negative for high-grade dysplasia or carcinoma. TODAY'S VISIT: ?Referred by PCP for + H Pylori. Patient was started on quadruple therapy by PCP last week. Today has been tolerating well. She was tested by PCP for concern of ongoing halitosis with no improvement despite many interventions. She also complains of a chronic cough, her daughter was concerned that this could be related to stomach and prompted evaluation by PCP. Patient reports she is tolerating quadruple therapy well and has minimal nausea.? Patient had a colonoscopy in 10/2024 with 2 tubular adenomas removed from colon. Has never had an endoscopy.? Today denies dysphagia, odynophagia, early satiety, lower abdominal pain, belching, change in bowel habits, diarrhea, loose stools, constipation, bloating, melena, hematochezia, excessive flatus, ribbon like stools, vomiting, unintentional weight loss. No known family history of colon cancer. Has no known adverse reactions to anesthesia.? [facility] Medical History Murmur Asthma Chronic allergic rhinitis Hemoptysis Recurrent UTI H/O syphilis LGSIL (low grade squamous intraepithelial dysplasia) Overweight (BMI 25.0-29.9) Dermatitis Memory impairment Pure hypercholesterolemia Diabetes mellitus Surgical History History of colonoscopy History of arthroscopy of right shoulder Hx of tubal ligation History of hernia repair (~2001) Status post breast reduction (~2006) Family History Father Diabetes Mother Heart attack Brother No problems noted. Sister No problems noted. Son No problems noted. Son No problems noted. Son No problems noted. Daughter No problems noted. Daughter No problems noted. Social History Housing: Apartment Are you a primary tree care foreman to a significant other at home: No Do you presently have visiting nurse or other home services: No Alcohol intake: never Patient Tobacco Use Status: Never used Tobacco e-Cigarette/Vaping Use: Never Used Second Hand Smoke Exposure: No service: No Current occupational status: retired Cognitive needs: No Hearing needs: No Vision needs: Yes Review of Systems Const Denies weight gain and Denies weight loss ENT Reports no additional complaints, Denies dysphagia and Denies odynophagia Card Reports no additional complaints Resp Reports no additional complaints GI Denies abdominal pain, Denies belching, Denies melena, Denies bloating, Denies change in bowel habits, Denies dysphagia, Denies excessive flatus, Denies dyspepsia, Denies heartburn, Denies diarrhea, Denies loose stools, Denies nausea, Denies odynophagia and Denies vomiting Reports no additional complaints Musc Reports no additional complaints Neuro Reports no additional complaints Psych Reports no additional complaints Endo Reports no additional complaints Physical Exam Vital Signs: Last Vital Signs Pulse 68 02/01/25 10:33 BP 124/72 02/01/25 10:33 Pulse Ox 98 02/01/25 10:33 Oxygen Delivery Method Room Air 02/01/25 10:33 BMI result Body Mass Index 31.9 Const General: healthy appearing and no acute distress Nutritional Appearance: well nourished and obese Orientation/consciousness: patient oriented x3 Resp Effort & Inspection: normal respiratory effort, able to speak in complete sentences, no tracheal deviation and symmetric chest movement Auscultation: clear to auscultation bilaterally Cardio Rate: regular rate GI Inspection: Yes normal to inspection, No distended and Yes obesity Palpation (GI): Soft to palpation, not firm, nontender and No hepatosplenomegaly present Auscultation: normal bowel sounds General: Yes no CVA tenderness Back/Spine/Pelvis Back: no CVA tenderness Skin General skin exam: elasticity normal, turgor normal and dry skin Neuro General: patient oriented x3 Psych Appearance: grossly normal Mental Status: mental status grossly normal Assessment & Plan Assessment & Plan (1) Epigastric pain: Code(s): R10.13 - Epigastric pain Category: Medical (2) GERD (gastroesophageal reflux disease): Code(s): K21.9 - Gastro-esophageal reflux disease without esophagitis Category: Medical Qualifiers: Esophagitis presence: without esophagitis Qualified Code(s): K21.9 - Gastro-esophageal reflux disease without esophagitis (3) H. pylori infection: Code(s): A04.8 - Other specified bacterial intestinal infections Category: Medical Plan Offered antiemetic to assist with nausea with medications but patient declined today. Patient will follow up in 6 weeks for H pylori retest to ensure eradication of the bacteria. Patient counseled on stopping PPIs for 2 weeks prior. A prescription for famotidine 20mg BID PRN was sent if patient needs for additional symptoms. Patient will follow up for retest or sooner if needed. We will likely need to discuss endoscopy at next visit. Patient will follow-up in 6 weeks. She will call us if she will have any GI concerning symptoms. She is agreeable to this plan and verbalizes understanding of instructions. She was given the opportunity to ask questions and all questions answered. Thank you for allowing me to participate in her care Orders: Orders H Pylori Breath Test Today K21.9 - Gastro-esophageal reflux disease without esophagitis Medications: New famotidine (Pepcid) 20 mg PO BID 30 tabs 0RF K29.70 - Gastritis, unspecified, without bleeding Discontinued polyethylene glycol 3350 (Miralax) As directed by gastroenterology department at [facility] Discontinued Reason: Patient Completed Course 238 grams PO ONCE 238 grams 0RF Z12.11 - Encounter for screening for malignant neoplasm of colon omeprazole Discontinued Reason: Patient no longer taking 20 mg PO BID 14 days 28 caps 0RF R10.13 - Epigastric pain Coding Level of Care Code Est Pt Level 4 (05381) Complex EM visit Add On G2211 Diagnoses Epigastric pain R10.13 Gastroesophageal reflux disease without esophagitis K21.9 Esophagitis presence: without esophagitis H. pylori infection A04.8 Time Spent (min) 35 Comment 25 minutes spent with patient and additional 10 minutes spent reviewing her records
[2025-02-01 10:33] VITALS: BP 124/72; PULSE 68; O2SAT 98; BMI 31.9
--- OUTSIDE RECORDS SUMMARY | 2025-02-01 11:39 | XMS_ITS | Data Portability ---
Author Organization [facility], [facility] Address [address] [place] [address] Care Team Providers Care Editor Farm Journal Name Role Phone [email or web address] Primary Care Provider [phone] Assessment No assessment recorded. Plan of Treatment [...] Details Recorded Time Primary gonarthrosi s, bilateral [id number] Active 0[facility] [place] [facility] 4 08:36:48 Problem Notes None recorded. Procedures Surgical History Date Name Laterality Status Provider Name and Address Organization Details Recorded Time 4 Knee Kenalog 40 1cc Injection, Bilateral completed Rosi Napier PA-C [address], [place], [address], [facility] 04/30/2024 10:51:28 4 Knee Kenalog 40 1cc Injection, Bilateral completed Rosi Napier PA-C [address], [place], [address], [facility] 01/27/2024 10:28:40 4 Knee Kenalog 40 1cc Injection, Bilateral completed Rosi Napier PA-C [address], [place], [address], [facility] 10/20/2023 11:23:58 Imaging Results [...] Not Available Not Available Not Available Transderm-S endoscopy rn 1 mg over 3 days transdermal patch [...] Not Available No t Available nystatin Nystatin [id number] T/ML Suspensio n 01/26 completed Statu s: [...] Updated DateTime 10/20/2023 157.48 cm HORACIO ZENG [facility] 10/20/2023 10:52:28 Date Recorded Body height Body mass index (BMI) Body weight Provider Name and Address Organization Details Last Updated DateTime 01/27/2024 157.48 cm 32.6 kg/m2 82465.44 g [facility] 01/27/2024 10:11:10 Date Recorded Body height Body mass index (BMI) Body weight Provider Name and Address Organization Details Last Updated DateTime 04/30/2024 157.48 cm 32.6 kg/m2 81650.44 g [facility] 04/30/2024 10:21:04 Social History None recorded. Functional Status None recorded. Mental Status None recorded. Family History Nothing Reported. Medical History No medical history recorded. Gynecological HistoryNo gynecological history recorded. Obstetrics History GPAL:G 0 P 0 0 0 0 Past Encounters Encounter ID Performer Location Encounter Start Date Encounter Closed Date Diagnosis/Indication Diagnosis SNOMED-CT Code Diagnosis ICD10 Code Diagnosis IMO Codes Diagnosis Note [id number] Rosi Napier PA-C [place] [address] [place] [address] 10/20/2023 10:48:15 11/18/2023 15:24:48 Bilateral osteoarthritis of knees 1212685151 90846 M17.0 [id number] Rosi Napier PA-C [facility] [address] [place] [address] 01/27/2024 10:06:06 02/17/2024 15:13:59 Bilateral osteoarthritis of knees [id number] 10810 M17.0 [id number] Rosi Napier PA-C [place] [address] [place] [address] 04/30/2024 10:10:55 05/17/2024 15:24:28 Primary gonarthrosis, bilateral 921382520 M17.0 [id number] Health Concerns Section Related Observation LastModified by Organization Detai ls LastModified Time None Recorded Concern Status LastModified by Organization Details LastModified Time None Recorded Advance Directives Directive None Recorded Payers Insurance Date Sequence Insurance Name Policy Number Policy Goins Covered Member ID Goins Member ID Guarantor Name 04/30/2024 1 [facility] [employer] [employer] HEALTH [facility] [employer]AN (MEDICAID HMO) [place] Demi Blackburn [id number] Demi Blackburn 08/26/2024 2 [place] [employer] Demi Blackburn [id number] Demi Blackburn 08/26/2024 2 [place] [facility] Demi Blackburn [id number] eDmi Blackburn 08/26/2024 [place] - SPECIALITY CLAIMS (MEDICARE [facility]) Demi Blackburn [id number] Demi Blackburn 08/26/2024 2 [facility] [employer] PLAN - DETENTION OPTIONS - DUAL ELIGIBLE (MEDICARE-MED ICAID REPLACEMENT HMO) [id number] Demi Blackburn [id number] Demi Blackburn 08/26/2024 1 [place] [facility] Demi Blackburn [id number] Demi Blackburn Notes Date Note Type Note [...] as every 3 months. Rosi Napier PA-C [address] [place] [address] [address], [place], [address], [facility] 10/20/2023 11:24:13 01/27/2024 text/html I am seeing [...] as every 3 months. Rosi Napier PA-C [address] [place] [address] [address] [facility], [place], [address], [facility] [place] [facility] 01/27/2024 10:28:59 04/30/2024 text/html I am seeing [...] every 3 months. Rosi Napier PA-C [address] [facility] [address], [place], [address], [facility] [place] [facility] 04/30/2024 10:51:47 OBGyn Episode No OBEpisode recorded.
--- OUTSIDE RECORDS SUMMARY | 2025-02-01 11:39 | XMS_ITS | Clinical Summary ---
Author Organization [address] [place] [address] Address [address] [place] [address] Phone Care Team Providers Care Diesel Trailer Mechanic Name Role Phone Bob Santiago Primary Care [...] impairment 03/12/2024 Pure hypercholesterolemia 03/12/2024 Diabetes mellitus ([facility] V24, [facility] V28) 12/2023 Social History Tobacco Use Types [...] AM EDT Office Visit Orthopedic Surgery - [place] [address] [address] Mariusz Yin, MACIEJ [address] [address] Health Maintenance Due Date Last [...] - [place]IC[place] Care Teams Diesel Trailer Mechanic Relationship Specialty Start Date End Date Bob Santiago PA [address] [place] [phone] PCP - General 01/01/24
== END 2025-02-01 10:59 | disposition home or self-care (01) ==
LOC: HO.HGI 10:29
PROVIDERS: PCP Physician Assistant; Visit Provider Nurse Practitioner Family
DX: R10.13 Epigastric pain (principal); K21.9 Gastro-esophageal reflux disease without esophagitis; A04.8 Other specified bacterial intestinal infections
CPT/HCPCS: 99214; G2211

== ENCOUNTER → 2025-02-01 10:28 | Outpatient (BNVA) | payer OTHER, SELFPAY | PROVIDERS: PCP Physician Assistant; Visit Provider Nurse Practitioner Family | DX: R10.13 Epigastric pain (principal); K21.9 Gastro-esophageal reflux disease without esophagitis; B96.81 Helicobacter pylori [H. pylori] as the cause of diseases classified elsewhere | CPT/HCPCS: 99212 ==

== ENCOUNTER 2025-03-28 11:01 | Outpatient (AMB) | payer OTHER, SELFPAY ==
--- NOTE | 2025-03-28 11:26 | A.OFFPC_ITS ---
Vital Signs 03/28/25 11:27 Height 5 ft 3 in Weight 176 lb 8 oz BMI 31.3 BP 126/70 Blood Pressure Location Lt brachial Position Sitting Pulse 71 Pulse Source Pulse Oximeter Temp 97.1 F Temp Source Temporal Artery Scan Pulse Oximetry (%) 97 Oxygen Delivery Method Room Air Intake Visit Reasons: 4 mnth f/u Intake Note: Patient is here to follow up on DM, Lumbar radiculopathy, Asthma. Ingredient Scaler Helper Required: No Fruit Or Nut Farmworker: Not Required per policy Accompanied by: Self / Same As Patient Allergies No Known Allergies Allergy (Unknown, Verified 03/28/25 11:36) Medication List - Last Reconciled 03/28/25 by Bob Santiago PA-C acetaminophen ER (Tylenol Arthritis Pain) 650 mg PO Q12H 30 days albuterol sulfate 90 mcg/actuation 2 inhalations inhalation Q6H PRN 30 days atorvastatin 20 mg PO BEDTIME 90 days baclofen 10 mg PO BID 7 days bisacodyl (Dulcolax (bisacodyl)) 10 mg (2 x 5 mg) PO BEDTIME bismuth subsalicylate (Soothe (bismuth subsalicylate)) 262 mg PO QID 14 days blood sugar diagnostic (FreeStyle Lite Strips) USE 1 STRIP DAILY chlorhexidine gluconate 0.12% 15 mL buccal DAILY PRN 30 days clotrimazole 1% (Athlete's Foot (clotrimazole)) 1 appl topical DAILY 30 days duloxetine 30 mg PO DAILY 30 days escitalopram oxalate 20 mg PO DAILY 90 days Held on 07/27/24. Instructions: Doctor's Order famotidine (Pepcid) 20 mg PO BID lancets (FreeStyle Lancets) USE DAILY DIRECTED meclizine 25 mg PO BID PRN 15 days metronidazole 500 mg PO QID 14 days omeprazole 20 mg PO BID pantoprazole 20 mg PO DAILY 30 days pioglitazone 45 mg PO DAILY Held on 01/24/25. Instructions: Doctor's Order sitagliptin phosphate (Januvia) 25 mg PO DAILY 90 days Tobacco use date assessed: 03/28/25 Fall risk assessment: No Falls in past year Last assessed Fall Risk: 03/28/25 Dental Screening Dental Screen Date: 01/24/25 HPI 4 mnth f/u HPI Details Patient is a 64-year-old female here today for a follow-up visit.? Patient has a past medical history significant type 2 diabetes, generalized anxiety disorder hyperlipidemia, chronic left shoulder pain,? H pylori infection: Has been treated with a cocktail of medication, has upcoming appointment with Gastroenterology for breath testing. She does report still having some upper GI issues. .. Osteoarthritis: The patient has a history of arthritis in the knee, reporting that it becomes stiff during sleep, requiring manual movement to reposition the leg. A prior cortisone injection reportedly worsened the knee pain. The patient now describes morning stiffness and pain in the hands, which also require rubbing to alleviate. The patient has a history of long-term naproxen use, which was discontinued due to adverse effects. .. .. DMII: Most recent A1c acceptable. She has been making better dietary choices.. Sugars at home 120-170s . She reports her diet has been poor as of late. She continues on pioglitazone 45 mg and Januvia 25 mg.? She was unable to tolerate metformin due to GI side effects. .. [facility] Medical History Murmur Asthma Chronic allergic rhinitis Hemoptysis Recurrent UTI H/O syphilis LGSIL (low grade squamous intraepithelial dysplasia) Overweight (BMI 25.0-29.9) Dermatitis Memory impairment Pure hypercholesterolemia Diabetes mellitus Surgical History History of colonoscopy History of arthroscopy of right shoulder Hx of tubal ligation History of hernia repair (~2001) Status post breast reduction (~2006) Family History Father Diabetes Mother Heart attack Brother No problems noted. Sister No problems noted. Son No problems noted. Son No problems noted. Son No problems noted. Daughter No problems noted. Daughter No problems noted. Social History Housing: Apartment Are you a primary home health care coordinator to a significant other at home: No Do you presently have visiting nurse or other home services: No Alcohol intake: never Patient Tobacco Use Status: Never used Tobacco e-Cigarette/Vaping Use: Never Used Second Hand Smoke Exposure: No service: No Current occupational status: retired Cognitive needs: No Hearing needs: No Vision needs: Yes Questionnaire Thrive Questionnaire Date Thrive assessed: 07/27/24 I am a: Patient What is your living situation today?: I choose not to answer this question Within the past 12 months, did the food you bought not last and you didn't have the money to get more?: I choose not to answer this question Within the past 12 months, did you worry whether your food would run out before you got money to buy more?: I choose not to answer this question Do you have trouble paying for medicines?: No Do you have trouble getting transportation to medical appointments?: No Do you have trouble paying your heating and electricity bill?: I choose not to answer this question Do you have trouble taking care of your child, family member or friend?: No Do you have trouble with day-to-day activities such as bathing, preparing meals, shopping, managing finances, etc.?: I choose not to answer this question Are you currently unemployed and looking for a job?: No Are you interested in more education?: I choose not to answer this question Please select the resources that you would like help with: Job search/training Currently or been in a relationship where the following occur: I choose not to answer THRIVE Score: 0 MIKALA-7 AMB Questionnaire MIKALA-7 Date MIKALA - 7 assessed: 07/27/24 Source: Developed by Drs. Piotr James, Breonna East, Donaldo Barrios and colleagues, with an educational paddy from [employer] Review of Systems Const Denies headache(s) Eyes Denies loss of vision ENT Denies vertigo, Denies dizziness, Denies headache(s) and Denies sore throat Card Denies chest pain, Denies leg edema and Denies lightheadedness Resp Denies cough, Denies hemoptysis and Denies wheezing GI Denies abdominal pain, Denies melena, Denies constipation, Denies diarrhea and Denies vomiting Denies urinary frequency, Denies dysuria and Denies urinary urgency Musc Denies arthralgias, Denies joint swelling, Denies numbness and Denies tingling Neuro Denies Abnormal speech present, Denies behavioral changes, Denies vertigo, Denies dizziness, Denies headache(s), Denies loss of vision, Denies memory loss, Denies numbness and Denies tingling Psych Denies anxiety, Denies behavioral changes, Denies depression, Denies memory loss and Denies panic attacks Mitch/Lymph Denies easy bleeding and Denies easy bruising Aller/Immun Denies wheezing Physical exam (Primary Care) Vital Signs: Last Vital Signs Temp 97.1 F 03/28/25 11:27 Pulse 71 03/28/25 11:27 BP 126/70 03/28/25 11:27 Pulse Ox 97 03/28/25 11:27 Oxygen Delivery Method Room Air 03/28/25 11:27 BMI result Body Mass Index 31.3 Tobacco/Smoking Status: Tobacco use Status Tobacco use date assessed 03/28/25 03/28/25 11:29 Patient Tobacco Use Status Never used Tobacco 03/28/25 11:29 e-Cigarette/Vaping Use Never Used 03/28/25 11:29 Thrive Assessment: Date of Thrive Assessment Date Thrive assessed 07/27/24 03/28/25 11:29 Currently or been in a relationship where the following occur: I choose not to answer Const General: healthy appearing, no acute distress, alert and awake Nutritional Appearance: well nourished Orientation/consciousness: oriented to person, oriented to place and oriented to time HENMT Ears: TM's normal bilaterally General nose exam: Normal nasal mucous membranes and turbinates present Eyes Conjunctivae: conjunctivae normal Sclerae: sclerae normal Pupils: Equal, round and reactive pupils present Neck Neck: Yes no lymphadenopathy and Yes no JVD Thyroid: Thyroid normal Carotids: no bruits Resp Effort & Inspection: normal respiratory effort and not tachypneic Auscultation: no crackles, no rales, no rhonchi and no wheezes Cardio Rate: regular rate Rhythm: regular rhythm Heart sounds: no murmurs and normal S1 and S2 GI Palpation (GI): Soft to palpation, nontender, no hepatomegaly and no splenomegal y Auscultation: normal bowel sounds Skin General skin exam: no rashes or lesions noted and dry skin Neuro General: oriented to person, oriented to place and oriented to time Cranial nerves: Yes Equal, round and reactive pupils present Speech: No Abnormal speech present Gait exam (Neuro): Normal gait present Motor exam (neuro): no tremor noted Extrem Right upper extremity: full ROM Left upper extremity: full ROM Right lower extremity: full ROM; no edema Left lower extremity: full ROM; no edema Psych Mental Status: mental status grossly normal Speech and movement: Normal speech and movement present Affect: normal affect Attitude: cooperative Thought process: Normal thought process present Coding Level of Care Code Est Pt Level 4 (28653) Diagnoses Type 2 diabetes mellitus without complication, without long-term current use of insulin E11.9 Diabetes mellitus complication status: without complication Diabetes mellitus termite technician insulin use: without termite technician use Diabetes mellitus type: type 2 Pure hypercholesterolemia E78.00 H. pylori infection A04.8 Primary osteoarthritis of both hands M19.041; M19.042 Laterality: bilateral Osteoarthritis type: primary Chronic cough R05.3 Assessment & Plan Assessment & Plan (1) Diabetes mellitus: Code(s): E11.9 - Type 2 diabetes mellitus without complications Category: Medical Qualifiers: Diabetes mellitus complication status: without complication Diabetes mellitus termite technician insulin use: without [facility] use Diabetes mellitus type: type 2 Qualified Code(s): E11.9 - Type 2 diabetes mellitus without complications Plan: Patient's type 2 diabetes well controlled with current dose of antihyperglycemic medication. Goal A1c is to be below 7.0 (2) Pure hypercholesterolemia: Code(s): E78.00 - Pure hypercholesterolemia, unspecified Category: Medical Plan: Most recent lipid panel showing appropriate total cholesterol and LDL. She continues on atorvastatin 20 mg. Goal LDL is to remain below 100 (3) H. pylori infection: Code(s): A04.8 - Other specified bacterial intestinal infections Category: Medical Plan: In his finished treatment for H pylori. She reports her symptoms temporarily resolved while on treatment though now continues to have some upper GI issues. She has upcoming appointment with Gastroenterology tomorrow for a breath test to see if she eradicated the infection. (4) Osteoarthritis, hand: Code(s): M19.049 - Primary osteoarthritis, unspecified hand Category: Medical Qualifiers: Laterality: bilateral Osteoarthritis type: primary Qualified Code(s): M19.041 - Primary osteoarthritis, right hand; M19.042 - Primary osteoarthritis, left hand Plan: Patient reporting right base of thumb pain likely related to or see arthritis. Will supply patient with diclofenac 3% gel to use on a hand and wrist to reduce hand pain and stiffness. (5) Chronic cough: Comment: Likely upper airway cough syndrome, also may have a component of vocal cord dysfuction Code(s): R05.3 - Chronic cough Category: Medical Plan: For the seasonal cough, a prescription for cough syrup with codeine will be sent, as this was effective for the patient in the past. Orders: Orders Comprehensive [place]. Panel Fast 03/28/25 E11.9 - Type 2 diabetes mellitus without complications Complete Blood Count no Diff 03/28/25 E11.9 - Type 2 diabetes mellitus without complications Lipid Panel 03/28/25 E78.00 - Pure hypercholesterolemia, unspecified Hemoglobin A1c 03/28/25 E11.9 - Type 2 diabetes mellitus without complications Medications: New diclofenac sodium 3% (Solaraze) 1 appl topical BID 100 grams 1RF 4 weeks M19.041 - Primary osteoarthritis, right hand, M19.042 - Primary osteoarthritis, left hand codeine-guaifenesin 10-100 mg/5 mL 5 mL PO Q6H PRN 120 mL 0RF cough 5 days R05.9 - Cough, unspecified
[2025-03-28 11:27] VITALS: BP 126/70; PULSE 71; TEMP 36.2; O2SAT 97; BMI 31.3
--- OUTSIDE RECORDS SUMMARY | 2025-03-28 14:11 | XMS_ITS | Clinical Summary ---
Author Organization [address] [facility] Address [address] [place] [address] Phone Care Team Providers Care Museum Host/Hostess Name Role Phone Bob Santiago Primary Care [...] impairment 03/12/2024 Pure hypercholesterolemia 03/12/2024 Diabetes mellitus ([facility] V24, [facility] V28) 12/2023 Encounters Date Type Department Care Team Description 02/10/2025 10:45 AM EDT Office Visit Orthopedic Surgery [place] [address] [address] Mariusz Yin, DPM Acquired hallux valgus of left foot (Primary Dx); Acquired hallux valgus of right foot; Bursitis [...] Care Team (Late st Contact Info) Description 05/12/2025 10:30 AM EST Office Visit Orthopedic [facility] [address] [phone] Mariusz Yin, DPM 175 [facility] [address] [place] [phone] Health Maintenance Due Date Last Done Comments Breast Cancer Screening 1959 Colorectal Cancer Screening: Colonoscopy 1959 Diabetes: Annual GFR (Glomerular Filtration Rate) 1959 Diabetes: Annual Foot Exam 1969 Diabetes: Annual Retina Eye Exam 1969 DTaP,Tdap,and Td Vaccines (1 - Tdap) 1978 Cervical Cancer Screening: P ap Smear 1980 RSV Immunization Adult Patients (1 - Risk 50-74 years 1-dose series) 2009 Zoster Vaccines (1 of 2) 2009 Pneumococcal Vaccine: 50+ Years (2 of 2 - PCV) 06/08/2020 06/08/2019 Cholesterol Screening (Lipid Panel) 02/16/2024 Hepatitis C Screening 02/16/2024 Medicare Annual [...] - [place]ARE [place]ICARE Care Teams Museum Host/Hostess Relationship Specialty Start Date End Date Bob Santiago PA [address] [place] [phone] PCP - General 01/01/24
== END 2025-03-28 11:53 | disposition home or self-care (01) ==
LOC: HO.HMCH 11:03
PROVIDERS: PCP Physician Assistant; Visit Provider Physician Assistant
DX: E11.9 Type 2 diabetes mellitus without complications (principal); E78.00 Pure hypercholesterolemia, unspecified; A04.8 Other specified bacterial intestinal infections; M19.041 Primary osteoarthritis, right hand; M19.042 Primary osteoarthritis, left hand; R05.3 Chronic cough

== ENCOUNTER → 2025-03-28 11:01 | Outpatient (BNVA) | payer OTHER, SELFPAY | PROVIDERS: PCP Physician Assistant; Visit Provider Physician Assistant | DX: E11.9 Type 2 diabetes mellitus without complications (principal); E78.00 Pure hypercholesterolemia, unspecified; A04.8 Other specified bacterial intestinal infections; M19.041 Primary osteoarthritis, right hand; M19.042 Primary osteoarthritis, left hand; R05.3 Chronic cough | CPT/HCPCS: 99212 ==

== ENCOUNTER 2025-03-29 10:58 | Outpatient (REF) | payer OTHER, SELFPAY ==
--- OUTSIDE RECORDS SUMMARY | 2025-03-29 19:13 | XMS_ITS | Data Portability ---
Author Organization [facility], [facility] Address [address] [place] [address] Care Team Providers Care Application Processor Name Role Phone [email or web address] Primary Care Provider Assessment No assessment recorded. Plan of Treatment [...] Details Recorded Time Primary gonarthrosi s, bilateral [id number] [facility] 4 08:36:48 Problem Notes None recorded. Procedures Surgical History Date Name Laterality Status Provider Name and Address Organization Details Recorded Time 4 Knee Kenalog 40 1cc Injection, Bilateral completed Rosi Napier PA-C [address], [place], [address], [facility] 04/30/2024 10:51:28 4 Knee Kenalog 40 1cc Injection, Bilateral completed Rosi Napier PA-C [address], [place], [address], [facility] 01/27/2024 10:28:40 4 Knee Kenalog 40 1cc Injection, Bilateral completed Rosi Napier PA-C [address], [place], [address], [facility] 10/20/2023 11:23:58 Imaging Results [...] Not Available Not Available Not Available 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 transdermal patch [...] Not Available No t Available nystatin Nystatin [id number] T/ML Suspensio n 01/26 completed Statu s: [...] Updated DateTime 10/20/2023 157.48 cm HORACIO ZENG [facility] 10/20/2023 10:52:28 Date Recorded Body height Body mass index (BMI) Body weight Provider Name and Address Organization Details Last Updated DateTime 01/27/2024 157.48 cm 32.6 kg/m2 66831.44 g [facility] 01/27/2024 10:11:10 Date Recorded Body height Body mass index (BMI) Body weight Provider Name and Address Organization Details Last Updated DateTime 04/30/2024 157.48 cm 32.6 kg/m2 16192.44 g [facility] 04/30/2024 10:21:04 Social History None recorded. Functional Status None recorded. Mental Status None recorded. Family History Nothing Reported. Medical History No medical history recorded. Gynecological HistoryNo gynecological history recorded. Obstetrics History GPAL:G 0 P 0 0 0 0 Past Encounters Encounter ID Performer Location Encounter Start Date Encounter Closed Date Diagnosis/Indication Diagnosis SNOMED-CT Code Diagnosis ICD10 Code Diagnosis IMO Codes Diagnosis Note [id number] Rosi Napier PA-C [facility] [address] [place] [address] 10/20/2023 10:48:15 11/18/2023 15:24:48 Bilateral osteoarthritis of knees 0362749110 08474 M17.0 [id number] Rosi Napier PA-C [facility] [address] [place] [address] 01/27/2024 10:06:06 02/17/2024 15:13:59 Bilateral osteoarthritis of knees [id number] 14750 M17.0 [id number] Rosi Napier PA-C [facility] [address] [place] [address] 04/30/2024 10:10:55 05/17/2024 15:24:28 Primary gonarthrosis, bilateral 095597993 M17.0 [id number] Health Concerns Section Related Observation LastModified by Organization Detai ls LastModified Time None Recorded Concern Status LastModified by Organization Details LastModified Time None Recorded Advance Directives Directive None Recorded Payers Insurance Date Sequence Insurance Name Policy Number Policy Goins Covered Member ID Goins Member ID Guarantor Name 04/30/2024 1 [facility] HEALTH NET PLAN (MEDICAID HMO) TRAVONO Demi Blackburn [id number] Demi Blackburn 08/26/2024 2 [place] [employer] Demi Blackburn [id number] Demi Blackburn 08/26/2024 2 [place] [facility] Demi Blackburn [id number] Demi Blackburn 08/26/2024 [place] - SPECIALITY CLAIMS (MEDICARE [facility] A) Demi Blackburn [id number] Demi Blackburn 08/26/2024 2 [facility] Pub[employer] PLAN - LONGTERM OPTIONS - DUAL ELIGIBLE (MEDICARE-MED ICAID REPLACEMENT HMO) [id number] Demi Blackburn [id number] Demi Blackburn 08/26/2024 1 [place] [facility] Demi Blackburn [id number] Demi Blackburn Notes Date Note Type Note [...] as every 3 months. Rosi Napier PA-C [address] [place] [address] [address], [place], [address], [facility] 10/20/2023 11:24:13 01/27/2024 text/html I am [...] as every 3 months. Rosi Napier PA-C [address] [place] [address] [facility], [place], [address], [facility] 01/27/2024 10:28:59 04/30/2024 text/html I am [...] every 3 months. Rosi Napier PA-C [address] [facility] [address], [place], [address], [facility] 04/30/2024 10:51:47 OBGyn Episode No OBEpisode recorded.
== END 2025-03-29 10:59 | disposition home or self-care (01) ==
LOC: HO.LNP 10:58
PROVIDERS: PCP Physician Assistant; Visit Provider Nurse Practitioner Family
DX: K21.9 Gastro-esophageal reflux disease without esophagitis (principal); A04.8 Other specified bacterial intestinal infections; R19.6 Halitosis
CPT/HCPCS: 83013; 99212

== ENCOUNTER 2025-03-29 10:58 | Outpatient (AMB) | payer OTHER, SELFPAY ==
--- NOTE | 2025-03-29 11:00 | A.OFFVIS_ITS ---
Vital Signs 03/29/25 11:02 Height 5 ft 3 in Weight 176 lb BMI 31.2 BP 130/66 Blood Pressure Location Rt brachial Position Sitting Pulse 86 Pulse Source Pulse Oximeter Pulse Oximetry (%) 98 Oxygen Delivery Method Room Air Intake Visit Reasons: 6-8 wk FUV Intake Note: Est pt for GERD mgmt. Retesting s/p HP tx. CC: C/O intermittent GERD, nausea, and bitter taste in her mouth. She also reports that she stopped taking her abx about 1 mos ago and had about 4 tablets left. She stopped taking the abx because she felt a pounding sensation in her chest when she started taking the medications. Beverage Specialist Required: No Accompanied by: Self / Same As Patient Allergies No Known Allergies Allergy (Unknown, Verified 03/29/25 11:01) Medication List - Last Reconciled 03/29/25 by GOKUL Ashford- acetaminophen ER (Tylenol Arthritis Pain) 650 mg PO Q12H 30 days albuterol sulfate 90 mcg/actuation 2 inhalations inhalation Q6H PRN 30 days atorvastatin 20 mg PO BEDTIME 90 days baclofen 10 mg PO BID 7 days blood sugar diagnostic (FreeStyle Lite Strips) USE 1 STRIP DAILY chlorhexidine gluconate 0.12% 15 mL buccal DAILY PRN 30 days clotrimazole 1% (Athlete's Foot (clotrimazole)) 1 appl topical DAILY 30 days diclofenac sodium 3% (Solaraze) 1 appl topical BID 4 weeks duloxetine 30 mg PO DAILY 30 days escitalopram oxalate 20 mg PO DAILY 90 days Held on 07/27/24. Instructions: Doctor's Order lancets (FreeStyle Lancets) USE DAILY DIRECTED meclizine 25 mg PO BID PRN 15 days pioglitazone 45 mg PO DAILY Held on 01/24/25. Instructions: Doctor's Order sitagliptin phosphate (Januvia) 25 mg PO DAILY 90 days HPI HPI 6-8 wk FUV: Details: LAST VISIT Epigastric pain GERD (gastroesophageal reflux disease) H. pylori infection Plan Offered antiemetic to assist with nausea with medications but patient declined today. Patient will follow up in 6 weeks for H pylori retest to ensure eradication of the bacteria. Patient counseled on stopping PPIs for 2 weeks prior. A prescription for famotidine 20mg BID PRN was sent if patient needs for additional symptoms. Patient will follow up for retest or sooner if needed. We will likely need to discuss endoscopy at next visit. Patient will follow-up in 6 weeks. She will call us if she will have any GI concerning symptoms. She is agreeable to this plan and verbalizes understanding of instructions. She was given the opportunity to ask questions and all questions answered. ? Thank you for allowing me to participate in her care Orders H Pylori Breath Test Today K21.9 New famotidine (Pepcid) 20 mg PO BID 30 tabs 0RF K29.70 Discontinued polyethylene glycol 3350 (Miralax) As directed by gastroenterology department at [facility] Discontinued Reason: Patient Completed Course 238 grams PO ONCE 238 grams 0RF Z12.11 omeprazole Discontinued Reason: Patient no longer taking 20 mg PO BID 14 days 28 caps 0RF R10.13 TODAY'S VISIT Patient is here today for follow-up. Patient reports that she has been feeling little better, however she still has epigastric pain and occasional dyspepsia. Currently patient is not taking any PPI. She was diagnosed with H pylori and was taking quadruple therapy. Patient however reports that she was having palpitation and did not finish all of her treatment. Patient states that about 4 tablets was left total maybe day and a half of a treatment. Patient reports she continues to have frequent belching. Patient reports that she feels like she has a bad breath and has to take candy or chew gum. Today patient is chewing gum we will not be able to do H pylori breath test to then. Patient will be scheduled. Patient otherwise reports that she has been doing well. Reports that she is moving her bowels without any issues. Denies melena, hematochezia, unintentional weight loss or ribbon like stools. [facility] Medical History Murmur Asthma Chronic allergic rhinitis Hemoptysis Recurrent UTI H/O syphilis LGSIL (low grade squamous intraepithelial dysplasia) Overweight (BMI 25.0-29.9) Dermatitis Memory impairment Pure hypercholesterolemia Diabetes mellitus Surgical History History of colonoscopy History of arthroscopy of right shoulder Hx of tubal ligation History of hernia repair (~2001) Status post breast reduction (~2006) Family History Father Diabetes Mother Heart attack Brother No problems noted. Sister No problems noted. Son No problems noted. Son No problems noted. Son No problems noted. Daughter No problems noted. Daughter No problems noted. Social History Housing: Apartment Are you a primary caregivers non medical to a significant other at home: No Do you presently have visiting nurse or other home services: No Alcohol intake: never Patient Tobacco Use Status: Never used Tobacco e-Cigarette/Vaping Use: Never Used Second Hand Smoke Exposure: No service: No Current occupational status: retired Cognitive needs: No Hearing needs: No Vision needs: Yes Review of Systems Const Denies weight gain and Denies weight loss ENT Reports no additional complaints, Denies dysphagia and Denies odynophagia Card Reports no additional complaints Resp Reports no additional complaints GI Denies abdominal pain, Denies belching, Denies melena, Denies bloating, Denies change in bowel habits, Denies dysphagia, Denies excessive flatus, Denies dyspepsia, Denies heartburn, Denies diarrhea, Denies loose stools, Denies nausea, Denies odynophagia and Denies vomiting Reports no additional complaints Musc Reports no additional complaints Neuro Reports no additional complaints Psych Reports no additional complaints Endo Reports no additional complaints Physical Exam Vital Signs: Last Vital Signs Pulse 86 03/29/25 11:02 BP 130/66 03/29/25 11:02 Pulse Ox 98 03/29/25 11:02 Oxygen Delivery Method Room Air 03/29/25 11:02 BMI result Body Mass Index 31.2 Const General: healthy appearing and no acute distress Nutritional Appearance: well nourished and obese Orientation/consciousness: patient oriented x3 Resp Effort & Inspection: normal respiratory effort, able to speak in complete sentences, no tracheal deviation and symmetric chest movement Auscultation: clear to auscultation bilaterally Cardio Rate: regular rate GI Inspection: Yes normal to inspection, No distended and Yes obesity Palpation (GI): Soft to palpation, not firm, nontender and No hepatosplenomegaly present Auscultation: normal bowel sounds General: Yes no CVA tenderness Back/Spine/Pelvis Back: no CVA tenderness Skin General skin exam: elasticity normal, turgor normal and dry skin Neuro General: patient oriented x3 Psych Appearance: grossly normal Mental Status: mental status grossly normal Assessment & Plan Assessment & Plan (1) GERD (gastroesophageal reflux disease): Code(s): K21.9 - Gastro-esophageal reflux disease without esophagitis Category: Medical Qualifiers: Esophagitis presence: without esophagitis Qualified Code(s): K21.9 - Gastro-esophageal reflux disease without esophagitis (2) H. pylori infection: Code(s): A04.8 - Other specified bacterial intestinal infections Category: Medical (3) Epigastric pain: Code(s): R10.13 - Epigastric pain Category: Medical (4) Halitosis: Code(s): R19.6 - Halitosis Category: Medical Plan Patient reports severe belching and continues to have reflux. She will start taking pantoprazole. Patient will return for H pylori testing and will hold the pantoprazole to after testing. Patient will be treated empirically if positive. She was unable to finish all of her treatment. On patient will be sent for barium swallow as well to evaluate for reflux. Discussed with patient avoiding dietary triggers and late night snacking. Staying upright for minimum 3 hours after meals discussed with patient. Patient will return to the office in 3 months. She was encouraged to call us if she will have a any other GI concerning symptoms. Patient is agreeable to this plan and verbalizes understanding of instructions. She was given the opportunity to ask questions and all questions answered. Thank you for allowing me to participate in her care Orders: Orders FL barium swallow Today R13.10 - Dysphagia, unspecified H Pylori Breath Test Today K21.9 - Gastro-esophageal reflux disease without esophagitis Medications: New pantoprazole take one tablet half an hour before breakfast 40 mg PO DAILY 30 tabs 3RF K21.9 - Gastro-esophageal reflux disease without esophagitis Discontinued pantoprazole Discontinued Reason: Patient no longer taking 20 mg PO DAILY 30 days 30 tabs 1RF K21.9 - Gastro-esophageal reflux disease without esophagitis bismuth subsalicylate (Soothe (bismuth subsalicylate)) Discontinued Reason: Patient Completed Course 262 mg PO QID 14 days 56 tabs 0RF A04.8 - Other specified bacterial intestinal infections, R10.13 - Epigastric pain metronidazole Discontinued Reason: Patient Completed Course 500 mg PO QID 14 days 56 tabs 0RF A04.8 - Other specified bacterial intestinal infections, R10.13 - Epigastric pain Coding Level of Care Code Complex visit Add On G2211 Diagnoses Gastroesophageal reflux disease without esophagitis K21.9 Esophagitis presence: without esophagitis H. pylori infection A04.8 Epigastric pain R10.13 Halitosis R19.6 Time Spent (min) 35 Comment 25 minutes spent with patient and additional 10 minutes spent reviewing her records
[2025-03-29 11:02] VITALS: BP 130/66; PULSE 86; O2SAT 98; BMI 31.2
--- OUTSIDE RECORDS SUMMARY | 2025-03-29 14:23 | XMS_ITS | Clinical Summary ---
Author Organization [address] [facility] Address [address] [place] [address] Phone Care Team Providers Care Plant Operations Coordinator Name Role Phone Bob Santiago Primary Care [...] impairment 03/12/2024 Pure hypercholesterolemia 03/12/2024 Diabetes mellitus ([facility] V24, [facility] V28) 12/2023 Encounters Date Type Department Care Team Description 02/10/2025 10:45 AM EDT Office Visit Orthopedic Surgery [place] [address] [address] Mariusz Yin, DPM Acquired hallux valgus of [...] 05/12/2025 10:30 AM EST Office Visit Orthopedic [facility] [address] [phone] Mariusz Yin, DPM 175 [facility] [address] [place] [phone] Health Maintenance Due Date Last Done Comments [...] - [place] [employer] [place] Care Teams Plant Operations Coordinator Relationship Specialty Start Date End Date Bob Santiago PA [address] [place] [phone] PCP - General 01/01/24
== END 2025-03-29 11:50 | disposition home or self-care (01) ==
LOC: HO.HGI 10:58
PROVIDERS: PCP Physician Assistant; Visit Provider Nurse Practitioner Family
DX: K21.9 Gastro-esophageal reflux disease without esophagitis (principal); A04.8 Other specified bacterial intestinal infections; R10.13 Epigastric pain; R19.6 Halitosis
CPT/HCPCS: 99214; G2211

== ENCOUNTER 2025-04-05 10:38 | Outpatient (REF) | payer OTHER, SELFPAY ==
--- NOTE | ~2025-04-05 | FL_ITS ---
EXAMINATION: XR FLUOROSCOPY BARIUM SWALLOW WITH AIR CLINICAL INFORMATION: Heartburn and reflux-type symptoms. Bad taste in mouth. COMPARISON: No prior. TECHNIQUE: Fluoroscopic air contrast barium swallow examination was performed utilizing standard techniques with thin and thick barium and effervescent granules. Numerous spot images were obtained. Several fluoroscopic image hold cine sequences were also obtained. FINDINGS: BARIUM SWALLOW: Lateral cine images of the oropharynx and hypopharynx demonstrate normal swallow mechanism with normal epiglottic inversion and soft palate elevation. No laryngeal penetration, glottic or subglottic aspiration identified. Hypopharyngeal structures appear normal without evidence of mass or diverticulum. There was no significant cricopharyngeal achalasia. Dual and single contrast images of the esophagus demonstrate normal caliber, contour, and mucosal pattern. No evidence of stricture, mass, or ulcerations identified. Esophageal peristalsis was mildly disordered. Feline type contraction pattern, in keeping with chronic reflux. There is a tiny type I hiatus hernia present. There was significant spontaneous gastroesophageal reflux noted during the exam to the level of the thoracic inlet. Dual contrast and single contrast images of the stomach demonstrated normal contour without evidence of mass, or ulceration. There was diffuse mild thickening of the area gastricae, suggesting gastritis. Normal gastric rugal fold pattern. Contrast freely passed into the gastric antrum and duodenal bulb without delay. FLUOROSCOPY TIME: 3 minutes, 23 seconds Number of Spot Images:10 Number of cines obtained: 15 DOSE AREA PRODUCT: 3181 uGy-m2 (microgray-meter squared) FL/FL barium swallow with air IMPRESSION: 1. Mildly disordered esophageal peristalsis. Feline type contraction pattern in keeping with chronic reflux. 2. Significant spontaneous gastroesophageal reflux noted to the level of the thoracic inlet. 3. Tiny type I hiatus hernia. 4. Diffuse mild thickening of the gastric areae gastricae, suggesting gastritis. Stomach otherwise normal. Electronically signed by: Magdaleno Diamond MD 04/05/2025 12:19 PM [facility]
--- OUTSIDE RECORDS SUMMARY | 2025-04-05 12:23 | XMS_ITS | Clinical Summary ---
Author Organization [address] [place] [address] Address [address] [place] [address] Phone Care Team Providers Care Bight Maker Name Role Phone Bob Santiago Primary [...] impairment 03/12/2024 Pure hypercholesterolemia 03/12/2024 Diabetes mellitus ([facility] V24, [facility] V28) 12/2023 Encounters Date Type Department Care Team Description 02/10/2025 10:45 AM EDT Office Visit Orthopedic Surgery [place] [address] [address] Mariusz Yin, DPM Acquired hallux valgus of [...] 05/12/2025 10:30 AM EST Office Visit Orthopedic [facility] [address] [phone] Mariusz Yin, DPM [address] [facility] [address] [place] [phone] Health Maintenance Due Date Last Done Comments [...] - [place] [employer] [place] Care Teams Bight Maker Relationship Specialty Start Date End Date Bob Santiago PA [address] [place] [phone] PCP - General 01/01/24
== END 2025-04-05 10:39 | disposition home or self-care (01) ==
LOC: HO.XRAY 10:38
PROVIDERS: PCP Physician Assistant; Visit Provider Nurse Practitioner Family
DX: R13.10 Dysphagia, unspecified (principal)
CPT/HCPCS: 74221

== ENCOUNTER → 2025-04-05 10:42 | Outpatient (BNV) | payer OTHER, SELFPAY | PROVIDERS: PCP Physician Assistant; Visit Provider Radiology Diagnostic Radiology | DX: K21.9 Gastro-esophageal reflux disease without esophagitis (principal); K44.9 Diaphragmatic hernia without obstruction or gangrene | CPT/HCPCS: 74221 ==